=== PATIENT | male | born 1970 | race Two or more races ===

== ENCOUNTER 2024-08-01 02:24 | Inpatient (IN) | payer MEDICAID, SELFPAY ==
[2024-08-01] VITALS (13 sets, daily range): BP systolic 104–157; BP diastolic 67–107; PULSE 79–112; RESP 16–94; TEMP 36.4–36.9; O2SAT 95–97; BMI 38.0
--- NOTE | 2024-08-01 02:49 | XR_ITS ---
Examination: PA chest single view Technique: Upright PA chest single view Exam date and time: August 01, 2023 0301 hrs. Comparison July 14, 2024 Indications: Onset SOB today. Findings: Mild heart failure Mild enlargement cardiac contour Prominent vascular congestion Early septal edema at the lung bases Suspicious for superimposed early pneumonia right base The osseous structures are intact Impression: Mild heart failure Suspicious for superimposed early pneumonia right base
--- NOTE | 2024-08-01 02:49 | EDNOTE_ITS ---
ED General RME/HPI General Chief complaint: Shortness of Breath/Dyspnea Stated complaint: SOB Time Seen by Provider: 08/01/24 02:44 Arrival date/time: 08/01/24 02:24 RME / HPI RME / HPI narrative: This section includes all my notes and documentations, including HPI, PE, and ED course. Lc Hillman MD HPI: 54yo male with pmhx CHF, HTN, alcohol and drug abuse, anxiety presents to the ED for a chief complaint of shortness of breath. Patient does not specify for how long he's had shortness of breath. Patient states I'm fucking crazy and have full blown alcohol and drug abuse, I do it all . He states he smokes and chews tobacco. Reports associated chest pain. He denies any cough, SI, HI or any other associated symptoms. Patient notes I have been sleeping under a tree for the last 10 months . Patient has not been compliant with his medications. No other complaints reported. ROS: Respiratory: negative except as documented in HPI. Gastrointestinal: negative except as documented in HPI. Genitourinary: negative except as documented in HPI. Musculoskeletal: negative except as documented in HPI. Skin: negative except as documented in HPI. Neurological: negative except as documented in HPI. Physical Exam: General: Alert and oriented. No acute distress. Eyes: Conjunctivae and lids clear. ENT: No nasal congestion. Neck: Supple. No JVD. Heart: RRR. Lungs: No respiratory distress. Moderately decreased air movement. No significant rhonchi, wheezing, rales. Chest: No tenderness. Abdomen: Soft and nontender. Legs: No clubbing, cyanosis, edema. Skin: Warm and dry. Neuro: Alert and oriented X 3. I reviewed all diagnostic test results. My interpretation of the EKG is sinus rhythm with nonspecific ST-T changes. Blood tests remarkable for elevated troponin and elevated BNP. At this point, diagnoses include CHF and elevated troponin. I discussed the case with our hospitalist. About the presentation and exam and diagnostics and treatments here. And need of further care in the hospital. Will accept the patient. Lc Hillman MD Related Data Previous Rx's ?Medication ?Instructions ?Recorded amlodipine 5 mg tablet 10 mg (2 x 5 mg) PO QDAY #60 tabs 09/15/23 losartan 25 mg tablet 25 mg PO QDAY #30 tabs 09/15/23 doxycycline monohydrate 100 mg 100 mg PO BID #10 caps 05/17/24 capsule Allergies Allergy/AdvReac Type Severity Reaction Status Date / Time No Known Allergies Allergy Verified 09/14/23 04:48 Review of Systems Review of Systems Systems Reviewed: All systems reviewed, normal except as documented Past Medical History Past Medical History CARDIAC: Positive Cardiac Disorders and Hypertension; Negative Congestive Heart Failure RESPIRATORY: Negative Chronic Obstructive Pulmonary Disease (COPD) GENITOURINARY: Positive Kidney Stones; Negative Renal Disease ENDOCRINE: Negative Diabetes Mellitus Type 1 or Diabetes Mellitus Type 2 PSYCHO/SOCIAL: Positive Depression and Anxiety Social History SMOKING STATUS: Current every day smoker SUBSTANCE USE: does not use ED Exam Narrative Physical exam: As noted in HPI. Course Course Course Narrative: CXR is ordered for determining the etiology of chest pain. Quality Measures none Orders Category Date Time Status Admit to Inpatient Status Routine Admission 08/01/24 05:20 Active Patient Condition Routine Admission 08/01/24 05:20 Ordered Activity as Tolerated Routine Care 08/01/24 05:20 Ordered Bedside COVID-19 Antigen Test NOW Care 08/01/24 05:14 Active COVID-19 Screening Questionnaire NOW Care 08/01/24 05:05 Active Continuous Pulse Oximetry NOW Care 08/01/24 05:20 Active Decision to Admit X1 Care 08/01/24 05:05 Active EKG (ED ONLY) *Do not use* NOW Care 08/01/24 02:50 Completed Notify provider NEEDED Care 08/01/24 05:20 Active Obtain weight daily Care 08/01/24 05:20 Active Consult to Cardiology Stat Cons 08/01/24 05:27 Ordered Diet Cardiac Diet 08/01/24 Breakfast Active CA echo doppler complete Routine Exams 08/01/24 05:24 Ordered EKG (ED Only) Stat Exams 08/01/24 02:50 Draft XR chest 1V portable Stat Exams 08/01/24 02:49 Taken Alcohol, Blood Medical Stat Lab 08/01/24 03:17 Completed BNP [B-Type Natriuretic Peptide] Stat Lab 08/01/24 03:17 Completed CBC AM DRAW Lab 08/02/24 05:00 Ordered CBC AM DRAW Lab 08/03/24 05:00 Ordered CBC AM DRAW Lab 08/04/24 05:00 Ordered CBC Stat Lab 08/01/24 03:17 Completed CMP [Comprehensive Metabolic Panel] Stat Lab 08/01/24 03:17 Completed Comprehensive Metabolic Panel AM DRAW Lab 08/02/24 05:00 Ordered Comprehensive Metabolic Panel AM DRAW Lab 08/03/24 05:00 Ordered Comprehensive Metabolic Panel AM DRAW Lab 08/04/24 05:00 Ordered Drug Screen,Urine Stat Lab 08/01/24 02:50 Ordered Lipid Panel AM DRAW Lab 08/02/24 05:00 Ordered Magnesium AM DRAW Lab 08/02/24 05:00 Ordered Magnesium Stat Lab 08/01/24 03:17 Completed Partial Thromboplastin Time AM DRAW Lab 08/02/24 05:00 Ordered Phosphorous AM DRAW Lab 08/02/24 05:00 Ordered Prothrombin Time with INR AM DRAW Lab 08/02/24 05:00 Ordered Thyroid Stimulating Hormone Routine Lab 08/02/24 05:23 Ordered Troponin I Q6H Lab 08/01/24 10:00 Ordered Troponin I Q6H Lab 08/01/24 16:00 Ordered Troponin I Stat Lab 08/01/24 03:17 Completed Troponin I Stat Lab 08/01/24 04:55 Received Acetaminophen Tab [Tylenol Tab] Med 08/01/24 05:20 Active 650 mg PO Q6H PRN Aspirin Med 08/01/24 05:25 Discontinued 325 mg PO X1 ONE Atorvastatin Calcium [Lipitor] Med 08/01/24 05:26 Discontinued 80 mg PO X1 ONE Heparin Inj Med 08/01/24 06:00 Ordered 5,000 unit SC Q8HR Morphine Inj Med 08/01/24 05:20 Active 2 mg IVP Q4H PRN Nitroglycerin [Nitro-dur Patch] Med 08/01/24 05:26 Discontinued 0.4 mg TOP X1 ONE Ondansetron Inj [Zofran Inj] Med 08/01/24 05:20 Ordered 4 mg IV Q6H PRN Pantoprazole [Protonix] Med 08/01/24 09:00 Ordered 40 mg PO QDAY Thiamine Inj [Vitamin B-1 Inj] Med 08/01/24 05:34 Discontinued 100 mg IM X1 ONE Code Status Routine Oth 08/01/24 05:20 Ordered Oxygen Delivery PRN RT 08/01/24 05:20 Active Vital Signs Vital signs: Vital Signs Temperature 98.4 F 08/01/24 02:36 Pulse Rate 102 H 08/01/24 02:36 Respiratory Rate 19 08/01/24 02:36 Blood Pressure 138/97 H 08/01/24 02:36 Pulse Oximetry (%) 96 08/01/24 02:36 Oxygen Delivery Method Room Air 08/01/24 02:36 Pulse ox is 96% on room air, which is normal according to my interpretation. [facility] Patient data External records reviewed:: [facility] previous records (Per chart review, patient was seen here on 07/14/24 for chest pain.) Clinical information provided by:: patient Social determinants that could affect healthcare access:: substance use (smokes/chews tobacco, drinks alcohol and uses illicit drugs persistently per pt) Patient has the following chronic illnesses:: CHF, HTN, anxiety How is presenting disease/condition affected by chronic disease/condition?: e xacerbated by Evaluation data The following diagnostics were reviewed and interpreted by me:: lab results, radiology exam(s) and EKG tracing(s) (My interpretation of the EKG is: Sinus rhythm (99 bpm) with nonspecific ST-T changes. Lc Hillman MD) Lab and/or radiology exams considered but not ordered:: none Interpretation Summary: See HPI. Medications Medications considered but not ordered:: none Medication administrations:: Medication Administration History Acetaminophen (Acetaminophen 325 Mg Tablet) 650 mg PO Q6H PRN PRN Reason: Fever >101.5 Stop: 08/31/24 05:19 Heparin Sodium (Porcine) (Heparin Sod Inj 5000 Unit/Ml Vial) 5,000 unit SC Q8HR [facility] Stop: 08/15/24 05:59 Morphine Sulfate (Morphine Sulf Inj 10 Mg/Ml Vial) 2 mg IVP Q4H PRN PRN Reason: PAIN SCALE 7-10 (Severe Stop: 08/06/24 05:19 Ondansetron HCl (Ondansetron Inj 2 Mg/Ml Inj 2 Ml) 4 mg IV Q6H PRN; Protocol PRN Reason: NAUSEA OR VOMITING Stop: 08/31/24 05:19 Pantoprazole Sodium (Pantoprazole 40 Mg Tablet) 40 mg PO QDAY [facility] Stop: 08/31/24 08:59 Discontinued Medications Aspirin (Aspirin 325 Mg Tablet) 325 mg PO X1 ONE Stop: 08/01/24 05:26 Atorvastatin Calcium (Atorvastatin Calcium 20 Mg Tablet) 80 mg PO X1 ONE Stop: 08/01/24 05:27 Nitroglycerin (Nitroglycerin 0.4 Mg/Hr Patch.Td24) 0.4 mg TOP X1 ONE Stop: 08/01/24 05:27 Thiamine HCl (Thiamine Inj 100 Mg/Ml Vial 2 Ml) 100 mg IM X1 ONE Stop: 08/01/24 05:35 see above, if any Consultations Consultation(s) initiated? (list below): Yes Consultation #1 (Physician, Specialty, Details): See HPI. Diagnosis Differential Diagnosis ED Complaint MDM: CHF exacerbation, drug intoxication, alcohol intoxication, PE, pneumonia Most likely diagnosis given after review of the tests above:: see below Admission Indicated Admission indicated?: indicated Explain why admission is indicated or not indicated:: See HPI. Admission Request Was there a request for admission?: Yes Admission Attestation Admission request attestation: Discussed case with [] from Hospitalist service regarding admission. Discussed patients ED course, exam findings, labs, and radiology results. The Hospitalist [agrees,declines] to accept the patient for admission. Disposition Plan Disposition Plan: Admit Medical Decision Making Differential Diagnosis Differential Diagnosis: CHF exacerbation, drug intoxication, alcohol intoxication, PE, pneumonia Lab Data 08/01/24 03:17 08/01/24 03:17 Labs: Lab Results 08/01/24 Range/Units 03:17 WBC 10.2 (3.8-10.6) Thou/mm3 RBC 4.84 (4.50-5.90) Miln/mm3 Hgb 15.2 (13.5-16.0) g/dL Hct 44.1 (41.0-53.0) % MCV 91 (80-100) fL MCH 31.4 (25.0-35.0) pg MCHC 34.5 (31.0-37.0) g/dl RDW Std Deviation 46.1 H (35.1-43.9) fL Plt Count 273 (140-440) Thou/mm3 Neut % (Auto) 60 (37-80) % Lymph % (Auto) 29 (10-50) % [place] % (Auto) 8 (0-12) % Eos % (Auto) 3 (0-10) % Baso % (Auto) 0 (0-2.5) % Neut # (Auto) 6.1 (1.8-7.7) Thou/mm3 Lymph # (Auto) 2.9 (1.0-4.8) Thou/mm3 [place] # (Auto) 0.8 (0.0-0.8) Thou/mm3 Eos # (Auto) 0.3 (0.0-0.5) Thou/mm3 Baso # (Auto) 0.0 (0.0-0.2) Thou/mm3 Immature Gran # (Auto) 0.02 H (0.00-0.00) Thou/mm3 Absolute Nucleated RBC 0.00 (0.00-0.00) Thou/mm3 Immature Gran % 0 (0-0) % Nucleated RBC % 0 (0) /100 WBC Sodium 139 (136-145) mMol/L Potassium 3.9 (3.4-5.1) mMol/L Chloride 108 H (98-107) mMol/L Carbon Dioxide 25.8 (20.0-31.0) mMol/L Anion Gap 5 L (7-16) BUN 13 (9-23) mg/dL Creatinine 1.0 (0.6-1.3) mg/dL Estim Creat Clear Calc 105.6 (>60) mL/min eGFR > 60 (60 - ) See Note BUN/Creatinine Ratio 13 (12-20) Ratio Glucose 110 H (74-106) mg/dL Calculated Osmolality 278 (275-295) Calcium 8.7 (8.3-10.6) mg/dL Corrected Calcium 8.7 (8.5-10.1) mg/dL Magnesium 2.0 (1.6-2.6) mg/dL Total Bilirubin 0.8 (0.3-1.2) mg/dL AST 48 H (0-34) U/L ALT 49 (10-49) U/L Alkaline Phosphatase 72 (46-116) U/L Troponin I 0.287 H* (0.0-0.045) ng/mL B-Natriuretic Peptide 368 H (0-100) pg/mL Total Protein 6.6 (5.7-8.2) gm/dL Albumin 4.0 (3.5-5.0) gm/dL Globulin 2.6 (2.3-3.5) gm/dL Albumin/Globulin Ratio 1.5 (1.2-2.2) Ethyl Alcohol < 3.0 (0-10.0) mg/dL Discharge Plan Plan Patient Disposition: Admit Acute Care w/in Hospital Prescriptions/Referrals Prescriptions/Med Rec: No Action amlodipine 5 mg Tablet 10 mg PO QDAY Qty: 60 2RF losartan 25 mg Tablet 25 mg PO QDAY Qty: 30 2RF doxycycline monohydrate 100 mg capsule 100 mg PO BID Qty: 10 0RF Problem List Clinical Impression: Chest pain, Elevated troponin, CHF (congestive heart failure) Patient/Caregiver Discharge Instructions Print Language: [place] Stand Alone Forms: Colleen Award Info., Patient Portal Info Letter
--- NOTE | 2024-08-01 02:50 | EKG_ITS ---
[facility] Test Date: 2024-08-01 Pat Name: JULIA MORAN Department: Room: - Gender: Male [employer]er: : 1970 Requested By: Lc Leon Order Number: [id number] Reading MD: Lc Leon Measurements Intervals [place] Rate: 99 P: 38 DC: 156 QRS: -54 QRSD: 89 T: 64 QT: 356 QTc: 457 Interpretive Statements SINUS RHYTHM LEFT ANTERIOR FASCICULAR BLOCK [QRS AXIS <= -45, QR IN I, RS IN II] MINIMAL VOLTAGE CRITERIA FOR LVH, CONSIDER NORMAL VARIANT [MEETS CRITERIA IN ONE OF: R(aVL), S(V1), R(V5), R(V5/V6)+S(V1)] POSSIBLE ANTERIOR MYOCARDIAL INFARCTION , OF INDETERMINATE AGE [30 ms Q WAVE IN V3/V4, OR R < 0.2 mV IN V4] Compared to ECG 07/14/2024 17:02:09 Left anterior fascicular block now present Myocardial infarct finding now present Left-axis deviation no longer present T-wave abnormality no longer present /store/S0/[id number]/ecg/[id number].pdf
[2024-08-01 03:37] LABS: Basophils % (Auto) 0 % (0-2.5); Eosinophils # (Auto) 0.3 Thou/mm3 (0.0-0.5); Eosinophils % (Auto) 3 % (0-10); Hematocrit 44.1 % (41.0-53.0); Hemoglobin 15.2 g/dL (13.5-16.0); Immature Granulocytes % (Auto) 0 % (0-0); Immature Granulocytes Auto 0.02 Thou/mm3 (0.00-0.00); Lymphocytes # (Auto) 2.9 Thou/mm3 (1.0-4.8); Lymphocytes % (Auto) 29 % (10-50); Mean Corpuscular HGB Conc 34.5 g/dl (31.0-37.0); Mean Corpuscular Hemoglobin 31.4 pg (25.0-35.0); Mean Corpuscular Volume 91 fL (80-100); Monocytes # (Auto) 0.8 Thou/mm3 (0.0-0.8); Monocytes % (Auto) 8 % (0-12); Neutrophils # (Auto) 6.1 Thou/mm3 (1.8-7.7); Neutrophils % (Auto) 60 % (37-80); Nucleated Red Blood Cell % 0 /100 WBC (0); Platelet Count 273 Thou/mm3 (140-440); RDW Standard Deviation 46.1 fL (35.1-43.9); Red Blood Count 4.84 Miln/mm3 (4.50-5.90); White Blood Count 10.2 Thou/mm3 (3.8-10.6)
[2024-08-01 03:59] LABS: B-Type Natriuretic Peptide 368 pg/mL (0-100)
[2024-08-01 04:04] LABS: Alanine Aminotransferase 49 U/L (10-49); Albumin/Globulin Ratio 1.5 (1.2-2.2); Alcohol, Blood Medical < 3.0 mg/dL (0-10.0); Alkaline Phosphatase 72 U/L (46-116); Anion Gap 5 (7-16); Aspartate Amino Transferase 48 U/L (0-34); BUN/Creatinine Ratio 13 Ratio (12-20); Bilirubin,Total 0.8 mg/dL (0.3-1.2); Blood Urea Nitrogen 13 mg/dL (9-23); Calcium 8.7 mg/dL (8.3-10.6); Calcium (Corrected) 8.7 mg/dL (8.5-10.1); Carbon Dioxide 25.8 mMol/L (20.0-31.0); Chloride 108 mMol/L (98-107); Estimated Creatinine Clearance 105.6 mL/min (>60); Globulin 2.6 gm/dL (2.3-3.5); Glucose 110 mg/dL (74-106); Osmolality,Calculated 278 (275-295); Potassium 3.9 mMol/L (3.4-5.1); Sodium 139 mMol/L (136-145); Total Protein 6.6 gm/dL (5.7-8.2); eGFR > 60 See Note
[2024-08-01 04:10] LABS: Troponin I 0.287 ng/mL (0.0-0.045)
--- NOTE | 2024-08-01 05:29 | ESHP_ITS ---
Documentation for date of: 08/01/24 HPI History of Present Illness History of present illness: 54-year-old homeless male patient with significant medical history for CHF, hypertension, anxiety, alcohol and drug abuse came to ED for chest pain and chills. Patient is a poor historian who states he was sleeping under a tree when he started having severe substernal chest pain. Patient states that he was recently admitted at [facility] where he was found to have a EF of 31% and needed further procedures but patient left AMA. Patient was most recently admitted [facility] September 2023 for hypertensive urgency, since then has had multiple ED visits for chest pain. Patient states that he has been sniffing the white stuff and drinking alcohol for the last few days. ED vitals significant for BP 138/97 and pulse of 102. CBC was unremarkable, CHEM labs significant for glucose 110, AST 48, BNP 368, troponin 0.28 and ethyl alcohol < 3. EKG indicated sinus rhythm with VR of 99, WI 156, QTc 457 with left anterior fascicular block. CXR indicative of vascular congestion. Patient will be admitted to telemetry for observation. Review of Systems Review of Systems ROS Unobtainable: unobtainable due to mental status Exam Vital Signs Temp Pulse Resp BP Pulse Ox O2 Del Method 98.0 F 102 H 16 150/101 H 96 Room Air 08/01/24 05:05 08/01/24 02:36 08/01/24 05:05 08/01/24 05:05 08/01/24 05:05 08/01/24 05:05 Narrative Exam Constitutional: well-developed, well-nourished, in mild distress, lying in bed HEENT: NCAT, EOMI, reactive round pupils b/l, patent nares b/l, moist mucous membranes Lung: CTAB, no wheezing, no rhonchi Heart: Regular S1S2, no murmurs, gallops, or rubs Abdomen: Soft, obese, non-tender, bowel sounds present Extremities: No cyanosis, clubbing, 1-2+ pitting edema of LE, pulses of LE present b/l Neurologic: AOx2, rest unable to perform due to patient's mental status Skin: Warm, dry, no lesions or rashes noted Results: Labs 08/01/24 03:17 08/01/24 03:17 Labs: Short CBC 08/01/24 Range/Units 03:17 WBC 10.2 (3.8-10.6) Thou/mm3 Hgb 15.2 (13.5-16.0) g/dL Hct 44.1 (41.0-53.0) % Plt Count 273 (140-440) Thou/mm3 BMP 08/01/24 03:17 Sodium 139 Potassium 3.9 Chloride 108 H Carbon Dioxide 25.8 BUN 13 Creatinine 1.0 Glucose 110 H Calcium 8.7 Cardiac Enzymes 08/01/24 Range/Units 03:17 Troponin I 0.287 H* (0.0-0.045) ng/mL Liver Function 08/01/24 Range/Units 03:17 Total Bilirubin 0.8 (0.3-1.2) mg/dL AST 48 H (0-34) U/L ALT 49 (10-49) U/L Alkaline Phosphatase 72 (46-116) U/L Albumin 4.0 (3.5-5.0) gm/dL Quality Measures Quality Measures none Medications Home Medications and Allergies Allergies Allergy/AdvReac Type Severity Reaction Status Date / Time No Known Allergies Allergy Verified 09/14/23 04:48 Visit Medications Acetaminophen (Acetaminophen 325 Mg Tablet) 650 mg PO Q6H PRN PRN Reason: Fever >101.5 Stop: 08/31/24 05:19 Heparin Sodium (Porcine) (Heparin Sod Inj 5000 Unit/Ml Vial) 5,000 unit SC Q8HR [facility] Stop: 08/15/24 05:59 Morphine Sulfate (Morphine Sulf Inj 10 Mg/Ml Vial) 2 mg IVP Q4H PRN PRN Reason: PAIN SCALE 7-10 (Severe Stop: 08/06/24 05:19 Ondansetron HCl (Ondansetron Inj 2 Mg/Ml Inj 2 Ml) 4 mg IV Q6H PRN; Protocol PRN Reason: NAUSEA OR VOMITING Stop: 08/31/24 05:19 Pantoprazole Sodium (Pantoprazole 40 Mg Tablet) 40 mg PO QDAY [facility] Stop: 08/31/24 08:59 Discontinued Medications Aspirin (Aspirin 325 Mg Tablet) 325 mg PO X1 ONE Stop: 08/01/24 05:26 Atorvastatin Calcium (Atorvastatin Calcium 20 Mg Tablet) 80 mg PO X1 ONE Stop: 08/01/24 05:27 Nitroglycerin (Nitroglycerin 0.4 Mg/Hr Patch.Td24) 0.4 mg TOP X1 ONE Stop: 08/01/24 05:27 Assessment & Plan Plan 54-year-old homeless male patient with significant medical history for CHF, hypertension, anxiety, alcohol and drug abuse came to ED for chest pain and chills. Patient is a poor historian who states he was sleeping under a tree when he started having severe substernal chest pain. Patient states that he was recently admitted at [facility] where he was found to have a EF of 31% and needed further procedures but patient left AMA. Patient was most recently admitted [facility] September 2023 for hypertensive urgency, since then has had multiple ED visits for chest pain. Patient states that he has been sniffing the white stuff and drinking alcohol for the last few days. ED vitals significant for BP 138/97 and pulse of 102. CBC was unremarkable, CHEM labs significant for glucose 110, AST 48, BNP 368, troponin 0.28 and ethyl alcohol < 3. EKG indicated sinus rhythm with VR of 99, WI 156, QTc 457 with left anterior fascicular block. CXR indicative of vascular congestion. Patient will be admitted to telemetry for observation. #Chest pain #Troponinemia type I vs type II demand ischemia On admission patient complaining of substernal chest pain Patient with history of alcohol and drug abuse On admission patient states that he has been sniffing the white stuff for the last few days Admission labs significant for troponin 0.28 Plan: ? Admit to telemetry observation ? Trend troponin ? Load aspirin and atorvastatin ? Echocardiogram ordered ? Tobacco Farmworker Dr. Quarles consulted, recommendations are greatly appreciated ? Nitroglycerin patch and morphine for pain management ? Obtain medical history from [facility] ? Follow-up CBC and CMP #CHF (? EF 31%) #Elevated BNP Patient with history of alcohol and drug abuse Patient states that he was recently admitted at [facility] and was found to have a EF of 31% Admission labs significant for BNP 367 and chest x-ray indicative of vascular congestion Physical exam significant for pitting edema of lower extremities Plan: ? Strict ins and outs - Lasix 40 mg IV BID ? Echocardiogram ordered ? Cardiology consulted, recommendations are greatly appreciated ? Maintain magnesium >2 and potassium > 4 ? Obtain medical records from [facility] ?Low-salt cardiac diet #Alcohol use disorder #Methamphetamine abuse history On admission patient stating that for the last few days he has been drinking alcohol and using various drugs Plan: ? CIWA protocol ordered ? Educated patient on abstinence of alcohol and drug use ? Drug toxicology pending ? Consider geriatric social work professor #History of hypertension Plan: Restart home med after reconciliation Health Maintenance Dispo: Patient admitted for tele obs for chest pain, automatic lehr operator consulted Diet: cardiac DVT/PPx: Heparin GI ppx: Protonix Lines:PIV Code Status: Full Code This patient care was discussed with my attending Dr. Rohith Brown MD PGY-2 Disclaimer: Minor errors in wafer mounter may be present since this note was dictated by speech recognition software. Attending Provider Attestation/Addendum I reviewed labs, imaging, EKG, home medications and prior available records. Face to face evaluation was performed by me. I have personally examined the patient and discussed assessment and plan with the IM team. I reviewed the resident note and agree with the plan with exceptions as below. 54-year-old male with history of heart failure with severely reduced EF, CAD, and polysubstance abuse, who presented with a chief complaint of chest pain, nausea, and vomiting. He was found to have non-STEMI. Non-STEMI: In the setting of known history of CAD. Patient was planned for cardiac catheterization however he left the [facility] AMA. Likely in the setting of substance abuse. Started the patient on aspirin load and atorvastatin. Consulted cardiology for further recommendations. Continue telemetry. CHF exacerbation: He does have vascular congestion on chest x-ray and elevated BNP. Likely in setting of medication noncompliance. Started IV diuresis. Monitor I's and O's. Consulted cardiology. Polysubstance abuse: He reported using marijuana and other substances which might be related to his initial complaint. He also reported significant alcohol drinking. Counseled the patient regarding the importance of drinking within limits and avoiding illicit drugs.
[2024-08-01 05:53] LABS: Troponin I 0.277 ng/mL (0.0-0.045)
[2024-08-01] MEDS: Aspirin 325 MG TABLET PO (06:25)
[2024-08-01] MEDS: HEPARIN SOD INJ 5000 UNIT/ML VIAL SC (06:33)
[2024-08-01] MEDS: FUROSEMIDE INJ 10 MG/ML 4ML VIAL 40 MG IVP (06:44)
[2024-08-01] MEDS: ATORVASTATIN CALCIUM 20 MG TABLET 80 MG PO (06:48)
[2024-08-01] MEDS: THIAMINE INJ 100 MG/ML VIAL 2 ML IM (07:19)
--- NOTE | 2024-08-01 07:25 | PC.NURSE ---
provider called in regards to order for nitro patch, provider states they will adjust order.
--- NOTE | 2024-08-01 07:51 | PC.NURSE ---
BREAKFAST TRAY PROVIDED.
[2024-08-01] MEDS: NITROGLYCERIN OINT 2% 1 INCH PACKET TOP (08:08)
[2024-08-01] MEDS: LORazepam 2 MG/ML VIAL IV (08:14)
[2024-08-01] MEDS: ONDANSETRON INJ 2 MG/ML INJ 2 ML 4 MG IV (08:19)
[2024-08-01] MEDS: FOLIC ACID 1 MG TABLET PO (08:20)
[2024-08-01] MEDS: PANTOPRAZOLE 40 MG TABLET PO (08:20)
[2024-08-01] MEDS: THIAMINE 100 MG TABLET PO (08:20)
--- NOTE | 2024-08-01 09:29 | ESCONSULT_ITS ---
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 Stover PGY 2 not much you can contribute to this patient's care initially compliant with diuretics and also stay away from methamphetamine we will sign off the case unless the patient presents any further problems. HPI Data of Consult Requesting Physician: Lenard Newberry MD Admitting Provider: Lenard Newberry MD Attending Provider: Lenard Newberry MD Primary Care Provider: Physician No Primary/Family Consult Narrative Reason for consult: Acute CHF exacerbation History of present illness: 54-year-old homeless male patient with significant medical history for CHF, hypertension, anxiety, alcohol and drug abuse came to ED for chest pain and chills. Patient is a poor historian who states he was sleeping under a tree when he started having severe substernal chest pain. Patient states that he was recently admitted at [facility] where he was found to have a EF of 31% and needed further procedures but patient left AMA. Patient was most recently admitted [facility] September 2023 for hypertensive urgency, since then has had multiple ED visits for chest pain. Patient states that he has been sniffing the white stuff and drinking alcohol for the last few days. ED vitals significant for BP 138/97 and pulse of 102. CBC was unremarkable, CHEM labs significant for glucose 110, AST 48, BNP 368, troponin 0.28 and ethyl alcohol < 3. EKG indicated sinus rhythm with VR of 99, ME 156, QTc 457 with left anterior fascicular block. CXR indicative of vascular congestion. Patient will be admitted to telemetry for observation. PMH: As above SH: history of illicit drug use, drinks alcohol daily, history of meth use Allergies: NKDA Home medications: Metoprolol tartrate 50 mg twice daily, spironolactone 25 mg once a day, Lasix 40 mg twice daily, lisinopril 20 mg twice daily Cardiology team consulted for acute on chronic CHF exacerbation. Patient was seen and examined at the bedside in the ED.Patient was mildly short of breath on walking and was having severe leg cramps. He was not conversational and not responding to questions although he was alert and oriented. He was eating chips and having his breakfast. Patient has been peeing a lot and his urine was diluted seen and urinal. He was saturating well on room air. Vitals revealed mildly elevated blood pressure 141/81, heart rate 91 bpm and saturating 95% on room air. morning labs revealed stable white count and hemoglobin. Chemistry panel was unremarkable. BUN/creatinine stable. Mildly elevated AST at 48. Troponin I downtrending from 0.288--> 0.277 BNP 368. U tox was negative. Blood alcohol levels negative. Chest x-ray was concerning for superimposed early pneumonia right base and prominent vascular congestion. EKG showed sinus rhythm with QTc 457. Heart rate 156. Left anterior fascicular block. LVH. Left axis deviation. Primary team started [facility] protocol for alcohol withdrawal. Started on Lasix 40 IV twice daily strict HAILEE's and fluid restriction. Patient was given aspirin 325 mg on statin loading dose. Recommended to continue Lasix 40 mg IV twice daily continue patient's home medication switch to metformin succinate 50 mg twice daily, spironolactone 25 mg once a day, lisinopril 20 mg twice daily and we will follow-up on new echocardiogram. Echo from June 2024 from [facility] showed EF 30%. Patient has been noncompliant with his medication due to his social hardships. He underwent coronary angiogram on July 02, 2024 which was negative for CAD. No coronary intervention was performed. He does have severely decreased LV systolic function nonischemic cardiomyopathy. No plans of cardiac catheterization as patient has recently underwent coronary angiogram. Troponin leak is most likely NSTEMI type II. Will follow-up the case closely. Continue current regimen. Follow-up on new echocardiogram. cc:: cc: Lenard Newberry MD Review of Systems Review of Systems Systems Reviewed: All systems reviewed, normal except as documented Past Medical History Past Medical History CARDIAC: Positive Cardiac Disorders and Hypertension; Negative Congestive Heart Failure RESPIRATORY: Negative Chronic Obstructive Pulmonary Disease (COPD) GENITOURINARY: Positive Kidney Stones; Negative Renal Disease ENDOCRINE: Negative Diabetes Mellitus Type 1 or Diabetes Mellitus Type 2 PSYCHO/SOCIAL: Positive Depression and Anxiety Social History SMOKING STATUS: Current every day smoker SUBSTANCE USE: does not use Exam Vital Signs Temp Pulse Resp BP Pulse Ox O2 Del Method 98.3 F 91 18 141/81 H 95 Room Air 08/01/24 08:25 08/01/24 08:25 08/01/24 08:25 08/01/24 08:25 08/01/24 08:25 08/01/24 06:51 Narrative Exam GENERAL APPEARANCE: Patient is in mild distress standing on the bedside. Saturating well on room air. HEENT: NC, AT. MMM. EOMI, clear conjunctiva, oropharynx clear. JVD NECK: Supple without lymphadenopathy. No stiffness or restricted ROM. HEART: Regular rate and regular rhythm, normal S1/S2, no m/r/g LUNGS: Bilateral decreased breath sounds on auscultation. ABDOMEN: Soft, nontender, increased abdominal girth and distended with bulging flanks with good bowel sounds heard. BACK: No CVAT, no obvious deformity. EXTREMITIES: 2+ pitting edema on both lower ext up to the knee NEUROLOGICAL: Grossly nonfocal. Alert and oriented, moving all 4 extremities. CN not formally tested but appear grossly intact. Skin: Warm and dry without any rash. Results Labs 08/01/24 03:17 08/01/24 03:17 Labs: Short CBC 08/01/24 Range/Units 03:17 WBC 10.2 (3.8-10.6) Thou/mm3 Hgb 15.2 (13.5-16.0) g/dL Hct 44.1 (41.0-53.0) % Plt Count 273 (140-440) Thou/mm3 BMP 08/01/24 03:17 Sodium 139 Potassium 3.9 Chloride 108 H Carbon Dioxide 25.8 BUN 13 Creatinine 1.0 Glucose 110 H Calcium 8.7 Cardiac Enzymes 08/01/24 08/01/24 Range/Units 03:17 04:55 Troponin I 0.287 H* 0.277 H* (0.0-0.045) ng/mL Liver Function 08/01/24 Range/Units 03:17 Total Bilirubin 0.8 (0.3-1.2) mg/dL AST 48 H (0-34) U/L ALT 49 (10-49) U/L Alkaline Phosphatase 72 (46-116) U/L Albumin 4.0 (3.5-5.0) gm/dL Quality Measures Quality Measures VTE prophylaxis Medications Home Medications and Allergies Home Medications ?Medication ?Instructions ?Recorded ?Confirmed ?Type nitroglycerin 0.4 mg sublingual 0.4 mg buccal 1XD PRN Chest Pain 08/01/24 08/01/24 History tablet Allergies Allergy/AdvReac Type Severity Reaction Status Date / Time No Known Allergies Allergy Verified 09/14/23 04:48 Visit Medications Acetaminophen (Acetaminophen 325 Mg Tablet) 650 mg PO Q6H PRN PRN Reason: Fever >101.5 Stop: 08/31/24 05:19 Folic Acid (Folic Acid 1 Mg Tablet) 1 mg PO BID [facility] Stop: 08/06/24 08:59 Last Admin: 08/01/24 08:20 Dose: 1 mg Furosemide (Furosemide Inj 10 Mg/Ml 4ml Vial) 40 mg IVP BIDD [facility] Stop: 08/31/24 06:29 Last Admin: 08/01/24 06:44 Dose: 40 mg Heparin Sodium (Porcine) (Heparin Sod Inj 5000 Unit/Ml Vial) 5,000 unit SC Q8HR [facility] Stop: 08/15/24 05:59 Last Admin: 08/01/24 06:33 Dose: 5,000 unit Lorazepam (Lorazepam 2 Mg/Ml Vial) 0.5 mg IV Q4H PRN PRN Reason: CIWA 2-6 Lorazepam (Lorazepam 2 Mg/Ml Vial) 1 mg IV Q4H PRN PRN Reason: CIWA SCORE 7-11 Stop: 08/06/24 05:33 Lorazepam (Lorazepam 2 Mg/Ml Vial) 2 mg IV Q4H PRN PRN Reason: CIWA SCORE 12-15 Stop: 08/06/24 05:33 Last Admin: 08/01/24 08:14 Dose: 2 mg Lorazepam (Lorazepam 2 Mg/Ml Vial) 4 mg IVP Q4H PRN PRN Reason: CIWA 16-20 Morphine Sulfate (Morphine Sulf Inj 10 Mg/Ml Vial) 2 mg IVP Q4H PRN PRN Reason: PAIN SCALE 7-10 (Severe Stop: 08/06/24 05:19 Ondansetron HCl (Ondansetron Inj 2 Mg/Ml Inj 2 Ml) 4 mg IV Q6H PRN; Protocol PRN Reason: NAUSEA OR VOMITING Stop: 08/31/24 05:19 Last Admin: 08/01/24 08:19 Dose: 4 mg Pantoprazole Sodium (Pantoprazole 40 Mg Tablet) 40 mg PO QDAY [facility] Stop: 08/31/24 08:59 Last Admin: 08/01/24 08:20 Dose: 40 mg Thiamine HCl (Thiamine 100 Mg Tablet) 100 mg PO BID [facility] Stop: 08/06/24 08:59 Last Admin: 08/01/24 08:20 Dose: 100 mg Discontinued Medications Aspirin (Aspirin 325 Mg Tablet) 325 mg PO X1 ONE Stop: 08/01/24 05:26 Last Admin: 08/01/24 06:25 Dose: 325 mg Atorvastatin Calcium (Atorvastatin Calcium 20 Mg Tablet) 80 mg PO X1 ONE Stop: 08/01/24 05:27 Last Admin: 08/01/24 06:48 Dose: 80 mg Nitroglycerin (Nitroglycerin 0.4 Mg/Hr Patch.Td24) 0.4 mg TOP X1 ONE Stop: 08/01/24 05:27 Last Admin: 08/01/24 07:36 Dose: Not Given Nitroglycerin (Nitroglycerin Oint 2% 1 Inch Packet) 1 inch TOP X1 ONE Stop: 08/01/24 07:51 Last Admin: 08/01/24 08:08 Dose: 1 inch Thiamine HCl (Thiamine Inj 100 Mg/Ml Vial 2 Ml) 100 mg IM X1 ONE Stop: 08/01/24 05:35 Last Admin: 08/01/24 07:19 Dose: 100 mg Assessment & Plan Plan 54-year-old homeless male patient with significant medical history for CHF, hypertension, anxiety, alcohol and drug abuse came to ED for chest pain and chills. Patient is a poor historian who states he was sleeping under a tree when he started having severe substernal chest pain. Patient states that he was recently admitted at [facility] where he was found to have a EF of 31% and needed further procedures but patient left AMA. Cardiology team consulted for acute on chronic CHF exacerbation. # HFrEF with nonischemic cardiomyopathy EF 30% # Medication noncompliance # Substance abuse disorder # Elevated BNP Patient with history of alcohol and drug abuse Patient states that he was recently admitted at [facility] and was found to have a EF of 31% Admission labs significant for BNP 367 and chest x-ray indicative of vascular congestion Physical exam significant for pitting edema of lower extremities Plan: ?Recommended to continue Lasix 40 mg IV twice daily continue patient's home medication metoprolol succinate 50 mg twice daily, spironolactone 25 mg once a day, lisinopril 20 mg twice daily and we will follow-up on new echocardiogram. Echo from June 2024 from [facility] showed EF 30%. Patient has been noncompliant with his medication due to his social hardships. He underwent coronary angiogram on July 02, 2024 which was negative for CAD. No coronary intervention was performed. He does have severely decreased LV systolic function nonischemic cardiomyopathy. ? Strict ins and outs, fluid restriction and daily weight ? Maintain magnesium >2 and potassium > 4 ? Low-salt cardiac diet ?Daily labs #Chest pain #NSTEMI type II likely supply demand ischemia On admission patient complaining of substernal chest pain Patient with history of alcohol and drug abuse On admission patient states that he has been sniffing the white stuff for the last few days Admission labs significant for troponin 0.28 Echo from June 2024 from [facility] showed EF 30%. Patient has been noncompliant with his medication due to his social hardships. He underwent coronary angiogram on July 02, 2024 which was negative for CAD. No coronary intervention was performed. He does have severely decreased LV systolic function nonischemic cardiomyopathy. Plan: ? Troponin I downtrended ? Follow up on Echocardiogram ? Nitroglycerin patch and morphine for pain management ? Follow-up CBC and CMP #History of hypertension ?Patient was prescribed metoprolol tartrate 25 twice daily and lisinopril 20 mg twice daily #Alcohol use disorder #Methamphetamine abuse history Rest of the management as per primary care team. Thank you very much for consulting cardiology team. Recommended to continue diuresis with IV Lasix 40 mg twice daily, switch to metoprolol succinate 50 twice daily and initial management remains same. Will follow-up the case closely. -- Plan of care discussed with music therapy specialist, Dr. Willam Stover MD, PGY 2
[2024-08-01 10:58] LABS: Troponin I 0.254 ng/mL (0.0-0.045)
[2024-08-01] MEDS: POTASSIUM CHLORIDE 20 mEq TABCR 40 MEQ PO (11:50)
[2024-08-01 12:46] LABS: Fentanyl Screen,Urine Negative (Negative)
[2024-08-01 13:00] LABS: Amphetamine/Methamp Scrn,U Positive (Negative); Barbiturate Screen,Urine Negative (Negative); Benzodiazepines Screen,Urine Negative (Negative); Benzoylecgonine Screen, Ur Negative (Negative); Opiate Screen,Urine Negative (Negative); THC Screen,Urine Positive (Negative)
--- NOTE | 2024-08-01 14:56 | ESPR_ITS ---
<Statement entered by Maxine Blum MD - 08/01/24 16:04> I discussed with and supervised the consultant internship physician who took care of this patient. I personally saw and examined the patient and discussed the assessment and plan with the entire medicine team, including my attending , I agree with most of the assessment and plan as documented below Maxine Blum M.D. PGY-2 Documentation for date of: 08/01/24 Subjective Subjective Interval history: 54-year-old homeless male patient with significant medical history for CHF, hypertension, anxiety, alcohol and drug abuse came to ED for chest pain and chills. Patient is a poor historian who states he was sleeping under a tree when he started having severe substernal chest pain. Patient states that he was recently admitted at [facility] where he was found to have a EF of 31% and needed further procedures but patient left AMA. Patient was most recently admitted [facility] September 2023 for hypertensive urgency, since then has had multiple ED visits for chest pain. Patient states that he has been sniffing the white stuff and drinking alcohol for the last few days. ED vitals significant for BP 138/97 and pulse of 102. CBC was unremarkable, CHEM labs significant for glucose 110, AST 48, BNP 368, troponin 0.28 and ethyl alcohol < 3. EKG indicated sinus rhythm with VR of 99, GA 156, QTc 457 with left anterior fascicular block. CXR indicative of vascular congestion. Patient will be admitted to telemetry for observation. 08/01: No acute overnight events. At time of examination, patient resting comfortably in bed on his side. Difficult to rouse, will wake up for several seconds and respond with mumbled speech before falling asleep again. Fittings Tightener Dr. Quarles consulted, recommended starting patient's home medications related to cardiac function including Lasix, metoprolol, lisinopril, and spironolactone. Exam Vital Signs Temp Pulse Resp BP Pulse Ox O2 Del Method O2 Flow Rate 98.2 F 90 20 113/88 H 96 Room Air 2 08/01/24 14:50 08/01/24 14:50 08/01/24 14:50 08/01/24 14:50 08/01/24 14:50 08/01/24 14:50 08/01/24 12:45 Narrative Exam Gen: Somnolent, difficult to rouse, falling asleep while speaking, in no acute distress HEENT: NCAT, PERRLA, EOMI, MMM, anicteric conjunctivae. CVS: normal S1 and S2. RRR. No M/R/G. Resp: CTA B/L. No rhonchi, rales, crackles or wheezing. Abd: soft, large body habitus, non-tender, non-distended. BS+ in all 4 quadrants. MSK: Good ROM in BUE & BLE. No pitting edema noted in lower extremities, dorsal pedis pulses present 2+ bilaterally Psych: appropriate mood and affect. Objective Labs 08/01/24 03:17 08/01/24 03:17 Labs: Laboratory Results - last 24 hr 08/01/24 08/01/24 08/01/24 03:17 04:55 07:16 WBC 10.2 RBC 4.84 Hgb 15.2 Hct 44.1 MCV 91 MCH 31.4 MCHC 34.5 RDW Std Deviation 46.1 H Plt Count 273 Neut % (Auto) 60 Lymph % (Auto) 29 [place] % (Auto) 8 Eos % (Auto) 3 Baso % (Auto) 0 Neut # (Auto) 6.1 Lymph # (Auto) 2.9 [place] # (Auto) 0.8 Eos # (Auto) 0.3 Baso # (Auto) 0.0 Immature Gran # (Auto) 0.02 H Absolute Nucleated RBC 0.00 Immature Gran % 0 Nucleated RBC % 0 Sodium 139 Potassium 3.9 Chloride 108 H Carbon Dioxide 25.8 Anion Gap 5 L BUN 13 Creatinine 1.0 Estim Creat Clear Calc 105.6 eGFR > 60 BUN/Creatinine Ratio 13 Glucose 110 H Calculated Osmolality 278 Calcium 8.7 Corrected Calcium 8.7 Magnesium 2.0 Total Bilirubin 0.8 AST 48 H ALT 49 Alkaline Phosphatase 72 Troponin I 0.287 H* 0.277 H* B-Natriuretic Peptide 368 H Total Protein 6.6 Albumin 4.0 Globulin 2.6 Albumin/Globulin Ratio 1.5 Urine Opiates Screen Negative Urine Fentanyl Screen Negative Ur Barbiturates Screen Negative U Amphetamin/Meth Scrn Positive A U Benzodiazepines Scrn Negative U Cocaine Metab Screen Negative U Marijuana (THC) Screen Positive A Ethyl Alcohol < 3.0 08/01/24 10:15 WBC RBC Hgb Hct MCV MCH MCHC RDW Std Deviation Plt Count Neut % (Auto) Lymph % (Auto) [place] % (Auto) Eos % (Auto) Baso % (Auto) Neut # (Auto) Lymph # (Auto) [place] # (Auto) Eos # (Auto) Baso # (Auto) Immature Gran # (Auto) Absolute Nucleated RBC Immature Gran % Nucleated RBC % Sodium Potassium Chloride Carbon Dioxide Anion Gap BUN Creatinine Estim Creat Clear Calc eGFR BUN/Creatinine Ratio Glucose Calculated Osmolality Calcium Corrected Calcium Magnesium Total Bilirubin AST ALT Alkaline Phosphatase Troponin I 0.254 H* B-Natriuretic Peptide Total Protein Albumin Globulin Albumin/Globulin Ratio Urine Opiates Screen Urine Fentanyl Screen Ur Barbiturates Screen U Amphetamin/Meth Scrn U Benzodiazepines Scrn U Cocaine Metab Screen U Marijuana (THC) Screen Ethyl Alcohol Quality Measures Quality Measures VTE prophylaxis Assessment & Plan Assessment Current Active Medications: Generic Name Dose Route Start Last Admin Trade Name Freq PRN Reason Stop Dose Admin Acetaminophen 650 mg 08/01/24 05:20 Acetaminophen 325 Mg Tablet PO 08/31/24 05:19 Q6H PRN Fever >101.5 Folic Acid 1 mg 08/01/24 09:00 08/01/24 08:20 Folic Acid 1 Mg Tablet PO 08/06/24 08:59 1 mg BID MARLENE Administration Furosemide 40 mg 08/01/24 06:30 08/01/24 06:44 Furosemide Inj 10 Mg/Ml 4ml Vial IVP 08/31/24 06:29 40 mg BIDD [facility]LENE Administration Heparin Sodium (Porcine) 5,000 unit 08/01/24 06:00 08/01/24 06:33 Heparin Sod Inj 5000 Unit/Ml Vial SC 08/15/24 05:59 5,000 unit Q8HR [facility] Administration Lisinopril 20 mg 08/01/24 21:00 Lisinopril 20 Mg Tablet PO 08/31/24 20:59 BID MARLENE Lorazepam 2 mg 08/01/24 11:06 Lorazepam 2 Mg/Ml Vial IVP 08/06/24 11:05 Q2HR PRN CIWA SCORE 20-25 Lorazepam 1 mg 08/01/24 11:06 Lorazepam 2 Mg/Ml Vial IVP 08/06/24 11:05 Q2HR PRN CIWA SCORE 14-19 Lorazepam 0.5 mg 08/01/24 11:06 Lorazepam 2 Mg/Ml Vial IVP 08/06/24 11:05 Q2HR PRN CIWA SCORE 8-13 Metoprolol Succinate 50 mg 08/01/24 21:00 Metoprolol Succinate Xl 25 Mg Tabcr PO 08/31/24 20:59 BID MARLENE Morphine Sulfate 2 mg 08/01/24 05:20 Morphine Sulf Inj 10 Mg/Ml Vial IVP 08/06/24 05:19 Q4H PRN PAIN SCALE 7-10 (Severe Nitroglycerin 0.4 mg 08/01/24 10:11 Nitroglycerin 0.4 Mg Subl Btl #25 SL Q5MIN PRN CHEST PAIN Ondansetron HCl 4 mg 08/01/24 05:20 08/01/24 08:19 Ondansetron Inj 2 Mg/Ml Inj 2 Ml IV 08/31/24 05:19 4 mg Q6H PRN Administration NAUSEA OR VOMITING Protocol Pantoprazole Sodium 40 mg 08/01/24 09:00 08/01/24 08:20 Pantoprazole 40 Mg Tablet PO 08/31/24 08:59 40 mg QDAY [facility] Administration Spironolactone 25 mg 08/02/24 09:00 Spironolactone 25 Mg Tablet PO 09/01/24 08:59 QDAY [facility]E Thiamine HCl 100 mg 08/01/24 09:00 08/01/24 08:20 Thiamine 100 Mg Tablet PO 08/06/24 08:59 100 mg BID [facility]LENE Administration Plan 54-year-old homeless male patient with significant medical history for CHF, hypertension, anxiety, alcohol and drug abuse came to ED for chest pain and chills. Patient is a poor historian who states he was sleeping under a tree when he started having severe substernal chest pain. Patient states that he was recently admitted at [facility] where he was found to have a EF of 31% and needed further procedures but patient left AMA. Patient was most recently admitted [facility] September 2023 for hypertensive urgency, since then has had multiple ED visits for chest pain. Patient states that he has been sniffing the white stuff and drinking alcohol for the last few days. ED vitals significant for BP 138/97 and pulse of 102. CBC was unremarkable, CHEM labs significant for glucose 110, AST 48, BNP 368, troponin 0.28 and ethyl alcohol < 3. EKG indicated sinus rhythm with VR of 99, GA 156, QTc 457 with left anterior fascicular block. CXR indicative of vascular congestion. Patient will be admitted to telemetry for observation. #Atypical Angina #Elevated Troponins On admission patient complaining of substernal chest pain at rest Patient with history of alcohol and drug abuse On admission patient states that he has been using cocaine the last several days Admission labs significant for troponin 0.28 downtrending to 0.277 Plan: ? Admit to telemetry observation ? Troponins downtrending, no longer need to trend ? Load aspirin and atorvastatin ? Echocardiogram ordered, f/u on results ? Fittings Tightener Dr. Quarles consulted, appreciate recommendations ? Nitroglycerin patch and morphine prn pain #HFrEF, ejection fraction 30% #Elevated BNP Patient with history of alcohol and drug abuse Patient states that he was recently admitted at [facility] and was found to have a EF of 31% Admission labs significant for BNP 367 and chest x-ray indicative of vascular congestion Plan: ? Strict ins and outs ? Lasix 40 mg IV BID ? Echocardiogram ordered, f/u on results ? Cardiology consulted, recommendations are greatly appreciated ? Low-salt cardiac diet - Started metoprolol 50mg BID, lisinopril 20mg BID, and spironolactone 25mg QD #Alcohol use disorder #Methamphetamine abuse history On admission patient stating that for the last few days he has been drinking alcohol and using various drugs Plan: ? CIWA protocol ordered ? Educated patient on abstinence of alcohol and drug use ? Drug toxicology pending ? Consider social and human services assistant #Essential Hypertension Present prior to admission Plan: - Continue metoprolol 50mg BID and lisinopril 20mg BID Health maintenance: Disposition: Telemetry Diet: Cardiac GI prophylaxis: Protonix DVT prophylaxis: Heparin subQ Code: Full code Case disclosed with Attending Dr. Chacon and my senior Dr. Blum PGY2. Enrrique Randolph PGY1 Attending Provider Attestation/Addendum I have examined the patient, reviewed labs and imaging findings, discussed the case with the resident(s), and reviewed entered orders. I agree with the plan of care as outlined in this note, with these additional summaries/recommendations: Patient seen at bedside. Patient admitted overnight for anginal chest pain and elevated troponins. Patient received nitroglycerin and morphine with resolution of chest pain. Patient was started on aspirin loading dose then 81 mg p.o. daily as well as atorvastatin. Elevated troponin likely secondary to demand ischemia in the setting of continued substance abuse. Troponin peaked at 0.28 and down trended. Patient has history of HFrEF with EF 30% and patient was started on goal-directed medical therapy with preload reduction Lasix, neurohormonal blockade with metoprolol, and afterload reduction with lisinopril 20 mg. Echocardiogram ordered and cardiology consulted. Recommendations appreciated. Continue home antihypertensives. Patient has a lengthy history of polysubstance abuse and chronic alcohol use. CIWA in place. Patient was counseled on the importance of staying hospitalized for his cardiac symptoms although patient appeared uninterested. Discussed with patient that leaving AGAINST MEDICAL ADVICE could result in sudden cardiac and patient showed understanding. Continue to monitor on telemetry and EKG as needed if chest pain returns. Repeat hematology and chemistry panel in AM. Dr. Chacon
[2024-08-01 16:55] LABS: Troponin I 0.243 ng/mL (0.0-0.045)
--- NOTE | 2024-08-01 18:00 | PC.NURSE ---
pt refusing lasix at this time. pt states, can you turn that light off? and close the door, thank you. explained order and purpose for order of lasix to pt. pt states, nah I don't want that shit, you can get out thank you. encourage pt to take medication. pt states, I don't need that shit, this is the lifestyle I live. 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 med not given.
--- NOTE | 2024-08-01 18:10 | PC.NURSE ---
attempted to contact provider to notify pt is refusing med. no answer.
--- NOTE | 2024-08-02 15:16 | PD.RESEVENT ---
Documentation for date of: 08/02/24 Event Note Event Note: Mr. Carlyle Jordan is a 54y/o male with a past medical history of CHF, hypertension, anxiety, alcohol and drug abuse who was admitted from the ED on 07/31/2024 for substernal chest pain. Patient was a poor historian, but history taken indicating severe substernal chest pain and chills that had started on the day of admission. Patient stated that he had a recent admission to [facility] in [place] where he was found to have an ejectiion fraction of approximately 30%, but left AMA before proper treatment could be given. On arrival, he stated that he had been partaking in cocaine and alcohol, in addition to his noted history of marijuana and methamphetamine usage. He was mildly hypertensive and tachycardic on arrival, with a BNP 368 and elevated troponins which peaked at 0.28 and began downtrending. EKG showed sinus rhythm with no ST elevations or other acute abnormalities. Patient was given nitroglycerin and morphine for his pain, and cardiology was consulted to assist with further management. Patient's home medications were optimized as per goal-directed medical therapy. On 08/01/24, patient opted to sleep through several attempts at examinations by healthcare staff, waking up briefly when shaken, before falling back asleep after answering one or two questions. He began to refuse his medications during the day, telling the nurses to leave without giving him his guideline-based treatment. At approximately 20:00 hours on 08/01/24, patient stated that he would like to leave and go back [place] to drink more beer . He was informed that leaving AMA had the possibility of dangerous consequences to his health, potentially including , but patient refused to stay and left the hospital.
--- NOTE | 2024-08-04 09:32 | CHAP ---
Patient was just given medication by staff. He seemed in pain and did not seem to respond except to moan. I gave some words of comfort and prayer.
--- NOTE | 2024-08-04 16:23 | PC.CM ---
Pts chart accessed due, to follow up on time pt left AMA on 08/01/24.
== END 2024-08-04 20:00 | disposition left against medical advice (07) | DRG 770 ==
LOC: SERX 05:07 → SERHOLD 05:53
PROVIDERS: Internal Medicine; Admitting Provider Student in an Organized Health Care Education/Training Program; Emergency Provider Emergency Medicine; Visit Provider Student in an Organized Health Care Education/Training Program
DX: F15.10 Other stimulant abuse, uncomplicated (principal); I21.A1 Myocardial infarction type 2; I50.23 Acute on chronic systolic (congestive) heart failure; Z59.00 Homelessness unspecified; I42.7 Cardiomyopathy due to drug and external agent; I11.0 Hypertensive heart disease with heart failure; I20.9 Angina pectoris, unspecified; F41.9 Anxiety disorder, unspecified; Z91.148 Patient's other noncompliance with medication regimen for other reason; F17.200 Nicotine dependence, unspecified, uncomplicated; F10.10 Alcohol abuse, uncomplicated; Y90.0 Blood alcohol level of less than 20 mg/100 ml; F19.10 Other psychoactive substance abuse, uncomplicated; F12.10 Cannabis abuse, uncomplicated; F14.90 Cocaine use, unspecified, uncomplicated; Z53.29 Procedure and treatment not carried out because of patient's decision for other reasons
CPT/HCPCS: 36415; 71045; 80053; 80061; 80307; 80320; 83735; 83880; 84100; 84443; 84484; 85025; 85610; 85730; 87811; 93005; 96372; 96374; 96375; 99285; J1643; J1940; J2060; J2405; J3411; A9270; G0480; J1644

== ENCOUNTER 2024-08-04 06:34 | Emergency (ER) | payer MEDICAID, SELFPAY ==
[2024-08-04] VITALS (7 sets, daily range): BP systolic 127–181; BP diastolic 79–132; PULSE 86–106; RESP 16–18; TEMP 37; O2SAT 94–97; BMI 42.5
--- NOTE | 2024-08-04 06:44 | EDNOTE_ITS ---
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 Reports pain is located most to the left side of chest that radiates to his left arm. Described as pressure in sensation, rating 10/10. Per medics, patient given Aspirin, SL Nitro, and 1 Nitro paste with some improvement. Pain now 6/10. Patient admits to using cocaine 12 hours ago. Denies fevers, chills, sweats, abdominal pain, n/v/d, or urinary symptoms. Related Data Home Medications ?Medication ?Instructions ?Recorded ?Confirmed nitroglycerin 0.4 mg sublingual 0.4 mg buccal 1XD PRN Chest Pain 08/01/24 08/01/24 tablet Previous Rx's ?Medication ?Instructions ?Recorded amlodipine 5 mg tablet 10 mg (2 x 5 mg) PO QDAY #60 tabs 09/15/23 losartan 25 mg tablet 25 mg PO QDAY #30 tabs 09/15/23 doxycycline monohydrate 100 mg 100 mg PO BID #10 caps 05/17/24 capsule Allergies Allergy/AdvReac Type Severity Reaction Status Date / Time No Known Allergies Allergy Verified 09/14/23 04:48 Review of Systems Review of Systems Narrative Review of Systems: Gen: No fever, no chills, no weight loss EYES: No discharge, no visual changes, no pain HEENT: No ear pain, no congestion, no sore throat PULM: no shortness of breath, no cough, no congestion CV: +chest pain, no palpitations GI: No nausea, no vomiting, no diarrhea, no pain, no constipation : No frequency, no urgency,? no dysuria Musc/skel: No joint pain, no back pain Skin: No rash, no ecchymosis, no lesions Psyc: No hallucinations, no depression Heme/Lymph: No easy bleeding or bruising tendencies Neuro: No weakness, no headache Past Medical History Past Medical History CARDIAC: Positive Cardiac Disorders and Hypertension GENITOURINARY: Positive Kidney Stones PSYCHO/SOCIAL: Positive Depression and Anxiety Social History SMOKING STATUS: Current some day smoker SUBSTANCE USE: does not use ED Exam Narrative Physical exam: GENERAL APPEARANCE: AxOx4, no obvious distress, nontoxic appearing HEENT: NC, AT. MMM. EOMI, clear conjunctiva, oropharynx clear. NECK: Supple without lymphadenopathy. No stiffness or restricted ROM. HEART: Normal rate and regular rhythm, normal S1/S1, no m/r/g LUNGS: CTAB, moving air well. No crackles or wheezes are heard. ABDOMEN: Soft, nontender, nondistended with good bowel sounds heard. BACK: No midline C/T/L spine pain or deformity, No CVAT, no obvious deformity. EXTREMITIES: Without cyanosis, clubbing or edema. MUSCULOSKELETAL: FROM of all major joints, no chest tenderness NEUROLOGICAL: Grossly nonfocal. Alert and oriented, moving all 4 extremities. CN not formally tested but appear grossly intact. Skin: Warm and dry without any rash. Course Quality Measures none Orders Category Date Time Status EKG (ED ONLY) *Do not use* NOW Care 08/04/24 06:49 Completed EKG (ED ONLY) *Do not use* NOW Care 08/04/24 06:49 Completed EKG (ED Only) Stat Exams 08/04/24 06:49 Ordered EKG (ED Only) Stat Exams 08/04/24 06:49 Ordered CBC Stat Lab 08/04/24 06:53 Completed CMP [Comprehensive Metabolic Panel] Stat Lab 08/04/24 06:53 Completed Troponin I Stat Lab 08/04/24 06:53 Completed Troponin I Stat Lab 08/04/24 09:30 Completed Diazepam [Valium] Med 08/04/24 06:47 Discontinued 20 mg PO X1 ONE Sodium Chloride 0.9% 1000 ml [Ns] 1,000 ml Med 08/04/24 06:47 Discontinued IV 999 mls/hr Reevaluation(s) Reevaluation #1: Patient remains clinically stable throughout the emergency department visit. We reviewed all the results, analysis, and treatment plans. Patient is amenable to discharge. Strict return precautions were outlined. Patient was discharged in stable condition. Time: 10:15 Vital Signs Vital signs: Vital Signs Temperature 98.6 F 08/04/24 06:39 Pulse Rate 99 08/04/24 06:39 Respiratory Rate 18 08/04/24 06:39 Blood Pressure 181/132 H 08/04/24 06:39 Pulse Oximetry (%) 96 08/04/24 06:39 Oxygen Delivery Method Room Air 08/04/24 06:39 Pulse ox is 96% on room air which is adequate. Chest Pain MDM Narrative MDM Narrative:: Maria Victoria Serrano am scribing for and in the presence of Dr. Palacios. Patient data External records reviewed:: [facility] previous records (I reviewed ED visit on 08/01/2024 for chest pain and was admitted. However, left AMA on 07/23/2024. I reviewed the CXR from 3 days ago and shows cardiomegaly. ) and EMS form Clinical information provided by:: patient and EMS Social determinants that could affect healthcare access:: substance use (and alcohol use ) Patient has the following chronic illnesses:: CHF, HTN, alcohol and drug abuse Medication noncompliance How is presenting disease/condition affected by chronic disease/condition?: exacerbated by Evaluation data The following diagnostics were reviewed and interpreted by me:: lab results and EKG tracing(s) (Sinus rhythm, rate 98, no STEMI ) Lab and/or radiology exams considered but not ordered:: None Interpretation Summary: As noted above Medications / Prescriptions Medications or Prescriptions considered but not ordered:: None Medication administrations:: Medication Administration History Discontinued Medications Diazepam (Diazepam 5 Mg Tablet) 20 mg PO X1 ONE Stop: 08/04/24 06:48 Last Admin: 08/04/24 08:04 Dose: 20 mg Documented By: VELMA Sodium Chloride (Ns) 1,000 mls @ 999 mls/hr IV .Q1H1M ONE Stop: 08/04/24 07:47 Last Infusion: 08/04/24 08:08 Dose: Infused Documented By: Admin: 08/04/24 07:25 Dose: 999 mls/hr Documented By: JENNIFER See above Consultations Consultation(s) initiated? (list below): No Diagnosis Chest Pain Differential Diagnosis: stable angina, atypical chest pain, st elevation myocardial infarction, costochondritis and chest pain Most likely diagnosis given after review of the tests above:: Cocaine abuse Chest pain Alcohol abuse Admission Indicated Admission indicated?: not indicated Admission Request Was there a request for admission?: No Disposition Plan Disposition Plan: Discharge Discharge Attestation Discharge Attestation: The patient and all family members were given an opportunity to ask questions and understood the discharge instructions. Discharge instructions specifically effects, indications for sooner follow up or return to the emergency department, and the expected course of current diagnosis. Patient condition: Stable Discharge Plan Plan Patient Disposition: HOME (Self Care) Prescriptions/Referrals Prescriptions/Med Rec: No Action amlodipine 5 mg Tablet 10 mg PO QDAY Qty: 60 2RF losartan 25 mg Tablet 25 mg PO QDAY Qty: 30 2RF nitroglycerin 0.4 mg tablet, sublingual 0.4 mg buccal 1XD PRN (Reason: Chest Pain) Rx Instructions: I TAB UNDER THE TONGUE EVERY 5 MINUTES NEED FOR CHEST PAIN, MAY GIVE UP TO 3 DOSES doxycycline monohydrate 100 mg capsule 100 mg PO BID Qty: 10 0RF Referrals: Babatunde Lubin MD [Primary Care Provider] - In 1 week Problem List Clinical Impression: Cocaine abuse, Chest pain, Alcohol abuse Patient/Caregiver Discharge Instructions Education Materials: Alcoholism: Getting Help, Cocaine: Getting Help, ED Cocaine And Crack Abuse, ED Chest Pain, Uncertain Cause Additional Instructions: Stop using drugs and alcohol. You can follow-up with your primary care doctor and/or [facility] if you feel ready for resources to help with alcohol and/or drug rehabilitation. Print Language: Grenadian Stand Alone Forms: [facility]leen Award Info., Patient Portal Info Letter
--- NOTE | 2024-08-04 06:56 | PC.NURSE ---
Pt BIB EMS with chief chest pain X6r, Pt reports that he has beeing doing cocaine. Pt placed in room 1, Dr. Palacios at bedside at this time.
[2024-08-04 07:19] LABS: Basophils % (Auto) 0 % (0-2.5); Eosinophils # (Auto) 0.2 Thou/mm3 (0.0-0.5); Eosinophils % (Auto) 2 % (0-10); Immature Granulocytes % (Auto) 0 % (0-0); Immature Granulocytes Auto 0.04 Thou/mm3 (0.00-0.00); Lymphocytes # (Auto) 1.9 Thou/mm3 (1.0-4.8); Lymphocytes % (Auto) 20 % (10-50); Mean Corpuscular HGB Conc 34.9 g/dl (31.0-37.0); Mean Corpuscular Hemoglobin 31.4 pg (25.0-35.0); Mean Corpuscular Volume 90 fL (80-100); Monocytes # (Auto) 0.6 Thou/mm3 (0.0-0.8); Monocytes % (Auto) 7 % (0-12); Neutrophils # (Auto) 6.7 Thou/mm3 (1.8-7.7); Neutrophils % (Auto) 70 % (37-80); Nucleated Red Blood Cell % 0 /100 WBC (0); Platelet Count 270 Thou/mm3 (140-440); RDW Standard Deviation 44.2 fL (35.1-43.9); Red Blood Count 4.78 Miln/mm3 (4.50-5.90); White Blood Count 9.5 Thou/mm3 (3.8-10.6)
[2024-08-04] MEDS: SODIUM CHLORIDE 0.9% 1000 ML 1,000 ML 999 ML IV (07:25)
[2024-08-04 07:37] LABS: Alanine Aminotransferase 50 U/L (10-49); Albumin, Serum 3.9 gm/dL (3.5-5.0); Albumin/Globulin Ratio 1.6 (1.2-2.2); Alkaline Phosphatase 73 U/L (46-116); Anion Gap 6 (7-16); Aspartate Amino Transferase 38 U/L (0-34); BUN/Creatinine Ratio 13 Ratio (12-20); Bilirubin,Total 0.6 mg/dL (0.3-1.2); Blood Urea Nitrogen 10 mg/dL (9-23); Calcium 8.7 mg/dL (8.3-10.6); Calcium (Corrected) 8.8 mg/dL (8.5-10.1); Carbon Dioxide 22.8 mMol/L (20.0-31.0); Chloride 108 mMol/L (98-107); Creatinine (Component) 0.8 mg/dL (0.6-1.3); Estimated Creatinine Clearance 140.3 mL/min (>60); Globulin 2.4 gm/dL (2.3-3.5); Glucose 125 mg/dL (74-106); Osmolality,Calculated 273 (275-295); Potassium 4.1 mMol/L (3.4-5.1); Sodium 137 mMol/L (136-145); Total Protein 6.3 gm/dL (5.7-8.2); eGFR > 60 See Note
[2024-08-04 07:41] LABS: Troponin I 0.204 ng/mL (0.0-0.045)
[2024-08-04] MEDS: DIAZEPAM 5 MG TABLET 20 MG PO (08:04)
--- NOTE | 2024-08-04 08:04 | PC.NURSE ---
Patient lying in gurney sleeping on his side, to er with c/o mid sternal chest pain, however, patient denies pain at this time, patient anxious, stating i am hungry patient made aware of plan of are, medications given per md order, call light within reach. Awaiting lab results.
--- NOTE | 2024-08-04 09:35 | PC.NURSE ---
Patient up to bathroom.
--- NOTE | 2024-08-04 09:44 | PC.NURSE ---
Patient back to er room 1, refusing to be placed back on cm, 02 and pulse ox, patient stating he wants to leave, informed patient we are awaiting 2nd troponin results, patient sitting on chair at bedside.
[2024-08-04 10:15] LABS: Troponin I 0.199 ng/mL (0.0-0.045)
--- NOTE | 2024-08-04 10:43 | PC.CC ---
Addendum entered by Wade Christian II 08/04/24 11:04: [facility] approached by lab rn, pt is requesting to speak with [facility] at this time. [facility] was able to meet with pt. Pt reports being homeless for last 10 months. Per pt he has not accessed detention resources. Pt states he is interested in rehab services. [facility] provided pt with the follow : Homeless back back [employer] resource guide with AOD services and local shelters provided to pt. [facility] will remain available as needed for pt care and staff support. Original Note: [facility] approached by bedside RN Britt, as pt is requesting a sweater or jacket prior to D/c. [facility] secured a top layer long sleeve thermal shirt and homeless back pack. [facility] attempted to locate pt in ED lobby. [facility] looked outside of ED lobby-[facility] unable to locate pt.
== END 2024-08-04 10:30 | disposition home or self-care (01) ==
PROVIDERS: Emergency Provider Emergency Medicine; PCP Family Medicine
DX: F14.10 Cocaine abuse, uncomplicated (principal); F10.10 Alcohol abuse, uncomplicated; R07.9 Chest pain, unspecified; R94.31 Abnormal electrocardiogram [ECG] [EKG]
CPT/HCPCS: 36415; 80053; 84484; 85025; 93005; 96360; 99284; J7030; A9270

== ENCOUNTER 2024-08-15 21:38 | Inpatient (IN) | payer MEDICAID, SELFPAY ==
[2024-08-15 21:43] VITALS: O2SAT 98
[2024-08-15 22:12] VITALS: BP 142/95; PULSE 98; RESP 20; TEMP 36.9; O2SAT 95
--- NOTE | 2024-08-15 22:32 | XR_ITS ---
Examination: AP chest single view Technique: AP portable upright chest single view Exam date and time: August 15, 2024 1041 hrs. Comparison August 01, 2024 Indications: Shortness of breath onset chest pain today. Findings: Early heart failure Mild enlargement cardiac contour Prominent vascular congestion including central vascular engorgement Suspicious for early pneumonia at the lung bases Impression: Mild heart failure Suspicious for early pneumonia at the lung bases
--- NOTE | 2024-08-15 22:32 | EKG_ITS ---
[facility] Test Date: 2024-08-15 Pat Name: JULIA MORAN Department: Room: - Gender: Male Video And [employer] Recorder: : 1970 Requested By: Adair Braxton Order Number: [id number] Reading MD: Adair Braxton Measurements Intervals [place] Rate: 102 P: 41 NM: 168 QRS: -58 QRSD: 92 T: 77 QT: 344 QTc: 448 Interpretive Statements SINUS TACHYCARDIA WITH OCCASIONAL VENTRICULAR PREMATURE COMPLEXES LEFT ANTERIOR FASCICULAR BLOCK [QRS AXIS <= -45, QR IN I, RS IN II] ANTEROSEPTAL MYOCARDIAL INFARCTION , OF INDETERMINATE AGE [40+ ms Q WAVE IN V1-V4] Compared to ECG 08/01/2024 02:55:05 Ventricular premature complex(es) now present Sinus rhythm no longer present Myocardial infarct finding still present /store/S0/[id number]/ecg/[id number].pdf
--- NOTE | 2024-08-15 22:33 | EDRME_ITS ---
Rapid Medical Screening Exam RME Arrival date/time: 08/15/24 21:38 54M with history of CHF, HTN, anxiety, and alcohol/drug abuse presents to ED with SOB. Patient was allegedly at [facility] yesterday where they wanted to put in a pacemaker but he AMA'd because he wanted to do drugs/alcohol. Chief Complaint: Anxiety Vital signs: Vital Signs Temperature 98.5 F 08/15/24 22:12 Pulse Rate 98 08/15/24 22:12 Respiratory Rate 20 08/15/24 22:12 Blood Pressure 142/95 H 08/15/24 22:12 Pulse Oximetry (%) 95 08/15/24 22:12 Oxygen Delivery Method Room Air 08/15/24 22:12
[2024-08-15 23:20] LABS: Basophils # (Auto) 0.1 Thou/mm3 (0.0-0.2); Basophils % (Auto) 1 % (0-2.5); Eosinophils # (Auto) 0.3 Thou/mm3 (0.0-0.5); Eosinophils % (Auto) 3 % (0-10); Hematocrit 45.6 % (41.0-53.0); Hemoglobin 15.1 g/dL (13.5-16.0); Immature Granulocytes % (Auto) 0 % (0-0); Immature Granulocytes Auto 0.03 Thou/mm3 (0.00-0.00); Lymphocytes # (Auto) 2.5 Thou/mm3 (1.0-4.8); Lymphocytes % (Auto) 23 % (10-50); Mean Corpuscular HGB Conc 33.1 g/dl (31.0-37.0); Mean Corpuscular Hemoglobin 30.8 pg (25.0-35.0); Mean Corpuscular Volume 93 fL (80-100); Monocytes % (Auto) 9 % (0-12); Neutrophils # (Auto) 6.9 Thou/mm3 (1.8-7.7); Neutrophils % (Auto) 64 % (37-80); Nucleated Red Blood Cell % 0 /100 WBC (0); Platelet Count 246 Thou/mm3 (140-440); RDW Standard Deviation 45.9 fL (35.1-43.9); Red Blood Count 4.91 Miln/mm3 (4.50-5.90); White Blood Count 10.8 Thou/mm3 (3.8-10.6)
[2024-08-16] VITALS (11 sets, daily range): BP systolic 112–149; BP diastolic 78–107; PULSE 83–104; RESP 18–25; TEMP 35.9–37.2; O2SAT 94–100; BMI 44.1
[2024-08-16 00:03] LABS: Alanine Aminotransferase 35 U/L (10-49); Albumin, Serum 4.1 gm/dL (3.5-5.0); Albumin/Globulin Ratio 1.4 (1.2-2.2); Alkaline Phosphatase 72 U/L (46-116); Anion Gap 7 (7-16); Aspartate Amino Transferase 40 U/L (0-34); BUN/Creatinine Ratio 13 Ratio (12-20); Bilirubin,Total 0.7 mg/dL (0.3-1.2); Blood Urea Nitrogen 14 mg/dL (9-23); Calcium 9.7 mg/dL (8.3-10.6); Calcium (Corrected) 9.7 mg/dL (8.5-10.1); Carbon Dioxide 28.4 mMol/L (20.0-31.0); Chloride 104 mMol/L (98-107); Creatinine (Component) 1.1 mg/dL (0.6-1.3); Glucose 117 mg/dL (74-106); Osmolality,Calculated 279 (275-295); Potassium 4.1 mMol/L (3.4-5.1); Sodium 139 mMol/L (136-145); Total Protein 7.1 gm/dL (5.7-8.2); eGFR > 60 See Note
[2024-08-16 00:20] LABS: B-Type Natriuretic Peptide 518 pg/mL (0-100)
--- NOTE | 2024-08-16 00:35 | PD.EDANX ---
ED Anxiety RME/HPI General Chief Complaint: Anxiety Stated Complaint: ANXIETY Arrival date/time: 08/15/24 21:38 Limitations: no limitations RME / HPI RME / HPI narrative: 08/15/24 21:38 54M with history of CHF, HTN, anxiety, and alcohol/drug abuse presents to ED with SOB. Patient was allegedly at [facility] yesterday where they wanted to put in a pacemaker but he AMA'd because he wanted to do drugs/alcohol. ---- Dr. Duran's Main ED Evaluation: 54yo male with a history of CHF, HTN, anxiety, drug and alcohol abuse MALLIKA presents to the ED for a chief complaint of shortness of breath. When asked what's wrong with him, patient states I don't know . Patient is not very cooperative when asked questions. Related Data Home Medications ?Medication ?Instructions ?Recorded ?Confirmed nitroglycerin 0.4 mg sublingual 0.4 mg buccal 1XD PRN Chest Pain 08/01/24 08/01/24 tablet Previous Rx's ?Medication ?Instructions ?Recorded amlodipine 5 mg tablet 10 mg (2 x 5 mg) PO QDAY #60 tabs 09/15/23 losartan 25 mg tablet 25 mg PO QDAY #30 tabs 09/15/23 doxycycline monohydrate 100 mg 100 mg PO BID #10 caps 05/17/24 capsule Allergies Allergy/AdvReac Type Severity Reaction Status Date / Time No Known Allergies Allergy Verified 08/15/24 21:47 Review of Systems Review of Systems Systems Reviewed: All systems reviewed, normal except as documented Past Medical History Past Medical History CARDIAC: Positive Cardiac Disorders and Hypertension; Negative Congestive Heart Failure RESPIRATORY: Negative Chronic Obstructive Pulmonary Disease (COPD) GENITOURINARY: Positive Kidney Stones; Negative Renal Disease ENDOCRINE: Negative Diabetes Mellitus Type 1 or Diabetes Mellitus Type 2 PSYCHO/SOCIAL: Positive Depression and Anxiety Social History SMOKING STATUS: Current some day smoker SUBSTANCE USE: does not use ED Exam General Limitations: Present no limitations General appearance: Present alert, in no apparent distress, obese and other (is talking in full sentences, but does not want to answer questions) Head Head exam: Present atraumatic Eye Eye exam: Present normal appearance, PERRL and EOMI ENT ENT exam: Present normal exam, normal oropharynx and mucous membranes moist Neck Neck exam: Present normal inspection, full ROM and trachea midline Chest Chest inspection: Present normal inspection and symmetric chest wall rise Respiratory Respiratory exam: Present other (no audible wheezing, decreased breath sounds bilaterally); Absent wheezes Cardiovascular Cardiovascular exam: Present regular rate, normal rhythm and normal heart sounds Abdominal Exam Abdominal exam: Present soft and normal bowel sounds Extremities Exam Extremities exam: Present normal inspection and full ROM; Absent pedal edema Back Exam Back exam: Present normal inspection and full ROM Neurological Exam Neurological exam: Present alert, oriented X3 and CN II-XII intact Psychiatric Psychiatric exam: Present normal affect and other (is being uncooperative) Skin Skin exam: Present warm, dry, intact and normal color; Absent diaphoresis Course Course Course Narrative: CXR is ordered for determining the etiology of shortness of breath. Discussed results with the patient at bedside. Patient is agreeable to be admitting. Quality Measures none Orders Category Date Time Status EKG (ED ONLY) *Do not use* NOW Care 08/15/24 22:33 Completed EKG (ED Only) Stat Exams 08/15/24 22:32 Draft XR chest 1V Stat Exams 08/15/24 22:32 Completed B-Type Natriuretic Peptide Stat Lab 08/15/24 23:11 Completed CBC Stat Lab 08/15/24 23:11 Completed Comprehensive Metabolic Panel Stat Lab 08/15/24 23:11 Completed Troponin I Stat Lab 08/15/24 23:11 Completed Vital Signs Vital signs: Vital Signs Temperature 98.5 F 08/15/24 22:12 Pulse Rate 98 08/15/24 22:12 Respiratory Rate 20 08/15/24 22:12 Blood Pressure 142/95 H 08/15/24 22:12 Pulse Oximetry (%) 95 08/15/24 22:12 Oxygen Delivery Method Room Air 08/15/24 22:12 Pulse ox is 95% on room air, which is normal according to my interpretation. Anxiety MDM Narrative MDM Narrative: Patient denies any hemoptysis or history of ICH. No contraindications to heparin. PT, INR, and PTT are ordered. Patient data External records reviewed:: [facility] previous records (Per chart review, patient was seen here on 08/04/24 for alcohol abuse.) Clinical information provided by:: patient Social determinants that could affect healthcare access:: substance use (history of methamphetamine and marijuana use) Patient has the following chronic illnesses:: CHF, HTN, anxiety How is presenting disease/condition affected by chronic disease/condition?: exacerbated by Evaluation data The following diagnostics were reviewed and interpreted by me:: lab results, radiology exam(s) and EKG tracing(s) Lab and/or radiology exams considered but not ordered:: none Interpretation Summary: WBC count is elevated at 10.8, CMP is normal, Troponin is elevated at 0.650, BNP is elevated at 518, according to my interpretation. EKG done at 2239, sinus tachycardia, rate of 102, PVCs, nonspecific ST-T wave changes in lead I and aVL, similar to previous EKG done on 07/2024, according to my interpretation. ------ [facility] Report Signed Patient: JULIA MORAN [facility]. Record#: [id number] Birthdate: 1970 Age/Sex: 54 / M Location: SERX Attending Dr: Ordering Physician: Adair Braxton PA-C Date of Service: 08/15/24 Procedure(s): XR chest 1V Accession Number(s): [id number] cc: Peng Spencer MD; NO PRIMARY/FAMILY,PHYSICIAN; Adair Braxton PA-C~ Examination: AP chest single view Technique: AP portable upright chest single view Exam date and time: August 15, 2024 1041 hrs. Comparison August 01, 2024 Indications: Shortness of breath onset chest pain today. Findings: Early heart failure Mild enlargement cardiac contour Prominent vascular congestion including central vascular engorgement Suspicious for early pneumonia at the lung bases Impression: Mild heart failure Suspicious for early pneumonia at the lung bases Dictated By: Peng Spencer MD Signed By: <Electronically signed by Peng Spencer MD in OV> 08/16/24 0004 ------ [facility] Preliminary Report Draft Patient: JULIA MORAN [facility]. Record#: [id number] Birthdate: 1970 Age/Sex: 54 / M Location: SERX Attending Dr: Ordering Physician: Date of Service: Procedure(s): Accession Number(s): cc: ~ CT angiogram of the chest with intravenous contrast (axial sections with sagittal and coronal reformats) August 16, 2024 0143 hours Clinical History: History of hypertension, congestive heart failure, shortness of breath Technique:Helical axial sections with sagittal and coronal reformats of the chest were obtained with intravenous contrast. Iterative reconstruction technique was employed to reduce patient radiation exposure. 3D/MIP reconstructed images were also provided. Comparison: No prior study is available for comparison. Findings: There are filling defects in the right distal main pulmonary artery and its lower lobar and segmental divisions (axial images 72-80/202), consistent with acute pulmonary thromboembolism. There is no right ventricular strain. The mediastinum demonstrates no evidence of mass or lymphadenopathy. The thoracic aorta is unremarkable. There is mild cardiomegaly. There is no pericardial effusion. There is streaky atelectasis in the left upper lobe. No evidence of pleural effusion or pneumothorax. Degenerative changes are identified in the spine. There are gallbladder calculi, without gallbladder wall thickening or pericholecystic fluid. There is a 9 mm nonobstructive right renal calculus. Impression: Acute pulmonary thromboembolism in the right distal main pulmonary artery and its lower lobar and segmental divisions. No right ventricular strain. Other findings as described above. Report Electronically Signed By: Fiorella Stringer 08/16/2024 4:04:41 AM [EST] Medications / Prescriptions Medications or Prescriptions considered but not ordered:: none Medication administrations:: see above, if any Consultations Consultation(s) initiated? (list below): Yes Consultation #1 (Physician, Specialty, Details): Discussed case with [the resident physician, attending Dr. Reich] from Hospitalist service regarding admission. Discussed patients ED course, exam findings, labs, and radiology results. The Hospitalist [agrees] to accept the patient for admission. Time: 04:08 Diagnosis Differential diagnosis anxiety: acute anxiety and other (drug use, NSTEMI, PE, pneumonia, CHF exacerbation, CAD, renal failure, cardiomyopathy) Most likely diagnosis given after review of the tests above:: see below Admission Indicated Admission indicated?: indicated Admission Request Was there a request for admission?: Yes Admission Attestation Admission request attestation: Discussed case with [] from Hospitalist service regarding admission. Discussed patients ED course, exam findings, labs, and radiology results. The Hospitalist [agrees,declines] to accept the patient for admission. Disposition Plan Disposition Plan: Admit Critical Care Time Critical Care Time Critical Care Time: Yes Total Critical Care Time (min.): 45 Attestation: The high probability of sudden, clinically significant deterioration in the patient?s condition required the highest level of my preparedness to intervene urgently. The services I provided to this patient were to treat and/or prevent clinically significant deterioration. Services included the following: chart data review, reviewing nursing notes and/or old charts, documentation time, [employer] consultant collaboration regarding findings and treatment options, medication orders and management, direct patient care, vital sign assessments and ordering, interpreting and reviewing diagnostic studies and lab tests. Aggregate critical care time includes only time during which I was engaged in work directly related to the patient?s care, as described above, whether at bedside or elsewhere in the Emergency Department. It did not include time spent performing other reported procedures or the services of residents, students, nurses or physician assistants. Discharge Plan Plan Patient Disposition: Admit Acute Care w/in Hospital Patient condition on transfer: Stable Problem List Clinical Impression: Acute pulmonary embolism
--- NOTE | 2024-08-16 00:36 | XR_ITS ---
Examination: CTA chest with intravenous contrast 2-D reconstructions 3-D reconstructions, vascular Date and time of exam: August 16, 2024 0143 hrs. Indications: Shortness of breath high blood pressure difficulty breathing chest pain today CTDI: vol (mGy) 15.6 DLP: (mGycm) 679 Technique: Multiple axial sections of the thorax have been obtained. 3 mm slice thickness, from below the hemidiaphragms to above the apices of the lungs. Mediastinal and lung density settings have been obtained. 2-D sagittal and coronal reconstructions. 3-D angiographic renderings, 3-D volume renderings, 3D post processing, vascular maximum intensity projections obtained. Contrast administered is 100 cc Isovue-370 intravenous. Low dose protocols were performed. One or more of the following dose reduction techniques were used; automated exposure control, adjustment of the mA and/or KV according to patient size, use of iterative reconstruction technique. Findings: No thoracic aortic aneurysm dilatation Pulmonary artery segments are not enlarged There are very subtle low density areas in right pulmonary artery lower lobe branches Contrast opacification of pulmonary arteries is not optimal No mediastinal lymphadenopathy No lobar pneumonia No visualized liver or splenic lesions Gallstones No pancreatic mass Impression: There are very subtle low density areas in the right lower pulmonary artery branches, I cannot confirm definite pulmonary artery emboli, follow-up imaging suggested as clinically warranted
--- NOTE | 2024-08-16 04:05 | PRELIM_ITS ---
CT angiogram of the chest with intravenous contrast (axial sections with sagittal and coronal reforma ts) August 16, 2024 0143 hours Clinical History: History of hypertension, congestive heart failure, shortness of breathTechnique:Helical axial sections with sagittal and coronal reformats of the chest were obtained with intravenous contrast. Iterative reconstruction technique was employed to reduce p atient radiation exposure. 3D/MIP reconstructed images were also provided. Comparison: No prior study is available for comparison. Findings:There are filling defects in the right distal main pulmonary a rtery and its lower lobar and segmental divisions (axial images 72-80/202), consistent with acute pul monary thromboembolism. There is no right ventricular strain. The mediastinum demonstrates no evidenc e of mass or lymphadenopathy. The thoracic aorta is unremarkable. There is mild cardiomegaly. There i s no pericardial effusion. There is streaky atelectasis in the left upper lobe. No evidence of pleura l effusion or pneumothorax.Degenerative changes are identified in the spine. There are gallbladder ca lculi, without gallbladder wall thickening or pericholecystic fluid. There is a 9 mm nonobstructive r ight renal calculus.Impression:Acute pulmonary thromboembolism in the right distal main pulmonary art casper and its lower lobar and segmental divisions. No right ventricular strain.Other findings as descri bed above. Report Electronically Signed By: Fiorella Stringer 08/16/2024 4:04:41 AM [EST]
[2024-08-16 04:57] LABS: Basophils # (Auto) 0.1 Thou/mm3 (0.0-0.2); Basophils % (Auto) 1 % (0-2.5); Eosinophils # (Auto) 0.4 Thou/mm3 (0.0-0.5); Eosinophils % (Auto) 4 % (0-10); Hematocrit 45.9 % (41.0-53.0); Hemoglobin 15.1 g/dL (13.5-16.0); Immature Granulocytes % (Auto) 0 % (0-0); Immature Granulocytes Auto 0.04 Thou/mm3 (0.00-0.00); Lymphocytes # (Auto) 2.7 Thou/mm3 (1.0-4.8); Lymphocytes % (Auto) 28 % (10-50); Mean Corpuscular HGB Conc 32.9 g/dl (31.0-37.0); Mean Corpuscular Hemoglobin 30.8 pg (25.0-35.0); Mean Corpuscular Volume 94 fL (80-100); Monocytes # (Auto) 0.8 Thou/mm3 (0.0-0.8); Monocytes % (Auto) 8 % (0-12); Neutrophils # (Auto) 5.8 Thou/mm3 (1.8-7.7); Neutrophils % (Auto) 59 % (37-80); Nucleated Red Blood Cell % 0 /100 WBC (0); Platelet Count 270 Thou/mm3 (140-440); RDW Standard Deviation 46.5 fL (35.1-43.9); Red Blood Count 4.91 Miln/mm3 (4.50-5.90); White Blood Count 9.7 Thou/mm3 (3.8-10.6)
--- NOTE | 2024-08-16 04:57 | PD.RESHP ---
Documentation for date of: 08/16/24 [facility] History of Present Illness History of present illness: The patient is a 54-year-old homeless male with significant past medical history of CHF, hypertension, anxiety, alcohol and drug abuse who presented to the ED on 08/16/2024 with complaints of shortness of breath. Patient is a very poor historian and can neither comment on the onset of his symptoms nor the course. He denies coughing, chest pain or palpitations. Patient was allegedly had [facility] delta yesterday and was supposed to have a pacemaker procedure done but he left AMA because she wanted to have a beer and some of his regular illicit drugs. Note that about 2 weeks ago patient was admitted to [facility] after he presented with substernal chest pain and at the time also reported that he had been recently admitted at [facility] where he was found to have an ejection fraction of 30% but again left AMA. On last admission here, patient left AMA stating that he wanted to go back to treat to drink more beer. He does endorse alcohol and drug use including cocaine and meth. ED course: In the ED, patient was afebrile, saturating 94% on room air slightly tachycardic with a heart rate of 102 bpm. Chest x-ray was done which showed vascular congestion consistent with heart failure and some suspicion for early pneumonia. EKG showed sinus tachycardia with occasional PVCs. CTA was done and preliminary read was of acute pulmonary thromboembolism in the right distal main pulmonary artery and lobar/segmental divisions without right ventricular strain. Labs are significant for mild leukocytosis 10.8, elevated troponin 0.65 and BNP of 518. The patient is being admitted for management of PE. Review of Systems Review of Systems Narrative Review of Systems: GENERAL: Denies fevers/chills or diaphoresis. HEENT: Denies headache or visual/hearing changes. Denies nasal discharge. NEURO: Denies unusual weakness or difficulty speaking. CARDIO: Denies chest pain or palpitations. PULM: Admits SOB, denies coughing, or wheezing. GI: Denies abdominal pain, N/V/C/D/reflux/gas, bright red blood per rectum or melena. Reports having BMs. URO: Denies burning/itching/pain/urinary changes. MSK/EXT/SKIN: Denies joint/skeletal/muscle pain, issues/changes in upper or lower extremities, itchiness, or superficial pain. PSYCH: Cooperative, pleasant mood & affect. Exam Vital Signs Temp Pulse Resp BP Pulse Ox O2 Del Method 98.9 F 99 20 149/107 H 97 Room Air 08/16/24 04:20 08/16/24 04:20 08/16/24 04:20 08/16/24 04:20 08/16/24 04:20 08/16/24 04:20 Narrative Exam GENERAL: AAOX3, easily distracted, fleeting attention NEURO: MOLD WASHER grossly intact, moves extremities x4 HEENT: Moist mucosa. Eyes open, symmetrical, & clear CARDIO: No chest pain on palpation. Heart RRR, no obvious murmurs PULM: No noted coughing/dyspnea. Lungs CTA B/L GI: Abdomen soft, distended per body habitus, no pain on palpation. BSx4 URO/SALES APPLICATIONS ENGINEER:: No further abnormalities noted. SKIN/MSK/EXT: Biateral pitting edema 2+ up to shins Results: Labs 08/16/24 04:30 08/16/24 04:30 Labs: Short CBC 08/15/24 Range/Units 23:11 WBC 10.8 H (3.8-10.6) Thou/mm3 Hgb 15.1 (13.5-16.0) g/dL Hct 45.6 (41.0-53.0) % Plt Count 246 (140-440) Thou/mm3 BMP 08/15/24 23:11 Sodium 139 Potassium 4.1 Chloride 104 Carbon Dioxide 28.4 BUN 14 Creatinine 1.1 Glucose 117 H Calcium 9.7 Cardiac Enzymes 08/15/24 Range/Units 23:11 Troponin I 0.650 H* (0.0-0.045) ng/mL Liver Function 08/15/24 Range/Units 23:11 Total Bilirubin 0.7 (0.3-1.2) mg/dL AST 40 H (0-34) U/L ALT 35 (10-49) U/L Alkaline Phosphatase 72 (46-116) U/L Albumin 4.1 (3.5-5.0) gm/dL Quality Measures Quality Measures none Medications Home Medications and Allergies Home Medications ?Medication ?Instructions ?Recorded ?Confirmed ?Type nitroglycerin 0.4 mg sublingual 0.4 mg buccal 1XD PRN Chest Pain 08/01/24 08/01/24 History tablet Allergies Allergy/AdvReac Type Severity Reaction Status Date / Time No Known Allergies Allergy Verified 08/15/24 21:47 Visit Medications Acetaminophen (Acetaminophen 325 Mg Tablet) 650 mg PO Q6H PRN PRN Reason: Pain (1-3) or Fever >100.3 Stop: 09/15/24 04:32 Ondansetron HCl (Ondansetron Inj 2 Mg/Ml Inj 2 Ml) 4 mg IV Q6H PRN; Protocol PRN Reason: NAUSEA OR VOMITING Stop: 09/15/24 04:32 Assessment & Plan Assessment Summary: The patient is a 54-year-old homeless male with significant past medical history of CHF, hypertension, anxiety, alcohol and drug abuse who presented to the ED on 08/16/2024 with complaints of shortness of breath. CTA showed acute pulmonary thromboembolism. #Acute pulmonary thromboembolism, likely unprovoked The patient presents to the ED with shortness of breath, is unable to comment on onset/duration and course. He does report being at [facility] in the last 48 hours for potential pacemaker placement. While patient is homeless, is unclear what his baseline ambulatory dynamic is and whether or not he is typically mobile. He reports no surgery in the last 3 months and no trauma. In the ED, patient was saturating 94% on room air. CTA was done and preliminary dose of acute pulmonary embolism in the right distal main pulmonary artery and lobar/segmental elevations without right ventricular strain. EKG shows sinus tachycardia with occasional PVCs. PT-11.9, INR-1.1, APTT-25.7 Plan: -Admit to telemetry -Commence IV heparin-bolus and then drip per protocol -Monitor APTT -Transition to DOAC when indicated -Echocardiogram #Elevated troponins On admission, troponin was elevated at 0.65. Patient denies chest pain although does have a cardiac history. Plan: -Trend troponins #History of HFrEF with nonischemic cardiomyopathy Per patient, his last echocardiogram showed an ejection fraction of 30%. On his last admission to [facility], cardiology was consulted and echocardiogram from June 2024 from [facility] was reviewed which did show an ejection fraction of 35% with nonischemic cardiomyopathy. Note that the patient underwent coronary angiogram in the same. Which was negative for CAD and no stenting was performed. This admission, patient does not look fluid overloaded although he does have bilateral pitting edema but no JVD and lungs are clear to auscultation. BNP-518 Plan: -Echocardiogram, to have one on file -Fluid restriction and strict HAILEE's -Cardiac diet -Resume home meds once med rec is completed #Alcohol use disorder #Methamphetamine abuse history Patient states that he has been drinking alcohol and he uses various drugs. Urine drug screen not done in the ED Plan: -Urine drug screen -[facility] protocol -Referral to protective services social worker #History of hypertension Per chart review, patient is on amlodipine 10 mg and lisinopril 20 mg daily as well as metoprolol tartrate 50 mg Blood pressure on admission borderline Plan: -Complete med recs and start medications as appropriate Health maintenance: Dispo: Tele Diet: Cardiac DVT: Heparin Lines: Peripheral Med Rec: Pending, f/u PT: Not ordered Code:Full Case was discussed with attending physician, Dr Fide Monet MD PGY-1 Attending Provider Attestation/Addendum 54-year-old male patient with congestive heart failure, substance abuse, noncompliant homeless male patient he was admitted for shortness of breath tachycardia. Workup showed acute pulmonary embolism. Patient was recently admitted to the [facility] for CHF. Patient is a very poor historian. Will admit to telemetry. He was started on heparin drip. Echocardiogram pending. Monitor PTT.
[2024-08-16 05:15] LABS: INR 1.1 (0.9-1.3); Partial Thromboplastin Time 25.7 Seconds (22.0-36.0); Prothrombin Time 11.9 Seconds (9.0-12.2)
[2024-08-16 05:20] LABS: Alanine Aminotransferase 34 U/L (10-49); Albumin, Serum 4.3 gm/dL (3.5-5.0); Alkaline Phosphatase 77 U/L (46-116); Anion Gap 6 (7-16); Aspartate Amino Transferase 39 U/L (0-34); BUN/Creatinine Ratio 13 Ratio (12-20); Blood Urea Nitrogen 13 mg/dL (9-23); Calcium 9.1 mg/dL (8.3-10.6); Calcium (Corrected) 9.1 mg/dL (8.5-10.1); Carbon Dioxide 27.3 mMol/L (20.0-31.0); Cardiac Risk Estimate 3.5 RATIO (4.0-6.7); Chloride 104 mMol/L (98-107); Cholesterol 114 mg/dL (132-200); Glucose 152 mg/dL (74-106); HDL Cholesterol 33 mg/dL (40-60); LDL Cholesterol,Calculated 50 mg/dL (0-130); Magnesium 1.9 mg/dL (1.6-2.6); Osmolality,Calculated 276 (275-295); Potassium 4.5 mMol/L (3.4-5.1); Sodium 137 mMol/L (136-145); Triglycerides 156 mg/dL (30-150); eGFR > 60 See Note
[2024-08-16 05:23] LABS: Albumin/Globulin Ratio 1.7 (1.2-2.2); Bilirubin,Total 0.5 mg/dL (0.3-1.2); Globulin 2.5 gm/dL (2.3-3.5); Thyroid Stimulating Hormone 1.83 uIU/mL (0.55-4.78); Total Protein 6.8 gm/dL (5.7-8.2)
[2024-08-16 05:45] LABS: Troponin I 1.387 ng/mL (0.0-0.045)
--- NOTE | 2024-08-16 06:34 | PC.NURSE ---
Pt appears in NAD. sleeping. When awaken he is oriented.
[2024-08-16] MEDS: Heparin/D5w 25K 250 ML Ivpb 25,000 UNIT/250 ML BAG 17.995 UNIT IV (06:56)
[2024-08-16] MEDS: HEPARIN SOD INJ 5000 UNIT/ML VIAL 8000 UNIT IV (06:56)
[2024-08-16 07:25] LABS: Amphetamine/Methamp Scrn,U Positive (Negative); Barbiturate Screen,Urine Negative (Negative); Benzodiazepines Screen,Urine Positive (Negative); Benzoylecgonine Screen, Ur Negative (Negative); Fentanyl Screen,Urine Negative (Negative); Opiate Screen,Urine Negative (Negative); THC Screen,Urine Positive (Negative)
--- NOTE | 2024-08-16 07:30 | PC.NURSE ---
PT DENIES ANY PAIN OR DISCOMFORT AT THIS TIME, HEP GTT INFUSING, VSS ON TELE. WHEN OUTSIDE DOCUMENTING CAN HEAR PT TALKING TO HIMSELF, SAYING CURSE WORDS, UPSET THAT HE HAS TO BE CONNECTED TO TELE. THIS RN EDUCATED PT ON IMPORTANCE OF VITAL SIGN AND CARDIAC MONITORING WITH HIS CONDITION. PT IN AGREEMENT.
--- NOTE | 2024-08-16 08:10 | ESPR_ITS ---
<Statement entered by Kin Tony MD - 08/16/24 17:14> I have discussed and was present for the essential components of the history, physical examination, diagnosis, and treatment plan with the resident. I agree with the patient's care as documented by the resident and amended herein by me. Kin Tony MD FACP. Documentation for date of: 08/16/24 Subjective Subjective Interval history: Patient seen and examined at bedside this a.m. No acute events overnight Patient tolerating diet. Adequate urine output. Mentation at baseline Patient still endorses constant 8/10 generalized chest pain, no radiation, described as pressure with no aggravating or relieving factors. Patient's Wells score for PE on admission was 1.5 points. Therefore lower risk group. Chest CTA on admission was significant for very subtle low-density areas in right lower pulmonary artery branches. Pulmonary artery emboli cannot be definitively confirmed. D-dimer was also done which was <250. PE is unlikely EKG on admission is significant for sinus tachycardia with occasional PVCs, rate 102. Repeat EKG showed similar findings with rate 100. Chest x-ray on admission was significant for bilateral pulmonary edema more so in the bases, no obvious signs of consolidation or pleural effusion. Troponin I up trended to 2.297 from 0.199 on admission Patient was started on heparin infusion and cardiology, Dr. Plascencia was consulted. Appreciate recommendations Patient was also started on Librium 25 Mg p.o. 3 times daily to prevent alcohol withdrawal seizures Exam Vital Signs Temp Pulse Resp BP Pulse Ox O2 Del Method 98.7 F 93 18 142/95 H 95 Room Air 08/16/24 06:30 08/16/24 06:30 08/16/24 06:30 08/16/24 06:30 08/16/24 06:30 08/16/24 06:30 Narrative Exam Constitutional Alert, oriented x 3 and in moderate distress. Middle-age man, obese on O2 via NC. Bilateral hand tremors on exam HEENT Vision grossly intact. Patent nares. Trachea midline Respiratory Chest normal on inspection and decreased air entry at bases B/L. Cardiovascular S1 and S2, S4 gallop, RRR. No murmurs carotid bruit. JVD not assessed Abdominal Soft, obese and non tender to palpation in all quadrants. BS + Genitourinary No bladder tenderness, no flank pain. Normal to palpation Musculoskeletal Extremities tone within normal limits. No LE edema. Neurological CN II - XII grossly intact. Extremity motor and sensation grossly intact. Skin Warm, dry and intact. No apparent lesions. Psychiatric Patient has good affect, is cooperative Objective Labs 08/16/24 04:30 08/16/24 04:30 Labs: Laboratory Results - last 24 hr 08/15/24 08/16/24 08/16/24 23:11 04:30 06:21 WBC 10.8 H 9.7 RBC 4.91 4.91 Hgb 15.1 15.1 Hct 45.6 45.9 MCV 93 94 MCH 30.8 30.8 MCHC 33.1 32.9 RDW Std Deviation 45.9 H 46.5 H Plt Count 246 270 Neut % (Auto) 64 59 Lymph % (Auto) 23 28 Garza % (Auto) 9 8 Eos % (Auto) 3 4 Baso % (Auto) 1 1 Neut # (Auto) 6.9 5.8 Lymph # (Auto) 2.5 2.7 Garza # (Auto) 1.0 H 0.8 Eos # (Auto) 0.3 0.4 Baso # (Auto) 0.1 0.1 Immature Gran # (Auto) 0.03 H 0.04 H Absolute Nucleated RBC 0.00 0.00 Immature Gran % 0 0 Nucleated RBC % 0 0 PT 11.9 INR 1.1 APTT 25.7 Sodium 139 137 Potassium 4.1 4.5 Chloride 104 104 Carbon Dioxide 28.4 27.3 Anion Gap 7 6 L BUN 14 13 Creatinine 1.1 1.0 Estim Creat Clear Calc Not Performed. Not Performed. eGFR > 60 > 60 BUN/Creatinine Ratio 13 13 Glucose 117 H 152 H Calculated Osmolality 279 276 Calcium 9.7 9.1 Corrected Calcium 9.7 9.1 Magnesium 1.9 Total Bilirubin 0.7 0.5 AST 40 H 39 H ALT 35 34 Alkaline Phosphatase 72 77 Troponin I 0.650 H* 1.387 H* D B-Natriuretic Peptide 518 H* Total Protein 7.1 6.8 Albumin 4.1 4.3 Globulin 3.0 2.5 Albumin/Globulin Ratio 1.4 1.7 Triglycerides 156 H Cholesterol 114 L LDL Cholesterol, Calc 50 HDL Cholesterol 33 L Cholesterol/HDL Ratio 3.5 L TSH 1.83 Urine Opiates Screen Negative Urine Fentanyl Screen Negative Ur Barbiturates Screen Negative U Amphetamin/Meth Scrn Positive A U Benzodiazepines Scrn Positive A U Cocaine Metab Screen Negative U Marijuana (THC) Screen Positive A Quality Measures Quality Measures none Assessment & Plan Assessment Current Active Medications: Generic Name Dose Route Start Last Admin Trade Name Freq PRN Reason Stop Dose Admin Acetaminophen 650 mg 08/16/24 04:33 Acetaminophen 325 Mg Tablet PO 09/15/24 04:32 Q6H PRN Pain (1-3) or Fever >100.3 Folic Acid 1 mg 08/16/24 09:00 Folic Acid 1 Mg Tablet PO 08/21/24 08:59 BID MARLENE Heparin Sodium/Dextrose 25,000 unit in 250 mls @ 17.995 mls/hr 08/16/24 06:45 08/16/24 06:56 Heparin In D5w Ivpb IV 08/30/24 06:44 13.68 units/kg/hr .[id number] MARLENE 17.995 mls/hr Administration Protocol 13.68 UNITS/KG/HR Lorazepam 0.5 mg 08/16/24 04:58 Lorazepam 0.5 Mg Tablet PO 08/21/24 04:57 Q4HR PRN CIWA Score 2-6 Lorazepam 1 mg 08/16/24 04:58 Lorazepam 0.5 Mg Tablet PO 08/21/24 04:57 Q4HR PRN CIWA SCORE 7-11 Lorazepam 2 mg 08/16/24 04:58 Lorazepam 0.5 Mg Tablet PO 08/21/24 04:57 Q4HR PRN CIWA SCORE 12-15 Ondansetron HCl 4 mg 08/16/24 04:33 Ondansetron Inj 2 Mg/Ml Inj 2 Ml IV 09/15/24 04:32 Q6H PRN NAUSEA OR VOMITING Protocol Thiamine HCl 100 mg 08/16/24 09:00 Thiamine 100 Mg Tablet PO 08/21/24 08:59 BID MARLENE Plan Patient is a poor historian and majority of history obtained from chart review. Patient is a 54-year-old homeless male with a past medical history significant for chronic systolic heart failure with reduced ejection fraction [30%] with nonischemic cardiomyopathy, essential hypertension, anxiety, alcohol dependence and poorly substance use. Presented to the ED with a chief complaint of shortness of breath and was admitted for workup and management of rule out pulmonary embolism. 1. ACS 2. NSTEMI type I versus type II On admission patient presented with progressively worsening shortness of breath as well as generalized chest pain described as 8/10 in severity without radiation and described as a pressure. EKG on admission is significant for sinus tachycardia with occasional PVCs, rate 102. Repeat EKG showed similar findings with rate 100. Chest x-ray on admission was significant for bilateral pulmonary edema more so in the bases, no obvious signs of consolidation or pleural effusion. Troponin I up trended to 2.297 from 0.199 on admission Patient was started on heparin infusion and cardiology, Dr. Plascencia was consulted. Appreciate recommendations Likely type I NSTEMI given patient's extensive cocaine use history and persistent chest pain in the setting of uptrending troponin. Plan: ? Trend troponin ? Continue heparin infusion ACS protocol ? Start aspirin 81 Mg p.o. daily ? Start atorvastatin 40 Mg p.o. at bedtime ? Avoid beta-blockers as patient has history of cocaine use ? Cardiology, Dr. Plascencia consulted. Appreciate recommendations 3. Pulmonary embolism unlikely 4. History of DVT Patient's Wells score for PE on admission was 1.5 points. Therefore lower risk group. Chest CTA on admission was significant for very subtle low-density areas in right lower pulmonary artery branches. Pulmonary artery emboli cannot be definitively confirmed. D-dimer was also done which was <250. PE is unlikely due to nondiagnostic CT, negative D-dimer and ongoing chest pain in the setting of uptrending troponin. Patient had lower extremity Doppler ultrasound completed on 12/29/2022 which showed extensive acute occlusive thrombus in the left lower extremity. 5. Chronic systolic heart failure with reduced ejection fraction with nonischemic cardiomyopathy [30%] On admission patient presented with progressively worsening shortness of breath as well as generalized chest pain described as 8/10 in severity without radiation and described as a pressure. On exam patient had decreased air entry at bases and trace lower extremity edema. BNP on admission was 518 mildly elevated from his baseline of 200s-300s. NYHA class C stage III As reported by patient he had an echo done June [address] [facility] which showed EF of 30%. He underwent coronary angiogram on July 02, 2024 which was negative for CAD. No coronary intervention was performed. Plan: ? Strict input output charting ? 2G sodium restricted diet ? 1500 cc/day fluid restriction ? Daily weights ? Transthoracic echocardiogram ordered to assess wall motion abnormalities, valvular defects and EF. ? Continue home diuretic, furosemide 40 Mg p.o. daily ? Restart spironolactone 25 Mg p.o. daily as part of GDMT?goal-directed medical therapy ? Hold beta-paco for now to avoid coronary vasoconstriction as patient has history of cocaine use. ? Cardiology, Dr. Plascencia consulted. Appreciate recommendations 6. Essential hypertension On admission BP 142/95. Currently BP 137/27 Home medication lisinopril 20 Mg p.o. daily Plan: ? Continue home medication lisinopril 20 Mg p.o. daily 7. Alcohol dependence 8. Polysubstance use Patient has an extensive history of alcohol abuse drinks more than 6 beers per day, his last drink was was yesterday. Patient also admitted to using cocaine. But however denies any methamphetamine use. On admission U tox was positive for methamphetamine, benzodiazepines and marijuana. Plan: ? CIWA protocol ? Librium 25 Mg p.o. 3 times daily to avoid alcohol withdrawal seizures ? Patient was counseled on alcohol cessation. He agrees to stop. Health maintenance: Disposition: On heparin infusion for NSTEMI. Awaiting cardiology recommendations Diet: Cardiac Lines: pIVs GI Prophylaxis: None Thrombo Prophylaxis: On heparin infusion Code status: FULL CODE Plan of care discussed with Attending Dr. Tony and PGY3 Dr. Bobo Hayes MD PGY 1 I discussed with and supervised my co-resident involved in the care of this patient. I agree with the assessment and plan as documented above. Mr. Carlyle Jordan is a 54 year old male with history of polysubstance use disorder, HFrEF initially presented to the ER for SOB and thought to have PE however CT imaging and D-Dimer make PE less likely. He has an uptrending troponin leak and EKG did not show any significant ST changes. He is on heparin drip for the troponinemia and pending echo and cardiology consult. He is on Librium and CIWA protocol for his alcohol withdrawal. He was very tearful on evaluation and wants to stay to get better. Avoid beta blockers due to his recent use of cocaine. Dahiana Broussard MD PGY-3
[2024-08-16] MEDS: FOLIC ACID 1 MG TABLET PO ×2 (08:27→21:18)
[2024-08-16] MEDS: Magnesium Sulfate 2 GM Ivpb 2 GM/50 ML BAG IV (08:27)
[2024-08-16] MEDS: THIAMINE 100 MG TABLET PO ×2 (08:27→21:18)
--- NOTE | 2024-08-16 08:34 | PC.NURSE ---
Pt up to BR, this RN offered commode or bed wilde as we don't suggest walking at this time, pt refused.
[2024-08-16] MEDS: LORazepam 0.5 MG TABLET 2 MG PO (08:56)
--- NOTE | 2024-08-16 09:10 | PC.NURSE ---
when pulling med from [employer] for CIWA, unable to see how much to pull for ciwa of 13, this RN pulled 1mg, when this RN went to administer it, MAR showed pt need 2mg for a 13 score, this RN then went and pulled an additional 1mg and administered the appropriate dose.
[2024-08-16 09:47] LABS: Troponin I 2.297 ng/mL (0.0-0.045)
--- NOTE | 2024-08-16 10:20 | PC.NURSE ---
lab reported trop to fire extinguisher charger while this rn was transporting pt to floor, this RN called provider once back to floor to inform, no new orders at this time.
--- NOTE | 2024-08-16 10:24 | EKG_ITS ---
[facility] Test Date: 2024-08-16 Pat Name: JULIA MORAN Department: Room: S269A Gender: Male Craps Manager: CARSON : 1970 Requested By: Danny Hayes Order Number: [id number] Reading MD: Danny Hayes Measurements Intervals [place] Rate: 100 P: 40 DE: 155 QRS: -57 QRSD: 97 T: 63 QT: 349 QTc: 450 Interpretive Statements SINUS TACHYCARDIA MARKED LEFT AXIS DEVIATION PATTERN CONSISTENT WITH PULMONARY DISEASE NONSPECIFIC T-WAVE ABNORMALITY Compared to ECG 08/15/2024 22:39:03 Left-axis deviation now present T-wave abnormality now present Ventricular premature complex(es) no longer present Left anterior fascicular block no longer present Myocardial infarct finding no longer present /store/S0/[id number]
[2024-08-16] MEDS: chlordiazePOXIDE HCl 25 MG CAPSULE PO ×2 (11:49→21:18)
[2024-08-16 11:56] LABS: D-Dimer 353 ng/mL (<600)
[2024-08-16 13:21] LABS: D-Dimer < 250 ng/mL (<600)
[2024-08-16] MEDS: HEPARIN SOD INJ 5000 UNIT/ML VIAL 4000 UNIT IV (13:55)
[2024-08-16] MEDS: ASPIRIN EC 81 MG TABEC PO (15:15)
[2024-08-16] MEDS: Lisinopril 20 MG TABLET PO (15:16)
[2024-08-16] MEDS: Furosemide 40 MG TABLET PO (15:17)
[2024-08-16] MEDS: SPIRONOLACTONE 25 MG TABLET PO (15:17)
[2024-08-16] MEDS: LORazepam 0.5 MG TABLET PO ×2 (15:21→21:18)
[2024-08-16 15:47] LABS: Troponin I 3.431 ng/mL (0.0-0.045)
--- NOTE | 2024-08-16 18:55 | PC.CC ---
Pt Carlyle Jordan is a 54 yr old male admitted to hospitalist services for PE. WORK AND FAMILY LIFE CONSULTANT CC met with pt at bedside to complete initial assessment. At time of encounter pt is noted to be alert and oriented to person, place and situation. Pt expressed understanding admission order. Pt able to confirm demographic information. Pt presents well kempt. Pt speaks in clear even tone. Pt expressing he is having difficulty breathing, with WORK AND FAMILY LIFE CONSULTANT CC informing bedside RN. Pt reports being homeless for the last 10 months. Pt reports that he sleeps under the trees. WORK AND FAMILY LIFE CONSULTANT CC has encountered pt in ED and has provided community resources for AOD services with referral to [facility]. Pt has poly substance issues and has been educated on high risk behaviors. Pt has been provided homeless backpack as well as clothing items, and homeless [facility] resources. Pt unable to give name of surrogate DM, stating he has no family. Pt states he does not use any DME. Pt has hx of signing out AMA, with reported AMA departure form [facility] where pt was supposed to have pace maker placement. Pt states he currently does not have a PCP, last seeing a provider several months ago at [facility].
--- NOTE | 2024-08-16 19:09 | PC.NURSE ---
upon shift change, patient got up to the restroom and had community engagement manager help him with assistance, patient took out his IV, heparin medication stopped and refusing to have any medication going through IV. patient states he wants to leave . notified provider.
--- NOTE | 2024-08-16 19:39 | PC.NURSE ---
provider came up to patient room to speak to patient, provider said did not want to wake him up but if he wakes up and patient wants to leave then to give them a call'. provider once again made aware that patient is on a heparin drip but is refusing medication. no new orders given at this time.
--- NOTE | 2024-08-16 19:53 | PC.NURSE ---
patient woke up for vital signs and stated wanted to leave to the streets to drink beer . notified provider.
--- NOTE | 2024-08-16 20:01 | PC.NURSE ---
provider at bedside with patient. patient ok to resume heparin drip. new orders received.
--- NOTE | 2024-08-16 20:29 | XR_ITS ---
Examination: Duplex scan of the lower extremity, unilateral left Date and time of exam: August 2024 1008 hrs. Indications: Left leg pain this week Technique: Duplex scan of the extremity veins using B-mode/grayscale imaging and Doppler spectral analysis and color flow Attention is directed to internal echogenicity, compression and augmentation involving these veins, color flow assessment, spectral analysis Findings: Major deep venous structures in the extremity demonstrate normal course and caliber. There is no evidence of deep vein thrombosis. Normal color flow and spectral analysis Impression: Negative for DVT..
[2024-08-16 20:49] LABS: Partial Thromboplastin Time 35.6 Seconds (22.0-36.0)
[2024-08-16] MEDS: ATORVASTATIN CALCIUM 20 MG TABLET 40 MG PO (21:18)
[2024-08-16] MEDS: HYDROcodone/APAP 5/325 TABLET 1 TAB PO (21:18)
[2024-08-16] MEDS: HEPARIN SOD INJ 5000 UNIT/ML VIAL 4000 UNIT IVP (21:36)
[2024-08-16] MEDS: Heparin/D5w 25K 250 ML Ivpb 25,000 UNIT/250 ML BAG 25.782 UNIT IV (21:37)
[2024-08-17] VITALS: BP 100/70; PULSE 84; PULSE 96; RESP 20; TEMP 36; O2SAT 99
[2024-08-17 00:05] LABS: Troponin I 2.636 ng/mL (0.0-0.045)
[2024-08-17 04:00] VITALS: BP 125/89; PULSE 81; PULSE 90; RESP 23; TEMP 35.9; O2SAT 95
[2024-08-17] MEDS: LORazepam 0.5 MG TABLET 1 MG PO (04:39)
[2024-08-17 05:17] LABS: Basophils # (Auto) 0.1 Thou/mm3 (0.0-0.2); Basophils % (Auto) 1 % (0-2.5); Eosinophils # (Auto) 0.3 Thou/mm3 (0.0-0.5); Eosinophils % (Auto) 4 % (0-10); Hematocrit 41.8 % (41.0-53.0); Hemoglobin 14.1 g/dL (13.5-16.0); Immature Granulocytes % (Auto) 0 % (0-0); Immature Granulocytes Auto 0.02 Thou/mm3 (0.00-0.00); Lymphocytes # (Auto) 2.5 Thou/mm3 (1.0-4.8); Lymphocytes % (Auto) 30 % (10-50); Mean Corpuscular HGB Conc 33.7 g/dl (31.0-37.0); Mean Corpuscular Volume 92 fL (80-100); Monocytes # (Auto) 0.6 Thou/mm3 (0.0-0.8); Monocytes % (Auto) 7 % (0-12); Neutrophils # (Auto) 4.9 Thou/mm3 (1.8-7.7); Neutrophils % (Auto) 58 % (37-80); Nucleated Red Blood Cell % 0 /100 WBC (0); Platelet Count 190 Thou/mm3 (140-440); RDW Standard Deviation 45.9 fL (35.1-43.9); Red Blood Count 4.55 Miln/mm3 (4.50-5.90); White Blood Count 8.4 Thou/mm3 (3.8-10.6)
[2024-08-17 05:51] LABS: Partial Thromboplastin Time 126.8 Seconds (22.0-36.0)
[2024-08-17 06:00] VITALS: BMI 45.1
[2024-08-17 06:09] LABS: Alanine Aminotransferase 28 U/L (10-49); Albumin, Serum 3.7 gm/dL (3.5-5.0); Albumin/Globulin Ratio 1.7 (1.2-2.2); Alkaline Phosphatase 62 U/L (46-116); Anion Gap 9 (7-16); Aspartate Amino Transferase 36 U/L (0-34); BUN/Creatinine Ratio 11 Ratio (12-20); Bilirubin,Total 0.6 mg/dL (0.3-1.2); Blood Urea Nitrogen 10 mg/dL (9-23); Calcium 8.6 mg/dL (8.3-10.6); Calcium (Corrected) 8.8 mg/dL (8.5-10.1); Carbon Dioxide 25.2 mMol/L (20.0-31.0); Chloride 102 mMol/L (98-107); Creatinine (Component) 0.9 mg/dL (0.6-1.3); Estimated Creatinine Clearance 128.9 mL/min (>60); Globulin 2.2 gm/dL (2.3-3.5); Glucose 130 mg/dL (74-106); Osmolality,Calculated 272 (275-295); Phosphorous 4.5 mg/dL (2.4-5.1); Potassium 4.3 mMol/L (3.4-5.1); Sodium 136 mMol/L (136-145); Total Protein 5.9 gm/dL (5.7-8.2); eGFR > 60 See Note
--- NOTE | 2024-08-17 06:15 | PC.NURSE ---
provider at bedside, explained risk of leaving AMA, see notes on AMA form.
--- NOTE | 2024-08-17 06:15 | PC.NURSE ---
provider notified of patient not wanting to put equipment monitor phototypesetting on and pulse ox on. patient states he is going to leave, sitting on the edge of the chair and has belongings at his side, states he is going to pull IV's out .
[2024-08-17 06:39] VITALS: PULSE 84; RESP 22; O2SAT 98
== END 2024-08-17 06:40 | disposition left against medical advice (07) | DRG 134 ==
LOC: SERX 22:49 → SERHOLD 08-16 04:43 → S2NX 08-16 10:06
PROVIDERS: Internal Medicine; Physician Assistant; Student in an Organized Health Care Education/Training Program; Admitting Provider Internal Medicine; Emergency Provider Emergency Medicine; Visit Provider Internal Medicine
DX: I26.99 Other pulmonary embolism without acute cor pulmonale (principal); I42.8 Other cardiomyopathies; I50.22 Chronic systolic (congestive) heart failure; I11.0 Hypertensive heart disease with heart failure; F15.10 Other stimulant abuse, uncomplicated; F10.20 Alcohol dependence, uncomplicated; Z86.718 Personal history of other venous thrombosis and embolism; Z53.29 Procedure and treatment not carried out because of patient's decision for other reasons; F41.9 Anxiety disorder, unspecified; Z59.00 Homelessness unspecified
CPT/HCPCS: 36415; 71045; 71275; 80053; 80061; 80307; 83735; 83880; 84100; 84443; 84484; 85025; 85379; 85610; 85730; 87811; 93005; 93971; 99291; A4649; J1643; J1644; J3475; Q9967; A9270

== ENCOUNTER 2024-08-23 20:11 | Emergency (ER) | payer MEDICAID, SELFPAY ==
[2024-08-23 20:12] VITALS: BP 126/75; PULSE 109; RESP 20; TEMP 37.2; O2SAT 99
[2024-08-23 20:14] VITALS: PULSE 111; RESP 20; O2SAT 93; BMI 42.5
[2024-08-23 20:15] VITALS: PULSE 110
--- NOTE | 2024-08-23 20:17 | EDNOTE_ITS ---
ED SOB =RME/HPI General Chief Complaint: Shortness of Breath/Dyspnea Stated Complaint: SOB Time Seen by Provider: 08/23/24 20:13 Arrival date/time: 08/23/24 20:11 RME / HPI RME / HPI Narrative: DR. CAMPBELL MAIN ED EVALUATION: 54-year-old male patient complaining of shortness of breath. States he cannot breathe. States he was supposed to have home oxygen but could not take the tank. Patient states he is homeless. Seen here on 08/16/24 for PE. Patient states he has since also been to [facility]. Reviewed previous [facility] records. Chest CTA on 08/16/2024 nonspecific for PE: There are very subtle low density areas in the right lower pulmonary artery branches, I cannot confirm definite pulmonary artery emboli, follow-up imaging suggested as clinically warranted. Patient states he is not currently taking any of his medications due to them being stolen because he is homeless. Related Data Home Medications ?Medication ?Instructions ?Recorded ?Confirmed nitroglycerin 0.4 mg sublingual 0.4 mg buccal 1XD PRN Chest Pain 08/01/24 08/01/24 tablet Previous Rx's ?Medication ?Instructions ?Recorded amlodipine 5 mg tablet 10 mg (2 x 5 mg) PO QDAY #60 tabs 09/15/23 losartan 25 mg tablet 25 mg PO QDAY #30 tabs 09/15/23 doxycycline monohydrate 100 mg 100 mg PO BID #10 caps 05/17/24 capsule Allergies Allergy/AdvReac Type Severity Reaction Status Date / Time No Known Allergies Allergy Verified 08/15/24 21:47 Review of Systems Review of Systems Systems Reviewed: All systems reviewed, normal except as documented Narrative Review of Systems: GEN: No fever, no chills, no weight loss EYES: No discharge, no visual changes, no pain HEENT: No ear pain, no congestion, no sore throat PULM: + shortness of breath, no cough, no congestion CV: No chest pain, no dyspnea on exertion, no palpitations GI: No nausea, no vomiting, no diarrhea, no pain, no constipation : No frequency, no urgency and no dysuria MUSC/SKEL: No joint pain, no back pain SKIN: No rash PSYCH: No hallucinations, no depression HEME/LYMPH: No easy bleeding or bruising tendencies NEURO: No weakness, no headache Past Medical History Past Medical History NEUROLOGIC: Negative Neurological Disorders CARDIAC: Positive Cardiac Disorders, Congestive Heart Failure and Hypertension RESPIRATORY: Negative Chronic Obstructive Pulmonary Disease (COPD) or Asthma GASTROINTESTINAL: Negative Gastrointestinal Disorders GENITOURINARY: Positive Kidney Stones; Negative Genitourinary Disorders or Renal Disease MUSCULOSKELETAL: Negative Musculoskeletal Disorders ENDOCRINE: Negative Endocrine Disorders, Diabetes Mellitus Type 1 or Diabetes Mellitus Type 2 HEMATOLOGIC: Negative Blood Disorders or Sickle Cell Disease PSYCHO/SOCIAL: Positive Depression and Anxiety OTHER HISTORY: Negative MRSA or Vancomycin-Resistant Enterococci Family History FAMILY HISTORY: Positive Family Cancer Social History SMOKING STATUS: Never smoker SUBSTANCE USE: does not use ED Exam Narrative Physical exam: GENERAL APPEARANCE: alert and oriented x 4, well-developed, well-nourished. VITALS: All vitals were reviewed and the pulse ox is 90% on room air, which is hypoxic according to my interpretation. HEENT: Normocephalic, atraumatic; pupils equal, round, reactive to light; EOMI; mucous membranes pink, moist; oropharynx clear NECK: Supple LUNGS: CTABL; no wheezes, no rales, no rhonchi HEART: Regular rate, regular rhythm; normal S1, S2; no murmurs ABDOMEN: non distended; normal BS; soft, no tenderness, no guarding, no rebound; no masses, no organomegaly, no hernia BACK: no CVA tenderness EXTREMITIES: atraumatic; no edema NEUROLOGIC: awake; alert and oriented x4; cranial nerves II-XII grossly intact; no focal sensory or motor deficits PSYCHIATRIC: appropriate mood and affect SKIN: warm, dry, normal color; no rashes Course Course Course Narrative: Plan to repeat CTA. CTA on 08/16/2024 was not conclusive for PE Quality Measures none Orders Category Date Time Status Bedside COVID-19 Antigen Test NOW Care 08/24/24 00:11 Completed Bedside Influenza A&B Antigen Test NOW Care 08/24/24 00:[address] Screening NOW Care 08/23/24 21:56 Completed Systems Administrator NOW Care 08/23/24 20:22 Completed EKG (ED ONLY) *Do not use* NOW Care 08/23/24 20:[address] angio chest Stat Exams 08/23/24 21:56 Completed EKG (ED Only) Stat Exams 08/23/24 20:22 Draft XR chest 1V portable Stat Exams 08/23/24 20:22 Completed Alcohol, Blood Medical Stat Lab 08/23/24 21:16 Completed B-Type Natriuretic Peptide Stat Lab 08/23/24 21:16 Completed CBC Stat Lab 08/23/24 21:16 Completed Comprehensive Metabolic Panel Stat Lab 08/23/24 21:16 Completed Drug Screen,Urine Stat Lab 08/23/24 20:46 Completed Lipase Stat Lab 08/23/24 21:16 Completed Magnesium Stat Lab 08/23/24 21:16 Completed Partial Thromboplastin Time Stat Lab 08/23/24 21:16 Completed Prothrombin Time with INR Stat Lab 08/23/24 21:16 Completed Troponin I Stat Lab 08/23/24 21:16 Completed Troponin I Stat Lab 08/24/24 01:10 Completed Aspirin Chew Med 08/23/24 23:44 Discontinued 324 mg PO X1 ONE Furosemide Inj [Lasix Inj] Med 08/23/24 23:44 Discontinued 40 mg IVP X1 ONE Vital Signs Vital signs: Vital Signs Temperature 99 F 08/23/24 20:12 Pulse Rate 109 H 08/23/24 20:12 Respiratory Rate 20 08/23/24 20:12 Blood Pressure 126/75 08/23/24 20:12 Pulse Oximetry (%) 99 08/23/24 20:12 Oxygen Delivery Method Oxy Mask 08/23/24 20:12 Oxygen Flow Rate 5 08/23/24 20:12 Shortness of Breath / Dyspnea MDM Narrative MDM Narrative:: IMichelle am scribing for and in the presence of Dr. Campbell. Patient data External records reviewed:: [facility] previous records (Reviewed previous [facility] records. Chest CTA on 08/16/2024 nonspecific for PE: There are very subtle low density areas in the right lower pulmonary artery branches, I cannot confirm definite pulmonary artery emboli, follow-up imaging suggested as clinically warranted. ) Clinical information provided by:: patient Social determinants that could affect healthcare access:: housing (homeless) Patient has the following chronic illnesses:: PE 08/16/24. Hypertension, CHF. How is presenting disease/condition affected by chronic disease/condition?: exacerbated by Evaluation data The following diagnostics were reviewed and interpreted by me:: lab results, radiology exam(s) and EKG tracing(s) (sinus tachycardia, rate 107, left anterior fascicular block) Lab and/or radiology exams considered but not ordered:: none Interpretation Summary: Procedure(s): XR chest 1V portable Accession Number(s): [id number] cc: Peng Spencer MD; Elly Campbell MD~ Examination: PA chest single view Technique: Upright PA chest single view Exam date and time: 03/23/2024 2050 hrs. Comparison August 15, 2024 Indications: Chest pain diarrhea onset today. Findings: Mild heart failure Mild enlargement cardiac contour Prominent vascular congestion including central vascular engorgement Early perihilar basilar edema Impression: Mild CHF Dictated By: Peng Spencer MD Procedure(s): CT angio chest Accession Number(s): [id number] cc: Peng Spencer MD; Elly Campbell MD~ Examination: CTA chest with intravenous contrast 2-D reconstructions 3-D reconstructions, vascular Date and time of exam: August 23, 2024 1116 hrs. Comparison August 16, 2024 Indications: Onset chest pain shortness of breath today CTDI: vol (mGy) 32.88 DLP: (mGycm) 620 Technique: Multiple axial sections of the thorax have been obtained. 3 mm slice thickness, from below the hemidiaphragms to above the apices of the lungs. Mediastinal and lung density settings have been obtained. 2-D sagittal and coronal reconstructions. 3-D angiographic renderings, 3-D volume renderings, 3D post processing, vascular maximum intensity projections obtained. Contrast administered is 100 cc Isovue-370. Low dose protocols were performed. One or more of the following dose reduction techniques were used; automated exposure control, adjustment of the mA and/or KV according to patient size, use of iterative reconstruction technique. Findings: No thoracic aortic aneurysm dilatation Pulmonary artery segments are not enlarged Early bifurcation of right main pulmonary artery branches, axial image 98, no definite pulmonary artery emboli No paratracheal tracheobronchial or bronchopulmonary adenopathy No pneumonia or pulmonary edema Diffuse fatty infiltration throughout the liver Suspicious for small gallstones No pancreatic or adrenal mass Impression: Negative for pulmonary artery emboli Recommend hepatobiliary sonography to exclude gallstones Dictated By: Peng Spencer MD Medications / Prescriptions Medications or Prescriptions considered but not ordered:: none Medication administrations:: Medication Administration History Discontinued Medications Aspirin (Aspirin 81 Mg Chew) 324 mg PO X1 ONE Stop: 08/23/24 23:45 Last Admin: 08/24/24 01:19 Dose: 324 mg Documented By: CVL Furosemide (Furosemide Inj 10 Mg/Ml 4ml Vial) 40 mg IVP X1 ONE Stop: 08/23/24 23:45 Last Admin: 08/24/24 01:20 Dose: 40 mg Documented By: CVL see above Consultations Consultation(s) initiated? (list below): No Diagnosis Shortness of Breath Differential Diagnosis: congestive heart failure, community acquired pneumonia, asthma with exacerbation and pulmonary embolism Most likely diagnosis given after review of the tests above:: Methamphetamine abuse Dyspnea Admission Indicated Admission indicated?: not indicated Admission Request Was there a request for admission?: No Disposition Plan Disposition Plan: Discharge Discharge Attestation Discharge Attestation: The patient and all family members were given an opportunity to ask questions and understood the discharge instructions. Discharge instructions specifically effects, indications for sooner follow up or return to the emergency department, and the expected course of current diagnosis. Patient condition: Stable Discharge Plan Plan Patient Disposition: HOME (Self Care) Prescriptions/Referrals Prescriptions/Med Rec: No Action amlodipine 5 mg Tablet 10 mg PO QDAY Qty: 60 2RF losartan 25 mg Tablet 25 mg PO QDAY Qty: 30 2RF nitroglycerin 0.4 mg tablet, sublingual 0.4 mg buccal 1XD PRN (Reason: Chest Pain) Rx Instructions: I TAB UNDER THE TONGUE EVERY 5 MINUTES NEED FOR CHEST PAIN, MAY GIVE UP TO 3 DOSES doxycycline monohydrate 100 mg capsule 100 mg PO BID Qty: 10 0RF Problem List Clinical Impression: Methamphetamine abuse, Chronic dyspnea Patient/Caregiver Discharge Instructions Education Materials: ED Drug Abuse, ED Shortness of Breath (Dyspnea) Print Language: Palestinian Stand Alone Forms: Colleen Award Info., Patient Portal Info Letter
--- NOTE | 2024-08-23 20:22 | EKG_ITS ---
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: : 1970 Requested By: Elly Martin Order Number: [id number] Reading MD: Elly Martin Measurements Intervals [place] Rate: 107 P: 44 NH: 151 QRS: -61 QRSD: 96 T: 73 QT: 340 QTc: 455 Interpretive Statements SINUS TACHYCARDIA LEFT ANTERIOR FASCICULAR BLOCK [QRS AXIS <= -45, QR IN I, RS IN II] POSSIBLE ANTERIOR MYOCARDIAL INFARCTION , OF INDETERMINATE AGE [30 ms Q WAVE IN V3/V4, OR R < 0.2 mV IN V4] Compared to ECG 08/16/2024 10:35:04 Left anterior fascicular block now present Myocardial infarct finding now present Left-axis deviation no longer present T-wave abnormality no longer present /store/[id number]/[id number].pdf
--- NOTE | 2024-08-23 20:22 | XR_ITS ---
Examination: PA chest single view Technique: Upright PA chest single view Exam date and time: 03/23/20242049 hrs. Comparison August 15, 2024 Indications: Chest pain diarrhea onset today. Findings: Mild heart failure Mild enlargement cardiac contour Prominent vascular congestion including central vascular engorgement Early perihilar basilar edema Impression: Mild CHF
[2024-08-23 21:28] VITALS: BP 114/70; PULSE 98; RESP 24; O2SAT 96
[2024-08-23 21:28] LABS: Basophils % (Auto) 0 % (0-2.5); Eosinophils # (Auto) 0.1 Thou/mm3 (0.0-0.5); Eosinophils % (Auto) 1 % (0-10); Hemoglobin 15.3 g/dL (13.5-16.0); Immature Granulocytes % (Auto) 0 % (0-0); Immature Granulocytes Auto 0.04 Thou/mm3 (0.00-0.00); Lymphocytes # (Auto) 1.4 Thou/mm3 (1.0-4.8); Lymphocytes % (Auto) 13 % (10-50); Mean Corpuscular Hemoglobin 30.9 pg (25.0-35.0); Mean Corpuscular Volume 91 fL (80-100); Monocytes # (Auto) 0.8 Thou/mm3 (0.0-0.8); Monocytes % (Auto) 7 % (0-12); Neutrophils # (Auto) 8.5 Thou/mm3 (1.8-7.7); Neutrophils % (Auto) 79 % (37-80); Nucleated Red Blood Cell % 0 /100 WBC (0); Platelet Count 269 Thou/mm3 (140-440); RDW Standard Deviation 44.6 fL (35.1-43.9); Red Blood Count 4.95 Miln/mm3 (4.50-5.90); White Blood Count 10.8 Thou/mm3 (3.8-10.6)
[2024-08-23 21:37] LABS: Amphetamine/Methamp Scrn,U Positive (Negative); Barbiturate Screen,Urine Negative (Negative); Benzodiazepines Screen,Urine Positive (Negative); Benzoylecgonine Screen, Ur Negative (Negative); Fentanyl Screen,Urine Negative (Negative); Opiate Screen,Urine Negative (Negative); THC Screen,Urine Positive (Negative)
--- NOTE | 2024-08-23 21:56 | XR_ITS ---
Examination: CTA chest with intravenous contrast 2-D reconstructions 3-D reconstructions, vascular Date and time of exam: August 23, 2024 1116 hrs. Comparison August 16, 2024 Indications: Onset chest pain shortness of breath today CTDI: vol (mGy) 32.88 DLP: (mGycm) 620 Technique: Multiple axial sections of the thorax have been obtained. 3 mm slice thickness, from below the hemidiaphragms to above the apices of the lungs. Mediastinal and lung density settings have been obtained. 2-D sagittal and coronal reconstructions. 3-D angiographic renderings, 3-D volume renderings, 3D post processing, vascular maximum intensity projections obtained. Contrast administered is 100 cc Isovue-370. Low dose protocols were performed. One or more of the following dose reduction techniques were used; automated exposure control, adjustment of the mA and/or KV according to patient size, use of iterative reconstruction technique. Findings: No thoracic aortic aneurysm dilatation Pulmonary artery segments are not enlarged Early bifurcation of right main pulmonary artery branches, axial image 98, no definite pulmonary artery emboli No paratracheal tracheobronchial or bronchopulmonary adenopathy No pneumonia or pulmonary edema Diffuse fatty infiltration throughout the liver Suspicious for small gallstones No pancreatic or adrenal mass Impression: Negative for pulmonary artery emboli Recommend hepatobiliary sonography to exclude gallstones
[2024-08-23 22:00] VITALS: BP 97/65; PULSE 100; RESP 39; O2SAT 90
[2024-08-23 22:13] LABS: Alanine Aminotransferase 28 U/L (10-49); Albumin, Serum 4.4 gm/dL (3.5-5.0); Albumin/Globulin Ratio 1.4 (1.2-2.2); Alcohol, Blood Medical < 3.0 mg/dL (0-10.0); Alkaline Phosphatase 71 U/L (46-116); Anion Gap 11 (7-16); Aspartate Amino Transferase 42 U/L (0-34); BUN/Creatinine Ratio 18 Ratio (12-20); Bilirubin,Total 0.8 mg/dL (0.3-1.2); Blood Urea Nitrogen 18 mg/dL (9-23); Calcium 9.6 mg/dL (8.3-10.6); Calcium (Corrected) 9.6 mg/dL (8.5-10.1); Carbon Dioxide 23.1 mMol/L (20.0-31.0); Chloride 103 mMol/L (98-107); Estimated Creatinine Clearance 112.3 mL/min (>60); Globulin 3.1 gm/dL (2.3-3.5); Glucose 118 mg/dL (74-106); Lipase 83 U/L (12-53); Magnesium 1.8 mg/dL (1.6-2.6); Osmolality,Calculated 276 (275-295); Potassium 4.3 mMol/L (3.4-5.1); Sodium 137 mMol/L (136-145); Total Protein 7.5 gm/dL (5.7-8.2); eGFR > 60 See Note
[2024-08-23 22:16] LABS: Troponin I 0.176 ng/mL (0.0-0.045)
[2024-08-23 22:28] LABS: B-Type Natriuretic Peptide 493 pg/mL (0-100)
[2024-08-23 22:37] LABS: INR 1.1 (0.9-1.3); Partial Thromboplastin Time 26.5 Seconds (22.0-36.0); Prothrombin Time 11.8 Seconds (9.0-12.2)
[2024-08-24] MEDS: ASPIRIN 81 MG CHEW 324 MG PO (01:19)
[2024-08-24 01:20] VITALS: BP 130/86; PULSE 96
[2024-08-24] MEDS: FUROSEMIDE INJ 10 MG/ML 4ML VIAL 40 MG IVP (01:20)
[2024-08-24 02:14] VITALS: BP 138/84; PULSE 98; RESP 20; TEMP 36.6; O2SAT 97
[2024-08-24 02:31] LABS: Troponin I 0.137 ng/mL (0.0-0.045)
[2024-08-24 03:00] VITALS: RESP 18
--- NOTE | 2024-08-24 14:38 | PD.RESDS ---
Planned Discharge Date 08/17/24 DS: Providers Provider Primary care physician: Physician No Primary/Family Attending Provider on DC: Dahiana Broussard MD Discharging Provider: Dahiana Broussard MD DS: Diagnosis Problem List Completed Was Problem List Reviewed/Reconciled?: Yes Hospital Course Hospital Course Hospital course: PATIENT LEFT AMA ON 08/17/2024. THIS NOTE IS FOR 08/17/2024. Mr. Carlyle Jordan is a 54 year old male with PMH of HFrEF (30%), essential HTN, anxiety, heavy alcohol and polysubstance use dependence who came to the ER for shortness of breath, chest pain and chest pressure, 8/10 without radiation. Of note, he was recently admitted discharged from [facility] in June where he underwent coronary angiogram that showed non-ischemic cardiomyopathy with an EF of 30%. He was admitted for ACS work up. Initial labs showed uptrending troponin (0.199 to 2.297) and EKG showed sinus tachycardia with occasional PVCs. Chest X-ray was supportive of early heart failure and BNP was elevated. He was started on heparin drip, aspirin, and statin. Goal-directed medical therapy was restarted and underground production foreperson Dr. Plascencia was consulted. Because of his significant alcohol use, he was started on Librium and CIWA protocol to avoid alcohol withdrawals. Overnight on 08/17/2024, patient left AGAINST MEDICAL ADVICE. #ACS #Elevated troponin #Chronic systolic heart failure with reduced ejection fraction #Nonischemic cardiomyopathy, EF 30% #Alcohol Depeendnce #Polysubstance use I have reviewed and discussed the patient's care with my attending, Dr. Chavo Broussard MD PGY-3 Time Spent with Patient Time attestation: Total time spent providing and/or coordinating discharge services: Exam Vital Signs Temp Pulse Resp BP Pulse Ox O2 Del Method O2 Flow Rate 98 F 98 18 138/84 H 97 Room Air 5 08/24/24 02:14 08/24/24 02:14 08/24/24 03:00 08/24/24 02:14 08/24/24 02:14 08/24/24 02:14 08/23/24 20:12 Discharge Plan Plan Patient Disposition: HOME (Self Care) Prescriptions/Referrals Prescriptions/Med Rec: No Action amlodipine 5 mg Tablet 10 mg PO QDAY Qty: 60 2RF losartan 25 mg Tablet 25 mg PO QDAY Qty: 30 2RF nitroglycerin 0.4 mg tablet, sublingual 0.4 mg buccal 1XD PRN (Reason: Chest Pain) Rx Instructions: I TAB UNDER THE TONGUE EVERY 5 MINUTES NEED FOR CHEST PAIN, MAY GIVE UP TO 3 DOSES doxycycline monohydrate 100 mg capsule 100 mg PO BID Qty: 10 0RF Problem List Clinical Impression: Methamphetamine abuse, Chronic dyspnea Patient/Caregiver Discharge Instructions Education Materials: ED Drug Abuse, ED Shortness of Breath (Dyspnea) Print Language: Kazakh Stand Alone Forms: Colleen Award Info., Patient Portal Info Letter Quality Discharge Quality Measures none
== END 2024-08-24 03:00 | disposition home or self-care (01) ==
PROVIDERS: Emergency Provider Emergency Medicine
DX: I11.0 Hypertensive heart disease with heart failure (principal); I50.9 Heart failure, unspecified; F15.10 Other stimulant abuse, uncomplicated; R00.0 Tachycardia, unspecified; I44.4 Left anterior fascicular block; Z59.00 Homelessness unspecified
CPT/HCPCS: 36415; 71045; 71275; 80053; 80307; 80320; 83690; 83735; 83880; 84484; 85025; 85610; 85730; 87400; 87811; 93005; 96374; 99285; A4649; J1940; Q9967; A9270; G0480

== ENCOUNTER 2024-09-06 23:45 | Emergency (ER) | payer MEDICAID, SELFPAY ==
[2024-09-06 23:47] VITALS: BP 145/85; PULSE 126; RESP 24; TEMP 36.9; O2SAT 96
[2024-09-06 23:50] VITALS: BMI 42.5
--- NOTE | 2024-09-06 23:57 | PD.EDSOB ---
ED SOB =RME/HPI General Chief Complaint: Shortness of Breath/Dyspnea Stated Complaint: SOB Time Seen by Provider: 09/06/24 23:59 Arrival date/time: 09/06/24 23:45 RME / HPI RME / HPI Narrative: Dr. Cooley?s Main ED Evaluation: 54yo male MLALIKA presents to the ED for a chief complaint of cramping to his BLE and BUE. Patient states he was clean for 10 days until he relapsed and started using cocaine and alcohol 2-3 days ago. Patient states he started having severe BUE and BLE cramping and was short of breath, so he came in for evaluation. He denies any other associated symptoms. No known allergies. Related Data Home Medications ?Medication ?Instructions ?Recorded ?Confirmed nitroglycerin 0.4 mg sublingual 0.4 mg buccal 1XD PRN Chest Pain 08/01/24 08/01/24 tablet Previous Rx's ?Medication ?Instructions ?Recorded amlodipine 5 mg tablet 10 mg (2 x 5 mg) PO QDAY #60 tabs 09/15/23 losartan 25 mg tablet 25 mg PO QDAY #30 tabs 09/15/23 doxycycline monohydrate 100 mg 100 mg PO BID #10 caps 05/17/24 capsule albuterol sulfate 90 mcg/actuation 2 puff inhalation Q6H PRN 09/07/24 aerosol inhaler shortness of breath or wheezing #8.5 grams Allergies Allergy/AdvReac Type Severity Reaction Status Date / Time No Known Allergies Allergy Verified 08/15/24 21:47 Review of Systems Review of Systems Systems Reviewed: All systems reviewed, normal except as documented Past Medical History Past Medical History NEUROLOGIC: Negative Neurological Disorders CARDIAC: Positive Cardiac Disorders, Congestive Heart Failure and Hypertension RESPIRATORY: Negative Chronic Obstructive Pulmonary Disease (COPD) or Asthma GASTROINTESTINAL: Negative Gastrointestinal Disorders GENITOURINARY: Positive Kidney Stones; Negative Genitourinary Disorders or Renal Disease MUSCULOSKELETAL: Negative Musculoskeletal Disorders ENDOCRINE: Negative Endocrine Disorders, Diabetes Mellitus Type 1 or Diabetes Mellitus Type 2 HEMATOLOGIC: Negative Blood Disorders or Sickle Cell Disease PSYCHO/SOCIAL: Positive Depression and Anxiety OTHER HISTORY: Negative MRSA or Vancomycin-Resistant Enterococci Family History FAMILY HISTORY: Positive Family Cancer Social History SMOKING STATUS: Current some day smoker SUBSTANCE USE: does not use ED Exam Narrative Physical exam: GENERAL APPEARANCE: alert and oriented x 4, well-developed, well-nourished, no acute distress VITALS: All vitals were reviewed and the pulse ox is 96% on room air, which is normal according to my interpretation. HEENT: Normocephalic, atraumatic; pupils equal, round, reactive to light; EOMI; mucous membranes pink, moist; oropharynx clear NECK: Supple LUNGS: CTABL; no wheezes, no rales, no rhonchi HEART: Tachycardic, regular rhythm; normal S1, S2; no murmurs ABDOMEN: non distended; normal BS; soft, no tenderness, no guarding, no rebound; no masses, no organomegaly, no hernia BACK: no CVA tenderness EXTREMITIES: atraumatic; no edema; has purposeless movements of BLE NEUROLOGIC: awake; alert and oriented x4; cranial nerves II-XII grossly intact; no focal sensory or motor deficits PSYCHIATRIC: appropriate mood and affect SKIN: warm, diaphoretic, normal color; no rashes Course Course Course Narrative: CXR is ordered for determining the etiology of shortness of breath. Quality Measures none Orders Category Date Time Status Bedside Blood Glucose NOW Care 09/07/24 00:28 Completed Unemployment Benefits Claims Taker STAT Care 09/07/24 00:26 Completed Continuous Pulse Oximetry ONCE Care 09/07/24 00:26 Completed EKG (ED ONLY) *Do not use* NOW Care 09/06/24 23:52 Completed Insert IV STAT Care 09/07/24 00:26 Completed EKG (ED Only) Stat Exams 09/06/24 23:52 Ordered XR chest 1V portable Stat Exams 09/07/24 00:26 Completed Acetaminophen Stat Lab 09/07/24 00:35 Completed Alcohol, Blood Medical Stat Lab 09/07/24 00:35 Completed B-Type Natriuretic Peptide Stat Lab 09/07/24 00:35 Completed CBC Stat Lab 09/07/24 00:35 Completed Comprehensive Metabolic Panel Stat Lab 09/07/24 00:35 Completed Drug Screen,Urine Stat Lab 09/07/24 02:34 Completed Free T4 (Free Thyroxine) Stat Lab 09/07/24 00:35 Completed Magnesium Stat Lab 09/07/24 00:35 Completed Salicylate Stat Lab 09/07/24 00:35 Completed Thyroid Stimulating Hormone Stat Lab 09/07/24 00:35 Completed Troponin I Stat Lab 09/07/24 00:35 Completed Troponin I Stat Lab 09/07/24 03:39 Completed Diazepam Inj [Valium Inj] Med 09/07/24 00:27 Discontinued 10 mg IVP X1 ONE Ketorolac Inj [Toradol Inj] Med 09/07/24 01:35 Discontinued 30 mg IVP X1 ONE Sodium Chloride 0.9% 1000 ml [Ns] 1,000 ml Med 09/07/24 00:26 Discontinued IV 999 mls/hr Vital Signs Vital signs: Vital Signs Temperature 98.5 F 09/06/24 23:47 Pulse Rate 126 H 09/06/24 23:47 Respiratory Rate 24 H 09/06/24 23:47 Blood Pressure 145/85 H 09/06/24 23:47 Pulse Oximetry (%) 96 09/06/24 23:47 Oxygen Delivery Method Room Air 09/06/24 23:47 Shortness of Breath / Dyspnea MDM Narrative MDM Narrative:: Scribe Attestation: 09/06/24 - Ruthann Serrano am scribing for and in the presence of Dr. Cooley. Patient data External records reviewed:: [facility] previous records (Per chart review, patient was admitted here on 08/23/24 for chronic dyspnea.) Clinical information provided by:: patient Social determinants that could affect healthcare access:: substance use Patient has the following chronic illnesses:: CHF, HTN How is presenting disease/condition affected by chronic disease/condition?: exacerbated by Evaluation data The following diagnostics were reviewed and interpreted by me:: lab results, radiology exam(s) and EKG tracing(s) Lab and/or radiology exams considered but not ordered:: none Interpretation Summary: WBC count is elevated at 11.2, CMP is normal, Initial Troponin is elevated at 0.207, Repeat troponin is 0.210, BNP is elevated at 254, UDS is positive for methamphetamines, benzodiazepines, and marijuana, according to my interpretation. CXR shows cardiomegaly, vascular congestion, but no infiltrates, according to my interpretation. EKG done at 2355, sinus tachycardia, rate of 123, left axis deviation, Q waves in V1 and V2, nonspecific ST abnormalities, no ectopy, no STEMI, according to my interpretation. Medications / Prescriptions Medications or Prescriptions considered but not ordered:: none Medication administrations:: Medication Administration History Discontinued Medications Diazepam (Diazepam Inj 5 Mg/Ml Vial 2 Ml) 10 mg IVP X1 ONE Stop: 09/07/24 00:28 Last Admin: 09/07/24 00:37 Dose: 10 mg Documented By: BETO Sodium Chloride (Ns) 1,000 mls @ 999 mls/hr IV .Q1H1M ONE Stop: 09/07/24 01:26 Last Infusion: 09/07/24 01:40 Dose: Infused Documented By: Admin: 09/07/24 00:36 Dose: 999 mls/hr Documented By: BETO Ketorolac Tromethamine (Ketorolac Inj 30 Mg/Ml Vial) 30 mg IVP X1 ONE Stop: 09/07/24 01:36 Last Admin: 09/07/24 01:48 Dose: 30 mg Documented By: KELSEA see above Consultations Consultation(s) initiated? (list below): No Diagnosis Shortness of Breath Differential Diagnosis: community acquired pneumonia, pulmonary embolism and other (CHF exacerbation, drug use) Most likely diagnosis given after review of the tests above:: see below Admission Indicated Admission indicated?: not indicated Admission Request Was there a request for admission?: No Disposition Plan Disposition Plan: Discharge Discharge Attestation Discharge Attestation: The patient and all family members were given an opportunity to ask questions and understood the discharge instructions. Discharge instructions specifically effects, indications for sooner follow up or return to the emergency department, and the expected course of current diagnosis. Patient condition: Stable Discharge Plan Plan Patient Disposition: HOME (Self Care) Disposition Comment: Stable for discharge Patient condition on transfer: Stable Prescriptions/Referrals Prescriptions/Med Rec: New albuterol sulfate 90 mcg/actuation HFA aerosol inhaler 2 puff inhalation Q6H PRN (Reason: shortness of breath or wheezing) Qty: 8.5 0RF No Action amlodipine 5 mg Tablet 10 mg PO QDAY Qty: 60 2RF losartan 25 mg Tablet 25 mg PO QDAY Qty: 30 2RF nitroglycerin 0.4 mg tablet, sublingual 0.4 mg buccal 1XD PRN (Reason: Chest Pain) Rx Instructions: I TAB UNDER THE TONGUE EVERY 5 MINUTES NEED FOR CHEST PAIN, MAY GIVE UP TO 3 DOSES doxycycline monohydrate 100 mg capsule 100 mg PO BID Qty: 10 0RF Referrals: [facility] [Outside] - In 1 week Jose Galo PA-C [Primary Care Provider] - In 1 week Problem List Clinical Impression: Methamphetamine abuse, Cannabis abuse Patient/Caregiver Discharge Instructions Discharge Activity: activity as tolerated Education Materials: Finding the Right Rehab ..., Addiction Ask These Questions, Addiction: Getting Help, Addiction: Your Treatment Options, Understanding Methamphetamine ..., ED Marijuana Abuse Additional Instructions: Please return to the emergency department if you notice any worsening or any further medical problems Otherwise you [facility] within the next several days Print Language: Luxembourgish Stand Alone Forms: Colleen Award Info., Patient Portal Info Letter
--- NOTE | 2024-09-07 00:26 | XR_ITS ---
Examination: AP chest single view TECHNIQUE: AP portable upright chest single view Exam date and time: June 08, 2024 1242 hours Comparison August 21, 2024 INDICATIONS: Chest pain today. FINDINGS: Mild to moderate enlargement cardiac contour Prominent vascular congestion Suspicious for early septal edema at the lung bases Mild osteopenia IMPRESSION: Early heart failure pattern
[2024-09-07] MEDS: SODIUM CHLORIDE 0.9% 1000 ML 1,000 ML 999 ML IV (00:36)
[2024-09-07] MEDS: DIAZEPAM INJ 5 MG/ML VIAL 2 ML 10 MG IVP (00:37)
[2024-09-07 00:51] LABS: Basophils % (Auto) 0 % (0-2.5); Eosinophils % (Auto) 0 % (0-10); Hematocrit 47.8 % (41.0-53.0); Hemoglobin 15.9 g/dL (13.5-16.0); Immature Granulocytes % (Auto) 0 % (0-0); Immature Granulocytes Auto 0.03 Thou/mm3 (0.00-0.00); Lymphocytes # (Auto) 0.9 Thou/mm3 (1.0-4.8); Lymphocytes % (Auto) 8 % (10-50); Mean Corpuscular HGB Conc 33.3 g/dl (31.0-37.0); Mean Corpuscular Hemoglobin 30.5 pg (25.0-35.0); Mean Corpuscular Volume 92 fL (80-100); Monocytes # (Auto) 0.6 Thou/mm3 (0.0-0.8); Monocytes % (Auto) 5 % (0-12); Neutrophils # (Auto) 9.7 Thou/mm3 (1.8-7.7); Neutrophils % (Auto) 86 % (37-80); Nucleated Red Blood Cell % 0 /100 WBC (0); Platelet Count 330 Thou/mm3 (140-440); RDW Standard Deviation 45.3 fL (35.1-43.9); Red Blood Count 5.22 Miln/mm3 (4.50-5.90); White Blood Count 11.2 Thou/mm3 (3.8-10.6)
[2024-09-07 01:09] LABS: B-Type Natriuretic Peptide 254 pg/mL (0-100)
[2024-09-07 01:16] LABS: Acetaminophen < 2.0 mcg/mL (10.0-20.0); Alanine Aminotransferase 26 U/L (10-49); Albumin, Serum 4.4 gm/dL (3.5-5.0); Albumin/Globulin Ratio 1.5 (1.2-2.2); Alcohol, Blood Medical < 3.0 mg/dL (0-10.0); Alkaline Phosphatase 64 U/L (46-116); Anion Gap 11 (7-16); Aspartate Amino Transferase 41 U/L (0-34); BUN/Creatinine Ratio 19 Ratio (12-20); Bilirubin,Total 0.9 mg/dL (0.3-1.2); Blood Urea Nitrogen 19 mg/dL (9-23); Carbon Dioxide 25.9 mMol/L (20.0-31.0); Chloride 102 mMol/L (98-107); Estimated Creatinine Clearance 112.3 mL/min (>60); Free T4 (Free Thyroxine) 1.05 ng/dL (0.89-1.76); Glucose 128 mg/dL (74-106); Magnesium 1.8 mg/dL (1.6-2.6); Osmolality,Calculated 281 (275-295); Potassium 3.6 mMol/L (3.4-5.1); Salicylate < 3.0 mg/dL; Sodium 139 mMol/L (136-145); Thyroid Stimulating Hormone 0.55 uIU/mL (0.55-4.78); Total Protein 7.4 gm/dL (5.7-8.2); eGFR > 60 See Note
[2024-09-07 01:19] LABS: Troponin I 0.207 ng/mL (0.0-0.045)
[2024-09-07] MEDS: KETOROLAC INJ 30 MG/ML VIAL IVP (01:48)
[2024-09-07 01:50] VITALS: BP 109/94; PULSE 115; RESP 18; O2SAT 95
[2024-09-07 02:52] LABS: Amphetamine/Methamp Scrn,U Positive (Negative); Barbiturate Screen,Urine Negative (Negative); Benzodiazepines Screen,Urine Positive (Negative); Benzoylecgonine Screen, Ur Negative (Negative); Fentanyl Screen,Urine Negative (Negative); Opiate Screen,Urine Negative (Negative); THC Screen,Urine Positive (Negative)
== END 2024-09-07 05:40 | disposition home or self-care (01) ==
PROVIDERS: Emergency Provider Emergency Medicine; PCP Family Medicine
DX: F15.10 Other stimulant abuse, uncomplicated (principal); F12.10 Cannabis abuse, uncomplicated
CPT/HCPCS: 36415; 71045; 80053; 80307; 80320; 80329; 83735; 83880; 84439; 84443; 84484; 85025; 93005; 96361; 96374; 99284; J1885; J3360; J7030; G0480

== ENCOUNTER 2024-09-07 22:54 | Emergency (ER) | payer MEDICAID, SELFPAY ==
[2024-09-07 22:56] VITALS: PULSE 108; RESP 20; O2SAT 97
[2024-09-07 22:59] VITALS: BP 126/56; PULSE 106; RESP 20; TEMP 37.2; O2SAT 95
--- NOTE | 2024-09-07 23:05 | EDNOTE_ITS ---
ED SOB =RME/HPI General Chief Complaint: Shortness of Breath/Dyspnea Stated Complaint: sob Time Seen by Provider: 09/07/24 23:02 Arrival date/time: 09/07/24 22:54 RME / HPI RME / HPI Narrative: Dr. Cooley?s Main ED Evaluation: 54yo male with pmhx CHF, HTN BIBA presents to the ED for a chief complaint of shortness of breath. Patient states he hasn't slept, but does not specify for how long. He is sleepy, is easily arousable, but does not provide any other history. Related Data Home Medications ?Medication ?Instructions ?Recorded ?Confirmed nitroglycerin 0.4 mg sublingual 0.4 mg buccal 1XD PRN Chest Pain 08/01/24 08/01/24 tablet Previous Rx's ?Medication ?Instructions ?Recorded amlodipine 5 mg tablet 10 mg (2 x 5 mg) PO QDAY #60 tabs 09/15/23 losartan 25 mg tablet 25 mg PO QDAY #30 tabs 09/15/23 doxycycline monohydrate 100 mg 100 mg PO BID #10 caps 05/17/24 capsule albuterol sulfate 90 mcg/actuation 2 puff inhalation Q6H PRN 09/07/24 aerosol inhaler shortness of breath or wheezing #8.5 grams Allergies Allergy/AdvReac Type Severity Reaction Status Date / Time No Known Allergies Allergy Verified 08/15/24 21:47 Review of Systems Review of Systems Systems Reviewed: All systems reviewed, normal except as documented ED Exam Narrative Physical exam: GENERAL APPEARANCE: somnolent, but is easily arousable to voice, well-developed, well-nourished, no acute distress VITALS: All vitals were reviewed and the pulse ox is 95% on room air, which is normal according to my interpretation. HEENT: Normocephalic, atraumatic; pupils equal, round, reactive to light; EOMI; mucous membranes pink, moist; oropharynx clear NECK: Supple LUNGS: CTABL; no wheezes, no rales, no rhonchi HEART: Tachycardic, regular rhythm; normal S1, S2; no murmurs ABDOMEN: non distended; normal BS; soft, no tenderness, no guarding, no rebound; no masses, no organomegaly, no hernia BACK: no CVA tenderness EXTREMITIES: atraumatic; no edema; choreoathetotic movements NEUROLOGIC: somnolent, but is easily arousable; cranial nerves II-XII grossly intact; no focal sensory or motor deficits PSYCHIATRIC: appropriate mood and affect SKIN: warm, dry, normal color; no rashes Course Course Course Narrative: CXR is ordered for determining the etiology of shortness of breath. Quality Measures none Orders Category Date Time Status EKG (ED ONLY) *Do not use* NOW Care 09/08/24 01:26 Completed EKG (ED Only) Stat Exams 09/08/24 01:26 Ordered XR chest 1V portable Stat Exams 09/08/24 01:26 Taken Alcohol, Blood Medical Stat Lab 09/07/24 23:43 Completed CBC Stat Lab 09/07/24 23:43 Completed CMP [Comprehensive Metabolic Panel] Stat Lab 09/07/24 23:43 Completed Mag [Magnesium] Stat Lab 09/07/24 23:43 Completed Ondansetron Inj [Zofran Inj] Med 09/08/24 01:44 Discontinued 4 mg IV X1 ONE Sodium Chloride 0.9% 1000 ml [Ns] 1,000 ml Med 09/07/24 23:53 Discontinued IV 999 mls/hr Vital Signs Vital signs: Vital Signs Temperature 98.9 F 09/07/24 22:59 Pulse Rate 106 H 09/07/24 22:59 Respiratory Rate 20 09/07/24 22:59 Blood Pressure 126/56 L 09/07/24 22:59 Pulse Oximetry (%) 95 09/07/24 22:59 Oxygen Delivery Method Room Air 09/07/24 22:59 Shortness of Breath / Dyspnea MDM Narrative MDM Narrative:: Scribe Attestation: 09/07/24 Ruthann Fernandez am scribing for and in the presence of Dr. Cooley. Patient data External records reviewed:: [facility] previous records (Per chart review, patient was seen here yesterday for methamphetamine and cannabis abuse.) Clinical information provided by:: patient and EMS Social determinants that could affect healthcare access:: substance use Patient has the following chronic illnesses:: CHF, HTN How is presenting disease/condition affected by chronic disease/condition?: exacerbated by Evaluation data The following diagnostics were reviewed and interpreted by me:: lab results, radiology exam(s) and EKG tracing(s) Lab and/or radiology exams considered but not ordered:: none Interpretation Summary: WBC count is elevated at 13.6, CMP is normal, Magnesium is normal, Blood alcohol is negative, according to my interpretation. CXR shows cardiomegaly, vascular congestion, exhalation noted, no infiltrates, according to my interpretation. EKG done at 2303, sinus tachycardia, rate of 105, left axis deviation, no ectopy, Q waves in V1, V2, and V3, no STEMI, according to my interpretation. Medications / Prescriptions Medications or Prescriptions considered but not ordered:: none Medication administrations:: Medication Administration History Discontinued Medications Sodium Chloride (Ns) 1,000 mls @ 999 mls/hr IV .Q1H1M ONE Stop: 09/08/24 00:53 Last Infusion: 09/08/24 00:40 Dose: Infused Documented By: Admin: 09/07/24 23:59 Dose: 999 mls/hr Documented By: TC Ondansetron HCl (Ondansetron Inj 2 Mg/Ml Inj 2 Ml) 4 mg IV X1 ONE; Protocol Stop: 09/08/24 01:45 Last Admin: 09/08/24 01:48 Dose: 4 mg Documented By: TC see above Consultations Consultation(s) initiated? (list below): No Diagnosis Shortness of Breath Differential Diagnosis: community acquired pneumonia and other (STEMI, NSTEMI, pulmonary edema, pneumothorax) Most likely diagnosis given after review of the tests above:: see below Admission Indicated Admission indicated?: not indicated Admission Request Was there a request for admission?: No Disposition Plan Disposition Plan: Discharge Discharge Attestation Discharge Attestation: The patient and all family members were given an opportunity to ask questions and understood the discharge instructions. Discharge instructions specifically effects, indications for sooner follow up or return to the emergency department, and the expected course of current diagnosis. Patient condition: Stable Discharge Plan Plan Patient Disposition: HOME (Self Care) Disposition Comment: Stable for discharge Patient condition on transfer: Stable Prescriptions/Referrals Prescriptions/Med Rec: No Action amlodipine 5 mg Tablet 10 mg PO QDAY Qty: 60 2RF losartan 25 mg Tablet 25 mg PO QDAY Qty: 30 2RF nitroglycerin 0.4 mg tablet, sublingual 0.4 mg buccal 1XD PRN (Reason: Chest Pain) Rx Instructions: I TAB UNDER THE TONGUE EVERY 5 MINUTES NEED FOR CHEST PAIN, MAY GIVE UP TO 3 DOSES doxycycline monohydrate 100 mg capsule 100 mg PO BID Qty: 10 0RF albuterol sulfate 90 mcg/actuation HFA aerosol inhaler 2 puff inhalation Q6H PRN (Reason: shortness of breath or wheezing) Qty: 8.5 0RF Referrals: No Primary/Family,Physician [Primary Care Provider] - In 1 week Stacy Quarles MD [Physician] - In 1 week Problem List Clinical Impression: Acute dyspnea Patient/Caregiver Discharge Instructions Discharge Activity: activity as tolerated Education Materials: Shortness of Breath Coping, Understanding Methamphetamine ..., Heart Failure and Physical Activity, ED Heart Failure, Congestive (CHF), ED Drug Abuse, ED Shortness of Breath (Dyspnea) Additional Instructions: You should definitely stop using methamphetamine. Your heart is already very weak because of your past use. If you keep using methamphetamine you are going to . Your heart is not strong enough to continue beating if you keep using methamphetamine. Please return to the emergency department for any worsening or any further medical problems You should call Dr. Quarles and make an appointment for sometime in the next week. Dr. Quarles is our heavy equipment engine mechanic on-call for the ER. Print Language: Bulgarian Stand Alone Forms: Colleen Award Info., Patient Portal Info Letter
[2024-09-07 23:17] VITALS: BP 127/73; PULSE 110; RESP 22; O2SAT 98
[2024-09-07 23:29] VITALS: BMI 39.1
[2024-09-07 23:30] VITALS: BP 139/96; PULSE 108; RESP 19; O2SAT 98
[2024-09-07 23:45] VITALS: BP 128/91; PULSE 105; RESP 18; O2SAT 97
[2024-09-07] MEDS: SODIUM CHLORIDE 0.9% 1000 ML 1,000 ML 999 ML IV (23:59)
[2024-09-08] VITALS (17 sets, daily range): BP systolic 106–150; BP diastolic 72–117; PULSE 86–113; RESP 0–36; TEMP 37; O2SAT 93–99
[2024-09-08 00:14] LABS: Basophils % (Auto) 0 % (0-2.5); Eosinophils # (Auto) 0.1 Thou/mm3 (0.0-0.5); Eosinophils % (Auto) 1 % (0-10); Hematocrit 44.8 % (41.0-53.0); Hemoglobin 14.8 g/dL (13.5-16.0); Immature Granulocytes % (Auto) 0 % (0-0); Immature Granulocytes Auto 0.04 Thou/mm3 (0.00-0.00); Lymphocytes # (Auto) 2.8 Thou/mm3 (1.0-4.8); Lymphocytes % (Auto) 21 % (10-50); Mean Corpuscular Hemoglobin 30.6 pg (25.0-35.0); Mean Corpuscular Volume 93 fL (80-100); Monocytes # (Auto) 1.1 Thou/mm3 (0.0-0.8); Monocytes % (Auto) 8 % (0-12); Neutrophils # (Auto) 9.6 Thou/mm3 (1.8-7.7); Neutrophils % (Auto) 70 % (37-80); Nucleated Red Blood Cell % 0 /100 WBC (0); Platelet Count 259 Thou/mm3 (140-440); RDW Standard Deviation 46.2 fL (35.1-43.9); Red Blood Count 4.84 Miln/mm3 (4.50-5.90); White Blood Count 13.6 Thou/mm3 (3.8-10.6)
[2024-09-08 01:22] LABS: Alanine Aminotransferase 30 U/L (10-49); Albumin/Globulin Ratio 1.5 (1.2-2.2); Alcohol, Blood Medical < 3.0 mg/dL (0-10.0); Alkaline Phosphatase 59 U/L (46-116); Anion Gap 7 (7-16); Aspartate Amino Transferase 73 U/L (0-34); BUN/Creatinine Ratio 22 Ratio (12-20); Bilirubin,Total 0.7 mg/dL (0.3-1.2); Blood Urea Nitrogen 22 mg/dL (9-23); Calcium 9.5 mg/dL (8.3-10.6); Calcium (Corrected) 9.5 mg/dL (8.5-10.1); Carbon Dioxide 26.9 mMol/L (20.0-31.0); Chloride 106 mMol/L (98-107); Estimated Creatinine Clearance 103.9 mL/min (>60); Globulin 2.6 gm/dL (2.3-3.5); Glucose 97 mg/dL (74-106); Magnesium 2.1 mg/dL (1.6-2.6); Osmolality,Calculated 282 (275-295); Potassium 4.3 mMol/L (3.4-5.1); Sodium 140 mMol/L (136-145); Total Protein 6.6 gm/dL (5.7-8.2); eGFR > 60 See Note
--- NOTE | 2024-09-08 01:26 | XR_ITS ---
Examination: AP chest single view Technique: AP portable semiupright chest single view Exam date and time: September 08, 2024 at 0218 hrs. Indications: Altered mental status, coughing chest pain today Findings: Mild heart failure Mild to moderate enlargement cardiac contour Prominent vascular congestion Edema and/or pneumonia in the right lower lung zone Impression: Mild heart failure Edema and/or pneumonia in the right lower lung zone
[2024-09-08] MEDS: ONDANSETRON INJ 2 MG/ML INJ 2 ML 4 MG IV (01:48)
== END 2024-09-08 05:25 | disposition home or self-care (01) ==
PROVIDERS: Emergency Provider Emergency Medicine
DX: R06.02 Shortness of breath (principal); I11.0 Hypertensive heart disease with heart failure; I50.9 Heart failure, unspecified
CPT/HCPCS: 36415; 71045; 80053; 80320; 83735; 85025; 93005; 96361; 96374; 99284; J2405; J7030; G0480

== ENCOUNTER 2024-09-24 00:17 | Emergency (ER) | payer MEDICAID, SELFPAY ==
[2024-09-24 00:25] VITALS: BP 156/101; PULSE 87; RESP 19; TEMP 36.9; O2SAT 96
[2024-09-24 00:27] VITALS: BMI 44.1
[2024-09-24 00:50] VITALS: PULSE 80; RESP 18; O2SAT 96
--- NOTE | 2024-09-24 01:06 | EKG_ITS ---
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1970 Requested By: Candice Leon Order Number: [id number] Reading MD: Candice Leon Measurements Intervals [place] Rate: 88 P: 35 CA: 161 QRS: -46 QRSD: 97 T: 71 QT: 362 QTc: 440 Interpretive Statements SINUS RHYTHM POSSIBLE LEFT ATRIAL ENLARGEMENT [-0.1mV P WAVE IN V1/V2] PATTERN CONSISTENT WITH PULMONARY DISEASE LEFT ANTERIOR FASCICULAR BLOCK [QRS AXIS <= -45, QR IN I, RS IN II] NONSPECIFIC T-WAVE ABNORMALITY Compared to ECG 08/23/2024 20:40:51 T-wave abnormality now present Sinus tachycardia no longer present Myocardial infarct finding no longer present /[id number]/[id number].pdf
--- NOTE | 2024-09-24 01:19 | XR_ITS ---
Examination: AP chest single view Technique: AP portable upright chest single view Exam date and time: September 24, 2024 0137 hrs. Comparison September 08, 2024 Indications: Chest pain today. Findings: Mild to moderate enlargement left ventricle Moderate vascular congestion No lobar pneumonia No monica pulmonary edema Mild osteopenia Impression: Moderate vascular congestion
--- NOTE | 2024-09-24 01:37 | EDNOTE_ITS ---
ED General RME/HPI General Chief complaint: Chest Pain Stated complaint: CHEST PAIN Time Seen by Provider: 09/24/24 00:28 Arrival date/time: 09/24/24 00:17 RME / HPI RME / HPI narrative: Chief complaint: Central chest pain, and shortness of breath HPI: Mr. Jordan is a 54-year-old male with past medical history of HFrEF (30%), essential HTN, anxiety, heavy alcohol and polysubstance use dependence, who was brought to the ER by EMS for central chest pain and associated shortness of breath. Patient symptoms started around 8 PM on 09/23/2024, and progressively got worse. Patient is homeless, and has longstanding history of polysubstance use including marijuana, cocaine and methamphetamine. He endorses quitting all drug since last 10 days now, however lives at present symptoms started after he smoked a joint of marijuana. At this time patient is only smoking marijuana, as he is scheduled for a pacemaker placement for his heart failure, by Dr. Morales at [facility]. He was recently hospitalized at [facility] for shortness of breath secondary to CHF exacerbation and got discharged 3 days ago. 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 He has not had similar symptoms on multiple occasions in the past, mostly due to his congestive heart failure. In the ED, vitals were within normal limits, and patient was saturating 96 to 98% on room air. EKG showed sinus rhythm with no ST changes, HR 88 bpm. Patient describes his pain as central, nonradiating, dull and achy and he can put a finger on it. His pain is worse on pressing the chest . Medication list: Aspirin 81 mg daily Atorvastatin 40 mg daily Pantoprazole 40 mg daily SL nitroglycerin Metoprolol tartrate 50 mg twice daily Lisinopril 20 mg twice daily Furosemide 40 mg daily Spironolactone daily Tamsulosin 0.4 mg daily Thiamine Folic acid Multivitamin Allergies: NKFDA Social history: Occupational?History:?unemployed/homeless Marital?Status:?Single Tobacco?Use:?Denies ETOH?Use:?Occassionally, last drink >10 days ago Drug?Note:?Hx of cocaine and meth use, last use 10 days ago Family history: Unsure. Parents are . L Related Data Home Medications ?Medication ?Instructions ?Recorded ?Confirmed nitroglycerin 0.4 mg sublingual 0.4 mg buccal 1XD PRN Chest Pain 08/01/24 08/01/24 tablet Previous Rx's ?Medication ?Instructions ?Recorded amlodipine 5 mg tablet 10 mg (2 x 5 mg) PO QDAY #60 tabs 09/15/23 losartan 25 mg tablet 25 mg PO QDAY #30 tabs 09/15/23 doxycycline monohydrate 100 mg 100 mg PO BID #10 caps 05/17/24 capsule albuterol sulfate 90 mcg/actuation 2 puff inhalation Q6H PRN 09/07/24 aerosol inhaler shortness of breath or wheezing #8.5 grams celecoxib 100 mg capsule 100 mg PO BID PRN pain #10 caps 09/24/24 Allergies Allergy/AdvReac Type Severity Reaction Status Date / Time No Known Allergies Allergy Verified 08/15/24 21:47 Review of Systems Review of Systems Narrative Review of Systems: GENERAL: Denies fevers/chills or diaphoresis. HEENT: Denies headache or visual/hearing changes. Denies nasal discharge. NEURO: Denies unusual weakness or difficulty speaking. CARDIO: central chest pain , denies palpitations. PULM: Denies SOB, coughing, or wheezing. GI: Denies abdominal pain, N/V/C/D. Reports having BMs URO: Denies burning/itching/pain/urinary changes. MSK/EXT/SKIN: Denies joint/skeletal/muscle pain, issues/changes in upper or lower extremities, itchiness, or superficial pain. PSYCH: Cooperative, pleasant mood & affect. The rest of the review of systems is otherwise negative. ED Exam Narrative Physical exam: Constitutional Alert, oriented x4 and on RA sats 96-98%, obese HEENT Vision grossly intact. Patent nares. Trachea midline. Respiratory Chest normal on inspection, clear to auscultation bilaterally. Tender to palpation around sternum. Cardiovascula S1 and S2 audible, RRR. No murmurs or carotid bruit. Visible JVD. Abdominal Soft and non tender to palpation in all quadrants. BS + Genitourinary No bladder tenderness, no flank pain. Normal to palpation. Musculoskeletal Extremities tone within normal limits. 2+ LE edema. Neurological CN II - XII grossly intact. Extremity motor and sensation grossly intact. Skin Warm, dry and intact. Old needle ahmadi on UE. No apparent lesions. Psychiatric Patient has a good affect, is cooperative. Course Course Course Narrative: Labs: Troponin I = 0.231 @ 2am --> 0.223 @ 5am Chest X Ray: Pending final read. US b/l LE venous duplex: Pending final read. Patient was given morphine 2mg x1 and IV Mg for repletion. Home medications FA, thiamine and multivitamins given via IV. Quality Measures VTE prophylaxis Orders Category Date Time Status Bedside COVID-19 Antigen Test NOW Care 09/24/24 01:23 Completed EKG (ED ONLY) *Do not use* NOW Care 09/24/24 01:06 Completed CXRP [XR chest 1V portable] Stat Exams 09/24/24 01:19 Completed EKG (ED Only) Stat Exams 09/24/24 01:06 Draft US venous duplex LE BI Stat Exams 09/24/24 03:34 Completed CBC Stat Lab 09/24/24 02:06 Completed CMP [Comprehensive Metabolic Panel] Stat Lab 09/24/24 02:06 Completed Drug Screen,Urine Stat Lab 09/24/24 06:10 Completed Magnesium Stat Lab 09/24/24 02:06 Completed PTT [Partial Thromboplastin Time] Stat Lab 09/24/24 02:06 Completed Prothrombin Time with INR Stat Lab 09/24/24 02:06 Completed Troponin I Stat Lab 09/24/24 02:06 Completed Troponin I Stat Lab 09/24/24 04:49 Completed Urinalysis Stat Lab 09/24/24 06:10 Completed Cyanocobalamin Inj [Vitamin B-12 Inj] Med 09/24/24 03:14 Discontinued 1,000 mcg IM X1 ONE Folic Acid Inj Med 09/24/24 03:14 Discontinued 1 mg IVP X1 ONE Furosemide Inj [Lasix Inj] Med 09/24/24 03:35 Discontinued 40 mg IVP X1 ONE Magnesium Sulfate 2 GM Ivpb [Magnesium Sulfate Ivpb] Med 09/24/24 03:01 Discontinued 2 gm in 50 ml IV X1 Morphine Inj Med 09/24/24 03:01 Discontinued 2 mg IVP X1 ONE Thiamine [Vitamin B-1] Med 09/24/24 03:14 Discontinued 100 mg PO X1 ONE Reevaluation(s) Reevaluation #1: 05:00 on 09/24/2024 Chest pain improved. Patient still complains of mild B/L LE pain/discomfort. Pending final US duplex report for B/L LE pain. Pending final CXR report. Vital Signs Vital signs: Vital Signs Temperature 98.4 F 09/24/24 00:25 Pulse Rate 87 09/24/24 00:25 Respiratory Rate 19 09/24/24 00:25 Blood Pressure 156/101 H 09/24/24 00:25 Pulse Oximetry (%) 96 09/24/24 00:25 Oxygen Delivery Method Room Air 09/24/24 00:25 [facility] Patient data External records reviewed:: [facility] previous records Clinical information provided by:: patient Social determinants that could affect healthcare access:: substance use Patient has the following chronic illnesses:: HFrEF (30%), essential HTN, anxiety, heavy alcohol and polysubstance use dependence How is presenting disease/condition affected by chronic disease/condition?: c aused by Evaluation data The following diagnostics were reviewed and interpreted by me:: lab results, radiology exam(s) and EKG tracing(s) Lab and/or radiology exams considered but not ordered:: CT Chest Interpretation Summary: Patient is a 54 year old male with substance use d/o and HFrEF (30%), who presented with chest pain. Found to have central chest pain, worse on palpation, likely costochondritis. He also endorsed SOB, but sats 96-98% on RA. EKG wnl. During the ED, patient's chest pain and SOB improved. On repeat evaluation, he complained of B/L LE pain. Imaging: CXR and B/L LE US duplex ordered, awaiting official report. Labs: trops 0.23 , patient has troponinemia at baseline as per past hospital records. Follow up: Repeat trops downtrended from 0.23 --> 0.22 Medications Medications considered but not ordered:: Heparin Medication administrations:: Medication Administration History Discontinued Medications Cyanocobalamin (Cyanocobalamin Inj 1,000 Mcg/Ml Vial) 1,000 mcg IM X1 ONE Stop: 09/24/24 03:15 Last Admin: 09/24/24 06:37 Dose: Not Given Documented By: KIMBER Non-Admin Reason: Patient Refused Folic Acid (Folic Acid Inj 1 Mg/0.2 Ml) 1 mg IVP X1 ONE Stop: 09/24/24 03:15 Last Admin: 09/24/24 03:26 Dose: 1 mg Documented By: KIMBER Furosemide (Furosemide Inj 10 Mg/Ml 4ml Vial) 40 mg IVP X1 ONE Stop: 09/24/24 03:36 Last Admin: 09/24/24 06:38 Dose: Not Given Documented By: KIMBER Non-Admin Reason: Patient Refused Comments: pt refused wants to take his own meds Magnesium Sulfate (Magnesium Sulfate Ivpb) 2 gm in 50 mls @ 25 mls/hr IV X1 ONE Stop: 09/24/24 05:00 Last Infusion: 09/24/24 05:40 Dose: Infused Documented By: Admin: 09/24/24 03:32 Dose: 25 mls/hr Documented By: KIMBER Morphine Sulfate (Morphine Sulf Inj 10 Mg/Ml Vial) 2 mg IVP X1 ONE Stop: 09/24/24 03:02 Last Admin: 09/24/24 03:25 Dose: 2 mg Documented By: KIMBER Thiamine HCl (Thiamine 100 Mg Tablet) 100 mg PO X1 ONE Stop: 09/24/24 03:15 Last Admin: 09/24/24 03:24 Dose: 100 mg Documented By: KIMBER ASA, Nitro and Zofran Consultations Consultation(s) initiated? (list below): No Consultation #1 (Physician, Specialty, Details): None. Diagnosis Differential Diagnosis ED Complaint MDM: NSTEMI Most likely diagnosis given after review of the tests above:: Likely Costochondritis as pain in reproducible on chest wall palpation and movement. 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 Admission Indicated Admission indicated?: not indicated Explain why admission is indicated or not indicated:: Pain improved in the ED. Admission Request Was there a request for admission?: No Disposition Plan Disposition Plan: Discharge Discharge Attestation Discharge Attestation: The patient and all family members were given an opportunity to ask questions and understood the discharge instructions. Discharge instructions specifically effects, indications for sooner follow up or return to the emergency department, and the expected course of current diagnosis. Patient condition: Stable Medical Decision Making MDM Narrative MDM Narrative: Patient is a 54 year old male with substance use d/o and HFrEF (30%), who presented with chest pain. Found to have central chest pain, worse on palpation, likely costochondritis. He also endorsed SOB, but sats 96-98% on RA. EKG wnl. During the ED, patient's chest pain and SOB improved. On repeat evaluation, he complained of B/L LE pain. Imaging: CXR and B/L LE US duplex ordered, awaiting official report. Labs: trops 0.23 --> repeat trops down trended to 0.22 Discharge plan: - Chest pain resolved, patient follows up regularly with poultry hatchery supervisor Dr Morales - Continue home medications - Ordered Celecoxib 100mg as needed for pain, possible costochondritis as chest pain reproducible on palpation and movement - Return to ED if symptoms worsen Differential Diagnosis Differential Diagnosis: NSTEMI Lab Data 09/24/24 02:06 09/24/24 02:06 Labs: Lab Results 09/24/24 09/24/24 09/24/24 Range/Units 02:06 04:49 06:10 WBC 9.5 (3.8-10.6) Thou/mm3 RBC 4.82 (4.50-5.90) Miln/mm3 Hgb 14.8 (13.5-16.0) g/dL Hct 43.3 (41.0-53.0) % MCV 90 (80-100) fL MCH 30.7 (25.0-35.0) pg MCHC 34.2 (31.0-37.0) g/dl RDW Std Deviation 44.9 H (35.1-43.9) fL Plt Count 239 (140-440) Thou/mm3 Neut % (Auto) 62 (37-80) % Lymph % (Auto) 26 (10-50) % [place] % (Auto) 8 (0-12) % Eos % (Auto) 4 (0-10) % Baso % (Auto) 0 (0-2.5) % Neut # (Auto) 5.9 (1.8-7.7) Thou/mm3 Lymph # (Auto) 2.4 (1.0-4.8) Thou/mm3 [place] # (Auto) 0.8 (0.0-0.8) Thou/mm3 Eos # (Auto) 0.3 (0.0-0.5) Thou/mm3 Baso # (Auto) 0.0 (0.0-0.2) Thou/mm3 Immature Gran # (Auto) 0.04 H (0.00-0.00) Thou/mm3 Absolute Nucleated RBC 0.00 (0.00-0.00) Thou/mm3 Immature Gran % 0 (0-0) % Nucleated RBC % 0 (0) /100 WBC PT 12.2 (9.0-12.2) Seconds INR 1.1 (0.9-1.3) APTT 26.3 (22.0-36.0) Seconds Sodium 140 (136-145) mMol/L Potassium 3.9 (3.4-5.1) mMol/L Chloride 105 (98-107) mMol/L Carbon Dioxide 24.8 (20.0-31.0) mMol/L Anion Gap 10 (7-16) BUN 18 (9-23) mg/dL Creatinine 1.1 (0.6-1.3) mg/dL Estim Creat Clear Calc 104.1 (>60) mL/min eGFR > 60 (60 - ) See Note BUN/Creatinine Ratio 16 (12-20) Ratio Glucose 111 H (74-106) mg/dL Calculated Osmolality 282 (275-295) Calcium 8.9 (8.3-10.6) mg/dL Corrected Calcium 9.0 (8.5-10.1) mg/dL Magnesium 1.6 (1.6-2.6) mg/dL Total Bilirubin 1.0 (0.3-1.2) mg/dL AST 33 (0-34) U/L ALT 20 (10-49) U/L Alkaline Phosphatase 71 (46-116) U/L Troponin I 0.231 H* 0.223 H* (0.0-0.045) ng/mL Total Protein 6.5 (5.7-8.2) gm/dL Albumin 3.9 (3.5-5.0) gm/dL Globulin 2.6 (2.3-3.5) gm/dL Albumin/Globulin Ratio 1.5 (1.2-2.2) Ur Collection Type Clean Catch Urine Color Lt-Yellow (Lt Yel-Yel) Urine Clarity Clear (Clear/Hazy) Urine pH 6.0 (5.0-7.0) Ur Specific [place] 1.020 (1.001-1.035) Urine Protein Trace (Neg - Trace) Urine Glucose (UA) Negative (Negative) Urine Ketones Negative (Negative) Urine Blood Negative (Negative) Urine Nitrite Negative (Negative) Urine Bilirubin Negative (Negative) Urine Urobilinogen (Auto) Negative (0.0-1.0) mg/dL Ur Leukocyte Esterase Negative (Negative) Urine RBC 2 (0-3) /hpf Urine WBC 1 (0-5) /hpf Ur Squamous Epith Cells 0 (0-5) /hpf Urine Bacteria None (None) Urine Opiates Screen Positive A (Negative) Urine Fentanyl Screen Negative (Negative) Ur Barbiturates Screen Negative (Negative) U Amphetamin/Meth Scrn Negative (Negative) U Benzodiazepines Scrn Negative (Negative) U Cocaine Metab Screen Negative (Negative) U Marijuana (THC) Screen Positive A (Negative) Discharge Plan Plan Patient Disposition: HOME (Self Care) Patient condition on transfer: Stable Prescriptions/Referrals Prescriptions/Med Rec: New celecoxib 100 mg capsule 100 mg PO BID PRN (Reason: pain) Qty: 10 0RF No Action amlodipine 5 mg Tablet 10 mg PO QDAY Qty: 60 2RF losartan 25 mg Tablet 25 mg PO QDAY Qty: 30 2RF nitroglycerin 0.4 mg tablet, sublingual 0.4 mg buccal 1XD PRN (Reason: Chest Pain) Rx Instructions: I TAB UNDER THE TONGUE EVERY 5 MINUTES NEED FOR CHEST PAIN, MAY GIVE UP TO 3 DOSES doxycycline monohydrate 100 mg capsule 100 mg PO BID Qty: 10 0RF albuterol sulfate 90 mcg/actuation HFA aerosol inhaler 2 puff inhalation Q6H PRN (Reason: shortness of breath or wheezing) Qty: 8.5 0RF Referrals: No Primary/Family,Physician [Primary Care Provider] - In 1 week Panda Real MD [Emergency Provider] - In 1 week Problem List Clinical Impression: Chest pain Patient/Caregiver Discharge Instructions Discharge Activity: resume usual activities Print Language: Albanian Stand Alone Forms: Colleen Award Info., Patient Portal Info Letter Attestation Attestation I, Dr. Bunch was present for the main pertinent portion of the history and physical exam. I discussed the case with the resident, management plan, and was available for questions. I have reviewed her note and agree
[2024-09-24 02:27] VITALS: BP 100/84; PULSE 85; RESP 18; TEMP 36.7; O2SAT 97
[2024-09-24 02:32] LABS: Basophils % (Auto) 0 % (0-2.5); Eosinophils # (Auto) 0.3 Thou/mm3 (0.0-0.5); Eosinophils % (Auto) 4 % (0-10); Hematocrit 43.3 % (41.0-53.0); Hemoglobin 14.8 g/dL (13.5-16.0); Immature Granulocytes % (Auto) 0 % (0-0); Immature Granulocytes Auto 0.04 Thou/mm3 (0.00-0.00); Lymphocytes # (Auto) 2.4 Thou/mm3 (1.0-4.8); Lymphocytes % (Auto) 26 % (10-50); Mean Corpuscular HGB Conc 34.2 g/dl (31.0-37.0); Mean Corpuscular Hemoglobin 30.7 pg (25.0-35.0); Mean Corpuscular Volume 90 fL (80-100); Monocytes # (Auto) 0.8 Thou/mm3 (0.0-0.8); Monocytes % (Auto) 8 % (0-12); Neutrophils # (Auto) 5.9 Thou/mm3 (1.8-7.7); Neutrophils % (Auto) 62 % (37-80); Nucleated Red Blood Cell % 0 /100 WBC (0); Platelet Count 239 Thou/mm3 (140-440); RDW Standard Deviation 44.9 fL (35.1-43.9); Red Blood Count 4.82 Miln/mm3 (4.50-5.90); White Blood Count 9.5 Thou/mm3 (3.8-10.6)
[2024-09-24 02:35] LABS: Alanine Aminotransferase 20 U/L (10-49); Albumin, Serum 3.9 gm/dL (3.5-5.0); Albumin/Globulin Ratio 1.5 (1.2-2.2); Alkaline Phosphatase 71 U/L (46-116); Anion Gap 10 (7-16); Aspartate Amino Transferase 33 U/L (0-34); BUN/Creatinine Ratio 16 Ratio (12-20); Blood Urea Nitrogen 18 mg/dL (9-23); Calcium 8.9 mg/dL (8.3-10.6); Carbon Dioxide 24.8 mMol/L (20.0-31.0); Chloride 105 mMol/L (98-107); Creatinine (Component) 1.1 mg/dL (0.6-1.3); Estimated Creatinine Clearance 104.1 mL/min (>60); Globulin 2.6 gm/dL (2.3-3.5); Glucose 111 mg/dL (74-106); Magnesium 1.6 mg/dL (1.6-2.6); Osmolality,Calculated 282 (275-295); Potassium 3.9 mMol/L (3.4-5.1); Sodium 140 mMol/L (136-145); Total Protein 6.5 gm/dL (5.7-8.2); eGFR > 60 See Note
[2024-09-24 02:37] LABS: Troponin I 0.231 ng/mL (0.0-0.045)
[2024-09-24] MEDS: THIAMINE 100 MG TABLET PO (03:24)
[2024-09-24] MEDS: MORPHINE SULF INJ 10 MG/ML VIAL 2 MG IVP (03:25)
[2024-09-24] MEDS: FOLIC ACID INJ 1 MG/0.2 ML IVP (03:26)
[2024-09-24] MEDS: Magnesium Sulfate 2 GM Ivpb 2 GM/50 ML BAG IV (03:32)
--- NOTE | 2024-09-24 03:34 | XR_ITS ---
Examination: Venous duplex lower extremity sonogram, bilateral. Date and time of exam: September 24, 2024 0425 hrs. Indications: Bilateral leg cramps soreness and redness today Technique: Multiple sonographic images of the deep venous system have been obtained. B-mode/2-D grayscale imaging of vascular structures and Doppler spectral analysis (waveforms) and color performed Both legs are examined. Findings: Deep venous systems do not demonstrate abnormal echogenicity. All visualized deep veins exhibit compressibility. All visualized deep veins exhibit augmentation. Impression: Negative for deep vein thrombosis
[2024-09-24 03:48] LABS: INR 1.1 (0.9-1.3); Partial Thromboplastin Time 26.3 Seconds (22.0-36.0); Prothrombin Time 12.2 Seconds (9.0-12.2)
--- NOTE | 2024-09-24 05:34 | PRELIM_ITS ---
Bilateral lower extremity venous Doppler ultrasound with wave Doppler spectral analysis. September 24, 2024 at 0425 hours Clinical history: Cramping leg pain. Technique: Duplex scan of the bilateral lower extremity deep venous systems was performed utilizing 2D grayscale imaging, Doppler spectral analysi s and color flow Doppler and with compression. Comparison: No prior study is available for compariso n. Findings:Hobbs scale, color flow and spectral Doppler evaluation of the lower extremity deep veins was performed.Right: The common femoral, superficial femoral and popliteal veins are patent and compr essible. Normal respiratory variation is noted. There is no evidence of occlusive or nonocclusive thr ombus. The great saphenous vein is patent at the level of the saphenofemoral junction.Left: The commo n femoral, superficial femoral and popliteal veins are patent and compressible. Normal respiratory va riation is noted. There is no evidence of occlusive or nonocclusive thrombus. The great saphenous vei n is patent at the level of the saphenofemoral junction.Impression:No sonographic evidence of deep ve nous thrombosis in both lower extremities. Report Electronically Signed By: Serafin Ricardo 5 5:34:34 AM [EST]
[2024-09-24 06:08] LABS: Troponin I 0.223 ng/mL (0.0-0.045)
[2024-09-24 06:36] LABS: Collection Type, Urine Clean Catch; Squamous Epithelial Cell,Urine 0 /hpf (0-5)
[2024-09-24 06:42] VITALS: BP 154/88; PULSE 88; RESP 18; TEMP 36.7; O2SAT 97
[2024-09-24 07:29] LABS: Amphetamine/Methamp Scrn,U Negative (Negative); Barbiturate Screen,Urine Negative (Negative); Benzodiazepines Screen,Urine Negative (Negative); Benzoylecgonine Screen, Ur Negative (Negative); Fentanyl Screen,Urine Negative (Negative); Opiate Screen,Urine Positive (Negative); THC Screen,Urine Positive (Negative)
[2024-09-24 07:30] LABS: Bilirubin,Urine Negative (Negative); Blood,Urine Negative (Negative); Clarity,Urine Clear (Clear/Hazy); Color,Urine Lt-Yellow (Lt Yel-Yel); Glucose, Urine Negative (Negative); Ketones,Urine Negative (Negative); Leukocyte Esterase,Urine Negative (Negative); Nitrite,Urine Negative (Negative); Protein,Urine Trace (Neg - Trace); RBC,Urine 2 /hpf (0-3); Urobilinogen,Urine Negative mg/dL (0.0-1.0); WBC,Urine 1 /hpf (0-5)
== END 2024-09-24 06:51 | disposition home or self-care (01) ==
PROVIDERS: Student in an Organized Health Care Education/Training Program; Emergency Provider Emergency Medicine
DX: R07.9 Chest pain, unspecified (principal); I44.4 Left anterior fascicular block; R25.2 Cramp and spasm; I11.0 Hypertensive heart disease with heart failure; I50.20 Unspecified systolic (congestive) heart failure
CPT/HCPCS: 36415; 71045; 80053; 80307; 81001; 83735; 84484; 85025; 85610; 85730; 87502; 87811; 93005; 93970; 96374; 96375; 99284; J2270; J3475; J3490; A9270

== ENCOUNTER 2024-10-11 00:40 | Emergency (ER) | payer MEDICAID, SELFPAY ==
[2024-10-11 00:47] VITALS: BMI 44.9
[2024-10-11 00:49] VITALS: BP 153/107; PULSE 93; RESP 18; TEMP 36.3; O2SAT 97
--- NOTE | 2024-10-11 02:11 | PD.EDRME ---
Rapid Medical Screening Exam RME Arrival date/time: 10/11/24 00:40 Chief Complaint: Shortness of Breath/Dyspnea Time Seen by Provider: 10/11/24 02:10 Vital signs: Vital Signs Temperature 97.4 F 10/11/24 00:49 Pulse Rate 93 10/11/24 00:49 Respiratory Rate 18 10/11/24 00:49 Blood Pressure 153/107 H 10/11/24 00:49 Pulse Oximetry (%) 97 10/11/24 00:49 Oxygen Delivery Method Room Air 10/11/24 00:49 RME Narrative: 54yo male with pmhx CHF, HTN BIBA presents to the ED for a chief complaint of shortness of breath x 1 day.
--- NOTE | 2024-10-11 02:12 | XR_ITS ---
Examination: AP chest single view Technique one AP portable semiupright chest single view Exam date and time: October 11, 2024 0223 hrs. Comparison September 24, 2024 Indications: Onset chest pain today. Findings: Mild enlargement cardiac contour Moderate vascular congestion Mild opacity right base obscuring detail right hemidiaphragm The osseous structures are demineralized Impression: Moderate vascular congestion Early pneumonia right base
[2024-10-11 02:51] LABS: Basophils % (Auto) 0 % (0-2.5); Eosinophils # (Auto) 0.3 Thou/mm3 (0.0-0.5); Eosinophils % (Auto) 3 % (0-10); Hematocrit 40.8 % (41.0-53.0); Hemoglobin 13.9 g/dL (13.5-16.0); Immature Granulocytes % (Auto) 0 % (0-0); Immature Granulocytes Auto 0.01 Thou/mm3 (0.00-0.00); Lymphocytes # (Auto) 2.7 Thou/mm3 (1.0-4.8); Lymphocytes % (Auto) 34 % (10-50); Mean Corpuscular HGB Conc 34.1 g/dl (31.0-37.0); Mean Corpuscular Hemoglobin 30.5 pg (25.0-35.0); Mean Corpuscular Volume 90 fL (80-100); Monocytes # (Auto) 0.7 Thou/mm3 (0.0-0.8); Monocytes % (Auto) 8 % (0-12); Neutrophils # (Auto) 4.4 Thou/mm3 (1.8-7.7); Neutrophils % (Auto) 54 % (37-80); Nucleated Red Blood Cell % 0 /100 WBC (0); Platelet Count 217 Thou/mm3 (140-440); RDW Standard Deviation 46.5 fL (35.1-43.9); Red Blood Count 4.55 Miln/mm3 (4.50-5.90)
[2024-10-11 02:58] LABS: INR 1.2 (0.9-1.3); Partial Thromboplastin Time 25.2 Seconds (22.0-36.0); Prothrombin Time 12.6 Seconds (9.0-12.2)
[2024-10-11 03:26] LABS: Alanine Aminotransferase 28 U/L (10-49); Albumin, Serum 3.5 gm/dL (3.5-5.0); Albumin/Globulin Ratio 1.3 (1.2-2.2); Alkaline Phosphatase 61 U/L (46-116); Anion Gap 7 (7-16); Aspartate Amino Transferase 51 U/L (0-34); BUN/Creatinine Ratio 15 Ratio (12-20); Bilirubin,Total 0.9 mg/dL (0.3-1.2); Blood Urea Nitrogen 15 mg/dL (9-23); Calcium 8.3 mg/dL (8.3-10.6); Calcium (Corrected) 8.7 mg/dL (8.5-10.1); Carbon Dioxide 24.7 mMol/L (20.0-31.0); Chloride 106 mMol/L (98-107); Estimated Creatinine Clearance 137.9 mL/min (>60); Globulin 2.6 gm/dL (2.3-3.5); Glucose 98 mg/dL (74-106); Osmolality,Calculated 276 (275-295); Potassium 3.7 mMol/L (3.4-5.1); Sodium 138 mMol/L (136-145); Total Protein 6.1 gm/dL (5.7-8.2); eGFR > 60 See Note
[2024-10-11 03:28] LABS: Troponin I 0.477 ng/mL (0.0-0.045)
[2024-10-11 03:43] LABS: B-Type Natriuretic Peptide 493 pg/mL (0-100)
[2024-10-11 04:12] LABS: Amphetamine/Methamp Scrn,U Positive (Negative); Barbiturate Screen,Urine Negative (Negative); Benzodiazepines Screen,Urine Negative (Negative); Benzoylecgonine Screen, Ur Negative (Negative); Fentanyl Screen,Urine Negative (Negative); Opiate Screen,Urine Negative (Negative); THC Screen,Urine Positive (Negative)
[2024-10-11 07:31] VITALS: BP 136/80; PULSE 88; RESP 18; TEMP 36.6; O2SAT 96
[2024-10-11 08:24] VITALS: PULSE 100; RESP 22; RESP 98
== END 2024-10-11 09:30 | disposition left against medical advice (07) ==
PROVIDERS: Emergency Medicine; Emergency Provider Emergency Medicine
DX: R06.02 Shortness of breath (principal); I11.0 Hypertensive heart disease with heart failure; I50.9 Heart failure, unspecified; Z53.29 Procedure and treatment not carried out because of patient's decision for other reasons
CPT/HCPCS: 36415; 71045; 80053; 80307; 83880; 84484; 85025; 85610; 85730; 93005; 99283

== ENCOUNTER 2024-10-15 12:11 | Emergency (ER) | payer MEDICAID, SELFPAY ==
[2024-10-15 12:16] VITALS: PULSE 82; RESP 18; O2SAT 99
[2024-10-15 12:49] VITALS: BP 135/96; PULSE 101; RESP 22; TEMP 37.1; O2SAT 99
[2024-10-15 12:50] VITALS: BMI 43.6
--- NOTE | 2024-10-15 13:10 | XR_ITS ---
Examination: AP chest single view Technique one AP portable chest single view Exam date and time: October 15, 2024 1452 hours INDICATIONS: Difficulty breathing today. FINDINGS: Mild enlargement cardiac contour. Moderate vascular congestion. Suspicious for early pneumonia right base. The osseous structures are intact IMPRESSION: Moderate vascular congestion. Suspicious for early pneumonia right base
--- NOTE | 2024-10-15 13:10 | EKG_ITS ---
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
--- NOTE | 2024-10-15 13:12 | EDNOTE_ITS ---
ED General RME/HPI General Stated complaint: SOB Time Seen by Provider: 10/15/24 12:40 Arrival date/time: 10/15/24 12:11 RME / HPI RME / HPI narrative: 54-year-old male patient with significant history of hypertension, congestive heart failure, came in for evaluation regarding shortness of breath. Patient's been having worsening shortness of breath for the last several weeks, according to him worse during the night. Also complained of left-sided chest discomfort radiating to the left arm and left leg. Denies any fever denies any other complaints patient is homeless. Related Data Home Medications ?Medication ?Instructions ?Recorded ?Confirmed nitroglycerin 0.4 mg sublingual 0.4 mg buccal 1XD PRN Chest Pain 08/01/24 08/01/24 tablet Previous Rx's ?Medication ?Instructions ?Recorded amlodipine 5 mg tablet 10 mg (2 x 5 mg) PO QDAY #60 tabs 09/15/23 losartan 25 mg tablet 25 mg PO QDAY #30 tabs 09/15 doxycycline monohydrate 100 mg 100 mg PO BID #10 caps 05/17/24 capsule albuterol sulfate 90 mcg/actuation 2 puff inhalation Q 6H PRN 09/07/24 aerosol inhaler shortness of breath or wheez ing #8.5 grams celecoxib 100 mg capsule 100 mg PO BID PRN pain #10 c aps 09/24/24 Allergies Allergy/AdvReac Type Severity Reaction Status Date / Time No Known Allergies Allergy Verified 10/15/24 12:19 Review of Systems Review of Systems Narrative Review of Systems: Review of system reviewed and within normal limits except mentioned in HPI ED Exam Narrative Physical exam: VITAL SIGNS: Reviewed. GENERAL APPEARANCE: Alert and interactive, follows commands, no acute distress, HEAD AND FACE: Non-traumatic. ENT: PERRL, pink conjunctivitis, eyelid no trauma, Mucous membrane moist. NECK: Supple, nontender, no nuchal rigidity. CHEST: No tenderness, no crepitus, no paradoxical movement, no retractions. LUNGS: Clear, well ventilated, symmetric, no rales, no wheezing, no ronchi, no stridor, good breath sounds bilaterally. HEART: Regular rate, regular rhythm, no murmur, no gallops. ABDOMEN: Soft, positive bowel sounds, nondistended, no guarding, nontender, no rebound, no masses, RECTAL: Deferred. GENITAL: Deferred. NEUROLOGICAL: Gross motor function intact sensory function intact, Appropriate for age. MUSCULOSKELETAL: low back nontender, full range of motion. EXTREMITIES: Nontender, full range of motion. SKIN: Color pink, dry, no rash, no lacerations, no abrasions, no contusions. LYMPHATICS: Deferred. Course Quality Measures none Orders Category Date Time Status EKG (ED ONLY) *Do not use* NOW Care 10/15/24 13:11 Completed EKG (ED Only) Stat Exams 10/15/24 13:10 Draft XR chest 1V Stat Exams 10/15/24 13:10 Completed B-Type Natriuretic Peptide Stat Lab 10/15/24 13:25 Completed CBC Stat Lab 10/15/24 13:25 Completed Comprehensive Metabolic Panel Stat Lab 10/15/24 13:25 Completed Partial Thromboplastin Time Stat Lab 10/15/24 13:25 Completed Prothrombin Time with INR Stat Lab 10/15/24 13:25 Completed Troponin I Stat Lab 10/15/24 13:25 Completed Vital Signs Vital signs: Vital Signs Temperature 98.7 F 10/15/24 12:49 Pulse Rate 101 H 10/15/24 12:49 Respiratory Rate 22 H 10/15/24 12:49 Blood Pressure 135/96 H 10/15/24 12:49 Pulse Oximetry (%) 99 10/15/24 12:49 Oxygen Delivery Method Room Air 10/15/24 12:49 MDM Patient data External records reviewed:: [facility] previous records and None Clinical information provided by:: patient Social determinants that could affect healthcare access:: housing Patient has the following chronic illnesses:: Congestive heart failure How is presenting disease/condition affected by chronic disease/condition?: e xacerbated by Evaluation data The following diagnostics were reviewed and interpreted by me:: lab results and radiology exam(s) Lab and/or radiology exams considered but not ordered:: None Interpretation Summary: Patient's workup is significant for chronic elevation of troponin BNP was also noted to be 755. Chest x-ray showed moderate vascular congestion, possible right early pneumonia. EKG showed normal sinus rhythm, ventricular rate of 98 bpm, ST segment elevation depression noted. Medications Medications considered but not ordered:: None Medication administrations:: None Consultations Consultation(s) initiated? (list below): No Diagnosis Differential Diagnosis ED Complaint MDM: Shortness of breath, acute exacerbation congestive heart failure, pneumonia Most likely diagnosis given after review of the tests above:: Shortness of breath, elopement Admission Indicated Admission indicated?: not indicated (Elopement) Explain why admission is indicated or not indicated:: Elopement Admission Request Was there a request for admission?: No Disposition Plan Disposition Plan: other (specify) (Elopement) Medical Decision Making Differential Diagnosis Differential Diagnosis: Shortness of breath, acute exacerbation congestive heart failure, pneumonia Lab Data 10/15/24 13:25 10/15/24 13:25 Labs: Lab Results 10/15/24 Range/Units 13:25 WBC 9.4 (3.8-10.6) Thou/mm3 RBC 4.98 (4.50-5.90) Miln/mm3 Hgb 15.1 (13.5-16.0) g/dL Hct 45.3 (41.0-53.0) % MCV 91 (80-100) fL MCH 30.3 (25.0-35.0) pg MCHC 33.3 (31.0-37.0) g/dl RDW Std Deviation 48.4 H (35.1-43.9) fL Plt Count 267 D (140-440) Thou/mm3 Neut % (Auto) 67 (37-80) % Lymph % (Auto) 25 (10-50) % [place] % (Auto) 7 (0-12) % Eos % (Auto) 1 (0-10) % Baso % (Auto) 0 (0-2.5) % Neut # (Auto) 6.3 (1.8-7.7) Thou/mm3 Lymph # (Auto) 2.3 (1.0-4.8) Thou/mm3 [place] # (Auto) 0.6 (0.0-0.8) Thou/mm3 Eos # (Auto) 0.1 (0.0-0.5) Thou/mm3 Baso # (Auto) 0.0 (0.0-0.2) Thou/mm3 Immature Gran # (Auto) 0.03 H (0.00-0.00) Thou/mm3 Absolute Nucleated RBC 0.00 (0.00-0.00) Thou/mm3 Immature Gran % 0 (0-0) % Nucleated RBC % 0 (0) /100 WBC PT 11.9 (9.0-12.2) Seconds INR 1.1 (0.9-1.3) APTT 24.8 (22.0-36.0) Seconds Sodium 142 (136-145) mMol/L Potassium 4.0 (3.4-5.1) mMol/L Chloride 107 (98-107) mMol/L Carbon Dioxide 27.7 (20.0-31.0) mMol/L Anion Gap 7 (7-16) BUN 11 (9-23) mg/dL Creatinine 0.9 (0.6-1.3) mg/dL Estim Creat Clear Calc 126.4 (>60) mL/min eGFR > 60 (60 - ) See Note BUN/Creatinine Ratio 12 (12-20) Ratio Glucose 105 (74-106) mg/dL Calculated Osmolality 282 (275-295) Calcium 8.3 (8.3-10.6) mg/dL Corrected Calcium 8.5 (8.5-10.1) mg/dL Total Bilirubin 0.8 (0.3-1.2) mg/dL AST 35 H (0-34) U/L ALT 27 (10-49) U/L Alkaline Phosphatase 64 (46-116) U/L Troponin I 0.287 H* (0.0-0.045) ng/mL B-Natriuretic Peptide 725 H* (0-100) pg/mL Total Protein 6.3 (5.7-8.2) gm/dL Albumin 3.8 (3.5-5.0) gm/dL Globulin 2.5 (2.3-3.5) gm/dL Albumin/Globulin Ratio 1.5 (1.2-2.2) Discharge Plan Plan Patient Disposition: Elopement Prescriptions/Referrals Prescriptions/Med Rec: No Action amlodipine 5 mg Tablet 10 mg PO QDAY Qty: 60 2RF losartan 25 mg Tablet 25 mg PO QDAY Qty: 30 2RF nitroglycerin 0.4 mg tablet, sublingual 0.4 mg buccal 1XD PRN (Reason: Chest Pain) Rx Instructions: I TAB UNDER THE TONGUE EVERY 5 MINUTES NEED FOR CHEST PAIN, MAY GIVE UP TO 3 DOSES doxycycline monohydrate 100 mg capsule 100 mg PO BID Qty: 10 0RF albuterol sulfate 90 mcg/actuation HFA aerosol inhaler 2 puff inhalation Q6H PRN (Reason: shortness of breath or wheezing) Qty: 8.5 0RF celecoxib 100 mg capsule 100 mg PO BID PRN (Reason: pain) Qty: 10 0RF Referrals: Jose Galo PA-C [Primary Care Provider] - In 1 week Problem List Clinical Impression: Shortness of breath Patient/Caregiver Discharge Instructions Print Language: Belarusian
[2024-10-15 14:01] LABS: Basophils % (Auto) 0 % (0-2.5); Eosinophils # (Auto) 0.1 Thou/mm3 (0.0-0.5); Eosinophils % (Auto) 1 % (0-10); Hematocrit 45.3 % (41.0-53.0); Hemoglobin 15.1 g/dL (13.5-16.0); Immature Granulocytes % (Auto) 0 % (0-0); Immature Granulocytes Auto 0.03 Thou/mm3 (0.00-0.00); Lymphocytes # (Auto) 2.3 Thou/mm3 (1.0-4.8); Lymphocytes % (Auto) 25 % (10-50); Mean Corpuscular HGB Conc 33.3 g/dl (31.0-37.0); Mean Corpuscular Hemoglobin 30.3 pg (25.0-35.0); Mean Corpuscular Volume 91 fL (80-100); Monocytes # (Auto) 0.6 Thou/mm3 (0.0-0.8); Monocytes % (Auto) 7 % (0-12); Neutrophils # (Auto) 6.3 Thou/mm3 (1.8-7.7); Neutrophils % (Auto) 67 % (37-80); Nucleated Red Blood Cell % 0 /100 WBC (0); Platelet Count 267 Thou/mm3 (140-440); RDW Standard Deviation 48.4 fL (35.1-43.9); Red Blood Count 4.98 Miln/mm3 (4.50-5.90); White Blood Count 9.4 Thou/mm3 (3.8-10.6)
[2024-10-15 14:23] LABS: INR 1.1 (0.9-1.3); Partial Thromboplastin Time 24.8 Seconds (22.0-36.0); Prothrombin Time 11.9 Seconds (9.0-12.2)
[2024-10-15 14:29] LABS: B-Type Natriuretic Peptide 725 pg/mL (0-100)
[2024-10-15 14:30] LABS: Alanine Aminotransferase 27 U/L (10-49); Albumin, Serum 3.8 gm/dL (3.5-5.0); Albumin/Globulin Ratio 1.5 (1.2-2.2); Alkaline Phosphatase 64 U/L (46-116); Anion Gap 7 (7-16); Aspartate Amino Transferase 35 U/L (0-34); BUN/Creatinine Ratio 12 Ratio (12-20); Bilirubin,Total 0.8 mg/dL (0.3-1.2); Blood Urea Nitrogen 11 mg/dL (9-23); Calcium 8.3 mg/dL (8.3-10.6); Calcium (Corrected) 8.5 mg/dL (8.5-10.1); Carbon Dioxide 27.7 mMol/L (20.0-31.0); Chloride 107 mMol/L (98-107); Creatinine (Component) 0.9 mg/dL (0.6-1.3); Estimated Creatinine Clearance 126.4 mL/min (>60); Globulin 2.5 gm/dL (2.3-3.5); Glucose 105 mg/dL (74-106); Osmolality,Calculated 282 (275-295); Sodium 142 mMol/L (136-145); Total Protein 6.3 gm/dL (5.7-8.2); eGFR > 60 See Note
[2024-10-15 14:35] LABS: Troponin I 0.287 ng/mL (0.0-0.045)
[2024-10-15 15:22] VITALS: BP 132/94; PULSE 99; RESP 22; TEMP 36.7; O2SAT 97
== END 2024-10-15 19:01 | disposition left against medical advice (07) ==
LOC: SERX 14:24
PROVIDERS: Nurse Practitioner Family; Emergency Provider Emergency Medicine; PCP Family Medicine
DX: R06.02 Shortness of breath (principal); R09.89 Other specified symptoms and signs involving the circulatory and respiratory systems; R79.89 Other specified abnormal findings of blood chemistry; I11.0 Hypertensive heart disease with heart failure; I50.9 Heart failure, unspecified
CPT/HCPCS: 36415; 71045; 80053; 80307; 81001; 83880; 84484; 85025; 85610; 85730; 99281

== ENCOUNTER 2024-10-25 16:09 | Inpatient (IN) | payer MEDICAID, SELFPAY ==
[2024-10-25 16:25] VITALS: BMI 42.5
[2024-10-25 16:26] VITALS: BP 147/91; PULSE 105; RESP 17; TEMP 36.7; O2SAT 95
[2024-10-25 16:30] VITALS: PULSE 66; RESP 20; O2SAT 99
--- NOTE | 2024-10-25 17:16 | PD.EDRME ---
Rapid Medical Screening Exam RME Arrival date/time: 10/25/24 16:09 Chief Complaint: Shortness of Breath/Dyspnea Time Seen by Provider: 10/25/24 17:15 Vital signs: Vital Signs Temperature 98.0 F 10/25/24 16:26 Pulse Rate 105 H 10/25/24 16:26 Respiratory Rate 17 10/25/24 16:26 Blood Pressure 147/91 H 10/25/24 16:26 Pulse Oximetry (%) 95 10/25/24 16:26 Oxygen Delivery Method Room Air 10/25/24 16:26 RME Narrative: 54 year old male with history of CHF, PE, hypertension, anxiety, alcohol and polysubstance use (last used meth yesterday) presents to the ED BIBA from home for complaint of shortness of breath. Additionally complains of bilateral lower extremity swelling making it hard to walk . Patient mentioned he is noncompliant with medication regimen, last took his medications months ago .
--- NOTE | 2024-10-25 17:20 | PC.NURSE ---
DR BA AT BEDSIDE
--- NOTE | 2024-10-25 17:22 | EKG_ITS ---
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 Upper: : 1970 Requested By: Arnaud Joseph Order Number: [id number] Reading MD: Arnaud Joseph Measurements Intervals Zenia Rate: 103 P: 44 UT: 163 QRS: -56 QRSD: 94 T: 77 QT: 333 QTc: 436 Interpretive Statements SINUS TACHYCARDIA POSSIBLE LEFT ATRIAL ENLARGEMENT [-0.1mV P-WAVE IN V1/V2] LEFT AXIS DEVIATION [QRS AXIS < -30] POSSIBLE ANTERIOR MYOCARDIAL INFARCTION , OF INDETERMINATE AGE [30 ms Q WAVE IN V3/V4, OR R < 0.2 mV IN V4] Compared to ECG 10/15/2024 13:19:28 Left-axis deviation now present Sinus rhythm no longer present Left anterior fascicular block no longer present Myocardial infarct finding still present /store/S0/[id number]/ecg/[id number].pdf
--- NOTE | 2024-10-25 17:22 | XR_ITS ---
Examination: Foot, left, 3 views Technique: AP, oblique, lateral views foot, 3 views Date and time of exam: October 25, 2024 1736 hrs. Indications: Swollen painful foot today Findings: No acute fracture No cortical bone destruction Soft tissue swelling dorsum of the foot 10 mm plantar bony calcaneal spur Moderate osteoarthritis tibiotalar joint Impression: No fracture No cortical bone destruction
--- NOTE | 2024-10-25 17:22 | XR_ITS ---
Examination: AP chest single view Technique one AP portable semiupright chest single view Exam date and time: October 25, 2024 1735 hrs. Comparison October 15, 2024 Indications: Shortness of breath today Findings: Mild heart failure Mild to moderate enlargement cardiac contour Prominent vascular congestion including central vascular engorgement Suspicious for right base pneumonia Impression: Mild heart failure Suspicious for right base pneumonia
--- NOTE | 2024-10-25 18:13 | EDNOTE_ITS ---
ED General RME/HPI General Chief complaint: Shortness of Breath/Dyspnea Stated complaint: SWELLING OF THE FEET, SOB Time Seen by Provider: 10/25/24 17:15 Arrival date/time: 10/25/24 16:09 CC: Shortness of breath HPI patient presents the ER via EMS states that he is being judged patient admits he is homeless, has not taken any of his medicines since he left them and [facility] when he left AMA from that facility several days ago. Patient currently denies fever chills chest pain shortness of breath but is complaining of swollen lower extremities and a ball on the bottom of his right foot. Review of the medical record show multiple visits for polysubstance abuse, aggressive behavior and leaving AGAINST MEDICAL ADVICE. Immediately upon interview patient is asking for food. RME / HPI RME / HPI narrative: 54 year old male with history of CHF, PE, hypertension, anxiety, alcohol and polysubstance use (last used meth yesterday) presents to the ED BIBA from home for complaint of shortness of breath. Additionally complains of bilateral lower extremity swelling making it hard to walk . Patient mentioned he is noncompliant with medication regimen, last took his medications months ago . Related Data Home Medications ?Medication ?Instructions ?Recorded ?Confirmed nitroglycerin 0.4 mg sublingual 0.4 mg buccal 1XD PRN Chest Pain 08/01/24 08/01/24 tablet Previous Rx's ?Medication ?Instructions ?Recorded amlodipine 5 mg tablet 10 mg (2 x 5 mg) PO QDAY #60 tabs 09/15/23 losartan 25 mg tablet 25 mg PO QDAY #30 tabs 09/15 doxycycline monohydrate 100 mg 100 mg PO BID #10 caps 05/17/24 capsule albuterol sulfate 90 mcg/actuation 2 puff inhalation Q 6H PRN 09/07/24 aerosol inhaler shortness of breath or wheez ing #8.5 grams celecoxib 100 mg capsule 100 mg PO BID PRN pain #10 c aps 09/24/24 Allergies Allergy/AdvReac Type Severity Reaction Status Date / Time No Known Allergies Allergy Verified 10/25/24 16:33 Review of Systems Review of Systems Narrative Review of Systems: GEN: No fever, no chills, no weight loss EYES: No discharge, no visual changes, no pain HEENT: No ear pain, no congestion, no sore throat PULM: + shortness of breath, no cough, no congestion CV: No chest pain, no dyspnea on exertion, no palpitations GI: No nausea, no vomiting, no diarrhea, no pain, no constipation : No frequency, no urgency, no dysuria MUSC/SKEL: No joint pain, no back pain SKIN: No rash PSYCH: No hallucinations, no depression HEME/LYMPH: No easy bleeding or bruising tendencies NEURO: No weakness, no headache Past Medical History Past Medical History NEUROLOGIC: Negative Neurological Disorders CARDIAC: Positive Cardiac Disorders, Congestive Heart Failure and Hypertension RESPIRATORY: Positive Pulmonary Embolism; Negative Chronic Obstructive Pulmonary Disease (COPD) or Asthma GASTROINTESTINAL: Negative Gastrointestinal Disorders GENITOURINARY: Positive Kidney Stones; Negative Genitourinary Disorders or Renal Disease MUSCULOSKELETAL: Negative Musculoskeletal Disorders ENDOCRINE: Negative Endocrine Disorders, Diabetes Mellitus Type 1 or Diabetes Mellitus Type 2 HEMATOLOGIC: Negative Blood Disorders or Sickle Cell Disease PSYCHO/SOCIAL: Positive Depression and Anxiety OTHER HISTORY: Negative MRSA or Vancomycin-Resistant Enterococci Family History FAMILY HISTORY: Positive Family Cancer Social History SMOKING STATUS: Current every day smoker SUBSTANCE USE: does not use ED Exam Narrative Physical exam: [General: Obese not in any acute distress Head normocephalic HEENT: Within acceptable limits Neck is supple nontender Chest equal chest rise nontender to palpation Respiratory: Clear to auscultation no wheezes crackles or rubs CV: Rate rhythm is regular no murmurs rubs or clicks Abdomen is grossly distended secondary to body habitus soft nontender no masses positive bowel sounds all 4 quadrants Back: No CVA tenderness no spinous process tenderness from cervical spine thoracic and lumbar spine Skin: Intact no petechiae rash induration ulceration or crepitus Extremities: Moving all extremity against resistance cap refill less than 2 seconds neurosensory intact. The lower extremity edema nonpitting. Neuro: Awake alert oriented x3 Glascow coma 15 no focal deficits] Course Quality Measures none Orders Category Date Time Status Coastal Tug Mate Q4H START 00 Care 10/25/24 17:22 Active EKG (ED ONLY) *Do not use* NOW Care 10/25/24 17:23 Completed Saline [Insert IV] NOW Care 10/25/24 17:22 Active EKG (ED Only) Stat Exams 10/25/24 17:22 Ordered XR chest 1V portable Stat Exams 10/25/24 17:22 Completed XR foot comp LT min 3V Stat Exams 10/25/24 17:22 Completed BNP [B-Type Natriuretic Peptide] Stat Lab 10/25/24 17:50 Received CBC Stat Lab 10/25/24 17:50 Completed CMP [Comprehensive Metabolic Panel] Stat Lab 10/25/24 17:50 Completed Drug Screen,Urine Stat Lab 10/25/24 17:23 Ordered PT [Prothrombin Time with INR] Stat Lab 10/25/24 17:50 Completed PTT [Partial Thromboplastin Time] Stat Lab 10/25/24 17:50 Completed Troponin I Stat Lab 10/25/24 17:50 Completed Furosemide Inj [Lasix Inj] Med 10/25/24 18:12 Discontinued 80 mg IVP X1 ONE Vital Signs Vital signs: Vital Signs Temperature 98.0 F 10/25/24 16:26 Pulse Rate 105 H 10/25/24 16:26 Respiratory Rate 17 10/25/24 16:26 Blood Pressure 147/91 H 10/25/24 16:26 Pulse Oximetry (%) 95 10/25/24 16:26 Oxygen Delivery Method Room Air 10/25/24 16:26 [facility] Patient data External records reviewed:: [facility] previous records and EMS form Clinical information provided by:: patient and EMS Social determinants that could affect healthcare access:: none Patient has the following chronic illnesses:: Polysubstance abuse medication noncompliance history of PE How is presenting disease/condition affected by chronic disease/condition?: e xacerbated by Evaluation data The following diagnostics were reviewed and interpreted by me:: lab results, radiology exam(s) and EKG tracing(s) Lab and/or radiology exams considered but not ordered:: EKG performed at 1823 shows a ventricular rate of 103 UT interval 163 QRS of 94 QTc of 392 sinus tachycardia left axis deviation. CBC shows no acute leukocytosis anemia thrombocytopenia Coags within acceptable limits CMP shows no significant electrolyte imbalances renal impairment transaminitis or T. bili elevation Troponin is 1.63 Foot x-ray is negative as interpreted by me read by radiology chest x-ray is negative as interpreted by me read by radiology. Urine is negative for UTI Urine talk screen is positive for methamphetamines. Interpretation Summary: Review of the patient's laboratory results show the patient is elevated troponin 1.63 however his troponin has been higher the patient has no complaints of chest pain is continually asking for food. This point the patient's case discussed with Dr. Gray agrees to accept the patient for elevated troponin methamphetamine abuse. Medications Medications considered but not ordered:: None Medication administrations:: Medication Administration History Discontinued Medications Furosemide (Furosemide Inj 10 Mg/Ml 4ml Vial) 80 mg IVP X1 ONE Stop: 10/25/24 18:13 Last Admin: 10/25/24 18:34 Dose: 80 mg Documented By: DO None Consultations Consultation(s) initiated? (list below): No Diagnosis Differential Diagnosis ED Complaint MDM: ACS NH pneumonia Most likely diagnosis given after review of the tests above:: Elevated troponin lower extremity edema, methamphetamine abuse Admission Indicated Admission indicated?: indicated Explain why admission is indicated or not indicated:: Requires further medical management Admission Request Was there a request for admission?: No Disposition Plan Disposition Plan: Admit Medical Decision Making Differential Diagnosis Differential Diagnosis: ACS NH pneumonia Lab Data 10/25/24 17:50 10/25/24 17:50 Labs: Lab Results 10/25/24 Range/Units 17:50 WBC 9.5 (3.8-10.6) Thou/mm3 RBC 5.41 (4.50-5.90) Miln/mm3 Hgb 16.0 (13.5-16.0) g/dL Hct 48.6 (41.0-53.0) % MCV 90 (80-100) fL MCH 29.6 (25.0-35.0) pg MCHC 32.9 (31.0-37.0) g/dl RDW Std Deviation 48.0 H (35.1-43.9) fL Plt Count 273 (140-440) Thou/mm3 Neut % (Auto) 67 (37-80) % Lymph % (Auto) 23 (10-50) % [place] % (Auto) 7 (0-12) % Eos % (Auto) 2 (0-10) % Baso % (Auto) 0 (0-2.5) % Neut # (Auto) 6.4 (1.8-7.7) Thou/mm3 Lymph # (Auto) 2.2 (1.0-4.8) Thou/mm3 [place] # (Auto) 0.7 (0.0-0.8) Thou/mm3 Eos # (Auto) 0.2 (0.0-0.5) Thou/mm3 Baso # (Auto) 0.0 (0.0-0.2) Thou/mm3 Immature Gran # (Auto) 0.01 H (0.00-0.00) Thou/mm3 Absolute Nucleated RBC 0.00 (0.00-0.00) Thou/mm3 Immature Gran % 0 (0-0) % Nucleated RBC % 0 (0) /100 WBC PT 12.1 (9.0-12.2) Seconds INR 1.1 (0.9-1.3) APTT 25.1 (22.0-36.0) Seconds Sodium 140 (136-145) mMol/L Potassium 4.7 (3.4-5.1) mMol/L Chloride 107 (98-107) mMol/L Carbon Dioxide 25.8 (20.0-31.0) mMol/L Anion Gap 7 (7-16) BUN 16 (9-23) mg/dL Creatinine 1.0 (0.6-1.3) mg/dL Estim Creat Clear Calc 112.3 (>60) mL/min eGFR > 60 (60 - ) See Note BUN/Creatinine Ratio 16 (12-20) Ratio Glucose 100 (74-106) mg/dL Calculated Osmolality 280 (275-295) Calcium 9.6 (8.3-10.6) mg/dL Corrected Calcium 9.6 (8.5-10.1) mg/dL Total Bilirubin 1.0 (0.3-1.2) mg/dL AST 51 H (0-34) U/L ALT 26 (10-49) U/L Alkaline Phosphatase 72 (46-116) U/L Troponin I 1.636 H* (0.0-0.045) ng/mL Total Protein 7.1 (5.7-8.2) gm/dL Albumin 4.2 (3.5-5.0) gm/dL Globulin 2.9 (2.3-3.5) gm/dL Albumin/Globulin Ratio 1.4 (1.2-2.2) Discharge Plan Plan Patient Disposition: Other Care w/in Hosp ([facility]) Patient condition on transfer: Stable Prescriptions/Referrals Prescriptions/Med Rec: No Action amlodipine 5 mg Tablet 10 mg PO QDAY Qty: 60 2RF losartan 25 mg Tablet 25 mg PO QDAY Qty: 30 2RF nitroglycerin 0.4 mg tablet, sublingual 0.4 mg buccal 1XD PRN (Reason: Chest Pain) Rx Instructions: I TAB UNDER THE TONGUE EVERY 5 MINUTES NEED FOR CHEST PAIN, MAY GIVE UP TO 3 DOSES doxycycline monohydrate 100 mg capsule 100 mg PO BID Qty: 10 0RF albuterol sulfate 90 mcg/actuation HFA aerosol inhaler 2 puff inhalation Q6H PRN (Reason: shortness of breath or wheezing) Qty: 8.5 0RF celecoxib 100 mg capsule 100 mg PO BID PRN (Reason: pain) Qty: 10 0RF Referrals: No Primary/Family,Physician [Primary Care Provider] - In 1 week Problem List Clinical Impression: Elevated troponin, Methamphetamine abuse Patient/Caregiver Discharge Instructions Print Language: Malay Stand Alone Forms: Colleen Award Info., Patient Portal Info Letter PA/[employer]IP[employer]CH[employer]IC Supervising Physician PA/[employer]IP[employer] MECH[employer]IC Supervising Physician: Salvador Zurita ENP
[2024-10-25 18:34] VITALS: BP 140/115; PULSE 102
[2024-10-25] MEDS: FUROSEMIDE INJ 10 MG/ML 4ML VIAL 80 MG IVP (18:34)
[2024-10-25 18:35] LABS: Basophils % (Auto) 0 % (0-2.5); Eosinophils # (Auto) 0.2 Thou/mm3 (0.0-0.5); Eosinophils % (Auto) 2 % (0-10); Hematocrit 48.6 % (41.0-53.0); Immature Granulocytes % (Auto) 0 % (0-0); Immature Granulocytes Auto 0.01 Thou/mm3 (0.00-0.00); Lymphocytes # (Auto) 2.2 Thou/mm3 (1.0-4.8); Lymphocytes % (Auto) 23 % (10-50); Mean Corpuscular HGB Conc 32.9 g/dl (31.0-37.0); Mean Corpuscular Hemoglobin 29.6 pg (25.0-35.0); Mean Corpuscular Volume 90 fL (80-100); Monocytes # (Auto) 0.7 Thou/mm3 (0.0-0.8); Monocytes % (Auto) 7 % (0-12); Neutrophils # (Auto) 6.4 Thou/mm3 (1.8-7.7); Neutrophils % (Auto) 67 % (37-80); Nucleated Red Blood Cell % 0 /100 WBC (0); Platelet Count 273 Thou/mm3 (140-440); Red Blood Count 5.41 Miln/mm3 (4.50-5.90); White Blood Count 9.5 Thou/mm3 (3.8-10.6)
[2024-10-25 18:52] LABS: Alanine Aminotransferase 26 U/L (10-49); Albumin, Serum 4.2 gm/dL (3.5-5.0); Albumin/Globulin Ratio 1.4 (1.2-2.2); Alkaline Phosphatase 72 U/L (46-116); Anion Gap 7 (7-16); Aspartate Amino Transferase 51 U/L (0-34); BUN/Creatinine Ratio 16 Ratio (12-20); Blood Urea Nitrogen 16 mg/dL (9-23); Calcium 9.6 mg/dL (8.3-10.6); Calcium (Corrected) 9.6 mg/dL (8.5-10.1); Carbon Dioxide 25.8 mMol/L (20.0-31.0); Chloride 107 mMol/L (98-107); Estimated Creatinine Clearance 112.3 mL/min (>60); Globulin 2.9 gm/dL (2.3-3.5); Glucose 100 mg/dL (74-106); Osmolality,Calculated 280 (275-295); Potassium 4.7 mMol/L (3.4-5.1); Sodium 140 mMol/L (136-145); Total Protein 7.1 gm/dL (5.7-8.2); eGFR > 60 See Note
[2024-10-25 18:54] LABS: Troponin I 1.636 ng/mL (0.0-0.045)
[2024-10-25 19:09] LABS: INR 1.1 (0.9-1.3); Partial Thromboplastin Time 25.1 Seconds (22.0-36.0); Prothrombin Time 12.1 Seconds (9.0-12.2)
[2024-10-25 19:55] VITALS: BP 134/95; PULSE 109; PULSE 112; RESP 22; O2SAT 95
[2024-10-25 20:19] LABS: Amphetamine/Methamp Scrn,U Positive (Negative); Barbiturate Screen,Urine Negative (Negative); Benzodiazepines Screen,Urine Negative (Negative); Benzoylecgonine Screen, Ur Negative (Negative); Fentanyl Screen,Urine Negative (Negative); Opiate Screen,Urine Negative (Negative); THC Screen,Urine Positive (Negative)
[2024-10-25 20:29] LABS: Procalcitonin 0.07 ng/ml (0.0-0.49)
--- NOTE | 2024-10-25 20:38 | PD.RESHP ---
Documentation for date of: 10/25/24 HPI History of Present Illness Chief complaint: Chest discomfort, shortness of breath History of present illness: Mr. Jordan is a 54-year-old homeless male with past medical history of congestive heart failure HFrEF (30%), hypertension, anxiety, alcohol cocaine and methamphetamine use who presented to [facility] emergency department on 10/25/2024 with chief complaint of shortness of breath and chest discomfort. According to the patient his symptoms started about yesterday, complains of pressure-like chest discomfort reports it feels like there is a heaviness on his chest and complains of significant shortness of breath exacerbated on lying down, otherwise patient is currently saturating well on room air, he does complain of significant bilateral lower extremity swelling and also a bump on his bottom of the right foot complaining that he is unable to walk because of the bump. Patient also reported that he was recently admitted at [facility] from where he was recently discharged, did have similar complaints during the admission recently and was given p.o. medications per patient. Patient does report that he is noncompliant with his medication regimen, reports use of alcohol cocaine and methamphetamine yesterday currently not exhibiting any signs of withdrawal. Patient is asking for food reports he is hungry, said his last meal was yesterday. Patient denies any fever, chills and headache. ED Course: ED Vitals: On presentation in ED BP 147/91, P105, RR 17, temp 98.0, O2 sat 95 on room air ED Labs: On presentation labs pertinent for AST 51, troponin 0.287, increased to 1.636. Urine tox screen positive for methamphetamine and marijuana. ED Imaging:Chest x-ray in ED significant for mild heart failure, suspicious right base pneumonia. Foot x-ray significant for no fracture and no cortical bone destruction. EKG showed sinus tachycardia, no ST elevation. ED Treatment:Patient was given furosemide 80 mg IVP x 1 in ED Review of Systems Review of Systems Narrative Review of Systems: ROS: -CONSTITUTIONAL: Denies weight loss, fever and chills. -HEENT: Denies changes in vision and hearing. -RESPIRATORY: Positive for SOB and denies cough. -CV: Denies palpitations and positive for Chest Pain. -GI: Denies abdominal pain, nausea, vomiting,constipation and diarrhea. -: Denies dysuria and urinary frequency. -MSK: Denies myalgia and joint pain. Positive for difficulty ambulating, bilateral lower extremity edema. -SKIN: Denies rash and pruritus. -NEUROLOGICAL: Denies headache and syncope. -PSYCHIATRIC: Denies recent changes in mood. Denies anxiety and depression. Past Medical History Past Medical History Comments PMH COMMENT: PMH: Positive for congestive heart failure HFrEF (30%), hypertension, anxiety, alcohol cocaine and methamphetamine use PSHx: Denies Allergies: No known allergies Social history: -Smoking: Denies -Alcohol Use: Positive for alcohol use, last drink yesterday -Illicit Drug Use: Positive for methamphetamine, cocaine use, last use yesterday. U-Tox positive for marijuana and methamphetamine. -Occupation: Homeless Family History: Denies any pertinent family history Exam Vital Signs Temp Pulse Resp BP Pulse Ox O2 Del Method 98.0 F 109 H 22 H 134/95 H 95 Room Air 10/25/24 16:26 10/25/24 19:55 10/25/24 19:55 10/25/24 19:55 10/25/24 19:55 10/25/24 19:55 Narrative Exam Physical Exam General: Awake and in no acute distress. Conversational and non-toxic appearing. Sitting at the edge of bed, drinking juice. HEENT: Normocephalic, atraumatic, mucous membranes moist. Heart: Sinus tachycardia, no murmurs. Lungs: Mild bilateral bibasilar crackles appreciated. Abdomen: Soft, obese, nondistended, nontender, positive bowel sounds. ?No guarding or rebound tenderness. Neurologic: Alert and oriented x3, no gross neurological deficit, and patient able to move all 4 extremities. Extremities: 2+ bilateral lower extremity edema. Skin: No rash or ecchymoses. Results: Labs 10/25/24 17:50 10/25/24 17:50 Labs: Short CBC 10/25/24 Range/Units 17:50 WBC 9.5 (3.8-10.6) Thou/mm3 Hgb 16.0 (13.5-16.0) g/dL Hct 48.6 (41.0-53.0) % Plt Count 273 (140-440) Thou/mm3 BMP 10/25/24 17:50 Sodium 140 Potassium 4.7 Chloride 107 Carbon Dioxide 25.8 BUN 16 Creatinine 1.0 Glucose 100 Calcium 9.6 Cardiac Enzymes 10/25/24 Range/Units 17:50 Troponin I 1.636 H* (0.0-0.045) ng/mL Liver Function 10/25/24 Range/Units 17:50 Total Bilirubin 1.0 (0.3-1.2) mg/dL AST 51 H (0-34) U/L ALT 26 (10-49) U/L Alkaline Phosphatase 72 (46-116) U/L Albumin 4.2 (3.5-5.0) gm/dL Quality Measures Quality Measures none Medications Home Medications and Allergies Home Medications ?Medication ?Instructions ?Recorded ?Confirmed ?Type nitroglycerin 0.4 mg sublingual 0.4 mg buccal 1XD PRN Chest Pain 08/01/24 08/01/24 History tablet Allergies Allergy/AdvReac Type Severity Reaction Status Date / Time No Known Allergies Allergy Verified 10/25/24 16:33 Visit Medications Furosemide (Furosemide Inj 10 Mg/Ml 4ml Vial) 40 mg IVP QDAY MARLENE Stop: 11/25/24 08:59 Heparin Sodium/Dextrose (Heparin In D5w Ivpb) 25,000 unit in 250 mls @ 9.906 mls/hr IV .Q24H MARLENE; Protocol Stop: 11/08/24 20:29 Discontinued Medications Furosemide (Furosemide Inj 10 Mg/Ml 4ml Vial) 80 mg IVP X1 ONE Stop: 10/25/24 18:13 Last Admin: 10/25/24 18:34 Dose: 80 mg Heparin Sodium (Porcine) (Heparin Sod Inj 5000 Unit/Ml Vial) 4,000 unit IV X1 ONE; Protocol Stop: 10/25/24 20:23 Assessment & Plan Plan Assessment and Plan: Summary: Mr. Jordan is a 54-year-old homeless male with past medical history of congestive heart failure HFrEF (30%), hypertension, anxiety, alcohol cocaine and methamphetamine use who presented to [facility] emergency department on 10/25/2024 with chief complaint of shortness of breath and chest discomfort. Patient admitted for further management of elevated troponin, NSTEMI type I versus II and CHF exacerbation. #Elevated troponin #NSTEMI type I versus type II Patient complains of pressure-like chest discomfort reports it feels like there is a heaviness on his chest , troponin increased from 0.287->1.636, EKG negative for ST elevation in ED. Patient was recently discharged from [facility] on 10/21 after being treated for CHF exacerbation and subacute pulmonary embolism. Per chart review patient follows with Dr. Thompson at [facility], patient had coronary angiogram in June at [facility], showed nonischemic cardiomyopathy with EF of 30%. Plan: ? Heparin drip ? Trend troponin every 6 hours ? Resumed home dose aspirin and atorvastatin ? Will consider cardiology consult in a.m. if troponins continue to trend #Shortness of breath, orthopnea #Acute decompensated heart failure #Congestive heart failure HFrEF (30%) #Subacute pulmonary embolism Patient was recently discharged from [facility] on October 21, 2024 after treatment for acute exacerbation of chronic heart failure, acute hypoxic respiratory failure and subacute pulmonary embolism. Currently patient saturating well on room air, does endorse significant orthopnea and has bilateral lower extremity edema. Patient was given Lasix 80 mg IV x 1 in ED. Reviewed requested medical records from [facility]. Chest x-ray in ED significant for mild heart failure, suspicious right base pneumonia Plan: ?Patient was discharged on Eliquis, currently on heparin gtt., will hold off on Eliquis ?Resumed home dose metoprolol tartrate, spironolactone, lisinopril, dapagliflozin for HFrEF. ?Lasix 40 mg IV daily ?Strict I&O, daily weight, fluid restriction 1500 cc ?Continuous pulse oximetry #Polysubstance dependence #Alcohol dependence #Methamphetamine dependence #Cocaine dependence Patient had alcohol withdrawal when he was recently discharged from [facility]. Reports drinking alcohol, using cocaine and methamphetamine again, last use yesterday, currently patient has no symptoms of withdrawal. Plan: ?Monitor for symptoms of withdrawal ?Consider licensed clinical social worker consult in a.m. 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 On atorvastatin 40 mg at bedtime for dyslipidemia, patient on GDMT spironolactone 25 mg daily, metoprolol tartrate 50 mg twice daily, lisinopril 20 mg daily dapagliflozin 5 mg every morning. Plan: -Resumed home meds DVT prophylaxis: Heparin GTT GI prophylaxis: Not indicated Diet: Cardiac Lines: Peripheral IV Code status: Full code Case discussed with Attending Dr. Duarte. Trevon Lea PGY1 Disclaimer: This note was dictated by speech recognition. Minor errors in drug safety scientist may be present due to voice recognition software. Attending Provider Attestation/Addendum Pt was evaluated and plan formulated together with the housestaff team. I have reviewed the residents note above and agree with most of its content. Please refer to the residents note for additional details. A 54-year-old male presented to the ER with the chief complaint of generalized body swelling and lower extremity edema, which he states has been ongoing for many days. He also reports shortness of breath and a history of heart failure. He denies chest pain but notes that he has difficulty feeling sensations in his chest. Additionally, he describes intermittent hot flushes and a mild cough. He denies any recent fever. The patient has a history of heart failure with reduced ejection fraction (HFrEF) (EF 30%), essential hypertension, anxiety, and heavy alcohol and polysubstance use. He was recently admitted at [facility] two days ago. Last coronary angiogram showed non-ischemic cardiomyopathy. He is currently homeless and reports daily polysubstance use, including alcohol, cocaine, methamphetamine, and marijuana. He has not taken any of his prescribed medications. He states he has no family support, though he mentions having multiple children with different partners. His code status is full. In the Emergency Department, the patient was initially evaluated with vital signs as follows: Temp 98?F, HR 105, RR 17, BP 147/91, and SpO2 95% on room air. He was given Lasix for fluid overload. Laboratory results revealed a WBC of 9.5, hemoglobin of 16, platelets of 273, sodium of 140, potassium of 4.7, creatinine of 1.0, troponin of 1.636, and procalcitonin of 0.07. Imaging demonstrated mild heart failure with findings suspicious for right lower lobe pneumonia. EKG showed sinus tachycardia. The patient was admitted for further management.
[2024-10-25] MEDS: Heparin/D5w 25K 250 ML Ivpb 25,000 UNIT/250 ML BAG 9.906 UNIT IV (20:48)
[2024-10-25] MEDS: HEPARIN SOD INJ 5000 UNIT/ML VIAL 4000 UNIT IV (20:48)
[2024-10-25 21:03] LABS: B-Type Natriuretic Peptide 826 pg/mL (0-100)
[2024-10-25 21:35] LABS: Troponin I 1.556 ng/mL (0.0-0.045)
[2024-10-25 23:13] VITALS: PULSE 105
[2024-10-25 23:24] VITALS: BP 138/105; PULSE 105
[2024-10-25] MEDS: METOPROLOL TARTRATE 25 MG TABLET PO (23:24)
[2024-10-26] VITALS (10 sets, daily range): BP systolic 102–139; BP diastolic 71–105; PULSE 75–909; RESP 15–29; TEMP 36.1–36.4; O2SAT 86–98
--- NOTE | 2024-10-26 03:16 | PC.NURSE ---
Patient desating into 80s and refusing to put oxygen via nasal cannula back on. He is verbally being rude to staff and stated he will not be pressured into putting it back and that he will put it back on once we leave the room.
[2024-10-26 03:21] LABS: Anion Gap 9 (7-16); Calcium 8.8 mg/dL (8.3-10.6); Carbon Dioxide 25.2 mMol/L (20.0-31.0); Chloride 104 mMol/L (98-107); Potassium 4.4 mMol/L (3.4-5.1); Sodium 138 mMol/L (136-145)
[2024-10-26 03:27] LABS: BUN/Creatinine Ratio 15 Ratio (12-20); Blood Urea Nitrogen 15 mg/dL (9-23); Estimated Creatinine Clearance 112.3 mL/min (>60); Glucose 116 mg/dL (74-106); Osmolality,Calculated 277 (275-295); eGFR > 60 See Note
[2024-10-26 03:36] LABS: Basophils # (Auto) 0.1 Thou/mm3 (0.0-0.2); Basophils % (Auto) 1 % (0-2.5); Eosinophils # (Auto) 0.2 Thou/mm3 (0.0-0.5); Eosinophils % (Auto) 2 % (0-10); Hematocrit 44.5 % (41.0-53.0); Immature Granulocytes % (Auto) 0 % (0-0); Immature Granulocytes Auto 0.02 Thou/mm3 (0.00-0.00); Lymphocytes # (Auto) 2.8 Thou/mm3 (1.0-4.8); Lymphocytes % (Auto) 30 % (10-50); Mean Corpuscular HGB Conc 33.7 g/dl (31.0-37.0); Mean Corpuscular Hemoglobin 30.1 pg (25.0-35.0); Mean Corpuscular Volume 89 fL (80-100); Monocytes # (Auto) 0.7 Thou/mm3 (0.0-0.8); Monocytes % (Auto) 8 % (0-12); Neutrophils # (Auto) 5.6 Thou/mm3 (1.8-7.7); Neutrophils % (Auto) 60 % (37-80); Nucleated Red Blood Cell % 0 /100 WBC (0); Platelet Count 224 Thou/mm3 (140-440); RDW Standard Deviation 47.3 fL (35.1-43.9); Red Blood Count 4.99 Miln/mm3 (4.50-5.90); White Blood Count 9.4 Thou/mm3 (3.8-10.6)
[2024-10-26] MEDS: HEPARIN SOD INJ 5000 UNIT/ML VIAL 4000 UNIT IV (04:40)
--- NOTE | 2024-10-26 07:24 | ECHO_ITS ---
Transthoracic Echo Report Ht (in): 68 Wt (lb): 261 Exam Location: Echo Lab Status: [facility] Manager: TOD Mello^^^^ Indications: Procedure Performed: BP: 148 / 78 HR: 81 Technical Quality: Technically difficult study MEASUREMENTS (Male / Female) Normal Values 2D ECHO LV Diastolic Diameter PLAX 6.8 cm 4.2 - 5.9 / 3.9 - 5.3 cm LV Systolic Diameter PLAX 5.6 cm IVS Diastolic Thickness 0.8 cm 0.6 - 1.0 / 0.6 - 0.9 cm LVPW Diastolic Thickness 0.9 cm 0.6 - 1.0 / 0.6 - 0.9 cm LV Relative Wall Thickness 0.3 LVOT Diameter 2.2 cm Aortic Root Diameter 3.3 cm LA Systolic Diameter LX 5.0 cm 3.0 - 4.0 / 2.7 - 3.8 cm LV Ejection Fraction MOD BP 41.9 % >= 55 % LV Cardiac Index MOD BP 4054.8 cm?/min?m? LV Ejection Fraction MOD 4C 37.8 % LV Cardiac Index MOD 4C 4553.3 cm?/min?m? LV Ejection Fraction 4C AL 38.7 % LV Cardiac Index 4C AL 4809.9 cm?/min?m? LV Ejection Fraction MOD 2C 38.8 % LV Cardiac Index MOD 2C 2525.9 cm?/min?m? LV Ejection Fraction 2C AL 41.2 % LV Cardiac Index 2C AL 2728.4 cm?/min?m? LA Volume Index 32.7 cm?/m? 16 - 28 cm?/m? Ascending Aorta Diameter 3.1 cm DOPPLER AV Peak Velocity 138.0 cm/s AV Peak Gradient 7.6 mmHg AV Mean Gradient 6.0 mmHg AV Velocity Time Integral 22.4 cm LVOT Peak Velocity 56.2 cm/s LVOT Peak Gradient 1.3 mmHg LVOT Velocity Time Integral 13.0 cm LVOT Cardiac Index 1642.4 cm?/min?m? AV Area Cont Eq vti 2.2 cm? AV Area Cont Eq pk 1.5 cm? MV Area PHT 5.0 cm? MR Peak Velocity 384.5 cm/s MR Peak Gradient 59.1 mmHg Mitral E Point Velocity 85.3 cm/s Mitral A Point Velocity 43.8 cm/s Mitral E to A Ratio 1.9 LV E' Lateral Velocity 9.4 cm/s Mitral E to LV E' Lateral Ratio 9.0 LV E' Septal Velocity 7.2 cm/s Mitral E to LV E' Septal Ratio 11.9 TR Peak Velocity 270.5 cm/s TR Peak Gradient 29.3 mmHg PV Peak Velocity 79.6 cm/s PV Peak Gradient 2.5 mmHg RVOT Peak Velocity 59.9 cm/s FINDINGS Left Ventricle The left ventricular ejection fraction is moderately decreased, estimated at 30-35%. Right Ventricle The right ventricle is normal in size and systolic function. The estimated right ventricular systolic pressure, 35 mmHg. Left Atrium The left atrial cavity size is moderately increased. Right Atrium The right atrial cavity size is mildly increased. Atrial Septum The interatrial septum appears normal with no evidence of a shunt. Aorta The aorta is normal by two-dimensional, color flow and Doppler interrogation. Mitral Valve [id number] mitral regurgitation. Mild mitral annular calcification. Aortic Valve Structurally normal aortic valve. Tricuspid Valve There is mild tricuspid valve regurgitation. Pulmonic Valve Trivial pulmonic valve regurgitation. Vessels The pulmonary artery appears normal. The inferior vena cava pulmonary and hepatic veins appear normal. Pericardium The pericardium is normal by two-dimensional imaging. There is no significant pericardial effusion. CONCLUSIONS Indication: Severe systolic congestive heart failure, HFrEF Dilated cardiomyopathy Severely dilated LV at 6.8 cm. Severely decreased ejection fraction of 25-30% with global hypokinesis. Grade 2 diastolic dysfunction. Dilated RV with moderate RV dysfunction. Mild to moderate TR. RVSP of 35 and 40 mmHg. Moderately dilated LA and mildly dilated RA. Mild to moderate MR, mild TR, trace PI. Christian Ramsey (Electronically Signed) Final Date: 26 October 2024 18:18
[2024-10-26] MEDS: Lisinopril 20 MG TABLET PO (08:18)
[2024-10-26] MEDS: FUROSEMIDE INJ 10 MG/ML 4ML VIAL 40 MG IVP (08:19)
[2024-10-26] MEDS: SPIRONOLACTONE 25 MG TABLET PO (08:19)
[2024-10-26] MEDS: ASPIRIN EC 81 MG TABEC PO (08:19)
[2024-10-26] MEDS: DAPAGLIFLOZIN PROPANEDIOL 5 MG TABLET PO (08:19)
[2024-10-26] MEDS: FOLIC ACID 1 MG TABLET PO (08:19)
[2024-10-26] MEDS: METOPROLOL TARTRATE 25 MG TABLET PO (08:19)
[2024-10-26 09:57] LABS: Magnesium 1.8 mg/dL (1.6-2.6)
--- NOTE | 2024-10-26 11:16 | PD.RESPRO ---
Documentation for date of: 10/26/24 Subjective Subjective Interval history: 10/26/2024: Patient examined at bedside today. No acute overnight events. Patient is crying at this time and says that he is not experiencing some pain in his foot. He says he is homeless and he lives in a tree. He also says that he forgot to take his water pill and there is no many pills for him to take. He does say that he was at [facility] for similar symptoms recently. He has no other complaints at this time. Exam Vital Signs Temp Pulse Resp BP Pulse Ox O2 Del Method 97.6 F 92 19 139/85 H 94 L Room Air 10/26/24 08:00 10/26/24 08:19 10/26/24 08:00 10/26/24 08:19 10/26/24 08:00 10/26/24 08:00 Narrative Exam General: AAOx3, crying, obese, emotional, unkempt, shirtless HEENT: Dry mucous membranes, conjunctiva clear, EOMI, PERRLA, Cardiovascular: Difficulty appreciating heart sounds as patient is crying Pulmonary: Difficulty appreciating breath sounds as patient is crying, however some crackles heard on lower bases GI: No tenderness to light or deep palpitation, no guarding, rigidity, rebound tenderness or distension Extremities: +2 pitting edema bilaterally, unkempt feet Neuro: AAOx3, no focal motor or sensory deficits in the UE or LE bilat Psych: Cooperative. Objective Labs 10/27/24 16:06 10/27/24 16:06 Labs: Laboratory Results - last 24 hr 10/25/24 10/25/24 10/25/24 17:50 19:19 20:56 WBC 9.5 RBC 5.41 Hgb 16.0 Hct 48.6 MCV 90 MCH 29.6 MCHC 32.9 RDW Std Deviation 48.0 H Plt Count 273 Neut % (Auto) 67 Lymph % (Auto) 23 Jenkins % (Auto) 7 Eos % (Auto) 2 Baso % (Auto) 0 Neut # (Auto) 6.4 Lymph # (Auto) 2.2 Jenkins # (Auto) 0.7 Eos # (Auto) 0.2 Baso # (Auto) 0.0 Immature Gran # (Auto) 0.01 H Absolute Nucleated RBC 0.00 Immature Gran % 0 Nucleated RBC % 0 PT 12.1 INR 1.1 APTT 25.1 Sodium 140 Potassium 4.7 Chloride 107 Carbon Dioxide 25.8 Anion Gap 7 BUN 16 Creatinine 1.0 Estim Creat Clear Calc 112.3 eGFR > 60 BUN/Creatinine Ratio 16 Glucose 100 Calculated Osmolality 280 Calcium 9.6 Corrected Calcium 9.6 Magnesium Total Bilirubin 1.0 AST 51 H ALT 26 Alkaline Phosphatase 72 Troponin I 1.636 H* 1.556 H* B-Natriuretic Peptide 826 H* Total Protein 7.1 Albumin 4.2 Globulin 2.9 Albumin/Globulin Ratio 1.4 Procalcitonin 0.07 Urine Opiates Screen Negative Urine Fentanyl Screen Negative Ur Barbiturates Screen Negative U Amphetamin/Meth Scrn Positive A U Benzodiazepines Scrn Negative U Cocaine Metab Screen Negative U Marijuana (THC) Screen Positive A 10/26/24 10/26/24 02:40 08:54 WBC 9.4 RBC 4.99 Hgb 15.0 Hct 44.5 MCV 89 MCH 30.1 MCHC 33.7 RDW Std Deviation 47.3 H Plt Count 224 D Neut % (Auto) 60 Lymph % (Auto) 30 Jenkins % (Auto) 8 Eos % (Auto) 2 Baso % (Auto) 1 Neut # (Auto) 5.6 Lymph # (Auto) 2.8 Jenkins # (Auto) 0.7 Eos # (Auto) 0.2 Baso # (Auto) 0.1 Immature Gran # (Auto) 0.02 H Absolute Nucleated RBC 0.00 Immature Gran % 0 Nucleated RBC % 0 PT INR APTT 31.0 Sodium 138 Potassium 4.4 Chloride 104 Carbon Dioxide 25.2 Anion Gap 9 BUN 15 Creatinine 1.0 Estim Creat Clear Calc 112.3 eGFR > 60 BUN/Creatinine Ratio 15 Glucose 116 H Calculated Osmolality 277 Calcium 8.8 Corrected Calcium Magnesium 1.8 Total Bilirubin AST ALT Alkaline Phosphatase Troponin I 1.280 H* D 1.060 H* D B-Natriuretic Peptide Total Protein Albumin Globulin Albumin/Globulin Ratio Procalcitonin Urine Opiates Screen Urine Fentanyl Screen Ur Barbiturates Screen U Amphetamin/Meth Scrn U Benzodiazepines Scrn U Cocaine Metab Screen U Marijuana (THC) Screen Quality Measures Quality Measures none Assessment & Plan Assessment Current Active Medications: Generic Name Dose Route Start Last Admin Trade Name Freq PRN Reason Stop Dose Admin Aspirin 81 mg 10/26/24 09:00 10/26/24 08:19 Aspirin Ec 81 Mg Tabec PO 11/25/24 08:59 81 mg QDAY MARLENE Administration Atorvastatin Calcium 40 mg 10/26/24 21:00 Atorvastatin Calcium 20 Mg Tablet PO 11/25/24 20:59 HS MARLENE Bumetanide 2 mg 10/26/24 21:00 Bumetanide Inj 0.25 Mg/Ml Vial 4 Ml IVP 11/25/24 20:59 BID MARLENE Dapagliflozin 5 mg 10/26/24 09:00 10/26/24 08:19 Dapagliflozin Propanediol 5 Mg Tablet PO 11/25/24 08:59 5 mg QAM MARLENE Administration Folic Acid 1 mg 10/26/24 09:00 10/26/24 08:19 Folic Acid 1 Mg Tablet PO 11/25/24 08:59 1 mg QDAY MARLENE Administration Heparin Sodium/Dextrose 25,000 unit in 250 mls @ 9.906 mls/hr 10/25/24 20:30 10/26/24 04:41 Heparin In D5w Ivpb IV 11/08/24 20:29 11.8 units/kg/hr .Q24H MARLENE 14.987 mls/hr Titration Protocol 7.8 UNITS/KG/HR Lisinopril 20 mg 10/26/24 09:00 10/26/24 08:18 Lisinopril 20 Mg Tablet PO 11/25/24 08:59 20 mg QDAY MARLENE Administration Metoprolol Tartrate 25 mg 10/25/24 21:00 10/26/24 08:19 Metoprolol Tartrate 25 Mg Tablet PO 11/24/24 20:59 25 mg BID MARLENE Administration Spironolactone 25 mg 10/26/24 09:00 10/26/24 08:19 Spironolactone 25 Mg Tablet PO 11/25/24 08:59 25 mg DAILY MARLENE Administration Plan Assessment and Plan: Summary: Mr. Jordan is a 54-year-old homeless male with past medical history of congestive heart failure HFrEF (30%), hypertension, anxiety, alcohol cocaine and methamphetamine use who presented to [facility] emergency department on 10/25/2024 with chief complaint of shortness of breath and chest discomfort. Patient admitted for further management of elevated troponin, NSTEMI type I versus II and CHF exacerbation. #Acute decompensated heart failure #Congestive heart failure HFrEF (30%) #Subacute pulmonary embolism Patient was recently discharged from [facility] on October 21, 2024 after treatment for acute exacerbation of chronic heart failure, acute hypoxic respiratory failure and subacute pulmonary embolism. Currently patient saturating well on room air, does endorse significant orthopnea and has bilateral lower extremity edema. Patient was given Lasix 80 mg IV x 1 in ED. Reviewed requested medical records from [facility]. Chest x-ray in ED significant for mild heart failure, suspicious right base pneumonia Patient does have significant lower extremity edema Patient may need cardiac cath No echo on file Plan: ?Continue with heparin drip ?Bumex 2 mg twice daily IV ?Strict I&O, daily weight, fluid restriction 1500 cc ?Continuous pulse oximetry ?Cardiac diet ?Keep magnesium potassium above 2 and 4 respectively ?Cardiac consult ?Follow-up echo #NSTEMI type II, likely related to demand ischemia, resolved Patient complains of pressure-like chest discomfort reports it feels like there is a heaviness on his chest , troponin increased from 0.287->1.636, EKG negative for ST elevation in ED. Patient was recently discharged from [facility] on 10/21 after being treated for CHF exacerbation and subacute pulmonary embolism. Per chart review patient follows with Dr. Thompson at [facility], patient had coronary angiogram in June at [facility], showed nonischemic cardiomyopathy with EF of 30%. #Polysubstance dependence #Alcohol dependence #Methamphetamine dependence #Cocaine dependence Patient had alcohol withdrawal when he was recently discharged from [facility]. Reports drinking alcohol, using cocaine and methamphetamine again, last use yesterday, currently patient has no symptoms of withdrawal. 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 On atorvastatin 40 mg at bedtime for dyslipidemia, patient on GDMT spironolactone 25 mg daily, metoprolol tartrate 50 mg twice daily, lisinopril 20 mg daily dapagliflozin 5 mg every morning. Plan: -Resume home lisinopril 20 mg ?Resumed home Farxiga 5mg #Health maintenance DVT prophylaxis: Heparin GTT GI prophylaxis: Not indicated Diet: Cardiac Lines: Peripheral IV Code status: Full code Patient seen and care discussed with my senior resident, Dr. Real, and my attending physician, Dr. Collin Holloway, PGY-1 Mr. Jordan is a 54-year-old homeless male admitted for further management of elevated troponin, NSTEMI type I versus II and CHF exacerbation. He has a history of severe HFrEF (30%) in the setting of polysubstance use. On this admission, patient was found to be positive for methamphetamine and THC. He also endorses using cocaine prior to this visit. He is NYHA Class II at baseline. BNP = 725 (in 09/2024) -> 826 (10/2024). Plan : He was counseled extensively on drug cessation, social staff worker consult requested for placement and counseling. Cardiology is consulted for further evaluation. Started IV Bumex 2mg BID Strict input/output charting. Daily weight recording. Cardiac diet w/ Fluid restriction to 1.5L Patient examined and case discussed with the team including attending physician. Note reviewed, I agree with the care plan as documented. - Panda Real MD, PGY 2
[2024-10-26 12:25] LABS: Partial Thromboplastin Time 34.7 Seconds (22.0-36.0)
[2024-10-26 12:33] LABS: Troponin I 0.974 ng/mL (0.0-0.045)
[2024-10-26] MEDS: HEPARIN SOD INJ 5000 UNIT/ML VIAL 4000 UNIT IVP (13:33)
[2024-10-26] MEDS: ACETAMINOPHEN 325 MG TABLET 650 MG PO (14:03)
[2024-10-26] MEDS: THIAMINE 100 MG TABLET PO ×2 (14:03→20:20)
--- NOTE | 2024-10-26 14:39 | PC.SS ---
Carlyle Jordan is a 54 year old male admitted to the [facility] for Elevated Troponin. SW made contact with Yelena Carlyle strong at bedside.? SW used all precautionary measures to complete initial. Role and reason for the contact was explained to Carlyle. Pt was alert and oriented times 4. Pt is unhoused and currently staying at [facility]. Pt plans to return to [facility] upon discharge. Pt updated telephone number of [phone]. Pt identified Dana Mcpherson, aunt, as decision maker. Pt independent with ADLs and has a walker at beside stating that he uses it. Pt does not use O2. Pt does not have history of mental health; pt has history of substance cocaine, meth, and alcohol along with marijuana from time to time. Pt understands his condition is due to substance use and community resources provided along with discussion about residential treatment programs. Pt pharmacy is [facility] [address]. Discharge option discussed, pt plans to return [facility]. Pt has asked for clothing upon discharge. Pt PCP is [facility] likely Dr. Lubin. Advance directive was not discussed. Pt will need assistance with transportation. vp client services will remain available for any additional needs.? PCP: Dr Babatunde Lubin Emergency Contact: Dana Ky, aunt, Plan: return to [facility]
[2024-10-26] MEDS: Heparin/D5w 25K 250 ML Ivpb 25,000 UNIT/250 ML BAG 20.067 UNIT IV (16:53)
[2024-10-26] MEDS: Magnesium Sulfate 2 GM Ivpb 2 GM/50 ML BAG IV (17:16)
--- NOTE | 2024-10-26 17:39 | PC.SS ---
SS spoke with Khloe, registration to change pt telephone number to [phone]
--- NOTE | 2024-10-26 17:41 | ESCONSULT_ITS ---
HPI Data of Consult Patient: new to practice Consult date: 10/26/24 Requesting Physician: Cedrick Duarte MD Primary Care Provider: Physician No Primary/Family Consult Narrative History of present illness: A 54-year-old homeless male with a past medical history of nonischemic cardiomyopathy with an EF of less than 30% in the setting of for substance abuse including methamphetamine, cocaine, marijuana, [facility] 06/28/2024 with no significant obstructive disease, not a candidate for ICD documented as per Dr. Mars who is primary general counsel, recent pulmonary embolism not compliant with his Eliquis medication, history of DVT in 2022, severe morbid obesity, hypertension, hyperlipidemia, history of alcohol abuse, alcohol dependence, fatty liver, prediabetes presented to the emergency department for further evaluation of shortness of breath as well as some chest discomfort. Send patient apparently has been having worsening shortness of breath including some chest discomfort which is worse on lying down and is unable to lie flat. Also has bilateral lower leg swelling and patient does indicate that he had limited mobility. He is apparently homeless and does not take his medications regularly. His last admission appears to be in last week and [facility] after which she signed out AMA. Patient leg swelling continues to worsen and shortness of breath to. Patient apparently did take cocaine just prior to the arrival to the emergency department and has now some chest discomfort. Also looks like patient has significant abdominal wall edema. Overall noncompliant patient patient apparently follows with Dr. Jerad freeman in [place] was performed multiple echocardiograms as well as cardiac catheterization eighth [facility]. Left heart cardiac catheterization in June 2024 with no significant obstructive disease as per the documentation. Also patient is not a candidate for ICD because of his sole is still situation as well as noncompliance as per his documentation. Cardiology now consulted for elevated troponins as well as shortness of breath as well as some chest discomfort. Past medical history: As noted above Past Surgica/l procedure history: Left heart cardiac catheterization in 2023 Social history: Patient significant history of alcohol abuse and dependence along with polysubstance abuse of methamphetamine cocaine, marijuana. Is homeless and is noncompliant. Family history: Nonsignificant and patient says that he does not know anyone with heart disease Allergies: NKDA cc:: cc: Cedrick Duarte MD Review of Systems Review of Systems Systems Reviewed: All systems reviewed, normal except as documented Narrative Review of Systems: ROS: -CONSTITUTIONAL: Denies weight loss, fever and chills. -HEENT: Denies changes in vision and hearing. -RESPIRATORY: Positive for SOB and denies cough. -CV: Denies palpitations and positive for Chest Pain. -GI: Denies abdominal pain, nausea, vomiting,constipation and diarrhea. -: Denies dysuria and urinary frequency. -MSK: Denies myalgia and joint pain. Positive for difficulty ambulating, bilateral lower extremity edema. -SKIN: Denies rash and pruritus. -NEUROLOGICAL: Denies headache and syncope. -PSYCHIATRIC: Denies recent changes in mood. Denies anxiety and depression. Past Medical History Past Medical History Comments PMH COMMENT: PMH: Positive for congestive heart failure HFrEF (30%), hypertension, anxiety, alcohol cocaine and methamphetamine use PSHx: Denies Allergies: No known allergies Social history: -Smoking: Denies -Alcohol Use: Positive for alcohol use, last drink yesterday -Illicit Drug Use: Positive for methamphetamine, cocaine use, last use yesterday. U-Tox positive for marijuana and methamphetamine. -Occupation: Homeless Family History: Denies any pertinent family history Meds Home Medications and Allergies Home Medications ?Medication ?Instructions ?Recorded ?Confirmed ?Type nitroglycerin 0.4 mg sublingual 0.4 mg buccal 1XD PRN Chest Pain 08/01/24 10/26/24 History tablet Allergies Allergy/AdvReac Type Severity Reaction Status Date / Time No Known Allergies Allergy Verified 10/25/24 16:33 Exam Vital Signs Temp Pulse Resp BP Pulse Ox O2 Del Method 97.4 F 85 19 107/71 95 Room Air 10/26/24 16:00 10/26/24 16:00 10/26/24 16:00 10/26/24 16:10/26/24 16:10/26/24 16:00 Narrative Exam General: Alert and oriented x3.. In mild to moderate respiratory distress unable to lie flat and restless probably withdrawing from drug abuse Eyes: Pupils are equal and reactive to light bilaterally. HEENT: Atraumatic, normocephalic. Difficult to assess JVD. Mucosa moist. Cardiovascular: Normal S1 and S2. Normal rate and regular rhythm. No murmurs appreciated and distant heart sounds. 3-4+ peripheral pitting edema including abdominal wall edema Respiratory: Mild to moderate respiratory distress, bilateral air entry present and decreased at the bases and occasional crackles Abdomen: Soft, nontender, nondistended. Abdominal wall edema noted Skin: No rash. Warm to touch. Musculoskeletal: No gross injuries. Able to move all 4 extremities. Neuro: Alert and oriented x3. No focal neuro deficits. Psych: Restless and probably withdrawing from drug abuse Results Labs 10/26/24 02:40 10/26/24 02:40 Labs: Short CBC 10/25/24 10/26/24 Range/Units 17:50 02:40 WBC 9.5 9.4 (3.8-10.6) Thou/mm3 Hgb 16.0 15.0 (13.5-16.0) g/dL Hct 48.6 44.5 (41.0-53.0) % Plt Count 273 224 D (140-440) Thou/mm3 BMP 10/25/24 10/26/24 17:50 02:40 Sodium 140 138 Potassium 4.7 4.4 Chloride 107 104 Carbon Dioxide 25.8 25.2 BUN 16 15 Creatinine 1.0 1.0 Glucose 100 116 H Calcium 9.6 8.8 Cardiac Enzymes 10/25/24 10/25/24 10/26/24 Range/Units 17:50 20:56 02:40 Troponin I 1.636 H* 1.556 H* 1.280 H* D (0.0-0.045) ng/mL 10/26/24 10/26/24 Range/Units 08:54 11:55 Troponin I 1.060 H* D 0.974 H* (0.0-0.045) ng/mL Liver Function 10/25/24 Range/Units 17:50 Total Bilirubin 1.0 (0.3-1.2) mg/dL AST 51 H (0-34) U/L ALT 26 (10-49) U/L Alkaline Phosphatase 72 (46-116) U/L Albumin 4.2 (3.5-5.0) gm/dL Assessment and Plan Additional Assessment & Plan Additional Plan: A 54-year-old homeless male with a past medical history of nonischemic cardiomyopathy with an EF of less than 30% in the setting of for substance abuse including methamphetamine, cocaine, marijuana, [facility] 06/28/2024 with no significant obstructive disease, not a candidate for ICD documented as per Dr. Mars who is primary general counsel, recent pulmonary embolism not compliant with his Eliquis medication, history of DVT in 2022, severe morbid obesity, hypertension, hyperlipidemia, history of alcohol abuse, alcohol dependence, fatty liver, prediabetes presented to the emergency department for further evaluation of shortness of breath as well as some chest discomfort. 1. Acute on chronic severe systolic congestive heart failure with an EF of less than 30% 2. NSTEMI type II in the setting of supply/demand mismatch 3. Pulmonary embolism diagnosed in SeptemberOctober 2024 noncompliant with anticoagulation 4. Polysubstance abuse including cocaine, methamphetamine, marijuana and alcohol abuse 5. Abnormal liver tests-transaminitis 6. Hypertension 7. Dyslipidemia 8. Prediabetes 9. Severe morbid obesity 10. History of DVT in 2022, 11. Homeless 12. Noncompliant with medications and doctors visits Patient presented with worsening shortness of breath along with orthopnea and also some chest discomfort. Patient did take cocaine prior to the arrival to the emergency department and is positive for cocaine, marijuana as well as meth. EKG showed sinus tachycardia with no acute ST-T changes history of ischemia except for Q waves in the anterior leads and poor R wave progression which is similar to the EKG even in 2023. Troponins peaked at 1.6 and are now downtrending. BNP was elevated at 700-800 Patient is severe orthopnea and unable to lie flat on examination has at least 3-4+ edema along with abdominal wall edema. Patient is severely volume overloaded. Mild elevation of LFTs of AST could be for congestive hepatomegaly. Recommendations: Recommend to aggressively diurese the patient with Bumex 1 mg every 8 hours for 2 mg IV every 12 hours. Goal is to keep net negative at least 2 L/day and and he has at least another 20 to 30 L to diurese. Strict input output Daily weights and 2 g oriented Keep potassium greater than 4 and magnesium greater than 2.0. Echocardiogram ordered to reevaluate the LV function and RV function and also to rule out any regional wall motion abnormalities. Previous EF 25 to 30% and as noted above patient CHF exacerbation recently signed out AMA on 10/21/2024 [facility]. Regarding the elevated troponins patient had a LHC performed few months ago on 07/02/2024 at which showed no significant obstructive disease. Patient does have nonischemic cardiomyopathy and troponin elevation is mostly secondary to supply/demand mismatch. Patient is not having an acute coronary syndrome at the present point of time. Recommend medical treatment with aspirin statin and beta-paco for now okay to continue heparin drip for 48 hours. Echo ordered to rule out regional wall motion abnormalities. His chest pain could also be secondary to the cocaine induced vasopressin which she took in good amounts prior to the arrival and is probably withdrawal Regarding the nonischemic cardiomyopathy with severely low ejection fraction patient is not a candidate for ICD as documented by his primary general counsel because of noncomplex and social issues recommend to continue to follow-up with his primary general counsel Dr. Morales in [place]. Continue goal-directed medical treatment with ARB or Entresto, beta-paco as well as spironolactone and diuretics based on blood pressure as well as renal function. Blood pressure was elevated on admission and recommend to continue with beta- paco and start goal-directed medical therapy with ARB or Entresto. Ideally Entresto as needed but unsure if patient can for this medication and recommend primary team to involve social worker masters. Check TSH A1c and lipid profile for further cardiac restratification. Management of rest of the medical conditions as per primary team and other consultants. Thank you for the consult and allowing me to participate in the care of the patient. Cardiology will continue to follow. Christian Ramsey M.D. Interventional Cardiology
[2024-10-26] MEDS: BUMETANIDE INJ 0.25 MG/ML VIAL 4 ML 2 MG IVP (20:19)
[2024-10-26] MEDS: ATORVASTATIN CALCIUM 20 MG TABLET 40 MG PO (20:20)
[2024-10-27] VITALS (9 sets, daily range): BP systolic 111–134; BP diastolic 81–92; PULSE 81–103; RESP 15–24; TEMP 36.1–36.6; O2SAT 92–98; BMI 42.5
[2024-10-27] MEDS: HYDROcodone/APAP 5/325 TABLET 1 TAB PO ×3 (01:44→20:46)
--- NOTE | 2024-10-27 05:15 | PC.NURSE ---
Spoke with Dr. Lea, about pt refusing AM PTT and Morning labs, patient also mentioned he wants to leave AMA. is aware and will inform day team.
[2024-10-27] MEDS: BUMETANIDE INJ 0.25 MG/ML VIAL 4 ML 2 MG IVP (08:04)
[2024-10-27] MEDS: FOLIC ACID 1 MG TABLET PO (08:05)
[2024-10-27] MEDS: SPIRONOLACTONE 25 MG TABLET PO (08:05)
[2024-10-27] MEDS: DAPAGLIFLOZIN PROPANEDIOL 5 MG TABLET PO (08:05)
[2024-10-27] MEDS: ASPIRIN EC 81 MG TABEC PO (08:05)
[2024-10-27] MEDS: LOSARTAN POTASSIUM 25 MG TABLET PO (08:05)
[2024-10-27] MEDS: THIAMINE 100 MG TABLET PO (08:06)
[2024-10-27] MEDS: Heparin/D5w 25K 250 ML Ivpb 25,000 UNIT/250 ML BAG 20.067 UNIT IV (09:24)
--- NOTE | 2024-10-27 10:44 | CHAP ---
Patient was visited by a Spiritual Care Volunteer on 10/27/2024 between 0900 and 1000 and received comfort, encouragement and/or prayer.
--- NOTE | 2024-10-27 12:59 | PD.RESPRO ---
Documentation for date of: 10/27/24 Subjective Subjective Interval history: Patient seen and examined at the bedside. No acute events overnight No cardiac complaints except that his shortness of breath is better and able to lie on the bed flat. Patient wants to go home and otherwise appears restless Possibly withdrawing from his cocaine and other drugs. Telemetry reviewed and heart rate stable between 70-90 bpm with with occasional PVCs. Rest of the vitals are stable Systolic blood pressure between 110 to 135 mmHg in the last 24 hours. Labs reviewed CBC stable BUN 14 creatinine of 1.0 potassium 4.4, magnesium 1.8. Bicarb 29 Recommend to aggressively replace magnesium at least 4 g IV x 1 and keep potassium greater than 4 and magnesium greater than 2.0. Recommend to check TSH A1c and lipid profile for further cardiac restratification. Patient diuresing well with Bumex 2 mg IV twice daily. Net -1.6 L in the last 24 hours and recommend to continue with the same dose Strict input output, daily weights and 2 g sodium diet with fluid restriction of 1.5-1.8 L. Exam Vital Signs Temp Pulse Resp BP Pulse Ox O2 Del Method 96.9 F 94 24 H 126/92 H 97 Room Air 10/27/24 12:00 10/27/24 12:00 10/27/24 12:00 10/27/24 12:00 10/27/24 12:00 10/27/24 12:00 Narrative Exam GENERAL: A&Ox3 . Awake, Not in acute distress NEURO: no focal neurological deficits HEENT: Atraumatic, Normocephalic. mucous membranes moist. Eyes open, symmetrical, & clear HEART: Normal Heart Sounds LUNGS: Clear to auscultation with no wheezing or crackles. ABDOMEN: soft, non-distended, non-tender, bowel sounds heard, no guarding or rebound tenderness SKIN: No Rash or ecchymoses EXTREMITIES:3 + pitting edema, tenderness, able to move all 4 extremities, pedal pulses palpated Objective Labs 10/27/24 16:06 10/27/24 16:06 Labs: Laboratory Results - last 24 hr 10/26/24 19:35 APTT 65.0 H D Quality Measures Quality Measures none Assessment & Plan Assessment Current Active Medications: Generic Name Dose Route Start Last Admin Trade Name Freq PRN Reason Stop Dose Admin Acetaminophen 650 mg 10/26/24 13:40 02/17/25 14:03 Acetaminophen 325 Mg Tablet PO 11/25/24 13:39 650 mg Q6HR PRN Administration Fever >100 or pain 1-3 Aspirin 81 mg 10/26/24 09:00 10/27/24 08:05 Aspirin Ec 81 Mg Tabec PO 11/25/24 08:59 81 mg QDAY MARLENE Administration Atorvastatin Calcium 40 mg 10/26/24 21:00 10/26/24 20:20 Atorvastatin Calcium 20 Mg Tablet PO 11/25/24 20:59 40 mg HS MARLENE Administration Bumetanide 2 mg 10/26/24 21:00 10/27/24 08:04 Bumetanide Inj 0.25 Mg/Ml Vial 4 Ml IVP 11/25/24 20:59 2 mg BID MARLENE Administration Dapagliflozin 10 mg 10/28/24 09:00 Dapagliflozin Propanediol 5 Mg Tablet PO 11/27/24 08:59 QAM MARLENE Folic Acid 1 mg 10/26/24 09:00 10/27/24 08:05 Folic Acid 1 Mg Tablet PO 11/25/24 08:59 1 mg QDAY MARLENE Administration Losartan Potassium 25 mg 10/27/24 09:00 10/27/24 08:05 Losartan Potassium 25 Mg Tablet PO 11/26/24 08:59 25 mg QDAY MARLENE Administration Metoprolol Succinate 25 mg 10/28/24 09:00 Metoprolol Succinate Xl 25 Mg Tabcr PO 11/27/24 08:59 QDAY MARLENE Rivaroxaban 10 mg/ Rivaroxaban 15 mg 10/27/24 17:30 5 mg PO 11/16/24 08:01 [facility] Spironolactone 25 mg 10/26/24 09:00 10/27/24 08:05 Spironolactone 25 Mg Tablet PO 11/25/24 08:59 25 mg DAILY MARLENE Administration Plan #acute on chronic acute decompensated congestive heart failure #Dilated Cardiomyopathy -Pt complain of worsening shortness of breath and orthpnea -On 10/25 BNP 826, 3+ pitting edema echo done on 10/26/24: Dilated cardiomyopathy Severely dilated LV at 6.8 cm. Severely decreased ejection fraction of 25-30% with global hypokinesis. Grade 2 diastolic dysfunction. Dilated RV with moderate RV dysfunction. Mild to moderate TR. RVSP of 35 and 40 mmHg. Moderately dilated LA and mildly dilated RA. Mild to moderate MR, mild TR, trace PI. -Strict input output, Daily weights and fluid restriction to 1200cc -continue Bumex 2mg BID as Pt needs aggressive diuresis -Goal net negative is at least 2 L/day, currently Pt is net positive 1600 -Keep potassium greater than 4 and magnesium greater than 2.0 -Continue goal-directed medical therapy with Losartan, beta-paco, spironolactone and diuretics with continued monitoring of blood pressure as well as renal function. - patient is not a candidate for ICD as documented by his primary corporation lawyer Dr. Morales because of noncomplex and social issues -recommend follow-up outpatient with his primary corporation lawyer Dr. Morales in [place]. #Elevated troponins likely NSTEMI type ll -troponin trends 1.636 ->1.556 -> 1.280 -> 1.060 -> 0.974 -EKG showed sinus tachycardia with no acute ST-T changes history of ischemia except for Q waves in the anterior leads and poor R wave progression -Pt underwent Left heart catherization in 07/02/24 at [facility] without obstructive disease findings. -Elevation of the troponins is likely secondary to demand ischemia. troponins are downtrending -Recommendation include aspirin statin and beta-paco #Pumonary embolism #hx of DVT in 2022 -Pt has pulmonary embolism during Pt recent hospitalization at [facility] earlier this year 2024 -However Pt is non compliant with anticoagulation likely due to his social circumstances and homelessness -Pt was on heparin drip for 48 years and transitioned to xarelto #Polysubstance abuse -Pt admits to using cocaine, methamphetamine, marijuana and alcohol abuse -on admission Pt urine tox is positive for meth and marijuana -referral to social service is made #Hypertension #Dyslipidemia #Prediabetes- A1c 5.5 #Severe morbid obesity -Pts BP is well controlled with antihypertensive and Pt is currently on statin -triglycerides 156, cholesterol 114, HDL 33, -TSH 0.55 on 09/07 -continue management as per currently management Assessment and plan discussed with my senior resident & attending physician Dr. Dr. Lainez (PGY-1)- Internal medicine resident Attending Provider Attestation/Addendum I have personally seen and examined the patient separately on the above date of service and discussed the plan of care with the resident. I reviewed the resident Dr. Prakash Lainez consultation progress note and agree with the resident findings and plan in the note above and have also edited the documentation to reflect my findings and plan. Christian Ramsey M.D. Interventional Cardiology
--- NOTE | 2024-10-27 13:04 | ESPR_ITS ---
Documentation for date of: 10/27/24 Subjective Subjective Interval history: 10/26/2024: Patient examined at bedside today. No acute overnight events. Patient is crying at this time and says that he is not experiencing some pain in his foot. He says he is homeless and he [place]. He also says that he forgot to take his water pill and there is no many pills for him to take. He does say that he was at [facility] for similar symptoms recently. He has no other complaints at this time. 10/27/2024: Pt examined at bedside today. No acute overnight events. Pt reports that he wants to leave AMA and says that he is not getting appropriate treatment. Wants to transition to Eliquis from heparin drip. Still complaining of foot pain, R, but says his shortness of breath has improved. Says that he has medical and usually does not pay copays for his medicines. He will take them as prescribed. Exam Vital Signs Temp Pulse Resp BP Pulse Ox O2 Del Method 96.9 F 94 24 H 126/92 H 97 Room Air 10/27/24 12:00 10/27/24 12:00 10/27/24 12:00 10/27/24 12:00 10/27/24 12:00 10/27/24 12:00 Narrative Exam General: AAOx3, crying, obese, emotional, unkempt, shirtless HEENT: Dry mucous membranes, conjunctiva clear, EOMI, PERRLA, Cardiovascular: Difficulty appreciating heart sounds as patient is crying Pulmonary: Difficulty appreciating breath sounds as patient is crying, however some crackles heard on lower bases GI: No tenderness to light or deep palpitation, no guarding, rigidity, rebound tenderness or distension Extremities: +2 pitting edema bilaterally, unkempt feet Neuro: AAOx3, no focal motor or sensory deficits in the UE or LE bilat Psych: Cooperative. Objective Labs 10/27/24 16:06 10/27/24 16:06 Labs: Laboratory Results - last 24 hr 10/26/24 19:35 APTT 65.0 H D Quality Measures Quality Measures none Assessment & Plan Assessment Current Active Medications: Generic Name Dose Route Start Last Admin Trade Name Freq PRN Reason Stop Dose Admin Acetaminophen 650 mg 10/26/24 13:40 10/26/24 14:03 Acetaminophen 325 Mg Tablet PO 11/25/24 13:39 650 mg Q6HR PRN Administration Fever >100 or pain 1-3 Aspirin 81 mg 10/26/24 09:00 10/27/24 08:05 Aspirin Ec 81 Mg Tabec PO 11/25/24 08:59 81 mg QDAY MARLENE Administration Atorvastatin Calcium 40 mg 10/26/24 21:00 10/26/24 20:20 Atorvastatin Calcium 20 Mg Tablet PO 11/25/24 20:59 40 mg HS MARLENE Administration Bumetanide 2 mg 10/26/24 21:00 10/27/24 08:04 Bumetanide Inj 0.25 Mg/Ml Vial 4 Ml IVP 11/25/24 20:59 2 mg BID MARLENE Administration Dapagliflozin 10 mg 10/28/24 09:00 Dapagliflozin Propanediol 5 Mg Tablet PO 11/27/24 08:59 QAM MARLENE Folic Acid 1 mg 10/26/24 09:00 10/27/24 08:05 Folic Acid 1 Mg Tablet PO 11/25/24 08:59 1 mg QDAY MARLENE Administration Losartan Potassium 25 mg 10/27/24 09:00 10/27/24 08:05 Losartan Potassium 25 Mg Tablet PO 11/26/24 08:59 25 mg QDAY MARLENE Administration Metoprolol Succinate 25 mg 10/28/24 09:00 Metoprolol Succinate Xl 25 Mg Tabcr PO 11/27/24 08:59 QDAY MARLENE Rivaroxaban 10 mg/ Rivaroxaban 15 mg 10/27/24 17:30 5 mg PO 11/16/24 08:01 BIDWM MARLENE Spironolactone 25 mg 10/26/24 09:00 10/27/24 08:05 Spironolactone 25 Mg Tablet PO 11/25/24 08:59 25 mg DAILY MARLENE Administration Plan Assessment Mr. Jordan is a 54-year-old homeless male with past medical history of congestive heart failure HFrEF (30%), hypertension, anxiety, alcohol cocaine and methamphetamine use who presented to [facility] emergency department on 10/25/2024 with chief complaint of shortness of breath and chest discomfort. Patient admitted for further management of elevated troponin, NSTEMI type I versus II and CHF exacerbation. #Acute on chronic decompensated heart failure #Hx of HFrEF (EF 25-30%) with G2DD and wall motion abnormalities #Subacute pulmonary embolism, unprovoked #Dilated cardiomyopathy Patient was recently discharged from [facility] on October 21, 2024 after treatment for acute exacerbation of chronic heart failure, acute hypoxic respiratory failure and subacute pulmonary embolism. Currently patient saturating well on room air, does endorse significant orthopnea and has bilateral lower extremity edema. Patient was given Lasix 80 mg IV x 1 in ED. Reviewed requested medical records from [facility]. Chest x-ray in ED significant for mild heart failure, suspicious right base pneumonia Patient does have significant lower extremity edema Echo from 10/26/2024: Dilated cardiomyopathy Severely dilated LV at 6.8 cm. Severely decreased ejection fraction of 25-30% with global hypokinesis. Grade 2 diastolic dysfunction. Dilated RV with moderate RV dysfunction. Mild to moderate TR. RVSP of 35 and 40 mmHg. Moderately dilated LA and mildly dilated RA. Mild to moderate MR, mild TR, trace PI. Since at this point we believe PE was unprovoked, we suggest to continue with AC indefinitely Pt is refusing lab draws at this point Plan: ?Starting Xarelto 15 mg BID po for 21 days, then 20 mg indefinitely -Continuing with GDMT therapy including Fargixa, Losartan, Sprinolactone and Metoprolol 25 XL ?Bumex 2 mg twice daily IV ?Strict I&O, daily weight, fluid restriction 1500 cc, goal -2.5 L removal ?Continuous pulse oximetry ?Cardiac diet ?Keep magnesium potassium above 2 and 4 respectively ?Cardiac consulted, appreciate recs #NSTEMI type II, likely related to demand ischemia, resolved Patient complains of pressure-like chest discomfort reports it feels like there is a heaviness on his chest , troponin increased from 0.287->1.636, EKG negative for ST elevation in ED. Patient was recently discharged from [facility] on 10/21 after being treated for CHF exacerbation and subacute pulmonary embolism. Per chart review patient follows with Dr. Thompson at [facility], patient had coronary angiogram in June at [facility], showed nonischemic cardiomyopathy with EF of 30%. #Polysubstance dependence #Alcohol dependence #Methamphetamine dependence #Cocaine dependence Patient had alcohol withdrawal when he was recently discharged from [facility]. Reports drinking alcohol, using cocaine and methamphetamine again, last use yesterday, currently patient has no symptoms of withdrawal. U tox shows meth and THC Patient does endorse taking meth and cocaine recently at the same time Pt's most recent CIWAs have been low, will d/c CIWA protocol at this time Plan: ?ambulatory services representative #Transaminitis #Morbid obesity #Fatty liver due to alcoholism #Dyslipidemia #Hypertension AST ~50s ALT ~20s Plan: -Continue with Losartan 25 mg -Trend with CMP #Health maintenance DVT prophylaxis: Xarleto GI prophylaxis: Not indicated Diet: Cardiac Lines: Peripheral IV Code status: Full code Patient seen and care discussed with my senior resident, Dr. Real, and my attending physician, Dr. Ines Holloway, PGY-1 Mr. Jordan is a 54-year-old homeless male admitted for further management of elevated troponin, NSTEMI type I versus II and CHF exacerbation. He has a history of severe HFrEF (30%) in the setting of polysubstance use. On this admission, patient was found to be positive for methamphetamine and THC. He also endorses using cocaine prior to this visit. He is NYHA Class II at baseline. BNP = 725 (in 09/2024) -> 826 (10/2024). MAGGIC risk = 7% annual mortality risk. 10/27 : ECHO: Severely decreased ejection fraction of 25-30% with global hypokinesis. Grade 2 diastolic dysfunction. Dilated RV with moderate RV dysfunction. Net balance around 2L so far. Plan : - Cardiology is consulted, appreciate recommendations. Will continue IV Bumex 2mg BID , goal -2 to -3L over next 24 hours. - Added GDMT : Dapagliflozin 10mg qD + Metoprolol XL 25g qD + Spirinolactone 25mg qD + Losartan 25mg qD - Strict input/output charting. Daily weight. Cardiac diet w/ Fluid restriction to 1.5L - ambulatory services representative consult requested for placement and counseling. Patient examined and case discussed with the team including attending physician. Note reviewed, I agree with the care plan as documented. - Panda Real MD, PGY 2 Attending Provider Attestation/Addendum I have examined the patient, reviewed labs and imaging findings, discussed the case with the resident(s), and reviewed entered orders. I agree with the plan of care as outlined in this note, with these additional summaries/recommendations: Patient seen at bedside. No acute overnight events. Today patient reports some improvement in shortness of breath and lower extremity edema. Significant lower extremity edema still present and we will continue aggressive diuresis for CHF exacerbation. Does not appear HAILEE's are being adequately documented as it shows patient is net positive for hospitalization although patient has been refusing blood draws/work-up and suspect patient is at least net -3 to 4 L. Ejection fraction on echocardiogram is 25 to 30%. Continue goal-directed medical therapy with metoprolol succinate, losartan, spironolactone, Farxiga, and Bumex. We will transition patient to NOAC from heparin gtt for history of pulmonary embolism. Patient counseled extensively on the importance of medication compliance. NSTEMI type II has resolved and troponins down trended. Continue aspirin and atorvastatin. Order lipid panel, TSH, and A1c. Patient was counseled on substance abuse. Patient endorsed right foot pain of lateral side although on physical exam no abnormality was noted. Most likely foot pain secondary to edema. Dr. Chacon
--- NOTE | 2024-10-27 13:23 | PC.SS ---
Patient requesting a FWW for home. The diagnosis creates mobility limitation that significantly impairs ability to participate in the patients activities of daily living either in their entirety, or in a reasonable time frame. Also the patient is able to safely use the walker and the patient?s mobility is sufficiently resolved with the use of the walker and cane has been ruled out.
[2024-10-27 16:29] LABS: Basophils % (Auto) 0 % (0-2.5); Eosinophils # (Auto) 0.1 Thou/mm3 (0.0-0.5); Eosinophils % (Auto) 1 % (0-10); Hematocrit 44.1 % (41.0-53.0); Hemoglobin 14.6 g/dL (13.5-16.0); Immature Granulocytes % (Auto) 0 % (0-0); Immature Granulocytes Auto 0.04 Thou/mm3 (0.00-0.00); Lymphocytes # (Auto) 1.1 Thou/mm3 (1.0-4.8); Lymphocytes % (Auto) 10 % (10-50); Mean Corpuscular HGB Conc 33.1 g/dl (31.0-37.0); Mean Corpuscular Hemoglobin 29.8 pg (25.0-35.0); Mean Corpuscular Volume 90 fL (80-100); Monocytes # (Auto) 0.7 Thou/mm3 (0.0-0.8); Monocytes % (Auto) 6 % (0-12); Neutrophils % (Auto) 82 % (37-80); Nucleated Red Blood Cell % 0 /100 WBC (0); Platelet Count 218 Thou/mm3 (140-440); RDW Standard Deviation 47.8 fL (35.1-43.9); White Blood Count 10.9 Thou/mm3 (3.8-10.6)
[2024-10-27 16:43] LABS: Anion Gap 10 (7-16); BUN/Creatinine Ratio 13 Ratio (12-20); Blood Urea Nitrogen 14 mg/dL (9-23); Calcium 8.7 mg/dL (8.3-10.6); Carbon Dioxide 29.5 mMol/L (20.0-31.0); Chloride 98 mMol/L (98-107); Creatinine (Component) 1.1 mg/dL (0.6-1.3); Glucose 109 mg/dL (74-106); Magnesium 1.9 mg/dL (1.6-2.6); Osmolality,Calculated 275 (275-295); Sodium 137 mMol/L (136-145); eGFR > 60 See Note
[2024-10-27 16:46] LABS: INR 1.1 (0.9-1.3); Partial Thromboplastin Time 25.6 Seconds (22.0-36.0); Prothrombin Time 12.3 Seconds (9.0-12.2)
[2024-10-27] MEDS: RIVAROXABAN 10 MG, RIVAROXABAN 5 MG 15 MG PO (17:36)
[2024-10-27] MEDS: ATORVASTATIN CALCIUM 20 MG TABLET 40 MG PO (20:46)
[2024-10-27] MEDS: BUMETANIDE 0.5 MG TABLET 2 MG PO (20:57)
[2024-10-28] VITALS: BP 123/80; PULSE 85; PULSE 96; RESP 17; TEMP 36.1; O2SAT 92
[2024-10-28 04:00] VITALS: BP 112/77; PULSE 76; PULSE 86; RESP 20; TEMP 36.2; O2SAT 97
[2024-10-28] MEDS: HYDROcodone/APAP 5/325 TABLET 1 TAB PO (04:32)
[2024-10-28 04:50] VITALS: BMI 44.9
[2024-10-28 08:00] VITALS: BP 142/87; PULSE 99; RESP 21; TEMP 36.2; O2SAT 97
--- NOTE | 2024-10-28 09:05 | PC.SS ---
Follow up note: Patient is a possible d/c today. Walker ordered through [facility]. They are delivering DME this morning. Patient complaining and wanting to leave. SS offered homeless assisted. Patient refused. [place]. SS can provide taxi or uber. Clothes provided. Sack lunch will be provided.
--- NOTE | 2024-10-28 10:23 | PD.RESPRO ---
Documentation for date of: 10/28/24 Subjective Subjective Interval history: No acute overnight event reported patient seen and examined at bedside. Patient is saturating well on room air does not require supplemental oxygen he states his shortness of breath is significantly better and is able to lay flat on the bed. However patient is continuing to complain and would like to leave AMA and requesting his medications to be sent to [facility] pharmacy. Multiple attempts have made to explain to patient that it is AGAINST MEDICAL ADVICE that he leaves as his condition is unstable. However patient has refused to get IV and therefore is not receiving any IV medications as well as refused labs and is adamant about leaving today. Pt is likely withdrawing from his substance abuse and is requesting more frequent [place]. vitals are stable with BP systolic between 110-120's and HR 80-90. Telemetry is reviewed and Pt is in sinus rhythm. keep potassium greater than 4 and magnesium greater than 2.0 at all times. c Cardiology recommend to check TSH A1c and lipid profile for further cardiac restratification however Pt has been refusing labs draw. Although Pt is currently on Bumex 2mg, metorpolol xl, losartan, spironolactone, aspirin statin and xarelto he is refusing to take meds. and today he appears more fluid overloaded with net positive 1523. The goal is to be net negative 1-2 L as Pt is atleast 10-20 L fluid overloaded. Exam Vital Signs Temp Pulse Resp BP Pulse Ox O2 Del Method 97.1 F 99 21 H 142/87 H 97 Room Air 10/28/24 08:00 10/28/24 08:00 10/28/24 08:00 10/28/24 08:00 10/28/24 08:00 10/28/24 08:00 Narrative Exam GENERAL: A&Ox3 morbidly obese male, Awake, Not in acute distress NEURO: no focal neurological deficits HEENT: Atraumatic, Normocephalic. mucous membranes moist. Eyes open, symmetrical, & clear HEART: Normal Heart Sounds LUNGS: Clear to auscultation with no wheezing or crackles. ABDOMEN: soft, non-distended, non-tender, extensive Abdominal wall edema noted SKIN: No Rash or ecchymoses EXTREMITIES: 4+ pitting edema, no tenderness, able to move all 4 extremities, pedal pulses palpated Objective Labs 10/27/24 16:06 10/27/24 16:06 Labs: Laboratory Results - last 24 hr 10/27/24 16:06 WBC 10.9 H RBC 4.90 Hgb 14.6 Hct 44.1 MCV 90 MCH 29.8 MCHC 33.1 RDW Std Deviation 47.8 H Plt Count 218 Neut % (Auto) 82 H Lymph % (Auto) 10 George % (Auto) 6 Eos % (Auto) 1 Baso % (Auto) 0 Neut # (Auto) 9.0 H Lymph # (Auto) 1.1 George # (Auto) 0.7 Eos # (Auto) 0.1 Baso # (Auto) 0.0 Immature Gran # (Auto) 0.04 H Absolute Nucleated RBC 0.00 Immature Gran % 0 Nucleated RBC % 0 PT 12.3 H INR 1.1 APTT 25.6 D Sodium 137 Potassium 4.0 Chloride 98 Carbon Dioxide 29.5 Anion Gap 10 BUN 14 Creatinine 1.1 Estim Creat Clear Calc 102.0 eGFR > 60 BUN/Creatinine Ratio 13 Glucose 109 H Calculated Osmolality 275 Calcium 8.7 Magnesium 1.9 Quality Measures Quality Measures none Assessment & Plan Assessment Current Active Medications: Generic Name Dose Route Start Last Admin Trade Name Freq PRN Reason Stop Dose Admin Acetaminophen 650 mg 10/26/24 13:40 10/26/24 14:03 Acetaminophen 325 Mg Tablet PO 11/25/24 13:39 650 mg Q6HR PRN Administration Fever >100 or pain 1-3 Aspirin 81 mg 10/26/24 09:00 10/27/24 08:05 Aspirin Ec 81 Mg Tabec PO 11/25/24 08:59 81 mg QDAY MARLENE Administration Atorvastatin Calcium 40 mg 10/26/24 21:00 10/27/24 20:46 Atorvastatin Calcium 20 Mg Tablet PO 11/25/24 20:59 40 mg HS MARLENE Administration Bumetanide 2 mg 10/26/24 21:00 10/27/24 20:59 Bumetanide Inj 0.25 Mg/Ml Vial 4 Ml IVP 11/25/24 20:59 Not Given BID MARLENE Dapagliflozin 10 mg 10/28/24 09:00 Dapagliflozin Propanediol 5 Mg Tablet PO 11/27/24 08:59 QAM MARLENE Folic Acid 1 mg 10/26/24 09:00 10/27/24 08:05 Folic Acid 1 Mg Tablet PO 11/25/24 08:59 1 mg QDAY MARLENE Administration Losartan Potassium 25 mg 10/27/24 09:00 10/27/24 08:05 Losartan Potassium 25 Mg Tablet PO 11/26/24 08:59 25 mg QDAY MARLENE Administration Metoprolol Succinate 25 mg 10/28/24 09:00 Metoprolol Succinate Xl 25 Mg Tabcr PO 11/27/24 08:59 QDAY MARLENE Nicotine 21 mg 10/27/24 17:00 10/27/24 17:35 Nicotine Patch 21 Mg/24 Hr Patch.Td24 TOP 11/26/24 16:59 Not Given QDAY MARLENE Rivaroxaban 10 mg/ Rivaroxaban 15 mg 10/27/24 17:30 10/27/24 17:36 5 mg PO 11/16/24 08:01 15 mg BIDWM MARLENE Administration Spironolactone 25 mg 10/26/24 09:00 10/27/24 08:05 Spironolactone 25 Mg Tablet PO 11/25/24 08:59 25 mg DAILY MARLENE Administration Plan Mr. Jordan is a 54-year-old male with past medical history significant for hypertension, hyperlipidemia, congestive heart failure HFrEF <30%, polysubstance abuse (cocaine, marijuana,, methamphetamine), alcohol abuse and history of DVT and pulmonary embolism presented to the ED on 10-25 complaining of worsening shortness of breath and chest discomfort. Patient recently had left AMA from [facility] with similar symptoms. #acute on chronic acute decompensated congestive heart failure #Dilated Cardiomyopathy -Pt complain of worsening shortness of breath and orthpnea -On 10/25 BNP 826, 3+ pitting edema echo done on 10/26/24: Dilated cardiomyopathy Severely dilated LV at 6.8 cm. Severely decreased ejection fraction of 25-30% with global hypokinesis. Grade 2 diastolic dysfunction. Dilated RV with moderate RV dysfunction. Mild to moderate TR. RVSP of 35 and 40 mmHg. Moderately dilated LA and mildly dilated RA. Mild to moderate MR, mild TR, trace PI. -Strict input output, Daily weights and fluid restriction to 1200cc -continue Bumex 2mg BID as Pt needs aggressive diuresis -Goal net negative is at least 2 L/day, currently Pt is net positive 1500 -Keep potassium greater than 4 and magnesium greater than 2.0 -Continue goal-directed medical therapy with Losartan, beta-paco, spironolactone and diuretics with continued monitoring of blood pressure as well as renal function. - patient is not a candidate for ICD as documented by his primary biology internship Dr. Morales because of noncomplex and social issues -recommend follow-up outpatient with his primary biology internship Dr. Morales in [place]. #Elevated troponins likely NSTEMI type ll -troponin trends 1.636 ->1.556 -> 1.280 -> 1.060 -> 0.974 -EKG showed sinus tachycardia with no acute ST-T changes history of ischemia except for Q waves in the anterior leads and poor R wave progression -Pt underwent Left heart catherization in 07/02/24 at [facility] without obstructive disease findings. -Elevation of the troponins is likely secondary to demand ischemia. troponins are downtrending -Recommendation include aspirin statin and beta-paco #Pumonary embolism #hx of DVT in 2022 -Pt has pulmonary embolism during Pt recent hospitalization at [facility] earlier this year 2024 -However Pt is non compliant with anticoagulation likely due to his social circumstances and homelessness -Pt was on heparin drip for 48 hours and transitioned to xarelto #Polysubstance abuse -Pt admits to using cocaine, methamphetamine, marijuana and alcohol abuse -on admission Pt urine tox is positive for meth and marijuana -referral to social service is made #Hypertension #Dyslipidemia #Prediabetes- A1c 5.5 #Severe morbid obesity -Pts BP is well controlled with antihypertensive and Pt is currently on statin -triglycerides 156, cholesterol 114, HDL 33- 08/2024 -TSH 0.55 on 09/07/24 -continue management as per currently management Assessment and plan discussed with attending physician Dr. Roxy Lainez (PGY-1)- Internal medicine resident Attending Provider Attestation/Addendum I have personally seen and examined the patient separately on the above date of service and discussed the plan of care with the resident. I reviewed the resident Dr. Prakash Lainez consultation progress note and agree with the resident findings and plan in the note above and have also edited the documentation to reflect my findings and plan. Christian Ramsey M.D. Interventional Cardiology
--- NOTE | 2024-10-28 11:07 | PC.NURSE ---
Patient refused IV Access and Lab draw. Patient refused morning medications. Patient stated that he is leaving and that he no longer feels the need to be in the hospital. Patient given risks of leaving without fulfilling treatment. Patient alert and oriented and understands risks associated with leaving.
--- NOTE | 2024-10-28 14:21 | ESDS_ITS ---
Planned Discharge Date 10/28/24 DS: Providers Provider Date of admission: 10/25/24 20:21 Primary care physician: Physician No Primary/Family Admitting Provider: Cedrick Duarte MD Attending Provider on Admission: Erick Chacon MD Consults: 10/25/24 23:47 Health Equity Referral - Knowledge Deficit Routine Comment: Positive screening for knowledge deficit needs. Health Equity Referral - Nutrition Routine Comment: Positive screening for nutrition needs. Health Equity Referral - Safety Routine Comment: Positive screening for safety needs. Health Equity Referral - Transportation Routine Comment: Positive screening for transportation needs. 10/26/24 07:30 Consult to Cardiology Routine Comment: Consulting Provider: Christian Ramsey Instructions: elevated troponin 1.6 Attending Provider on DC: Erick Chacon MD Discharging Provider: Erick Chacon MD DS: Diagnosis Problem List Completed Was Problem List Reviewed/Reconciled?: Yes Hospital Course Hospital Course Hospital course: Mr. Jordan is a 54-year-old homeless male with past medical history of congestive heart failure HFrEF (30%), hypertension, anxiety, alcohol cocaine and methamph etamine use, homeless who was admitted to [facility] emergency department on 10/25/2024 acute on chronic decompensated HFrEF. Patient had arrived to the ED complaining of some shortness of breath and chest discomfort, of note he was recently discharged from [facility] for similar symptoms. She also endorsed that he took cocaine and meth before he arrived to the ED. On presentation in the ED he had a blood pressure of 147/91, P105, RR 17, temp 98.0, O2 sat 95 on room air. ED labs showed for AST 51, troponin 0.287, increased to 1.636.Urine tox screen was positive for methamphetamine and marijuana. Chest x-ray in ED showed significant for mild heart failure, suspicious right base pneumonia. Foot x-ray significant for no fracture and no cortical bone destruction (this was done because patient was complaining of right foot pain). EKG showed sinus tachycardia, no ST elevation. Patient was given furosemide 80 mg IVP x 1 and was then admitted to the floors. While on the floors, patient was resumed on GDMT therapy including ARB beta-paco and spironolactone in addition to Farxiga. Patient also had an echocardiogram done while admitted and showed HFrEF with dilated cardiomyopathy, severe dilated left ventricle, EF of 25 to 30% with wall motion abnormalities in addition to grade 2 diastolic dysfunction. Patient was continued to be diuresed with Bumex 2 mg IV twice a day. Patient continued to refuse additional blood draws, IV access and was not compliant with strict I's and O's. Patient said that he wanted to leave AMA and we had recommended patient to continue with treatment however he signed AMA forms and was then discharged. Nevertheless, we did send patient's GDMT therapy including Xarelto as patient had subacute pulmonary embolism that was developed on a previous visit and we had recommended to take all medicines as prescribed. We also recommended to follow up outpatient. #Acute on chronic decompensated heart failure #Hx of HFrEF (EF 25-30%) with G2DD and wall motion abnormalities #Subacute pulmonary embolism, unprovoked #Dilated cardiomyopathy #NSTEMI type II, likely related to demand ischemia, resolved #Polysubstance dependence #Alcohol dependence #Methamphetamine dependence #Cocaine dependence #Transaminitis #Morbid obesity #Fatty liver due to alcoholism #Dyslipidemia #Hypertension Discharge instructions Take medicines as prescribed Follow-up with PCP within 1 week We have also prescribed additional medicines and was sent to your pharmacy Return to ER if symptoms worsen or return Patient seen and care discussed with my senior resident, Dr. Thompson, and my attending physician, Dr. Ines Holloway, PGY-1 Time Spent with Patient Time attestation: Total time spent providing and/or coordinating discharge services: Time spent: Greater than 30 minutes Exam Vital Signs Temp Pulse Resp BP Pulse Ox O2 Del Method 97.1 F 99 21 H 142/87 H 97 Room Air 10/28/24 08:00 10/28/24 08:00 10/28/24 08:00 10/28/24 08:00 10/28/24 08:00 10/28/24 08:00 Narrative Exam General: AAOx3, obese, emotional, unkempt, shirtless HEENT: Dry mucous membranes, conjunctiva clear, EOMI, PERRLA, Cardiovascular: Difficulty appreciating heart sounds as patient is crying Pulmonary: Difficulty appreciating breath sounds as patient is crying, however some crackles heard on lower bases GI: No tenderness to light or deep palpitation, no guarding, rigidity, rebound tenderness or distension Extremities: +3 pitting edema bilaterally, unkempt feet Neuro: AAOx3, no focal motor or sensory deficits in the UE or LE bilat Psych: Not Cooperative Discharge Plan Plan Patient Disposition: Left Against Medical Advice Patient condition on transfer: Stable Prescriptions/Referrals Prescriptions/Med Rec: New atorvastatin 20 mg Tablet 40 mg PO HS Qty: 30 0RF aspirin [Ecotrin Low Strength] 81 mg Tablet,Delayed Release (Dr/Ec) 81 mg PO QDAY Qty: 60 0RF spironolactone 25 mg Tablet 25 mg PO DAILY Qty: 30 0RF metoprolol succinate 25 mg Tablet Extended Release 24 Hr 25 mg PO QDAY Qty: 30 0RF Xarelto 15 mg Tablet 15 mg PO BIDWM Qty: 60 0RF dapagliflozin propanediol 5 mg Tablet 10 mg PO QAM Qty: 30 0RF bumetanide 2 mg tablet 2 mg PO QDAY Qty: 30 0RF Continued losartan 25 mg Tablet 25 mg PO QDAY Qty: 30 2RF nitroglycerin 0.4 mg tablet, sublingual 0.4 mg buccal 1XD PRN (Reason: Chest Pain) Rx Instructions: I TAB UNDER THE TONGUE EVERY 5 MINUTES NEED FOR CHEST PAIN, MAY GIVE UP TO 3 DOSES albuterol sulfate 90 mcg/actuation HFA aerosol inhaler 2 puff inhalation Q6H PRN (Reason: shortness of breath or wheezing) Qty: 8.5 0RF Discontinued amlodipine 5 mg Tablet 10 mg PO QDAY Qty: 60 2RF doxycycline monohydrate 100 mg capsule 100 mg PO BID Qty: 10 0RF celecoxib 100 mg capsule 100 mg PO BID PRN (Reason: pain) Qty: 10 0RF Referrals: No Primary/Family,Physician [Primary Care Provider] - Patient/Caregiver Discharge Instructions Print Language: Nauruan Quality Discharge Quality Measures VTE prophylaxis (Xarelto) MD Attestestation MD Attestation I have examined the patient, reviewed labs and imaging findings, discussed the case with the resident(s), and reviewed entered orders. I agree with the plan of care as outlined in this note, with these additional summaries/recommendations: The patient has decided to leave AGAINST MEDICAL ADVICE. Patient has reported he is going to leave AGAINST MEDICAL ADVICE multiple times throughout this hospitalization. This morning patient threatened to leave AGAINST MEDICAL ADVICE medical team spoke with patient and convinced him to stay. Although approximately 1 hour later patient has decided to leave AGAINST MEDICAL ADVICE. He has normal mental status and adequate capacity to make medical decisions. The patient refuses to stay hospitalized and wants to be discharged. The risks have been explained to the patient including progression of heart failure with worsening breathing, worsening illness, chronic pain, permanent disability and . The benefits of admission have also been explained including the availability and proximity of nurses, physicians, monitoring, diagnostic testing, treatment and cardiology evaluation. The patient was able to understand and state the risks and benefits of hospital admission. Patient had the opportunity ask questions about their medical condition. The patient was treated to the extent that he would allow and knows that he may return for care at any time. Follow-up was discussed with patient including following up with PCP. Patient was informed that we sent all his medications to his pharmacy and encouraged him to pick them up and take as prescribed. Patient left AGAINST MEDICAL ADVICE on 10/28/2024. Dr. Ines MD
== END 2024-10-28 10:24 | disposition left against medical advice (07) | DRG 194 ==
LOC: SERX 19:17 → SERHOLD 20:38 → S2NX 22:54
PROVIDERS: Internal Medicine; Student in an Organized Health Care Education/Training Program; Admitting Provider Internal Medicine; Emergency Provider Emergency Medicine; Visit Provider Student in an Organized Health Care Education/Training Program
DX: I11.0 Hypertensive heart disease with heart failure (principal); I21.A1 Myocardial infarction type 2; F41.9 Anxiety disorder, unspecified; F19.90 Other psychoactive substance use, unspecified, uncomplicated; F17.200 Nicotine dependence, unspecified, uncomplicated; I50.23 Acute on chronic systolic (congestive) heart failure; F10.20 Alcohol dependence, uncomplicated; F14.20 Cocaine dependence, uncomplicated; F15.20 Other stimulant dependence, uncomplicated; I42.0 Dilated cardiomyopathy; K76.0 Fatty (change of) liver, not elsewhere classified; E78.5 Hyperlipidemia, unspecified; M79.671 Pain in right foot; F12.10 Cannabis abuse, uncomplicated; I49.3 Ventricular premature depolarization; R73.03 Prediabetes; R26.2 Difficulty in walking, not elsewhere classified; Z59.00 Homelessness unspecified; Z91.148 Patient's other noncompliance with medication regimen for other reason; E66.01 Morbid (severe) obesity due to excess calories; Z68.41 Body mass index [BMI] 40.0-44.9, adult; Z86.711 Personal history of pulmonary embolism; Z79.82 Long term (current) use of aspirin; Z79.899 Other long term (current) drug therapy; Z53.29 Procedure and treatment not carried out because of patient's decision for other reasons; Z86.718 Personal history of other venous thrombosis and embolism
CPT/HCPCS: 36415; 71045; 73630; 80048; 80053; 80061; 80307; 83036; 83735; 83880; 84145; 84443; 84484; 85025; 85379; 85610; 85730; 87081; 87811; 93306; J1643; J1644; J1940; J3475; J3490; J8499; A9270

== ENCOUNTER 2024-11-05 00:05 | Emergency (ER) | payer MEDICAID, SELFPAY ==
[2024-11-05 00:07] VITALS: BP 139/98; PULSE 102; RESP 18; TEMP 36.8; O2SAT 98
[2024-11-05 00:24] VITALS: PULSE 122; RESP 20; O2SAT 95; BMI 42.5
--- NOTE | 2024-11-05 00:34 | PD.EDRME ---
Rapid Medical Screening Exam RME Arrival date/time: 11/05/24 00:05 Chief Complaint: Shortness of Breath/Dyspnea Vital signs: Vital Signs Temperature 98.3 F 11/05/24 00:07 Pulse Rate 102 H 11/05/24 00:07 Respiratory Rate 18 11/05/24 00:07 Blood Pressure 139/98 H 11/05/24 00:07 Pulse Oximetry (%) 98 11/05/24 00:07 Oxygen Delivery Method Nasal Cannula 11/05/24 00:07 Oxygen Flow Rate 1 11/05/24 00:07 Vital signs reviewed by provider: Yes RME Narrative: 54-year-old patient with multiple complaints.
[2024-11-05 01:00] VITALS: BP 140/109; PULSE 103; RESP 18; O2SAT 99
--- NOTE | 2024-11-05 02:26 | PD.EDADULT ---
ED General RME/HPI General Chief complaint: Extremity Problem,Nontraumatic Stated complaint: SOB Time Seen by Provider: 11/05/24 00:35 Arrival date/time: 11/05/24 00:05 Limitations: no limitations RME / HPI RME / HPI narrative: Dr. uLther's Main ED Evaluation: 54-year-old patient shortness of breath after he took amphetamine, cocaine, and potentially a different drug. The patient also says that the bottom of his feet hurt. He has worsening cuts without socks normally. Patient denies chest pain to me. At this time he does not want to answer any other questions Related Data Home Medications ?Medication ?Instructions ?Recorded ?Confirmed nitroglycerin 0.4 mg sublingual 0.4 mg buccal 1XD PRN Chest Pain 08/01/24 10/26/24 tablet Previous Rx's ?Medication ?Instructions ?Recorded losartan 25 mg tablet 25 mg PO QDAY #30 tabs 09/15/23 albuterol sulfate 90 mcg/actuation 2 puff inhalation Q6H PRN 09/07/24 aerosol inhaler shortness of breath or wheezing #8.5 grams aspirin 81 mg tablet,delayed 81 mg PO QDAY #60 tabs 10/28/24 release (Ecotrin Low Strength) atorvastatin 20 mg tablet 40 mg (2 x 20 mg) PO HS #30 tabs 10/28/24 bumetanide 2 mg tablet 2 mg PO QDAY #30 tabs 10/28/24 dapagliflozin propanediol 5 mg 10 mg (2 x 5 mg) PO QAM #30 tabs 10/28/24 tablet metoprolol succinate 25 mg 25 mg PO QDAY #30 tabs 10/28/24 tablet,extended release 24 hr rivaroxaban 15 mg tablet (Xarelto) 15 mg PO BIDWM #60 tabs 10/28/24 spironolactone 25 mg tablet 25 mg PO DAILY #30 tabs 10/28/24 Allergies Allergy/AdvReac Type Severity Reaction Status Date / Time No Known Allergies Allergy Verified 10/25/24 16:33 Review of Systems Review of Systems ROS Unobtainable: other Narrative Review of Systems: Patient does not want to answer any other questions. Please see HPI. ED Exam General Limitations: Present no limitations General appearance: Present alert Head Head exam: Present atraumatic Eye Eye exam: Present normal appearance and EOMI ENT ENT exam: Present normal exam Neck Neck exam: Present normal inspection and full ROM Respiratory Respiratory exam: Present normal lung sounds bilaterally Cardiovascular Cardiovascular exam: Present normal heart sounds Abdominal Exam Abdominal exam: Present soft and normal bowel sounds Neurological Exam Neurological exam: Present alert and oriented X3 Skin Skin exam: Present warm Course Course Course Narrative: Patient lying in the bed. Heart rate on repeat is 103. 99% on 1 L nasal cannula. Quality Measures none Reevaluation(s) Reevaluation #1: Discussed with the nurse for the patient and he does not want to be treated. The patient does not want labs or x-ray. Vital Signs Vital signs: Vital Signs Temperature 98.3 F 11/05/24 00:07 Pulse Rate 102 H 11/05/24 00:07 Respiratory Rate 18 11/05/24 00:07 Blood Pressure 139/98 H 11/05/24 00:07 Pulse Oximetry (%) 98 11/05/24 00:07 Oxygen Delivery Method Nasal Cannula 11/05/24 00:07 Oxygen Flow Rate 1 11/05/24 00:07 [facility] Patient data External records reviewed:: [facility] previous records (Per chart review, patient was admitted here on 10/25/24 for elevated troponins.) Clinical information provided by:: patient Social determinants that could affect healthcare access:: none Patient has the following chronic illnesses:: congestive heart failure HFrEF (30%), hypertension, anxiety, alcohol cocaine and methamphetamine use, homeless How is presenting disease/condition affected by chronic disease/condition?: uneffected by Evaluation data The following diagnostics were reviewed and interpreted by me:: other (specify) (none) Lab and/or radiology exams considered but not ordered:: Labs and CXR considered, but the patient does not want to be treated. Interpretation Summary: none Medications Medications considered but not ordered:: none Medication administrations:: none Consultations Consultation(s) initiated? (list below): No Diagnosis Differential Diagnosis ED Complaint MDM: methamphetamine abuse, cocaine abuse, polysubstance abuse, homelessness Most likely diagnosis given after review of the tests above:: see below Admission Indicated Admission indicated?: not indicated Explain why admission is indicated or not indicated:: Admission criteria not met. The patient does not want to be treated. Admission Request Was there a request for admission?: No Disposition Plan Disposition Plan: Discharge Discharge Attestation Discharge Attestation: The patient and all family members were given an opportunity to ask questions and understood the discharge instructions. Discharge instructions specifically effects, indications for sooner follow up or return to the emergency department, and the expected course of current diagnosis. Patient condition: Stable Medical Decision Making MDM Narrative MDM Narrative: 54-year-old male frequent presented to the emergency department after using drugs. Patient main complaint is pain at the bottom of his feet. I suspect that he has been walking barefoot. There is no obvious bilateral lower extremity swelling or pedal edema. Differential Diagnosis Differential Diagnosis: methamphetamine abuse, cocaine abuse, polysubstance abuse, homelessness Discharge Plan Plan Patient Disposition: HOME (Self Care) Patient condition on transfer: Stable Prescriptions/Referrals Prescriptions/Med Rec: No Action losartan 25 mg Tablet 25 mg PO QDAY Qty: 30 2RF nitroglycerin 0.4 mg tablet, sublingual 0.4 mg buccal 1XD PRN (Reason: Chest Pain) Rx Instructions: I TAB UNDER THE TONGUE EVERY 5 MINUTES NEED FOR CHEST PAIN, MAY GIVE UP TO 3 DOSES atorvastatin 20 mg Tablet 40 mg PO HS Qty: 30 0RF aspirin [Ecotrin Low Strength] 81 mg Tablet,Delayed Release (Dr/Ec) 81 mg PO QDAY Qty: 60 0RF spironolactone 25 mg Tablet 25 mg PO DAILY Qty: 30 0RF metoprolol succinate 25 mg Tablet Extended Release 24 Hr 25 mg PO QDAY Qty: 30 0RF Xarelto 15 mg Tablet 15 mg PO BIDWM Qty: 60 0RF dapagliflozin propanediol 5 mg Tablet 10 mg PO QAM Qty: 30 0RF bumetanide 2 mg tablet 2 mg PO QDAY Qty: 30 0RF albuterol sulfate 90 mcg/actuation HFA aerosol inhaler 2 puff inhalation Q6H PRN (Reason: shortness of breath or wheezing) Qty: 8.5 0RF Problem List Clinical Impression: History of drug use Patient/Caregiver Discharge Instructions Additional Instructions: Please follow-up with your primary care physician for any further changes in your medications. Return to the emergency department for any worsening conditions, or any other concerns. Print Language: Romanian Stand Alone Forms: Colleen Award Info., Patient Portal Info Letter
[2024-11-05 02:52] VITALS: BP 134/90; PULSE 101; RESP 18; TEMP 36.9; O2SAT 99
--- NOTE | 2024-11-05 02:57 | PC.NURSE ---
Pt not cooperative with care, refused any blood draw. Socks requested and provided.
[2024-11-05 03:04] VITALS: BP 130/87; PULSE 94; RESP 18; O2SAT 97
[2024-11-05 04:02] VITALS: BP 132/90; PULSE 92; RESP 18; TEMP 36.6; O2SAT 97
== END 2024-11-05 04:06 | disposition home or self-care (01) ==
LOC: SERX 04:03
PROVIDERS: Emergency Provider Emergency Medicine
DX: F15.90 Other stimulant use, unspecified, uncomplicated (principal)
CPT/HCPCS: 99281

== ENCOUNTER 2024-11-11 14:49 | Emergency (ER) | payer MEDICAID, SELFPAY ==
[2024-11-11 14:53] VITALS: BP 134/92; PULSE 97; RESP 20; TEMP 36.5; O2SAT 97
--- NOTE | 2024-11-11 15:12 | XR_ITS ---
Examination: Venous duplex lower extremity sonogram, bilateral. Date and time of exam: November 11, 2024 1632 hours INDICATIONS: Left calf swelling and pain redness beginning one week ago Technique: Multiple sonographic images of the deep venous system have been obtained. B-mode/2-D grayscale imaging of vascular structures and Doppler spectral analysis (waveforms) and color performed Both legs are examined. Findings: Deep venous systems do not demonstrate abnormal echogenicity. All visualized deep veins exhibit compressibility. All visualized deep veins exhibit augmentation. Cystic soft tissue mass anterior to the left peroneal vein medial knee 2.3 x 0.8 x 1.1 cm Impression: Negative for deep vein thrombosis
--- NOTE | 2024-11-11 15:12 | XR_ITS ---
Examination: Abdomen sonogram, Limited Date and time of exam: November 11, 2024 1610 hours INDICATIONS: Right upper abdominal tenderness and pain beginning today Technique: Real-time urbina scale transabdominal sonographic images of the upper abdomen obtained. Findings: Multiple gallstones, the largest 12 mm Gallbladder wall 0.7 cm suspicious for edema Common bile duct 0.4 cm Pancreatic head 2.8 cm Liver 18.3 cm fatty infiltration irregular contour no focal liver lesions Normal hepatopedal portal venous flow Patent IVC IMPRESSION: Findings most consistent with acute calculus cholecystitis, consider HIDA scan or MRCP follow-up Common bile duct is not enlarged
--- NOTE | 2024-11-11 15:12 | XR_ITS ---
Examination: CT abdomen with intravenous contrast CT pelvis with intravenous contrast 2-D coronal reconstructions 2-D sagittal reconstructions Date and time of exam:November 11, 2024 1742 hours INDICATIONS: Onset generalized abdominal pain today. CTDI: vol (mGy) 23.1 DLP: (mGycm) 1487 Technique: Multiple axial sections of the abdomen and pelvis have been obtained. 64 slice high-resolution scanner used. 3 mm axial sections have been obtained, post intravenous injection 60 cc [id number]-370 2-D sagittal, coronal reconstructions obtained. Low dose protocols were performed. One or more of the following dose reduction techniques were used; automated exposure control, adjustment of the mA and/or KV according to patient size, use of iterative reconstruction technique. Findings: The liver is mildly irregular in contour Fatty infiltration throughout the liver Spleen is not enlarged Cholelithiasis, gallbladder wall appears thickened No pancreatic or adrenal mass Mild bilateral renal parenchymal scar formation, no hydronephrosis renal or ureteral calculi Normal appendix No bowel obstruction Colonic diverticulosis, no diverticulitis No prostatomegaly No bladder mass or bladder calculi Patient motion degrades scan image quality Moderate thoracic lumbar spondylosis IMPRESSION: Suspect primary hepatocellular disease, there is fatty liver Recommend hepatobiliary sonography to exclude acute calculus cholecystitis Mild bilateral renal parenchymal scar formation Normal appendix
--- NOTE | 2024-11-11 15:13 | XR_ITS ---
Examination: AP chest single view Technique one AP portable upright chest single view Exam date and time: November 11, 2024 1717 hours INDICATIONS: Shortness of breath today. FINDINGS: Mild prominence cardiac contour Prominent vascular congestion. Suspicious for early septal edema at the lung bases Consider bronchitis versus early bronchopneumonia the lung bases Significant osteopenia IMPRESSION: Suspicious for early heart failure Bronchitis versus early bronchopneumonia the lung bases
--- NOTE | 2024-11-11 15:13 | XR_ITS ---
Examination: CTA chest with intravenous contrast 2-D reconstructions 3-D reconstructions, vascular Date and time of exam: November 11, 2024 1742 hours INDICATIONS: Onset shortness of breath chest pain today CTDI: vol (mGy) 18.7 DLP: (mGycm) 635 Technique: Multiple axial sections of the thorax have been obtained. 3 mm slice thickness, from below the hemidiaphragms to above the apices of the lungs. Mediastinal and lung density settings have been obtained. 2-D sagittal and coronal reconstructions. 3-D angiographic renderings, 3-D volume renderings, 3D post processing, vascular maximum intensity projections obtained. Contrast administered is 100 cc Isovue-370. Low dose protocols were performed. One or more of the following dose reduction techniques were used; automated exposure control, adjustment of the mA and/or KV according to patient size, use of iterative reconstruction technique. Findings: There is no significant contrast opacification of the thoracic aorta Positive for pulmonary artery filling defects distal main right pulmonary artery and descending branches right pulmonary artery, axial images 78 through 93 No mediastinal lymphadenopathy 16 mm soft tissue density axial image 63 which may be a portion of the first costochondral junction on the right No lobar pneumonia No visualized liver or splenic lesion IMPRESSION: Positive for pulmonary artery emboli in the distal main right pulmonary artery and descending branches right pulmonary artery Recommend 3-6 month follow-up CT chest without contrast to exclude 16mm pulmonary nodule right upper lobe
--- NOTE | 2024-11-11 15:14 | PD.EDSOB ---
ED SOB =RME/HPI General Chief Complaint: Skin/Abscess/Foreign Body Stated Complaint: LEFT LEG REDNESS/ SWELLING Time Seen by Provider: 11/11/24 15:08 Arrival date/time: 11/11/24 14:49 RME / HPI RME / HPI Narrative: DR. GUIDO MAIN ED EVALUATION: This section includes all my notes and documentations, including HPI, PE, and ED course.? Lc Guido MD HPI: 54 year old male with past medical history significant for CHF, HFrEF (30%), hypertension, anxiety, alcohol cocaine and methamphetamine use, homeless presents to the Emergency Department BIBA with several days of shortness of breath and left leg swelling and redness. No other complaints. ROS: All negative except as documented in HPI. Physical Exam: General:? Alert and oriented.? No acute distress when remaining still. Eyes:? Conjunctivae and lids clear.?? ENT:? No nasal congestion.? Neck:? Supple.?? Heart:? RRR.? Lungs:? No respiratory distress.? Good air movement.? No rhonchi, wheezing, rales.?? Abdomen:? Soft and nontender.? Normal bowel sounds.? No distension.? No rebound or guarding.?? Back:? No CVA tenderness.?? Skin:? Warm and dry.?? Neuro:? Alert and oriented X 3. I ordered diagnostic tests. At 6 PM on 11/11/2024, the care of the patient was transferred to Dr. Cooley. Lc Guido MD Related Data Home Medications ?Medication ?Instructions ?Recorded ?Confirmed nitroglycerin 0.4 mg sublingual 0.4 mg buccal 1XD PRN Chest Pain 08/01/24 10/26/24 tablet Previous Rx's ?Medication ?Instructions ?Recorded losartan 25 mg tablet 25 mg PO QDAY #30 tabs 09/15/23 albuterol sulfate 90 mcg/actuation 2 puff inhalation Q6H PRN 09/07/24 aerosol inhaler shortness of breath or wheezing #8.5 grams aspirin 81 mg tablet,delayed 81 mg PO QDAY #60 tabs 10/28/24 release (Ecotrin Low Strength) atorvastatin 20 mg tablet 40 mg (2 x 20 mg) PO HS #30 tabs 10/28/24 bumetanide 2 mg tablet 2 mg PO QDAY #30 tabs 10/28/24 dapagliflozin propanediol 5 mg 10 mg (2 x 5 mg) PO QAM #30 tabs 10/28/24 tablet metoprolol succinate 25 mg 25 mg PO QDAY #30 tabs 10/28/24 tablet,extended release 24 hr rivaroxaban 15 mg tablet (Xarelto) 15 mg PO BIDWM #60 tabs 10/28/24 spironolactone 25 mg tablet 25 mg PO DAILY #30 tabs 10/28/24 acetaminophen 500 mg capsule 1,000 mg (2 x 500 mg) PO Q6H PRN 11/11/24 pain 3 days #24 caps doxycycline monohydrate 100 mg 100 mg PO BID Cellulitis 10 days 11/11/24 capsule #20 caps rivaroxaban 15 mg tablet (Xarelto) 15 mg PO BID Pulmonary embolism 21 11/11/24 days #42 tabs Allergies Allergy/AdvReac Type Severity Reaction Status Date / Time No Known Allergies Allergy Verified 10/25/24 16:33 Course Quality Measures none Orders Category Date Time Status Bedside COVID-19 Antigen Test NOW Care 11/11/24 15:10 Completed Bedside Influenza A&B Antigen Test NOW Care 11/11/24 15:[address] Screening NOW Care 11/11/24 15:12 Completed EKG (ED ONLY) *Do not use* NOW Care 11/11/24 18:50 Completed Saline [Insert IV] NOW Care 11/11/24 15:10 Completed Straight [In and Out Catheter] X1 Care 11/11/24 15:[address] abdomen pelvis w con Stat Exams 11/11/24 15:[address] angio chest Stat Exams 11/11/24 15:13 Completed EKG (ED Only) Stat Exams 11/11/24 18:50 Ordered US gall bladder Stat Exams 11/11/24 15:12 Completed US venous doppler LE BI Stat Exams 11/11/24 15:12 Completed XR chest 1V portable Stat Exams 11/11/24 15:13 Completed Alcohol, Blood Medical Stat Lab 11/11/24 15:35 Completed Amylase Stat Lab 11/11/24 15:35 Completed BMP [Basic Metabolic Panel] Stat Lab 11/11/24 15:35 Completed BNP [B-Type Natriuretic Peptide] Stat Lab 11/11/24 15:35 Completed Blood Culture (Lab) Stat Lab 11/11/24 15:35 Results CBC Stat Lab 11/11/24 15:35 Completed CRP [C-Reactive Protein] Stat Lab 11/11/24 15:35 Completed D-Dimer Stat Lab 11/11/24 15:35 Completed Drug Screen,Urine Stat Lab 11/11/24 15:41 Completed ESR [Sed Rate (ESR)] Stat Lab 11/11/24 15:35 Completed Lactate (Lactic Acid) Stat Lab 11/11/24 15:35 Completed Lipase Stat Lab 11/11/24 15:35 Completed Liver Panel Stat Lab 11/11/24 15:35 Completed Magnesium Stat Lab 11/11/24 15:35 Completed PT [Prothrombin Time with INR] Stat Lab 11/11/24 15:35 Completed PTT [Partial Thromboplastin Time] Stat Lab 11/11/24 15:35 Completed Procalcitonin Stat Lab 11/11/24 15:35 Completed TSH [Thyroid Stimulating Hormone] Stat Lab 11/11/24 15:35 Completed Troponin I Stat Lab 11/11/24 15:35 Completed Troponin I Stat Lab 11/11/24 19:12 Completed UA, C/S IF [Urinalysis, C/S if Indicated] Stat Lab 11/11/24 15:41 Completed Vitamin B1 (Thiamine)* Stat Lab 11/11/24 15:35 Received Acetaminophen Ivpb [Ofirmev Inj] Med 11/11/24 18:58 Discontinued 1,000 mg in 100 ml IV X1 Albuterol/Ipratr Rt Jill [Duoneb Rt Jill] Med 11/11/24 15:11 Discontinued 3 ml INH X1 ONE Aspirin Chew Med 11/11/24 16:55 Discontinued 324 mg PO X1 ONE Doxycycline Inj [Vibramycin Inj] 100 mg Med 11/11/24 18:54 Discontinued Sodium Chloride 0.9% (Pop) [NS 0.9% mini bag] 100 ml IV X1 LORazepam [Ativan Inj] Med 11/11/24 15:11 Discontinued 1 mg IVP X1 ONE Magnesium Oxide [Mag-Ox 400] Med 11/11/24 20:16 Discontinued 400 mg PO X1 ONE Magnesium Sulfate 2 GM Ivpb [Magnesium Sulfate Ivpb] Med 11/11/24 18:51 Discontinued 2 gm in 50 ml IV X1 MethylPREDNISolone.* [SoluMEDROL Inj] Med 11/11/24 15:11 Discontinued 125 mg IVP X1 ONE Piper/Tazo Inj [Zosyn Inj] 4.5 gm Med 11/11/24 18:54 Discontinued Sodium Chloride 0.9% (Pop) [NS 0.9% mini bag] 100 ml IV X1 Thiamine Inj [Vitamin B-1 Inj] Med 11/11/24 15:11 Discontinued 100 mg IVP X1 ONE Vital Signs Vital signs: Vital Signs Temperature 97.7 F 11/11/24 14:53 Pulse Rate 97 11/11/24 14:53 Respiratory Rate 20 11/11/24 14:53 Blood Pressure 134/92 H 11/11/24 14:53 Pulse Oximetry (%) 97 11/11/24 14:53 Oxygen Delivery Method Room Air 11/11/24 14:53 Shortness of Breath / Dyspnea MDM Narrative MDM Narrative:: Michelle Serrano am scribing for and in the presence of Dr. Guido. Patient data External records reviewed:: EMS form Clinical information provided by:: patient and EMS Social determinants that could affect healthcare access:: housing (homeless) Patient has the following chronic illnesses:: CHF, HFrEF (30%), hypertension, anxiety, alcohol cocaine and methamphetamine use, homeless How is presenting disease/condition affected by chronic disease/condition?: exacerbated by Evaluation data The following diagnostics were reviewed and interpreted by me:: lab results, radiology exam(s) and EKG tracing(s) Lab and/or radiology exams considered but not ordered:: none Interpretation Summary: Diagnostics pending. Medications / Prescriptions Medications or Prescriptions considered but not ordered:: none Medication administrations:: Medication Administration History Discontinued Medications Albuterol/Ipratropium (Albuterol/Ipratropium (Duoneb) Rt Jill 3 Ml Nebu) 3 ml INH X1 ONE Stop: 11/11/24 15:12 Last Admin: 11/11/24 18:53 Dose: 3 ml Documented By: LARISA Aspirin (Aspirin 81 Mg Chew) 324 mg PO X1 ONE Stop: 11/11/24 16:56 Last Admin: 11/11/24 18:00 Dose: 324 mg Documented By: AVM Magnesium Sulfate (Magnesium Sulfate Ivpb) 2 gm in 50 mls @ 25 mls/hr IV X1 ONE Stop: 11/11/24 20:50 Last Admin: 11/11/24 20:17 Dose: Not Given Documented By: EF Non-Admin Reason: Cancelled by Provider Doxycycline Hyclate 100 mg/ (Sodium Chloride) 100 mls @ 100 mls/hr IV X1 ONE Stop: 11/11/24 19:53 Last Admin: 11/11/24 19:59 Dose: Not Given Documented By: EF Non-Admin Reason: Cancelled by Provider Piperacillin Sod/Tazobactam (Sod 4.5 gm/ Sodium Chloride) 100 mls @ 200 mls/hr IV X1 ONE Stop: 11/11/24 19:23 Last Infusion: 11/11/24 20:21 Dose: Infused Documented By: Admin: 11/11/24 19:51 Dose: 200 mls/hr Documented By: EF Acetaminophen (Ofirmev Inj) 1,000 mg in 100 mls @ 250 mls/hr IV X1 ONE Stop: 11/11/24 19:21 Last Infusion: 11/11/24 20:17 Dose: Infused Documented By: Admin: 11/11/24 19:53 Dose: 250 mls/hr Documented By: EF Lorazepam (Lorazepam 2 Mg/Ml Vial) 1 mg IVP X1 ONE Stop: 11/11/24 15:12 Last Admin: 11/11/24 15:50 Dose: 1 mg Documented By: AVM Magnesium Oxide (Magnesium Oxide 400 Mg Tablet) 400 mg PO X1 ONE Stop: 11/11/24 20:17 Last Admin: 11/11/24 20:23 Dose: 400 mg Documented By: EF Methylprednisolone Sodium Succinate (Methylprednisolone Sod Succ 62.5 Mg/Ml 2ml Vial) 125 mg IVP X1 ONE Stop: 11/11/24 15:12 Last Admin: 11/11/24 15:46 Dose: 125 mg Documented By: AVM Thiamine HCl (Thiamine Inj 100 Mg/Ml Vial 2 Ml) 100 mg IVP X1 ONE Stop: 11/11/24 15:12 Last Admin: 11/11/24 15:50 Dose: 100 mg Documented By: AVM Albuterol/Ipratropium (Duoneb), Lorazepam, Methylprednisolone Sod Succ 125 mg, Thiamine Inj 100 Mg/Ml Vial 2 Ml Consultations Consultation(s) initiated? (list below): No Diagnosis Shortness of Breath Differential Diagnosis: acute exacerbation of chronic obstructive airways disease, congestive heart failure, community acquired pneumonia, asthma with exacerbation and pulmonary embolism Most likely diagnosis given after review of the tests above:: Diagnostics pending, care of the patient was transferred to Dr. Cooley. Admission Indicated Admission indicated?: not indicated Explain why admission is indicated or not indicated:: Diagnostics pending, care of the patient was transferred to Dr. Cooley. Admission Request Was there a request for admission?: No Disposition Plan Disposition Plan: other (specify) (Diagnostics pending, care of the patient was transferred to Dr. Cooley.) Discharge Plan Plan Patient Disposition: HOME (Self Care) Disposition Comment: Stable for discharge Patient condition on transfer: Stable Prescriptions/Referrals Prescriptions/Med Rec: New doxycycline monohydrate 100 mg capsule 100 mg PO BID 10 Days Qty: 20 0RF Xarelto 15 mg tablet 15 mg PO BID 21 Days Qty: 42 0RF Rx Instructions: must administer with evening meal. 15 mg p.o. twice daily x 21 days, followed by 20 mg p.o. daily acetaminophen 500 mg capsule 1,000 mg PO Q6H PRN (Reason: pain) 3 Days Qty: 24 0RF No Action losartan 25 mg Tablet 25 mg PO QDAY Qty: 30 2RF nitroglycerin 0.4 mg tablet, sublingual 0.4 mg buccal 1XD PRN (Reason: Chest Pain) Rx Instructions: I TAB UNDER THE TONGUE EVERY 5 MINUTES NEED FOR CHEST PAIN, MAY GIVE UP TO 3 DOSES atorvastatin 20 mg Tablet 40 mg PO HS Qty: 30 0RF aspirin [Ecotrin Low Strength] 81 mg Tablet,Delayed Release (Dr/Ec) 81 mg PO QDAY Qty: 60 0RF spironolactone 25 mg Tablet 25 mg PO DAILY Qty: 30 0RF metoprolol succinate 25 mg Tablet Extended Release 24 Hr 25 mg PO QDAY Qty: 30 0RF Xarelto 15 mg Tablet 15 mg PO BIDWM Qty: 60 0RF dapagliflozin propanediol 5 mg Tablet 10 mg PO QAM Qty: 30 0RF bumetanide 2 mg tablet 2 mg PO QDAY Qty: 30 0RF albuterol sulfate 90 mcg/actuation HFA aerosol inhaler 2 puff inhalation Q6H PRN (Reason: shortness of breath or wheezing) Qty: 8.5 0RF Referrals: [facility] [Outside] - In 1 week (Patient has a subacute pulmonary embolism supposed to be taking Xarelto. Also he has mild left lower extremity cellulitis. He should be taking doxycycline for that. There are are no DVTs in his left lower extremity.) Problem List Clinical Impression: Cellulitis, Pulmonary embolism, Chronic alcoholic pancreatitis Patient/Caregiver Discharge Instructions Discharge Activity: activity as tolerated Education Materials: Pulmonary Embolism, Understanding Pancreatitis, ED Cellulitis, ED Pancreatitis Additional Instructions: Please return to the emergency department if you have any worsening or any further medical problems. Otherwise you should follow-up in the [facility] within the next several days. Be sure to go to the pharmacy and pick out hand your medications. One of the medications is called Xarelto. This is your blood thinner. It is important that you take this as directed because you have a small clot on your lung. Another one of your prescriptions is a medicine called doxycycline. This is an antibiotic. He take this twice per day until they are completely gone even if your leg improves before that. Print Language: Austrian Stand Alone Forms: [facility]leen Award Info., Patient Portal Info Letter
[2024-11-11 15:18] VITALS: PULSE 97; RESP 16; O2SAT 97; BMI 43.2
[2024-11-11] MEDS: MethylPREDNISolone SOD SUCC 62.5 MG/ML 2ML VIAL 125 MG IVP (15:46)
[2024-11-11] MEDS: THIAMINE INJ 100 MG/ML VIAL 2 ML IVP (15:50)
[2024-11-11] MEDS: LORazepam 2 MG/ML VIAL 1 MG IVP (15:50)
[2024-11-11 15:59] LABS: Collection Type, Urine Clean Catch; Squamous Epithelial Cell,Urine 0 /hpf (0-5)
[2024-11-11 16:01] LABS: Lactate (Lactic Acid) 1.8 mMol/L (0.4-2.0)
[2024-11-11 16:02] LABS: Basophils # (Auto) 0.1 Thou/mm3 (0.0-0.2); Basophils % (Auto) 1 % (0-2.5); Eosinophils # (Auto) 0.1 Thou/mm3 (0.0-0.5); Eosinophils % (Auto) 1 % (0-10); Hematocrit 44.3 % (41.0-53.0); Hemoglobin 14.9 g/dL (13.5-16.0); Immature Granulocytes % (Auto) 0 % (0-0); Immature Granulocytes Auto 0.04 Thou/mm3 (0.00-0.00); Lymphocytes # (Auto) 2.1 Thou/mm3 (1.0-4.8); Lymphocytes % (Auto) 20 % (10-50); Mean Corpuscular HGB Conc 33.6 g/dl (31.0-37.0); Mean Corpuscular Volume 89 fL (80-100); Monocytes # (Auto) 0.9 Thou/mm3 (0.0-0.8); Monocytes % (Auto) 9 % (0-12); Neutrophils # (Auto) 7.6 Thou/mm3 (1.8-7.7); Neutrophils % (Auto) 70 % (37-80); Nucleated Red Blood Cell % 0 /100 WBC (0); Platelet Count 275 Thou/mm3 (140-440); RDW Standard Deviation 49.4 fL (35.1-43.9); Red Blood Count 4.96 Miln/mm3 (4.50-5.90); White Blood Count 10.8 Thou/mm3 (3.8-10.6)
[2024-11-11 16:12] LABS: Amphetamine/Methamp Scrn,U Negative (Negative); Barbiturate Screen,Urine Negative (Negative); Benzodiazepines Screen,Urine Negative (Negative); Benzoylecgonine Screen, Ur Negative (Negative); Fentanyl Screen,Urine Negative (Negative); Opiate Screen,Urine Negative (Negative); THC Screen,Urine Positive (Negative)
[2024-11-11 16:18] LABS: INR 1.1 (0.9-1.3); Partial Thromboplastin Time 25.7 Seconds (22.0-36.0); Prothrombin Time 12.3 Seconds (9.0-12.2)
[2024-11-11 16:20] LABS: D-Dimer 1380 ng/mL (<600)
[2024-11-11 16:30] LABS: Alanine Aminotransferase 22 U/L (10-49); Albumin, Serum 4.2 gm/dL (3.5-5.0); Alcohol, Blood Medical < 3.0 mg/dL (0-10.0); Alkaline Phosphatase 90 U/L (46-116); Amylase 143 U/L (30-118); Anion Gap 10 (7-16); Aspartate Amino Transferase 40 U/L (0-34); B-Type Natriuretic Peptide 660 pg/mL (0-100); BUN/Creatinine Ratio 12 Ratio (12-20); Bilirubin,Direct 0.5 mg/dL (0.0-0.3); Bilirubin,Total 1.3 mg/dL (0.3-1.2); Blood Urea Nitrogen 13 mg/dL (9-23); C-Reactive Protein 0.6 mg/dL (0.0-0.9); Calcium 8.5 mg/dL (8.3-10.6); Carbon Dioxide 28.1 mMol/L (20.0-31.0); Chloride 105 mMol/L (98-107); Creatinine (Component) 1.1 mg/dL (0.6-1.3); Estimated Creatinine Clearance 102.9 mL/min (>60); Glucose 86 mg/dL (74-106); Lipase 105 U/L (12-53); Magnesium 1.5 mg/dL (1.6-2.6); Osmolality,Calculated 284 (275-295); Procalcitonin 0.06 ng/ml (0.0-0.49); Sodium 143 mMol/L (136-145); Thyroid Stimulating Hormone 2.77 uIU/mL (0.55-4.78); Total Protein 6.9 gm/dL (5.7-8.2); eGFR > 60 See Note
[2024-11-11 16:36] LABS: Troponin I 0.143 ng/mL (0.0-0.045)
[2024-11-11 17:06] LABS: Bilirubin,Urine Negative (Negative); Blood,Urine Negative (Negative); Clarity,Urine Clear (Clear/Hazy); Color,Urine Lt-Yellow (Lt Yel-Yel); Culture Indicated,Urine Not Indicated; Glucose, Urine Negative (Negative); Ketones,Urine Negative (Negative); Leukocyte Esterase,Urine Negative (Negative); Nitrite,Urine Negative (Negative); PH,Urine 6.5 (5.0-7.0); Protein,Urine Trace (Neg - Trace); RBC,Urine 4 /hpf (0-3); Specific Gravity,Urine 1.012 (1.001-1.035); Urobilinogen,Urine Negative mg/dL (0.0-1.0); WBC,Urine < 1 /hpf (0-5)
[2024-11-11] MEDS: ASPIRIN 81 MG CHEW 324 MG PO (18:00)
--- NOTE | 2024-11-11 18:03 | EDNOTE_ITS ---
Emergency Room Addendum Addendum Narrative: 1800: Care assumed from Dr. Hillman, the previous shift emergency physician. Past medical, surgical, social and family history reviewed. Vitals and home medications reviewed. Results and treatment plan discussed. I will assume the care of the patient at this time and will follow the patient, pending CTA of the chest and CT abdomen pelvis. Please refer to the emergency department record for history and examination from initial visit. Patient presents to the ED after being sent over by his PCP. He states he's had LLE pain and epigastric pain for the last 2 days, reporting his PCP sent him over for evaluation due to his LLE being red and swollen. He reports associated chills and sweating. On exam, patient has 2+ pitting edema to the LLE and 1+ pitting edema to the RLE. EKG done at 1935, NSR, rate of 93, left axis deviation, no ectopy, Q waves in V1-V3, generalized ST abnormalities, no STEMI, similar to previous EKG done on 10/25/24, according to my interpretation. Troponins are chronically elevated. Patient has mildly elevated lipase and abdominal tenderness consistent with pancreatitis. There is an incidental finding of PE. Patient is not in any respiratory distress and is not tachycardic . He is not hypoxic nor is he tachypneic. Patient has mild epigastric tenderness, but no RUQ. Likely chronic pancreatitis 2/[address] He received CT abdomen pelvis and US gallbladder, which recommended HIDA scan or MRCP. I do not feel these are clinically warranted. Upon chart review of the patient's discharge summary on 10/28/24, patient left AMA and was prescribed Xarelto due to having a subacute PE. Patient is stable to be discharged home and managed on an outpatient basis. Will refer the patient to follow-up with Dr. Li on an outpatient basis. RADIOLOGY RESULTS: [facility] Report Signed Patient: JULIA MORAN. Record#: [id number] Birthdate: 1970 Age/Sex: 54 / M Location: [facility] Attending Dr: Ordering Physician: Lc Hillman MD Date of Service: 11/11/24 Procedure(s): US gall bladder Accession Number(s): [id number] cc: Lc Hillman MD; Peng Spencer MD~ Examination: Abdomen sonogram, Limited Date and time of exam: November 11, 2024 1610 hours INDICATIONS: Right upper abdominal tenderness and pain beginning today Technique: Real-time urbina scale transabdominal sonographic images of the upper abdomen obtained. Findings: Multiple gallstones, the largest 12 mm Gallbladder wall 0.7 cm suspicious for edema Common bile duct 0.4 cm Pancreatic head 2.8 cm Liver 18.3 cm fatty infiltration irregular contour no focal liver lesions Normal hepatopedal portal venous flow Patent IVC IMPRESSION: Findings most consistent with acute calculus cholecystitis, consider HIDA scan or MRCP follow-up Common bile duct is not enlarged Dictated By: Peng Spencer MD Signed By: <Electronically signed by Peng Spencer MD in OV> 11/11/24 468 [facility] Signed Patient: JULIA MORAN Record#: [id number] Birthdate: 1970 Age/Sex: 54 / M Location: [facility] Attending Dr: Ordering Physician: Lc Hillman MD Date of Service: 11/11/24 Procedure(s): US venous doppler LE BI Accession Number(s): [id number] cc: Lc Hillman MD; Peng Spencer MD~ Examination: Venous duplex lower extremity sonogram, bilateral. Date and time of exam: November 11, 2024 1632 hours INDICATIONS: Left calf swelling and pain redness beginning one week ago Technique: Multiple sonographic images of the deep venous system have been obtained. B-mode/2-D grayscale imaging of vascular structures and Doppler spectral analysis (waveforms) and color performed Both legs are examined. Findings: Deep venous systems do not demonstrate abnormal echogenicity. All visualized deep veins exhibit compressibility. All visualized deep veins exhibit augmentation. Cystic soft tissue mass anterior to the left peroneal vein medial knee 2.3 x 0.8 x 1.1 cm Impression: Negative for deep vein thrombosis Dictated By: Peng Spencer MD Signed By: <Electronically signed by Peng Spencer MD in OV> 11/11/24 232 [facility] Signed Patient: JULIA MORAN ticketea. Record#: [id number] Birthdate: 1970 Age/Sex: 54 / M Location: [facility] Attending Dr: Ordering Physician: Lc Hillman MD Date of Service: 11/11/24 Procedure(s): CT angio chest Accession Number(s): [id number] cc: Babatunde Lubin MD; Lc Hillman MD; Peng Spencer MD~ Examination: CTA chest with intravenous contrast 2-D reconstructions 3-D reconstructions, vascular Date and time of exam: November 11, 2024 1742 hours INDICATIONS: Onset shortness of breath chest pain today CTDI: vol (mGy) 18.7 DLP: (mGycm) 635 Technique: Multiple axial sections of the thorax have been obtained. 3 mm slice thickness, from below the hemidiaphragms to above the apices of the lungs. Mediastinal and lung density settings have been obtained. 2-D sagittal and coronal reconstructions. 3-D angiographic renderings, 3-D volume renderings, 3D post processing, vascular maximum intensity projections obtained. Contrast administered is 100 cc Isovue-370. Low dose protocols were performed. One or more of the following dose reduction techniques were used; automated exposure control, adjustment of the mA and/or KV according to patient size, use of iterative reconstruction technique. Findings: There is no significant contrast opacification of the thoracic aorta Positive for pulmonary artery filling defects distal main right pulmonary artery and descending branches right pulmonary artery, axial images 78 through 93 No mediastinal lymphadenopathy 16 mm soft tissue density axial image 63 which may be a portion of the first costochondral junction on the right No lobar pneumonia No visualized liver or splenic lesion IMPRESSION: Positive for pulmonary artery emboli in the distal main right pulmonary artery and descending branches right pulmonary artery Recommend 3-6 month follow-up CT chest without contrast to exclude 16mm pulmonary nodule right upper lobe Dictated By: Peng Spencer MD Signed By: <Electronically signed by Peng Spencer MD in OV> 11/11/24 1818 [facility] Report Signed Patient: JULIA MORAN ticketea. Record#: [id number] Birthdate: 1970 Age/Sex: 54 / M Location: [facility] Attending Dr: Ordering Physician: Lc Hillman MD Date of Service: 11/11/24 Procedure(s): CT abdomen pelvis w con Accession Number(s): [id number] cc: Babatunde Lubin MD; Lc Hillman MD; Peng Spencer MD~ Examination: CT abdomen with intravenous contrast CT pelvis with intravenous contrast 2-D coronal reconstructions 2-D sagittal reconstructions Date and time of exam:November 11, 2024 1742 hours INDICATIONS: Onset generalized abdominal pain today. CTDI: vol (mGy) 23.1 DLP: (mGycm) 1487 Technique: Multiple axial sections of the abdomen and pelvis have been obtained. 64 slice high-resolution scanner used. 3 mm axial sections have been obtained, post intravenous injection 60 cc [id number]-370 2-D sagittal, coronal reconstructions obtained. Low dose protocols were performed. One or more of the following dose reduction techniques were used; automated exposure control, adjustment of the mA and/or KV according to patient size, use of iterative reconstruction technique. Findings: The liver is mildly irregular in contour Fatty infiltration throughout the liver Spleen is not enlarged Cholelithiasis, gallbladder wall appears thickened No pancreatic or adrenal mass Mild bilateral renal parenchymal scar formation, no hydronephrosis renal or ureteral calculi Normal appendix No bowel obstruction Colonic diverticulosis, no diverticulitis No prostatomegaly No bladder mass or bladder calculi Patient motion degrades scan image quality Moderate thoracic lumbar spondylosis IMPRESSION: Suspect primary hepatocellular disease, there is fatty liver Recommend hepatobiliary sonography to exclude acute calculus cholecystitis Mild bilateral renal parenchymal scar formation Normal appendix Dictated By: Peng Spencer MD Signed By: <Electronically signed by Peng Spencer MD in OV> 11/11/24 1813 [facility] Report Signed Patient: JULIA MORAN Record#: [id number] Birthdate: 1970 Age/Sex: 54 / M Location: [facility] Attending Dr: Ordering Physician: Lc Hillman MD Date of Service: 11/11/24 Procedure(s): XR chest 1V portable Accession Number(s): [id number] cc: Babatunde Lubin MD; Lc Hillman MD; Peng Spencer MD~ Examination: AP chest single view Technique one AP portable upright chest single view Exam date and time: November 11, 2024 1717 hours INDICATIONS: Shortness of breath today. FINDINGS: Mild prominence cardiac contour Prominent vascular congestion. Suspicious for early septal edema at the lung bases Consider bronchitis versus early bronchopneumonia the lung bases Significant osteopenia IMPRESSION: Suspicious for early heart failure Bronchitis versus early bronchopneumonia the lung bases Dictated By: Peng Spencer MD Signed By: <Electronically signed by Peng Spencer MD in OV> 11/11/24 6410
[2024-11-11 18:13] LABS: Sed Rate (ESR) 17 mm/hr (0-20)
[2024-11-11 18:25] VITALS: BP 139/91; PULSE 99; RESP 18; TEMP 36.4; O2SAT 95
[2024-11-11] MEDS: ALBUTEROL/IPRATROPIUM (Duoneb) RT SOL 3 ML NEBU INH (18:53)
[2024-11-11 18:57] VITALS: PULSE 94; RESP 19; O2SAT 99
--- NOTE | 2024-11-11 19:29 | PC.NURSE ---
tae [phone]
[2024-11-11] MEDS: PIPER/TAZO INJ 4.5 GM in SODIUM CHLORIDE 0.9% (POP) 100 ML IV (19:51)
[2024-11-11] MEDS: ACETAMINOPHEN IVPB 1,000 MG/100 ML VIAL 250 MG IV (19:53)
[2024-11-11 20:21] VITALS: BP 124/85; PULSE 89; RESP 17; TEMP 36.7; O2SAT 98
[2024-11-11] MEDS: MAGNESIUM OXIDE 400 MG TABLET PO (20:23)
--- NOTE | 2024-11-11 20:30 | PC.NURSE ---
patient being verbally abusive stating i nichole hate it here patient was being verbally abusive to dr as well. patient stated can you bring me food im nichole carbajal I then brought patient a turkey sandwhich patient replied i dont like that shit can you bring me cereal or something and a sprite I let patient know we have jello and pudding as an alterative as well as juice. he agreed to jello and apple juice. I then attempted to call his niece for fern picker after discharge no one answered. I let him know if there was an alternative person i can call he stated no if he can get a cab instead. I then called a cab to take him to his requested destination and sent him with food to take while he waits for the cab in [facility].
[2024-11-11 20:38] LABS: Troponin I 0.136 ng/mL (0.0-0.045)
--- NOTE | 2024-11-11 21:12 | PC.NURSE ---
PT SITTING IN ER LOBBY, CUSSING WHILE TALKING ON PHONE. PT STATING TO PERSON ON PHONE THAT HE WAS DC WITHOUT SHOES. PT PROVIDED WITH HOSPITAL SOCK A JACKET AND A WARM BLANKET. PT THEN BEGAN CUSSING AND THREATENING PT'S SITTING IN ER LOBBY. SECURITY ASKED PT TO STEP OUTSIDE WHILE THEY SPOKE TO HIM. PT ASKED PT PLEASE BE RESPECTFUL OF OTHERS. PTS NIECE THEN PULLED UP AND PICKED PT UP. PT RAYA MADE AWARE OF PT'S BEHAVIOR AND ASKED IF ANYTHING ELSE IS NEEDED TO CONTACT HER MAGRITA [phone].
[2024-11-19 06:49] LABS: Vitamin B1 (Thiamine)* 21 nmol/L (8-30)
== END 2024-11-11 20:36 | disposition home or self-care (01) ==
PROVIDERS: Emergency Medicine; Emergency Provider Emergency Medicine; PCP Family Medicine
DX: L03.116 Cellulitis of left lower limb (principal); I26.99 Other pulmonary embolism without acute cor pulmonale; K86.0 Alcohol-induced chronic pancreatitis; I11.0 Hypertensive heart disease with heart failure; I50.22 Chronic systolic (congestive) heart failure; F41.9 Anxiety disorder, unspecified; Z59.00 Homelessness unspecified; R06.02 Shortness of breath
CPT/HCPCS: 36415; 71045; 71275; 74177; 76705; 80048; 80076; 80307; 80320; 81001; 82150; 83605; 83690; 83735; 83880; 84145; 84425; 84443; 84484; 85025; 85379; 85610; 85652; 85730; 86140; 87040; 87400; 87811; 93005; 93970; 94640; 96365; 96368; 96375; 99285; A4649; A9270; J0131; J2060; J2543; J2919; J3411; Q9967; G0480

== ENCOUNTER 2024-11-13 10:48 | Emergency (ER) | payer MEDICAID, SELFPAY ==
[2024-11-13 10:48] VITALS: PULSE 88; RESP 18; O2SAT 97
--- NOTE | 2024-11-13 11:43 | PC.NURSE ---
PER SECURITY PT LEFT ER, SEEN WALKING DOWN THE STREET. LEFT BEFORE BEING SEEN BY MEDICAL PROVIDER.
== END 2024-11-13 11:50 | disposition left against medical advice (07) ==
LOC: SERX 12:12
PROVIDERS: Emergency Provider Emergency Medicine
DX: Z53.21 Procedure and treatment not carried out due to patient leaving prior to being seen by health care provider (principal)

== ENCOUNTER 2024-11-19 12:01 | Emergency (ER) | payer MEDICAID, SELFPAY ==
[2024-11-19 12:14] VITALS: BP 136/97; PULSE 107; RESP 18; TEMP 36.4; O2SAT 97
[2024-11-19 12:18] VITALS: BMI 42.5
[2024-11-19 12:19] VITALS: PULSE 90; RESP 18; O2SAT 97
--- NOTE | 2024-11-19 12:37 | XR_ITS ---
Examination: AP chest single view Technique: AP portable semiupright chest single view Exam date and time: November 19, 2024, 1322 hrs. Comparison November 11, 2024 Indications: Chest pain today Findings: Mild heart failure. Mild enlargement cardiac contour with prominent vascular congestion. No lobar pneumonia Impression: Mild heart failure
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
[2024-11-19 13:10] LABS: Basophils % (Auto) 0 % (0-2.5); Eosinophils # (Auto) 0.1 Thou/mm3 (0.0-0.5); Eosinophils % (Auto) 1 % (0-10); Hemoglobin 15.1 g/dL (13.5-16.0); Immature Granulocytes % (Auto) 1 % (0-0); Immature Granulocytes Auto 0.05 Thou/mm3 (0.00-0.00); Lymphocytes # (Auto) 2.2 Thou/mm3 (1.0-4.8); Lymphocytes % (Auto) 20 % (10-50); Mean Corpuscular HGB Conc 32.8 g/dl (31.0-37.0); Mean Corpuscular Volume 92 fL (80-100); Monocytes % (Auto) 9 % (0-12); Neutrophils # (Auto) 7.5 Thou/mm3 (1.8-7.7); Neutrophils % (Auto) 70 % (37-80); Nucleated Red Blood Cell % 0 /100 WBC (0); Platelet Count 249 Thou/mm3 (140-440); RDW Standard Deviation 51.5 fL (35.1-43.9); Red Blood Count 5.03 Miln/mm3 (4.50-5.90); White Blood Count 10.8 Thou/mm3 (3.8-10.6)
[2024-11-19 13:39] LABS: Alanine Aminotransferase 21 U/L (10-49); Albumin/Globulin Ratio 1.4 (1.2-2.2); Alkaline Phosphatase 82 U/L (46-116); Anion Gap 9 (7-16); Aspartate Amino Transferase 43 U/L (0-34); B-Type Natriuretic Peptide 634 pg/mL (0-100); BUN/Creatinine Ratio 15 Ratio (12-20); Bilirubin,Total 2.4 mg/dL (0.3-1.2); Blood Urea Nitrogen 15 mg/dL (9-23); Calcium 9.2 mg/dL (8.3-10.6); Calcium (Corrected) 9.2 mg/dL (8.5-10.1); Carbon Dioxide 25.9 mMol/L (20.0-31.0); Chloride 104 mMol/L (98-107); Estimated Creatinine Clearance 112.3 mL/min (>60); Globulin 2.8 gm/dL (2.3-3.5); Glucose 110 mg/dL (74-106); Osmolality,Calculated 279 (275-295); Potassium 4.5 mMol/L (3.4-5.1); Sodium 139 mMol/L (136-145); Total Protein 6.8 gm/dL (5.7-8.2); eGFR > 60 See Note
[2024-11-19 13:40] LABS: Partial Thromboplastin Time 22.8 Seconds (22.0-36.0)
[2024-11-19 13:47] LABS: Troponin I 0.103 ng/mL (0.0-0.045)
[2024-11-19] MEDS: ACETAMINOPHEN 500 MG TABLET 1000 MG PO (15:18)
--- NOTE | 2024-11-19 16:08 | PC.NURSE ---
Pt asked to use the restroom, but due to him smellinjg like alcohol I explained that I did not feel like it was safe for him to walk to the bathroom and gave him a urinal. Pt continuously saying how we are rude to him, especially the night crew. Pt told me that he stinks and asked if I had anything to spray on him, I explained to him that we do not and that smell is the least of our worries. While I was in the bay next to this pt's (Carlyle), I overheard carlyle calling the hospital from his personal phone. I asked from the other side of the curtain why he was calling the hospital when he was here already, he stated that he needed to be discharged because the care home had a bed for him and that he had to be there by a certain to get it. He then again states that we are rude to him, and stated something about the night staff says that he can leave to get a hamburger (he has not been with the night crew this stay). I explained that we did not feel it was safe to discharge him at this time and he would need to sign an AMA form.He was not happy with that because he said they need discharge papers . I stated I am sorry, but I can not give you discharge papers because, as I stated before, we do not feel as though it is safe to discharge you at this time . Pt signed the AMA form, got dressed and left
== END 2024-11-19 16:05 | disposition left against medical advice (07) ==
LOC: SERX 15:11
PROVIDERS: Nurse Practitioner Family; Emergency Provider Emergency Medicine
DX: R52 Pain, unspecified (principal); I11.0 Hypertensive heart disease with heart failure; I50.9 Heart failure, unspecified; Z53.29 Procedure and treatment not carried out because of patient's decision for other reasons
CPT/HCPCS: 36415; 71045; 80053; 83880; 84484; 85025; 85730; 93005; 99283; A9270

== ENCOUNTER 2024-11-20 05:54 | Emergency (ER) | payer MEDICAID, SELFPAY ==
--- NOTE | 2024-11-20 | XR_ITS ---
MRI abdomen, without contrast. MRCP Date and time of exam: November 20, 2024 at 10:29 AM Indications: Elevated bilirubin on laboratory examination today with abdominal pain Technique: Multiple axial and coronal images of the abdomen have been obtained with the Siemens 1.5T MRI scanner. Images obtained included T1 weighted transverse images, T2-weighted transverse images, T2-weighted transverse images fat-suppressed, T2 weighted haste fat suppressed transverse images, T1 weighted images, in and out of phase images, T2-weighted coronal images, breath hold, T2 weighted haze coronal images as well as T2 weighted coronal thick slab images, MRCP. Findings: Liver is irregular in contour, no focal liver lesions Mild ascites Patient is uncooperative would not patient motion Cholelithiasis Mild edema involving the gallbladder wall Common bile duct 4 mm, suspicious for multiple 2 mm common bile duct common hepatic duct stones Pancreas is not enlarged Spleen is not enlarged. No hydronephrosis Aorta normal size Impression: Cirrhosis Mild ascites Cholelithiasis Cholecystitis Multiple tiny 2 mm common hepatic common bile duct stones, recommend ERCP follow-up
[2024-11-20 06:00] VITALS: PULSE 110; O2SAT 98; BMI 42.5
[2024-11-20 06:08] VITALS: BP 157/121; PULSE 109; RESP 18; O2SAT 96
--- NOTE | 2024-11-20 06:30 | XR_ITS ---
Examination: Duplex scan of the lower extremity, unilateral left complete Date and time of exam: November 20, 2024 at 0756 hrs. Indications: Left knee swelling beginning 3 months ago Technique: Duplex scan of the extremity veins using B-mode/grayscale imaging and Doppler spectral analysis and color flow Attention is directed to internal echogenicity, compression and augmentation involving these veins, color flow assessment, spectral analysis Findings: Major deep venous structures in the extremity demonstrate normal course and caliber. There is no evidence of deep vein thrombosis. Normal color flow and spectral analysis 2.2 cm medial popliteal cyst Impression: Negative for DVT..
--- NOTE | 2024-11-20 06:31 | EKG_ITS ---
[facility] Test Date: 2024-11-20 Pat Name: JULIA MORAN Department: Room: - Gender: Male [employer]: : 1970 Requested By: Navneet Larsen Order Number: [id number] Reading MD: Navneet Larsen Measurements Intervals [place] Rate: 99 P: 58 AL: 155 QRS: -67 QRSD: 114 T: 91 QT: 369 QTc: 475 Interpretive Statements SINUS RHYTHM POSSIBLE LEFT ATRIAL ENLARGEMENT [-0.1mV P-WAVE IN V1/V2] LEFT ANTERIOR FASCICULAR BLOCK [QRS AXIS <= -45, QR IN I, RS IN II] POSSIBLE ANTERIOR MYOCARDIAL INFARCTION , OF INDETERMINATE AGE [30 ms Q WAVE IN V3/V4, OR R < 0.2 mV IN V4] Compared to ECG 10/25/2024 18:23:41 Left anterior fascicular block now present Sinus tachycardia no longer present Left-axis deviation no longer present Myocardial infarct finding still present /store/[id number]
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
[2024-11-20 07:02] LABS: Base Excess, Venous 1 (-3-3); O2 Saturation, Venous 68 % (96-97); PCO2, Venous 43 mmHg (36-56); PO2, Venous 38 mmHg (15-58)
[2024-11-20 07:03] LABS: Lactate (Lactic Acid) 1.6 mMol/L (0.4-2.0)
[2024-11-20 07:04] LABS: Basophils % (Auto) 0 % (0-2.5); Eosinophils % (Auto) 0 % (0-10); Hemoglobin 14.9 g/dL (13.5-16.0); Immature Granulocytes % (Auto) 0 % (0-0); Immature Granulocytes Auto 0.04 Thou/mm3 (0.00-0.00); Lymphocytes # (Auto) 1.7 Thou/mm3 (1.0-4.8); Lymphocytes % (Auto) 16 % (10-50); Mean Corpuscular HGB Conc 33.1 g/dl (31.0-37.0); Mean Corpuscular Hemoglobin 29.9 pg (25.0-35.0); Mean Corpuscular Volume 90 fL (80-100); Monocytes # (Auto) 0.8 Thou/mm3 (0.0-0.8); Monocytes % (Auto) 8 % (0-12); Neutrophils % (Auto) 75 % (37-80); Nucleated Red Blood Cell % 0 /100 WBC (0); Platelet Count 248 Thou/mm3 (140-440); RDW Standard Deviation 50.8 fL (35.1-43.9); Red Blood Count 4.99 Miln/mm3 (4.50-5.90); White Blood Count 10.6 Thou/mm3 (3.8-10.6)
--- NOTE | 2024-11-20 07:09 | PC.NURSE ---
Received report from Woody MTZ and assumed care of patient. Patient sleeping in bed with no signs of distress. Will continue to monitor.
[2024-11-20 07:23] LABS: INR 1.2 (0.9-1.3); Prothrombin Time 13.1 Seconds (9.0-12.2)
[2024-11-20 07:24] LABS: Alanine Aminotransferase 24 U/L (10-49); Albumin, Serum 3.8 gm/dL (3.5-5.0); Albumin/Globulin Ratio 1.4 (1.2-2.2); Alkaline Phosphatase 82 U/L (46-116); Anion Gap 11 (7-16); Aspartate Amino Transferase 40 U/L (0-34); B-Type Natriuretic Peptide 879 pg/mL (0-100); BUN/Creatinine Ratio 15 Ratio (12-20); Bilirubin,Total 2.3 mg/dL (0.3-1.2); Blood Urea Nitrogen 16 mg/dL (9-23); Calcium 8.5 mg/dL (8.3-10.6); Calcium (Corrected) 8.7 mg/dL (8.5-10.1); Carbon Dioxide 25.5 mMol/L (20.0-31.0); Chloride 103 mMol/L (98-107); Creatinine (Component) 1.1 mg/dL (0.6-1.3); Globulin 2.7 gm/dL (2.3-3.5); Glucose 120 mg/dL (74-106); Lipase 55 U/L (12-53); Magnesium 1.9 mg/dL (1.6-2.6); Osmolality,Calculated 279 (275-295); Potassium 4.3 mMol/L (3.4-5.1); Sodium 139 mMol/L (136-145); Total Protein 6.5 gm/dL (5.7-8.2); eGFR > 60 See Note
[2024-11-20 07:39] LABS: Troponin I 0.096 ng/mL (0.0-0.045)
[2024-11-20 09:48] VITALS: BP 156/119; PULSE 105; RESP 20; TEMP 36.6; O2SAT 95
--- NOTE | 2024-11-20 10:24 | PC.CC ---
Olivia LEGGETT was consulted by Dr. Miles regarding calling [facility] pharmacy to see if patient had picked up his medication from [facility] pharmacy. ASW [facility] reports the patient did not package pick up his medication and there are 4 medications ready to be picked up. ASW provided updated information to Dr. Larsen.
[2024-11-20 10:34] LABS: Collection Type, Urine Clean Catch
[2024-11-20 10:59] LABS: Amphetamine/Methamp Scrn,U Negative (Negative); Barbiturate Screen,Urine Negative (Negative); Benzodiazepines Screen,Urine Negative (Negative); Benzoylecgonine Screen, Ur Negative (Negative); Fentanyl Screen,Urine Negative (Negative); Opiate Screen,Urine Negative (Negative); THC Screen,Urine Positive (Negative)
[2024-11-20 11:06] LABS: Bilirubin,Urine Negative (Negative); Blood,Urine Negative (Negative); Clarity,Urine Clear (Clear/Hazy); Color,Urine Yellow (Lt Yel-Yel); Culture Indicated,Urine Not Indicated; Glucose, Urine Negative (Negative); Ketones,Urine Negative (Negative); Leukocyte Esterase,Urine Negative (Negative); Nitrite,Urine Negative (Negative); Protein,Urine 2+ (Neg - Trace); RBC,Urine 1 /hpf (0-3); Specific Gravity,Urine 1.017 (1.001-1.035); Squamous Epithelial Cell,Urine 1 /hpf (0-5); Urobilinogen,Urine Negative mg/dL (0.0-1.0); WBC,Urine 3 /hpf (0-5)
[2024-11-20 12:58] VITALS: BP 132/101; PULSE 114; RESP 20; TEMP 36.7; O2SAT 97
--- NOTE | 2024-11-20 14:00 | PC.CC ---
Addendum entered by Sourav Fitch RN 11/20/24 16:49: 1648 called [facility], spoke to [facility] and informed pickup time is 1900. 1641 sent paperwork to [facility] through [employer]. Called [facility], spoke to [facility] and set up the transport. The pick up man time is 1900. Addendum entered by Sourav Fitch RN 11/20/24 16:43: 1630 transfer packet is complete with CD inside including all signatures. Notified bedside nurse of the transfer packet and number to call for report is on tracker. Addendum entered by Sourav Fitch RN 11/20/24 15:35: 1526 informed Xray to make CD. Addendum entered by Sourav Fitch RN 11/20/24 15:29: 1526 received call from [facility], spoke to [facility]. She stated pt is accepted for ED to ED transfer. Accepted by Dr. Santiago. Call report at [phone]. Addendum entered by Sourav Fitch RN 11/20/24 15:27: 1515 received call from [facility], spoke to [facility]. She wants to speak with Dr. Larsen. Conference call connected. [facility] then connected Dr. Santiago on the line for peer to peer with Dr. Larsen. Addendum entered by Sourav Fitch RN 11/20/24 14:45: 1444 Called [facility], spoke to [facility] and initiated the transfer. Original Note: 1433 clinicals faxed to [facility]. 1426 received call from charge nurse that pt is agreeable for transfer. 1414 called ED charge nurse and asked if she can check with the pt, is he is agreeable for the transfer? [address] Larsen that pt needs to be transferred for choledocholithiasis needs ERCP/GI services. Dr. Carson also informed me pt left AMA yesterday. I asked Dr. Carson if pt is agreeable for transfer and Dr. Carson stated he will find out and inform me.
[2024-11-20 14:07] VITALS: BP 155/108; PULSE 106; RESP 20; TEMP 36.6; O2SAT 96
--- NOTE | 2024-11-20 17:28 | PC.CC ---
Olivia LEGGETT was consulted regarding clothing for the patient. A shirt, pants, and undergarments were provided to the patient.
[2024-11-20] MEDS: ENOXAPARIN SOD INJ 120 MG/0.8 ML SYRINGE SC (17:44)
--- NOTE | 2024-11-20 18:12 | PC.NURSE ---
REPORT GIVEN TO DMITRY MTZ AT [facility]
== END 2024-11-20 18:13 | disposition short-term general hospital (02) ==
PROVIDERS: Emergency Provider Emergency Medicine
DX: I11.0 Hypertensive heart disease with heart failure (principal); I50.9 Heart failure, unspecified; K80.40 Calculus of bile duct with cholecystitis, unspecified, without obstruction; E66.01 Morbid (severe) obesity due to excess calories; M79.89 Other specified soft tissue disorders; K74.60 Unspecified cirrhosis of liver; R18.8 Other ascites; Z86.711 Personal history of pulmonary embolism; Z87.891 Personal history of nicotine dependence; I44.4 Left anterior fascicular block
CPT/HCPCS: 36415; 71045; 80053; 80307; 81001; 82803; 83605; 83690; 83735; 83880; 84484; 85025; 85610; 85730; 87040; 93005; 93971; 96372; 99291; 99292; J1650; S8037; 74181

== ENCOUNTER 2024-11-28 16:01 | Emergency (ER) | payer MEDICAID, SELFPAY ==
[2024-11-28 16:12] VITALS: BP 127/96; PULSE 104; RESP 14; TEMP 36.8; O2SAT 98
[2024-11-28 16:21] VITALS: PULSE 105; PULSE 106; RESP 24; O2SAT 96; BMI 43.1
--- NOTE | 2024-11-28 17:49 | PD.EDADULT ---
ED General RME/HPI General Chief complaint: Shortness of Breath/Dyspnea Stated complaint: SHORTNESS OF BREATH Time Seen by Provider: 11/28/24 17:45 Arrival date/time: 11/28/24 16:01 RME / HPI RME / HPI narrative: 54-year-old male patient with significant history of congestive heart failure, noncompliance with medication, came in for evaluation regarding shortness of breath. Patient's been having worsening shortness of breath for the last few days, associated with bilateral lower leg swelling. Patient also complained of pain to bilateral feet walking barefoot. Patient is homeless. Patient denies any cough denies any fever denies any chest pain denies any other complaints. Related Data Home Medications ?Medication ?Instructions ?Recorded ?Confirmed nitroglycerin 0.4 mg sublingual 0.4 mg buccal 1XD PRN Chest Pain 08/01/24 10/26/24 tablet Previous Rx's ?Medication ?Instructions ?Recorded losartan 25 mg tablet 25 mg PO QDAY #30 tabs 09/15/23 albuterol sulfate 90 mcg/actuation 2 puff inhalation Q6H PRN 09/07/24 aerosol inhaler shortness of breath or wheezing #8.5 grams aspirin 81 mg tablet,delayed 81 mg PO QDAY #60 tabs 10/28/24 release (Ecotrin Low Strength) atorvastatin 20 mg tablet 40 mg (2 x 20 mg) PO HS #30 tabs 10/28/24 bumetanide 2 mg tablet 2 mg PO QDAY #30 tabs 10/28/24 dapagliflozin propanediol 5 mg 10 mg (2 x 5 mg) PO QAM #30 tabs 10/28/24 tablet metoprolol succinate 25 mg 25 mg PO QDAY #30 tabs 10/28/24 tablet,extended release 24 hr rivaroxaban 15 mg tablet (Xarelto) 15 mg PO BIDWM #60 tabs 10/28/24 spironolactone 25 mg tablet 25 mg PO DAILY #30 tabs 10/28/24 rivaroxaban 15 mg tablet (Xarelto) 15 mg PO BID Pulmonary embolism 11/11/24 days #42 tabs furosemide 40 mg tablet (Lasix) 40 mg PO QDAY #20 tabs 11/28/24 potassium chloride 20 mEq 20 meq PO QDAY #20 tabs 11/28/24 tablet,extended release(part/cryst) Allergies Allergy/AdvReac Type Severity Reaction Status Date / Time No Known Allergies Allergy Verified 10/25/24 16:33 Review of Systems Review of Systems Narrative Review of Systems: Review of system reviewed and within normal limits except mentioned in HPI ED Exam Narrative Physical exam: VITAL SIGNS: Reviewed. GENERAL APPEARANCE: Alert and interactive, follows commands, no acute distress, HEAD AND FACE: Non-traumatic. ENT: PERRL, pink conjunctivitis, eyelid no trauma, Mucous membrane moist. NECK: Supple, nontender, no nuchal rigidity. CHEST: No tenderness, no crepitus, no paradoxical movement, no retractions. LUNGS: Clear, well ventilated, symmetric, no rales, no wheezing, no ronchi, no stridor, good breath sounds bilaterally. HEART: Regular rate, regular rhythm, no murmur, no gallops. ABDOMEN: Soft, positive bowel sounds, nondistended, no guarding, nontender, no rebound, no masses, RECTAL: Deferred. GENITAL: Deferred. NEUROLOGICAL: Gross motor function intact sensory function intact, Appropriate for age. MUSCULOSKELETAL: low back nontender, full range of motion. EXTREMITIES: Nontender, full range of motion. Bilateral lower leg edema +2, no blister noted on the foot SKIN: Color pink, dry, no rash, no lacerations, no abrasions, no contusions. LYMPHATICS: Deferred. Course Quality Measures none Orders Category Date Time Status EKG (ED ONLY) *Do not use* NOW Care 11/28/24 17:51 Completed EKG (ED Only) Stat Exams 11/28/24 17:51 Draft XR chest 1V Stat Exams 11/28/24 17:51 Completed BNP [B-Type Natriuretic Peptide] Stat Lab 11/28/24 18:18 Completed CBC Stat Lab 11/28/24 18:18 Completed Comprehensive Metabolic Panel Stat Lab 11/28/24 18:18 Completed Partial Thromboplastin Time Stat Lab 11/28/24 18:18 Completed Acetaminophen Tab [Tylenol ES Tab] Med 11/28/24 17:49 Discontinued 1,000 mg PO X1 ONE Furosemide [Lasix] Med 11/28/24 17:49 Discontinued 80 mg PO X1 ONE Vital Signs Vital signs: Vital Signs Temperature 98.3 F 11/28/24 16:12 Pulse Rate 104 H 11/28/24 16:12 Respiratory Rate 14 11/28/24 16:12 Blood Pressure 127/96 H 11/28/24 16:12 Pulse Oximetry (%) 98 11/28/24 16:12 Oxygen Delivery Method Room Air 11/28/24 16:12 [facility] Patient data External records reviewed:: None Clinical information provided by:: none Social determinants that could affect healthcare access:: none Patient has the following chronic illnesses:: History of congestive heart failure hypertension How is presenting disease/condition affected by chronic disease/condition?: exacerbated by Evaluation data The following diagnostics were reviewed and interpreted by me:: lab results, radiology exam(s) and EKG tracing(s) Lab and/or radiology exams considered but not ordered:: None Interpretation Summary: See results in [facility] Medications Medications considered but not ordered:: Stable Medication administrations:: Medication Administration History Discontinued Medications Acetaminophen (Acetaminophen 500 Mg Tablet) 1,000 mg PO X1 ONE Stop: 11/28/24 17:50 Last Admin: 11/28/24 17:55 Dose: 1,000 mg Documented By: GM Furosemide (Furosemide 40 Mg Tablet) 80 mg PO X1 ONE Stop: 11/28/24 17:50 Last Admin: 11/28/24 17:56 Dose: 80 mg Documented By: GM Lasix and Tylenol. Consultations Consultation(s) initiated? (list below): No Diagnosis Differential Diagnosis ED Complaint MDM: Shortness of breath, CHF exacerbation, hypertension Most likely diagnosis given after review of the tests above:: Shortness of breath, history of CHF Admission Indicated Admission indicated?: not indicated Explain why admission is indicated or not indicated:: None Admission Request Was there a request for admission?: No Disposition Plan Disposition Plan: Discharge Discharge Attestation Discharge Attestation: The patient was given an opportunity to ask questions and understood the discharge instructions. Discharge instructions specifically effects, indications for sooner follow up or return to the emergency department, and the expected course of current diagnosis. Patient condition: Stable Medical Decision Making MDM Narrative MDM Narrative: 54-year-old male patient with significant history of congestive heart failure, noncompliance with medication, came in for evaluation regarding shortness of breath. Patient's been having worsening shortness of breath for the last few days, associated with bilateral lower leg swelling. Patient also complained of pain to bilateral feet walking barefoot. Patient is homeless. Patient denies any cough denies any fever denies any chest pain denies any other complaints. Patient was given Lasix 80 mg p.o. x 1 and Tylenol with significant improvement of symptoms. Patient was noted to be walking to the lobby. Satting 99% on room air Patient was advised to follow-up with PCP next week. I will send her home on Lasix and potassium. EKG showed sinus rhythm, ventricular rate of 98 bpm, no ST segment elevation or depression noted. Differential Diagnosis Differential Diagnosis: Shortness of breath, CHF exacerbation, hypertension Lab Data 11/28/24 18:18 11/28/24 18:18 Labs: Lab Results 11/28/24 Range/Units 18:18 WBC 9.4 (3.8-10.6) Thou/mm3 RBC 4.83 (4.50-5.90) Miln/mm3 Hgb 14.4 (13.5-16.0) g/dL Hct 43.6 (41.0-53.0) % MCV 90 (80-100) fL MCH 29.8 (25.0-35.0) pg MCHC 33.0 (31.0-37.0) g/dl RDW Std Deviation 50.1 H (35.1-43.9) fL Plt Count 248 (140-440) Thou/mm3 Neut % (Auto) 67 (37-80) % Lymph % (Auto) 22 (10-50) % [place] % (Auto) 8 (0-12) % Eos % (Auto) 2 (0-10) % Baso % (Auto) 1 (0-2.5) % Neut # (Auto) 6.3 (1.8-7.7) Thou/mm3 Lymph # (Auto) 2.0 (1.0-4.8) Thou/mm3 [place] # (Auto) 0.8 (0.0-0.8) Thou/mm3 Eos # (Auto) 0.2 (0.0-0.5) Thou/mm3 Baso # (Auto) 0.1 (0.0-0.2) Thou/mm3 Immature Gran # (Auto) 0.02 H (0.00-0.00) Thou/mm3 Absolute Nucleated RBC 0.00 (0.00-0.00) Thou/mm3 Immature Gran % 0 (0-0) % Nucleated RBC % 0 (0) /100 WBC APTT 24.4 (22.0-36.0) Seconds Sodium 140 (136-145) mMol/L Potassium 4.3 (3.4-5.1) mMol/L Chloride 106 (98-107) mMol/L Carbon Dioxide 25.9 (20.0-31.0) mMol/L Anion Gap 8 (7-16) BUN 15 (9-23) mg/dL Creatinine 1.0 (0.6-1.3) mg/dL Estim Creat Clear Calc 113.1 (>60) mL/min eGFR > 60 (60 - ) See Note BUN/Creatinine Ratio 15 (12-20) Ratio Glucose 115 H (74-106) mg/dL Calculated Osmolality 281 (275-295) Calcium 9.0 (8.3-10.6) mg/dL Corrected Calcium 9.0 (8.5-10.1) mg/dL Total Bilirubin 1.3 H (0.3-1.2) mg/dL AST 103 H (0-34) U/L ALT 49 (10-49) U/L Alkaline Phosphatase 79 (46-116) U/L B-Natriuretic Peptide 875 H* (0-100) pg/mL Total Protein 6.7 (5.7-8.2) gm/dL Albumin 4.0 (3.5-5.0) gm/dL Globulin 2.7 (2.3-3.5) gm/dL Albumin/Globulin Ratio 1.5 (1.2-2.2) Discharge Plan Plan Patient Disposition: HOME (Self Care) Disposition Comment: Stable Prescriptions/Referrals Prescriptions/Med Rec: New furosemide [Lasix] 40 mg tablet 40 mg PO QDAY Qty: 20 0RF potassium chloride 20 mEq tablet,ER particles/crystals 20 meq PO QDAY Qty: 20 0RF No Action losartan 25 mg Tablet 25 mg PO QDAY Qty: 30 2RF nitroglycerin 0.4 mg tablet, sublingual 0.4 mg buccal 1XD PRN (Reason: Chest Pain) Rx Instructions: I TAB UNDER THE TONGUE EVERY 5 MINUTES NEED FOR CHEST PAIN, MAY GIVE UP TO 3 DOSES atorvastatin 20 mg Tablet 40 mg PO HS Qty: 30 0RF aspirin [Ecotrin Low Strength] 81 mg Tablet,Delayed Release (Dr/Ec) 81 mg PO QDAY Qty: 60 0RF spironolactone 25 mg Tablet 25 mg PO DAILY Qty: 30 0RF metoprolol succinate 25 mg Tablet Extended Release 24 Hr 25 mg PO QDAY Qty: 30 0RF Xarelto 15 mg Tablet 15 mg PO BIDWM Qty: 60 0RF dapagliflozin propanediol 5 mg Tablet 10 mg PO QAM Qty: 30 0RF bumetanide 2 mg tablet 2 mg PO QDAY Qty: 30 0RF Xarelto 15 mg tablet 15 mg PO BID 21 Days Qty: 42 0RF Rx Instructions: must administer with evening meal. 15 mg p.o. twice daily x 21 days, followed by 20 mg p.o. daily albuterol sulfate 90 mcg/actuation HFA aerosol inhaler 2 puff inhalation Q6H PRN (Reason: shortness of breath or wheezing) Qty: 8.5 0RF Referrals: Jose Galo PA-C [Primary Care Provider] - In 1 week Problem List Clinical Impression: Shortness of breath, History of chronic CHF Patient/Caregiver Discharge Instructions Discharge Activity: activity as tolerated Education Materials: ED Shortness of Breath (Dyspnea) Additional Instructions: Thank you for the opportunity for serving you today. You are stable for discharged . You are advised to: Follow-up with your PCP in 1 to 2 days Return to ED for worsening of symptoms Take medication as prescribed Print Language: Guinean Stand Alone Forms: Colleen Award Info., Patient Portal Info Letter MATI Supervising Physician MATI Supervising Physician: MD Kady
--- NOTE | 2024-11-28 17:51 | XR_ITS ---
Examination: AP chest single view TECHNIQUE: AP portable supine chest single view Exam date and time: November 28, 2024, 1724 hours Comparison November 20, 2024. INDICATIONS: Shortness of breath today. FINDINGS: [id number] CHF Mild enlargement cardiac contour Prominent vascular congestion including central vascular engorgement. Perihilar edema IMPRESSION: [id number] CHF
--- NOTE | 2024-11-28 17:51 | EKG_ITS ---
[facility] Test Date: 2024-11-28 Pat Name: JULIA MORAN Department: Room: - Gender: Male Tamper Operator: : 1970 Requested By: Iqra Rodriguez Order Number: [id number] Reading MD: Iqra Rodriguez Measurements Intervals Telephone Rate: 98 P: 50 IN: 169 QRS: -31 QRSD: 93 T: 77 QT: 346 QTc: 443 Interpretive Statements SINUS RHYTHM LEFT AXIS DEVIATION [QRS AXIS < -30] NONSPECIFIC T-WAVE ABNORMALITY Compared to ECG 11/22/2024 15:42:00 Left-axis deviation now present T-wave abnormality now present ST (T wave) deviation no longer present /store/S0/[id number]/[id number].pdf
[2024-11-28] MEDS: ACETAMINOPHEN 500 MG TABLET 1000 MG PO (17:55)
[2024-11-28 17:56] VITALS: BP 131/105; PULSE 107
[2024-11-28] MEDS: Furosemide 40 MG TABLET 80 MG PO (17:56)
[2024-11-28 18:23] LABS: Basophils # (Auto) 0.1 Thou/mm3 (0.0-0.2); Basophils % (Auto) 1 % (0-2.5); Eosinophils # (Auto) 0.2 Thou/mm3 (0.0-0.5); Eosinophils % (Auto) 2 % (0-10); Hematocrit 43.6 % (41.0-53.0); Hemoglobin 14.4 g/dL (13.5-16.0); Immature Granulocytes % (Auto) 0 % (0-0); Immature Granulocytes Auto 0.02 Thou/mm3 (0.00-0.00); Lymphocytes % (Auto) 22 % (10-50); Mean Corpuscular Hemoglobin 29.8 pg (25.0-35.0); Mean Corpuscular Volume 90 fL (80-100); Monocytes # (Auto) 0.8 Thou/mm3 (0.0-0.8); Monocytes % (Auto) 8 % (0-12); Neutrophils # (Auto) 6.3 Thou/mm3 (1.8-7.7); Neutrophils % (Auto) 67 % (37-80); Nucleated Red Blood Cell % 0 /100 WBC (0); Platelet Count 248 Thou/mm3 (140-440); RDW Standard Deviation 50.1 fL (35.1-43.9); Red Blood Count 4.83 Miln/mm3 (4.50-5.90); White Blood Count 9.4 Thou/mm3 (3.8-10.6)
[2024-11-28 18:30] VITALS: BP 145/94; PULSE 95; RESP 18; TEMP 36.8; O2SAT 99
[2024-11-28 18:47] LABS: Partial Thromboplastin Time 24.4 Seconds (22.0-36.0)
[2024-11-28 18:49] LABS: Alanine Aminotransferase 49 U/L (10-49); Albumin/Globulin Ratio 1.5 (1.2-2.2); Alkaline Phosphatase 79 U/L (46-116); Anion Gap 8 (7-16); Aspartate Amino Transferase 103 U/L (0-34); B-Type Natriuretic Peptide 875 pg/mL (0-100); BUN/Creatinine Ratio 15 Ratio (12-20); Bilirubin,Total 1.3 mg/dL (0.3-1.2); Blood Urea Nitrogen 15 mg/dL (9-23); Carbon Dioxide 25.9 mMol/L (20.0-31.0); Chloride 106 mMol/L (98-107); Estimated Creatinine Clearance 113.1 mL/min (>60); Globulin 2.7 gm/dL (2.3-3.5); Glucose 115 mg/dL (74-106); Osmolality,Calculated 281 (275-295); Potassium 4.3 mMol/L (3.4-5.1); Sodium 140 mMol/L (136-145); Total Protein 6.7 gm/dL (5.7-8.2); eGFR > 60 See Note
[2024-11-28 20:19] VITALS: RESP 18
== END 2024-11-28 20:20 | disposition home or self-care (01) ==
PROVIDERS: Nurse Practitioner Family; Emergency Provider Emergency Medicine; PCP Family Medicine
DX: R06.02 Shortness of breath (principal); I50.9 Heart failure, unspecified; Z59.00 Homelessness unspecified; Z91.148 Patient's other noncompliance with medication regimen for other reason
CPT/HCPCS: 36415; 71045; 80053; 83880; 85025; 85730; 93005; 99283; A9270

== ENCOUNTER 2024-12-16 23:24 | Emergency (ER) | payer MEDICAID, SELFPAY ==
[2024-12-16 23:38] VITALS: PULSE 71; O2SAT 96; BMI 42.5
[2024-12-16 23:42] VITALS: BP 125/84; PULSE 97; RESP 18; TEMP 36.7; O2SAT 97
--- NOTE | 2024-12-17 00:03 | PC.NURSE ---
patient left hospital before being seen by medical provider
--- NOTE | 2024-12-17 00:18 | PD.EDADDENDU ---
Emergency Room Addendum Addendum Narrative: Before I saw the patient, I was told the patient eloped. Lc Hillman MD
== END 2024-12-17 00:27 | disposition left against medical advice (07) ==
LOC: SERX 12-17 02:23
PROVIDERS: Emergency Provider Emergency Medicine
DX: Z53.21 Procedure and treatment not carried out due to patient leaving prior to being seen by health care provider (principal)
CPT/HCPCS: 99281

== ENCOUNTER 2024-12-20 12:39 | Emergency (ER) | payer MEDICAID, SELFPAY ==
[2024-12-20 12:40] VITALS: PULSE 98; O2SAT 97; BMI 42.5
[2024-12-20 13:20] VITALS: BP 132/94; PULSE 99; RESP 20; TEMP 36.8; O2SAT 97
--- NOTE | 2024-12-20 13:31 | EKG_ITS ---
[facility] (Formerly [facility]) Test Date: 2024-12-20 Pat Name: JULIA MORAN Department: Room: - Gender: Male House Coordinator: : 1970 Requested By: Krystal Perez Order Number: [id number] Reading MD: Krystal Perez Measurements Intervals Lane Rate: 106 P: 55 GA: 161 QRS: 262 QRSD: 94 T: 70 QT: 348 QTc: 464 Interpretive Statements SINUS TACHYCARDIA POSSIBLE RIGHT VENTRICULAR HYPERTROPHY [SOME/ALL OF: PROMINENT R IN V1, LATE TRANSITION, RAD, DAWN, SSS] ANTERIOR MYOCARDIAL INFARCTION , PROBABLY OLD [40+ ms Q WAVE AND/OR ST/T ABNORMALITY IN V3/V4] Compared to ECG 11/28/2024 18:43:03 Myocardial infarct finding now present Sinus rhythm no longer present Left-axis deviation no longer present T-wave abnormality no longer present /store/S0/[id number]/[id number].pdf
--- NOTE | 2024-12-20 13:31 | EDRME_ITS ---
Rapid Medical Screening Exam E Arrival date/time: 12/20/24 12:39 This is a 54-year-old male that comes to the emergency room with complaints of shortness of breath. Patient states he is homeless and was laying on the grass. Patient states that out of nowhere he started foaming at the mouth. Patient denies any shaking patient denies any loss of consciousness. Patient states he just got very concerned. He reports that he has had chronic leg swelling for the past couple months but they look worse today. Patient has a long history of hyperlipidemia heart failure diabetes hypertension. Patient states he was recently discharged from [facility]. I have greeted and performed a focused initial assessment of this patient. Initial appropriate labs ordered at this time. A comprehensive ED assessment and evaluation of the patient and analysis of all test and completion of medical decision making process will be conducted by additional ED provider. Chief Complaint: Shortness of Breath/Dyspnea Time Seen by Provider: 12/20/24 13:26 Vital signs: Vital Signs Temperature 98.3 F 12/20/24 13:20 Pulse Rate 99 12/20/24 13:20 Respiratory Rate 20 12/20/24 13:20 Blood Pressure 132/94 H 12/20/24 13:20 Pulse Oximetry (%) 97 12/20/24 13:20 Oxygen Delivery Method Room Air 12/20/24 13:20
--- NOTE | 2024-12-20 13:31 | XR_ITS ---
Exam: Chest PA, lateral 2 views Technique: Chest upright PA lateral 2 views Date and time of exam: 12/20/2024, 2:20 PM INDICATION: Shortness breath COMPARISON: 11/28/2024 FINDINGS: Cardiac silhouette is enlarged. There is pulmonary vascular congestion. Ill-defined areas of opacification bilateral lower zones . No pneumothorax. No acute bony abnormality. Impression: CHF Bibasilar atelectasis versus infiltrates with possible effusions.
[2024-12-20 14:04] LABS: Basophils % (Auto) 0 % (0-2.5); Eosinophils % (Auto) 0 % (0-10); Hematocrit 44.9 % (41.0-53.0); Hemoglobin 14.7 g/dL (13.5-16.0); Immature Granulocytes % (Auto) 0 % (0-0); Immature Granulocytes Auto 0.03 Thou/mm3 (0.00-0.00); Lymphocytes # (Auto) 1.8 Thou/mm3 (1.0-4.8); Lymphocytes % (Auto) 17 % (10-50); Mean Corpuscular HGB Conc 32.7 g/dl (31.0-37.0); Mean Corpuscular Hemoglobin 29.5 pg (25.0-35.0); Mean Corpuscular Volume 90 fL (80-100); Monocytes # (Auto) 0.8 Thou/mm3 (0.0-0.8); Monocytes % (Auto) 7 % (0-12); Neutrophils % (Auto) 75 % (37-80); Nucleated Red Blood Cell % 0 /100 WBC (0); Platelet Count 238 Thou/mm3 (140-440); RDW Standard Deviation 52.3 fL (35.1-43.9); Red Blood Count 4.98 Miln/mm3 (4.50-5.90); White Blood Count 10.6 Thou/mm3 (3.8-10.6)
[2024-12-20 14:26] LABS: B-Type Natriuretic Peptide 1268 pg/mL (0-100)
[2024-12-20 14:30] LABS: Alanine Aminotransferase 20 U/L (10-49); Albumin, Serum 3.9 gm/dL (3.5-5.0); Albumin/Globulin Ratio 1.3 (1.2-2.2); Alkaline Phosphatase 94 U/L (46-116); Anion Gap 8 (7-16); Aspartate Amino Transferase 41 U/L (0-34); BUN/Creatinine Ratio 14 Ratio (12-20); Bilirubin,Total 2.3 mg/dL (0.3-1.2); Blood Urea Nitrogen 15 mg/dL (9-23); Calcium 8.8 mg/dL (8.3-10.6); Calcium (Corrected) 8.9 mg/dL (8.5-10.1); Carbon Dioxide 25.3 mMol/L (20.0-31.0); Chloride 105 mMol/L (98-107); Creatinine (Component) 1.1 mg/dL (0.6-1.3); Globulin 2.9 gm/dL (2.3-3.5); Glucose 94 mg/dL (74-106); Osmolality,Calculated 276 (275-295); Potassium 4.1 mMol/L (3.4-5.1); Sodium 138 mMol/L (136-145); Total Protein 6.8 gm/dL (5.7-8.2); eGFR > 60 See Note
--- NOTE | 2024-12-20 16:00 | PC.NURSE ---
CALLED PT BACK, NO ANSWER AT THIS TIME
--- NOTE | 2024-12-20 16:16 | PC.NURSE ---
Pt did not answer when name was called in lobby and was not found outside.
--- NOTE | 2024-12-20 16:40 | PC.NURSE ---
Pt did not answer when name was called in the lobby and was not found outside.
--- NOTE | 2024-12-20 16:53 | PC.NURSE ---
PT CALLED X 3 [phone]; NO ANSWER EACH TIME.
== END 2024-12-20 16:54 | disposition left against medical advice (07) ==
LOC: SERX 14:02
PROVIDERS: Nurse Practitioner Family; Emergency Provider Emergency Medicine; PCP Family Medicine
DX: R06.02 Shortness of breath (principal); R22.40 Localized swelling, mass and lump, unspecified lower limb; E78.5 Hyperlipidemia, unspecified; I11.0 Hypertensive heart disease with heart failure; I50.9 Heart failure, unspecified; E11.9 Type 2 diabetes mellitus without complications; Z59.02 Unsheltered homelessness; Z53.29 Procedure and treatment not carried out because of patient's decision for other reasons
CPT/HCPCS: 36415; 71046; 80053; 83880; 84484; 85025; 93005; 99281

== ENCOUNTER 2024-12-21 16:04 | Emergency (ER) | payer MEDICAID, SELFPAY ==
[2024-12-21 16:16] VITALS: BP 130/85; PULSE 103; RESP 20; TEMP 36.5; O2SAT 95
--- NOTE | 2024-12-21 16:25 | EKG_ITS ---
[facility] Test Date: 2024-12-21 Pat Name: JULIA MORAN Department: Room: - Gender: Male Client Support Administrator: : 1970 Requested By: George Culp Order Number: [id number] Reading MD: George Culp Measurements Intervals [place] Rate: 104 P: 52 [place]: 148 QRS: -71 QRSD: 98 T: 74 QT: 344 QTc: 454 Interpretive Statements SINUS TACHYCARDIA LEFT AXIS DEVIATION [QRS AXIS < -30] LOW QRS VOLTAGE IN PRECORDIAL LEADS [QRS DEFLECTION < 1.0 mV IN CHEST LEADS] POSSIBLE ANTERIOR MYOCARDIAL INFARCTION , PROBABLY OLD [30 ms Q WAVE IN V3/V4, OR R < 0.2 mV IN V4] Compared to ECG 12/20/2024 13:36:48 Left-axis deviation now present Low QRS voltage now present Myocardial infarct finding still present /store/S0/[id number]/ecg/[id number].pdf
--- NOTE | 2024-12-21 16:25 | XR_ITS ---
Examination: PA lateral chest 2 views Technique: Upright PA lateral chest 2 views Exam date and time: December 21, 2024 1628 hrs. Comparison December 20, 2024 Indications: Chest pain shortness of breath today. Findings: Mild chronic heart failure Moderate enlargement cardiac contour Prominent vascular congestion including central vascular engorgement Early edema at the lung bases Moderate thoracic spondylosis Impression: Mild chronic heart failure
--- NOTE | 2024-12-21 16:26 | PD.EDRME ---
Rapid Medical Screening Exam RME Arrival date/time: 12/21/24 16:04 54-year-old male with a history of congestive heart failure, hypertension, hyperlipidemia presents to the emergency room with a chief complaint of shortness of breath, bilateral lower extremity swelling, increased fatigue x 3 days. I have greeted and performed a focused initial assessment of this patient. A comprehensive ED assessment and evaluation of the patient, analysis of all test results, and completion of the medical decision making process will be conducted by additional ED providers. Chief Complaint: Nausea/Vomiting/Diarrhea Time Seen by Provider: 12/21/24 16:08 Vital signs: Vital Signs Temperature 97.7 F 12/21/24 16:16 Pulse Rate 103 H 12/21/24 16:16 Respiratory Rate 20 12/21/24 16:16 Blood Pressure 130/85 H 12/21/24 16:16 Pulse Oximetry (%) 95 12/21/24 16:16 Oxygen Delivery Method Room Air 12/21/24 16:16 Vital signs reviewed by provider: Yes
[2024-12-21 16:50] LABS: Collection Type, Urine Clean Catch
[2024-12-21 16:56] LABS: Basophils % (Auto) 0 % (0-2.5); Eosinophils % (Auto) 0 % (0-10); Hematocrit 44.5 % (41.0-53.0); Hemoglobin 14.7 g/dL (13.5-16.0); Immature Granulocytes % (Auto) 0 % (0-0); Immature Granulocytes Auto 0.03 Thou/mm3 (0.00-0.00); Lymphocytes # (Auto) 2.2 Thou/mm3 (1.0-4.8); Lymphocytes % (Auto) 20 % (10-50); Mean Corpuscular Hemoglobin 29.6 pg (25.0-35.0); Mean Corpuscular Volume 90 fL (80-100); Monocytes # (Auto) 0.8 Thou/mm3 (0.0-0.8); Monocytes % (Auto) 7 % (0-12); Neutrophils # (Auto) 7.7 Thou/mm3 (1.8-7.7); Neutrophils % (Auto) 71 % (37-80); Nucleated Red Blood Cell % 0 /100 WBC (0); Platelet Count 264 Thou/mm3 (140-440); RDW Standard Deviation 51.4 fL (35.1-43.9); Red Blood Count 4.97 Miln/mm3 (4.50-5.90); White Blood Count 10.8 Thou/mm3 (3.8-10.6)
[2024-12-21 17:06] LABS: Bilirubin,Urine Negative (Negative); Blood,Urine Negative (Negative); Clarity,Urine Clear (Clear/Hazy); Color,Urine Yellow (Lt Yel-Yel); Glucose, Urine Negative (Negative); Hyaline Casts,Urine 1 /hpf (0-1); Ketones,Urine Negative (Negative); Leukocyte Esterase,Urine Negative (Negative); Nitrite,Urine Negative (Negative); PH,Urine 5.5 (5.0-7.0); Protein,Urine 1+ (Neg - Trace); RBC,Urine 1 /hpf (0-3); Specific Gravity,Urine 1.017 (1.001-1.035); Squamous Epithelial Cell,Urine < 1 /hpf (0-5); Urobilinogen,Urine Negative mg/dL (0.0-1.0); WBC,Urine 2 /hpf (0-5)
[2024-12-21 17:13] LABS: INR 1.3 (0.9-1.3); Partial Thromboplastin Time 25.9 Seconds (22.0-36.0); Prothrombin Time 13.7 Seconds (9.0-12.2)
[2024-12-21 17:15] LABS: Amphetamine/Methamp Scrn,U Negative (Negative); Barbiturate Screen,Urine Negative (Negative); Benzodiazepines Screen,Urine Negative (Negative); Benzoylecgonine Screen, Ur Negative (Negative); Fentanyl Screen,Urine Negative (Negative); Opiate Screen,Urine Negative (Negative); THC Screen,Urine Positive (Negative)
[2024-12-21 17:22] LABS: B-Type Natriuretic Peptide 1024 pg/mL (0-100)
[2024-12-21 17:25] LABS: Alanine Aminotransferase 20 U/L (10-49); Albumin/Globulin Ratio 1.4 (1.2-2.2); Alkaline Phosphatase 98 U/L (46-116); Anion Gap 9 (7-16); Aspartate Amino Transferase 43 U/L (0-34); BUN/Creatinine Ratio 16 Ratio (12-20); Bilirubin,Total 3.3 mg/dL (0.3-1.2); Blood Urea Nitrogen 18 mg/dL (9-23); Calcium 8.9 mg/dL (8.3-10.6); Calcium (Corrected) 8.9 mg/dL (8.5-10.1); Carbon Dioxide 23.1 mMol/L (20.0-31.0); Chloride 105 mMol/L (98-107); Creatinine (Component) 1.1 mg/dL (0.6-1.3); Globulin 2.9 gm/dL (2.3-3.5); Glucose 97 mg/dL (74-106); LDH (Lactate Dehydrogenase) 392 U/L (120-246); Magnesium 1.9 mg/dL (1.6-2.6); Osmolality,Calculated 275 (275-295); Potassium 4.3 mMol/L (3.4-5.1); Sodium 137 mMol/L (136-145); Total Protein 6.9 gm/dL (5.7-8.2); eGFR > 60 See Note
[2024-12-21 17:36] LABS: Troponin I 0.102 ng/mL (0.0-0.045)
--- NOTE | 2024-12-21 17:49 | PC.NURSE ---
Security informed triage nurse that patient was picked up outside of ED.
== END 2024-12-21 17:51 | disposition left against medical advice (07) ==
PROVIDERS: Nurse Practitioner Family; Emergency Provider Emergency Medicine
DX: R06.02 Shortness of breath (principal); I11.0 Hypertensive heart disease with heart failure; I50.9 Heart failure, unspecified; E78.5 Hyperlipidemia, unspecified; Z53.29 Procedure and treatment not carried out because of patient's decision for other reasons; R53.83 Other fatigue; M79.89 Other specified soft tissue disorders
CPT/HCPCS: 36415; 71046; 80053; 80307; 81001; 83615; 83735; 83880; 84484; 85025; 85610; 85730; 99281

== ENCOUNTER 2024-12-22 22:11 | Emergency (ER) | payer MEDICAID, SELFPAY ==
[2024-12-22 22:12] VITALS: PULSE 88; RESP 20; O2SAT 97
--- NOTE | 2024-12-22 22:20 | PC.NURSE ---
NO ANSWER FOR VITALS
--- NOTE | 2024-12-22 22:46 | PC.NURSE ---
NO ANSWER FOR VITALS
--- NOTE | 2024-12-22 23:04 | PC.NURSE ---
NO ANSWER FOR VITALS
--- NOTE | 2024-12-22 23:16 | PD.EDADDENDU ---
Emergency Room Addendum Addendum Narrative: I was told the patient left without being seen. Lc Hillman MD
== END 2024-12-22 23:04 | disposition left against medical advice (07) ==
LOC: SERX 23:14
PROVIDERS: Emergency Provider Emergency Medicine
DX: Z53.21 Procedure and treatment not carried out due to patient leaving prior to being seen by health care provider (principal)

== ENCOUNTER 2025-01-10 20:33 | Emergency (ER) | payer MEDICAID, SELFPAY ==
--- NOTE | 2025-01-10 20:41 | XR_ITS ---
Examination: AP chest single view TECHNIQUE: AP portable semiupright chest single view. Examination time: January 10, 2025 210 hours Comparison December 21, 2024 INDICATIONS: Shortness of breath today. FINDINGS: Mild enlargement cardiac contour Prominent vascular congestion Edema versus early pneumonia at the right lung base IMPRESSION: Mild heart failure Edema versus pneumonia at the lung base on the right
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
[2025-01-10 20:44] VITALS: BP 144/94; PULSE 115; RESP 26; TEMP 36.7; O2SAT 96
[2025-01-10 21:05] VITALS: PULSE 109; RESP 22; O2SAT 95
[2025-01-10 21:21] LABS: Basophils % (Auto) 0 % (0-2.5); Eosinophils # (Auto) 0.1 Thou/mm3 (0.0-0.5); Eosinophils % (Auto) 1 % (0-10); Hematocrit 42.6 % (41.0-53.0); Hemoglobin 14.2 g/dL (13.5-16.0); Immature Granulocytes % (Auto) 0 % (0-0); Immature Granulocytes Auto 0.03 Thou/mm3 (0.00-0.00); Lymphocytes # (Auto) 1.7 Thou/mm3 (1.0-4.8); Lymphocytes % (Auto) 16 % (10-50); Mean Corpuscular HGB Conc 33.3 g/dl (31.0-37.0); Mean Corpuscular Hemoglobin 29.6 pg (25.0-35.0); Mean Corpuscular Volume 89 fL (80-100); Monocytes # (Auto) 0.7 Thou/mm3 (0.0-0.8); Monocytes % (Auto) 7 % (0-12); Neutrophils # (Auto) 7.6 Thou/mm3 (1.8-7.7); Neutrophils % (Auto) 75 % (37-80); Nucleated Red Blood Cell % 0 /100 WBC (0); Platelet Count 231 Thou/mm3 (140-440); RDW Standard Deviation 51.8 fL (35.1-43.9); White Blood Count 10.2 Thou/mm3 (3.8-10.6)
[2025-01-10 21:23] VITALS: BP 144/94; PULSE 115
[2025-01-10] MEDS: BUMETANIDE INJ 0.25 MG/ML VIAL 4 ML 1 MG IVP (21:23)
[2025-01-10 21:29] LABS: INR 1.2 (0.9-1.3); Partial Thromboplastin Time 24.2 Seconds (22.0-36.0)
[2025-01-10 21:34] LABS: B-Type Natriuretic Peptide 754 pg/mL (0-100)
[2025-01-10 21:48] LABS: Alanine Aminotransferase 15 U/L (10-49); Albumin, Serum 4.1 gm/dL (3.5-5.0); Albumin/Globulin Ratio 1.4 (1.2-2.2); Alcohol, Blood Medical 47.1 mg/dL (0-10.0); Alkaline Phosphatase 102 U/L (46-116); Anion Gap 11 (7-16); Aspartate Amino Transferase 54 U/L (0-34); BUN/Creatinine Ratio 14 Ratio (12-20); Bilirubin,Total 1.3 mg/dL (0.3-1.2); Blood Urea Nitrogen 15 mg/dL (9-23); Calcium 8.6 mg/dL (8.3-10.6); Calcium (Corrected) 8.6 mg/dL (8.5-10.1); Carbon Dioxide 24.3 mMol/L (20.0-31.0); Chloride 101 mMol/L (98-107); Creatinine (Component) 1.1 mg/dL (0.6-1.3); Globulin 2.9 gm/dL (2.3-3.5); Glucose 123 mg/dL (74-106); LDH (Lactate Dehydrogenase) 440 U/L (120-246); Magnesium 1.8 mg/dL (1.6-2.6); Osmolality,Calculated 273 (275-295); Sodium 136 mMol/L (136-145); eGFR > 60 See Note
[2025-01-10 21:51] LABS: Troponin I 0.108 ng/mL (0.0-0.045)
[2025-01-10 22:31] LABS: Collection Type, Urine Clean Catch
[2025-01-10 22:45] LABS: Bacteria,Urine Rare; Bilirubin,Urine Negative (Negative); Blood,Urine Negative (Negative); Clarity,Urine Clear (Clear/Hazy); Color,Urine Yellow (Lt Yel-Yel); Glucose, Urine Negative (Negative); Hyaline Casts,Urine < 1 /hpf (0-1); Ketones,Urine Negative (Negative); Leukocyte Esterase,Urine Positive (Negative); Nitrite,Urine Negative (Negative); PH,Urine 5.5 (5.0-7.0); Protein,Urine 1+ (Neg - Trace); RBC,Urine 2 /hpf (0-3); Specific Gravity,Urine 1.015 (1.001-1.035); Squamous Epithelial Cell,Urine 1 /hpf (0-5); Urobilinogen,Urine Negative mg/dL (0.0-1.0); WBC,Urine 2 /hpf (0-5)
[2025-01-10 22:53] LABS: Amphetamine/Methamp Scrn,U Positive (Negative); Barbiturate Screen,Urine Negative (Negative); Benzodiazepines Screen,Urine Negative (Negative); Benzoylecgonine Screen, Ur Negative (Negative); Fentanyl Screen,Urine Negative (Negative); Opiate Screen,Urine Negative (Negative); THC Screen,Urine Positive (Negative)
--- NOTE | 2025-01-10 23:00 | PC.NURSE ---
Pt seen walking out to [facility], triage nurse Kendal removed IV access. Encouraged pt to stay to receive discharge instructions, pt refused. Pt stated he does not want his discharge instructions and refused to sign discharge instructions.
== END 2025-01-10 23:00 | disposition home or self-care (01) ==
PROVIDERS: Registered Nurse General Practice; Emergency Provider Emergency Medicine
DX: R10.9 Unspecified abdominal pain (principal); Z91.148 Patient's other noncompliance with medication regimen for other reason; F10.129 Alcohol abuse with intoxication, unspecified; I42.9 Cardiomyopathy, unspecified; Y90.2 Blood alcohol level of 40-59 mg/100 ml
CPT/HCPCS: 36415; 71045; 80053; 80307; 80320; 81001; 83615; 83735; 83880; 84484; 85025; 85610; 85730; 93005; 99284; J3490; G0480

== ENCOUNTER 2025-07-01 08:57 | Emergency (ER) | payer OTHER, SELFPAY ==
[2025-07-01 09:05] VITALS: PULSE 90; RESP 20; O2SAT 99
--- NOTE | 2025-07-01 09:05 | PC.NURSE ---
Pt. here to room 16, pt. stating he is homeless, pt. states he was trying to light his skunk and couldn't so his friend called EMS for the right sided weakness. Pt. states he also had memory loss this morning. Dr. Corado is bedside and states to call stroke alert. Pt. taken to CT via best.
--- NOTE | 2025-07-01 09:05 | EKG_ITS ---
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: : 1970 Requested By: Reagan Lara Order Number: [id number] Reading MD: Reagan Lara Measurements Intervals [place] Rate: 90 P: 51 IL: 162 QRS: -72 QRSD: 105 T: 89 QT: 386 QTc: 474 Interpretive Statements SINUS RHYTHM POSSIBLE LEFT ATRIAL ENLARGEMENT [-0.1mV P-WAVE IN V1/V2] S1-S2-S3 PATTERN, CONSISTENT WITH PULMONARY DISEASE, RVH, OR NORMAL VARIANT LEFT ANTERIOR FASCICULAR BLOCK [QRS AXIS <= -45, QR IN I, RS IN II] POSSIBLE ANTERIOR MYOCARDIAL INFARCTION , OF INDETERMINATE AGE [30 ms Q WAVE IN V3/V4, OR R < 0.2 mV IN V4] Compared to ECG 12/21/2024 16:28:20 Right ventricular hypertrophy now present Left anterior fascicular block now present Sinus tachycardia no longer present Left-axis deviation no longer present Myocardial infarct finding still present /store/[id number].pdf
--- NOTE | 2025-07-01 09:11 | XR_ITS ---
Examination: CT brain head without contrast. 2-D sagittal coronal reconstructions Date and time of exam: July 01, 2025, 0918 hours INDICATIONS: Stroke alert onset focal neurologic deficit today right-sided body weakness beginning this morning CTDI: vol (mGy): 52.2 DLP: (mGycm): 1118 Technique: Multiple CT axial sections of the brain have been obtained, 5 mm slice thickness. Contrast has not been administered. 2-D sagittal, coronal reconstructions have been obtained Low dose protocols were performed. One or more of the following dose reduction techniques were used; automated exposure control, adjustment of the mA and/or KV according to patient size, use of iterative reconstruction technique. Findings: Patient motion degrades scan image quality especially in the posterior fossa Ventricles are not enlarged No gross hemorrhage depicted No mass effect upon the ventricular system Cranial vault appears intact IMPRESSION: Patient motion degrades skin image quality No gross hemorrhage mass effect or midline shift
--- NOTE | 2025-07-01 09:11 | XR_ITS ---
Examination: CTA carotids with intravenous contrast CTA brain, head with intravenous contrast. 2-D sagittal, coronal reconstructions. 3-D reconstructions. Exam date and time: July 01, 2025, 0924 hours INDICATIONS: Stroke alert, onset right-sided body weakness beginning this morning CTDI: vol (mGy) 18.2 DLP: (mGycm) 655 Technique: Multiple CTA axial brain, head carotid images post intravenous contrast injection 75 cc, [id number]. 2-D sagittal, coronal reconstructions. 3-D reconstructions, 3-D post processing including vascular maximum intensity projection images. Low dose protocols were performed. One or more of the following dose reduction techniques were used; automated exposure control, adjustment of the mA and/or KV according to patient size, use of iterative reconstruction technique. Findings: No significant common carotid carotid bifurcation or internal carotid artery stenosis Dominant right vertebral artery in the neck with no critical vertebral artery stenoses Intracranial vertebral arteries basilar artery posterior cerebral branches fill with no large vessel occlusions Petrous juxtasellar portions internal carotid arteries intact M1 segments middle cerebral arteries middle cerebral artery trifurcation vessels anterior cerebral arteries demonstrate no large vessel occlusions IMPRESSION: No significant neck arterial stenoses No cerebral large vessel arterial occlusions or thrombus
--- NOTE | 2025-07-01 09:15 | PC.NURSE ---
Dr. Zhen Khoury on tele cart talking to pt. on CT table, pt. states he needs a beer and a bus ticket to [place]. Pt. tells Dr. Khoury that he is homeless and has court tomorrow. Pt. states he does all drugs and he snorts it. Pt. states this morning he was on his way to get a beer and had memory loss.
--- NOTE | 2025-07-01 09:20 | XR_ITS ---
EXAMINATION: AP chest single view TECHNIQUE: AP portable upright chest single view Date and time: July 01, 2025, 1013 hours, comparison January 10, 2025 INDICATIONS: Shortness of breath coughing beginning 2 days ago. FINDINGS: Mild enlargement cardiac contour Moderate vascular congestion. Early pneumonia at the right lung base. Prominent osteopenia IMPRESSION: Early pneumonia right base Moderate vascular congestion.
[2025-07-01 09:33] LABS: Basophils # (Auto) 0.0 Thou/mm3 (0.0-0.2); Basophils % (Auto) 1 % (0-2.5); Eosinophils # (Auto) 0.2 Thou/mm3 (0.0-0.5); Eosinophils % (Auto) 3 % (0-10); Hematocrit 49.0 % (41.0-53.0); Hemoglobin 17.3 g/dL (13.5-16.0); Immature Granulocytes Auto 0.01 Thou/mm3 (0.00-0.00); Lymphocytes # (Auto) 2.0 Thou/mm3 (1.0-4.8); Lymphocytes % (Auto) 27 % (10-50); Mean Corpuscular HGB Conc 35.3 g/dl (31.0-37.0); Mean Corpuscular Hemoglobin 32.6 pg (25.0-35.0); Mean Corpuscular Volume 93 fL (80-100); Monocytes # (Auto) 0.6 Thou/mm3 (0.0-0.8); Monocytes % (Auto) 8 % (0-12); Neutrophils # (Auto) 4.5 Thou/mm3 (1.8-7.7); Neutrophils % (Auto) 61 % (37-80); Nucleated Red Blood Cell # 0.00 Thou/mm3 (0.00-0.00); Nucleated Red Blood Cell % 0 /100 WBC (0); Platelet Count 241 Thou/mm3 (140-440); RDW Standard Deviation 49.4 fL (35.1-43.9); Red Blood Count 5.30 Miln/mm3 (4.50-5.90); White Blood Count 7.3 Thou/mm3 (3.8-10.6)
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
[2025-07-01 09:45] VITALS: BP 154/111; PULSE 89; RESP 18; TEMP 36.8; O2SAT 95
[2025-07-01 09:48] LABS: INR 1.1 (0.9-1.3); Partial Thromboplastin Time 27.7 Seconds (22.0-36.0); Prothrombin Time 11.3 Seconds (9.0-12.2)
[2025-07-01 09:50] LABS: B-Type Natriuretic Peptide 234 pg/mL (0-100)
[2025-07-01] MEDS: SODIUM CHLORIDE 0.9% 1000 ML 1,000 ML 100 ML IV (09:52)
[2025-07-01 10:06] LABS: Alanine Aminotransferase 21 U/L (10-49); Albumin, Serum 4.4 gm/dL (3.5-5.0); Albumin/Globulin Ratio 1.7 (1.2-2.2); Alcohol, Blood Medical < 3.0 mg/dL (0-10.0); Alkaline Phosphatase 90 U/L (46-116); Ammonia < 10 uMol/L (11-32); Anion Gap 11 (7-16); Aspartate Amino Transferase 43 U/L (0-34); BUN/Creatinine Ratio 10 Ratio (12-20); Bilirubin,Total 2.0 mg/dL (0.3-1.2); Blood Urea Nitrogen 10 mg/dL (9-23); Calcium 8.9 mg/dL (8.3-10.6); Calcium (Corrected) 8.9 mg/dL (8.5-10.1); Carbon Dioxide 27.7 mMol/L (20.0-31.0); Chloride 103 mMol/L (98-107); Creatinine (Component) 1.0 mg/dL (0.6-1.3); Globulin 2.6 gm/dL (2.3-3.5); Glucose 95 mg/dL (74-106); Lipase 58 U/L (12-53); Magnesium 1.9 mg/dL (1.6-2.6); Osmolality,Calculated 282 (275-295); Potassium 4.2 mMol/L (3.4-5.1); Sodium 142 mMol/L (136-145); Total Protein 7.0 gm/dL (5.7-8.2); eGFR > 60 See Note
[2025-07-01 10:07] LABS: Troponin I 0.261 ng/mL (0.0-0.045)
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
--- NOTE | 2025-07-01 11:02 | PC.NURSE ---
Pt. standing up next to bed, yelling he's leaving, pt. stating get this fucking IV out. Pt. states he hates this [facility] and he's leaving. Pt. telling security to get out of his fucking way. Pt. put his clothes on and stated he isn't signing shit. Pt. grabbed his back pack and walked out of room 16 and out of the hospital.
== END 2025-07-01 11:05 | disposition left against medical advice (07) ==
PROVIDERS: Emergency Provider Family Medicine
DX: J18.9 Pneumonia, unspecified organism (principal); I50.22 Chronic systolic (congestive) heart failure; E78.5 Hyperlipidemia, unspecified; G81.91 Hemiplegia, unspecified affecting right dominant side; I11.0 Hypertensive heart disease with heart failure; Z79.84 Long term (current) use of oral hypoglycemic drugs; Z79.01 Long term (current) use of anticoagulants
CPT/HCPCS: 36415; 70450; 70496; 70498; 71045; 80053; 80307; 80320; 81001; 82140; 83605; 83690; 83735; 83880; 84484; 85025; 85610; 85730; 87040; 93005; 99285; A4649; J7030; Q9967; G0480

== ENCOUNTER 2025-07-11 23:43 | Emergency (ER) | payer MEDICAID, SELFPAY ==
[2025-07-11 23:44] VITALS: BP 168/118; PULSE 94; RESP 18; TEMP 36.3; O2SAT 95; BMI 38.0
--- NOTE | 2025-07-11 23:54 | PD.EDALCOH ---
ED Alcohol RME/HPI General Stated Complaint: ALCOHOL Arrival date/time: 07/11/25 23:43 RME / HPI RME / HPI narrative: See [facility] for Dr. Hillman's HPI documentation. Related Data Home Medications ?Medication ?Instructions ?Recorded ?Confirmed nitroglycerin 0.4 mg sublingual 0.4 mg buccal 1XD PRN Chest Pain 08/01/24 10/26/24 tablet Previous Rx's ?Medication ?Instructions ?Recorded losartan 25 mg tablet 25 mg PO QDAY #30 tabs 09/15/23 albuterol sulfate 90 mcg/actuation 2 puff inhalation Q6H PRN 09/07/24 aerosol inhaler shortness of breath or wheezing #8.5 grams aspirin 81 mg tablet,delayed 81 mg PO QDAY #60 tabs 10/28/24 release (Ecotrin Low Strength) atorvastatin 20 mg tablet 40 mg (2 x 20 mg) PO HS #30 tabs 10/28/24 bumetanide 2 mg tablet 2 mg PO QDAY #30 tabs 10/28/24 dapagliflozin propanediol 5 mg 10 mg (2 x 5 mg) PO QAM #30 tabs 10/28/24 tablet metoprolol succinate 25 mg 25 mg PO QDAY #30 tabs 10/28/24 tablet,extended release 24 hr rivaroxaban 15 mg tablet (Xarelto) 15 mg PO BIDWM #60 tabs 10/28/24 spironolactone 25 mg tablet 25 mg PO DAILY #30 tabs 10/28/24 furosemide 40 mg tablet (Lasix) 40 mg PO QDAY #20 tabs 11/28/24 potassium chloride 20 mEq 20 meq PO QDAY #20 tabs 11/28/24 tablet,extended release(part/cryst) apixaban 5 mg tablet (Eliquis) 5 mg PO BID #30 tabs 01/10/25 aspirin 81 mg capsule 81 mg PO QDAY #30 caps 01/10/25 atorvastatin 40 mg tablet 40 mg PO QDAY #30 tabs 01/10/25 cephalexin 500 mg capsule 500 mg PO QID #28 caps 01/10/25 doxycycline hyclate 100 mg capsule 100 mg PO BID #14 caps 01/10/25 furosemide 40 mg tablet (Lasix) 40 mg PO BID #30 tabs 01/10/25 losartan 50 mg tablet 50 mg PO QDAY #30 tabs 01/10/25 Allergies Allergy/AdvReac Type Severity Reaction Status Date / Time No Known Allergies Allergy Verified 12/20/24 12:44 Review of Systems Review of Systems Systems Reviewed: All systems reviewed, normal except as documented ED Exam Narrative Physical exam: See [facility] for Dr. Hillman's physical exam documentation. Course Quality Measures none Vital Signs Vital signs: Vital Signs Temperature 97.4 F 07/11/25 23:44 Pulse Rate 94 07/11/25 23:44 Respiratory Rate 18 07/11/25 23:44 Blood Pressure 168/118 H 07/11/25 23:44 Pulse Oximetry (%) 95 07/11/25 23:44 Oxygen Delivery Method Room Air 07/11/25 23:44 Discharge Plan Prescriptions/Referrals Prescriptions/Med Rec: No Action losartan 25 mg Tablet 25 mg PO QDAY Qty: 30 2RF nitroglycerin 0.4 mg tablet, sublingual 0.4 mg buccal 1XD PRN (Reason: Chest Pain) Rx Instructions: I TAB UNDER THE TONGUE EVERY 5 MINUTES NEED FOR CHEST PAIN, MAY GIVE UP TO 3 DOSES atorvastatin 20 mg Tablet 40 mg PO HS Qty: 30 0RF aspirin [Ecotrin Low Strength] 81 mg Tablet,Delayed Release (Dr/Ec) 81 mg PO QDAY Qty: 60 0RF spironolactone 25 mg Tablet 25 mg PO DAILY Qty: 30 0RF metoprolol succinate 25 mg Tablet Extended Release 24 Hr 25 mg PO QDAY Qty: 30 0RF Xarelto 15 mg Tablet 15 mg PO BIDWM Qty: 60 0RF dapagliflozin propanediol 5 mg Tablet 10 mg PO QAM Qty: 30 0RF bumetanide 2 mg tablet 2 mg PO QDAY Qty: 30 0RF furosemide [Lasix] 40 mg tablet 40 mg PO QDAY Qty: 20 0RF potassium chloride 20 mEq tablet,ER particles/crystals 20 meq PO QDAY Qty: 20 0RF aspirin 81 mg capsule 81 mg PO QDAY Qty: 30 0RF atorvastatin 40 mg tablet 40 mg PO QDAY Qty: 30 0RF doxycycline hyclate 100 mg capsule 100 mg PO BID Qty: 14 0RF Eliquis 5 mg tablet 5 mg PO BID Qty: 30 0RF cephalexin 500 mg capsule 500 mg PO QID Qty: 28 0RF furosemide [Lasix] 40 mg tablet 40 mg PO BID Qty: 30 0RF losartan 50 mg tablet 50 mg PO QDAY Qty: 30 0RF albuterol sulfate 90 mcg/actuation HFA aerosol inhaler 2 puff inhalation Q6H PRN (Reason: shortness of breath or wheezing) Qty: 8.5 0RF Patient/Caregiver Discharge Instructions Print Language: Azerbaijani Alcohol MDM Narrative MDM Narrative: This section includes all my notes and documentations, including HPI, PE, and ED course. Lc Hillman MD HPI: ROS: All negative except as documented in HPI. Physical Exam: General: Alert and oriented. No acute distress when remaining still. Eyes: Conjunctivae and lids clear. ENT: No nasal congestion. Neck: Supple. Heart: RRR. Lungs: No respiratory distress. Good air movement. No rhonchi, wheezing, rales. Abdomen: Soft and nontender. Normal bowel sounds. No distension. No rebound or guarding. Back: No CVA tenderness. Skin: Warm and dry. Neuro: Alert and oriented X 3. I reviewed EMS notes. I reviewed all diagnostic test results. My interpretation of the EKG is My interpretation of the chest x-ray is My review of the CT report is Blood tests and urine tests At this point, diagnoses include Treatment here included Significant improvement Not yet done: I discussed the case with our hospitalist. About the presentation and exam and diagnostics and treatments here. And need of further care in the hospital. Will accept the patient. Not yet done: Based on my best medical judgment, made decision no further evaluation or treatment indicated at this time. Patient understands and agrees to the discharge instructions customized and printed, see below. Lc Hillman MD Patient data External records reviewed:: [facility] previous records (Per chart review, patient was seen here on 07/01/25 for elevated troponin.) and EMS form Clinical information provided by:: patient and EMS Social determinants that could affect healthcare access:: substance use Patient has the following chronic illnesses:: HFrEF (EF 30-35% 10/2024), HTN, HLD, cirrhosis, and polysubstance abuse How is presenting disease/condition affected by chronic disease/condition?: uneffected by Evaluation data The following diagnostics were reviewed and interpreted by me:: lab results Lab and/or radiology exams considered but not ordered:: none Medications / Prescriptions Medications or Prescriptions considered but not ordered:: none
--- NOTE | 2025-07-11 23:57 | PD.EDADDENDU ---
Emergency Room Addendum Addendum Narrative: When I looked for the patient to start my evaluation, I was told the patient eloped. Lc Hillman MD
--- NOTE | 2025-07-11 23:59 | PC.NURSE ---
PT ELOPED. EMS ADVISED PT TO GET WHEELCHAIR. PT STATES I DONT WANT TO BE HERE, [facility] IS A BETTER [facility], PATI WELCH . PT THEN PROCEEDED TO WALK OUT OF AMBULANCE BAY WITNESSED BY ED STAFF AND EMS
== END 2025-07-12 00:01 | disposition left against medical advice (07) ==
PROVIDERS: Emergency Provider Emergency Medicine
DX: Z53.21 Procedure and treatment not carried out due to patient leaving prior to being seen by health care provider (principal)
CPT/HCPCS: 99281

== ENCOUNTER 2025-07-12 00:28 | Emergency (ER) | payer MEDICAID, SELFPAY ==
--- NOTE | 2025-07-12 00:40 | PC.NURSE ---
PT GOT OUT OF WHEELCHAIR AND [facility]
--- NOTE | 2025-07-12 00:41 | PD.EDADDENDU ---
Emergency Room Addendum Addendum Narrative: When I looked for the patient to start my evaluation, I was told the patient eloped. Lc Hillman MD
== END 2025-07-12 01:00 | disposition left against medical advice (07) ==
PROVIDERS: Emergency Provider Emergency Medicine
DX: Z53.21 Procedure and treatment not carried out due to patient leaving prior to being seen by health care provider (principal)
CPT/HCPCS: 99281

== ENCOUNTER 2025-07-29 22:29 | Emergency (ER) | payer MEDICAID, SELFPAY ==
[2025-07-29 22:32] VITALS: BMI 38.0
--- NOTE | 2025-07-29 22:35 | EKG_ITS ---
[facility] Test Date: 2025-07-29 Pat Name: JULIA MORAN Department: Room: - Gender: Male [employer]ing [employer] Tech: : [id number] Requested By: Adair Braxton Order Number: [id number] Reading MD: Adair Braxton Measurements Intervals [place] Rate: 89 P: 48 SD: 169 QRS: -69 QRSD: 107 T: 82 QT: 377 QTc: 460 Interpretive Statements SINUS RHYTHM WITH OCCASIONAL VENTRICULAR PREMATURE COMPLEXES POSSIBLE LEFT ATRIAL ENLARGEMENT [-0.1mV P-WAVE IN V1/V2] LEFT AXIS DEVIATION [QRS AXIS < -30] ANTEROSEPTAL MYOCARDIAL INFARCTION , OF INDETERMINATE AGE [40+ ms Q WAVE IN V1-V4] Compared to ECG 07/01/2025 09:42:04 Ventricular premature complex(es) now present Left-axis deviation now present Right ventricular hypertrophy no longer present Left anterior fascicular block no longer present Myocardial infarct finding still present /store/S0/[id number].pdf
[2025-07-29 22:52] VITALS: BP 151/96; PULSE 99; RESP 22; TEMP 36.8; O2SAT 98
--- NOTE | 2025-07-29 23:01 | XR_ITS ---
EXAMINATION: PA chest single view TECHNIQUE: Upright PA chest single view Date and time: July 29, 2025, 1121 hours INDICATION: Chest pain shortness of breath beginning 2 days ago. FINDINGS: Pneumonia right base obscuring detail right hemidiaphragm Minimal prominence left ventricle No pulmonary edema. Osseous structures are intact IMPRESSION: Right base pneumonia
--- NOTE | 2025-07-29 23:01 | XR_ITS ---
Examination: CT brain head without contrast. 2-D sagittal coronal reconstructions Date and time of exam: July 29, 2025, 11:10 p.m., comparison July 01, 2025 CTDI: vol (mGy): 103.60 DLP: (mGycm): 2202 Technique: Multiple CT axial sections of the brain have been obtained, 5 mm slice thickness. Contrast has not been administered. 2-D sagittal, coronal reconstructions have been obtained Low dose protocols were performed. One or more of the following dose reduction techniques were used; automated exposure control, adjustment of the mA and/or KV according to patient size, use of iterative reconstruction technique. Findings: No significant ventricular enlargement. Old infarct left cerebellar hemisphere Intra-axial or extra-axial hemorrhage density is not seen. No mass effect or midline shift Basal cisterns are not remarkable. Fourth ventricle is midline. Cranial vault intact. Impression: Negative for acute hemorrhage, mass effect or midline shift As clinically warranted, brain MRI follow-up would best assess for acute ischemic change, demyelinating disease
--- NOTE | 2025-07-29 23:02 | PD.EDRME ---
Rapid Medical Screening Exam RME Arrival date/time: 07/29/25 22:29 55M with history of homelessness, drug/alcohol use, CHF and possible cirrhosis presents to ED with multiple complaints including SOB, ab distention, leg swelling/pain, and some blurry vision. Patient was recently released from [facility] and hasn't been taking his meds. Chief Complaint: General Adult/Misc Complain Vital signs: Vital Signs Temperature 98.2 F 07/29/25 22:52 Pulse Rate 99 07/29/25 22:52 Respiratory Rate 22 H 07/29/25 22:52 Blood Pressure 151/96 H 07/29/25 22:52 Pulse Oximetry (%) 98 07/29/25 22:52 Oxygen Delivery Method Room Air 07/29/25 22:52 Exam: CN II-XII grossly intact. Ab distention. Normal WOB. Clinical Impression: CHF exacerbation vs TIA/CVA vs ascites vs DVT/PE
[2025-07-30 01:00] LABS: Basophils # (Auto) 0.0 Thou/mm3 (0.0-0.2); Basophils % (Auto) 0 % (0-2.5); Eosinophils # (Auto) 0.1 Thou/mm3 (0.0-0.5); Eosinophils % (Auto) 2 % (0-10); Hematocrit 46.8 % (41.0-53.0); Hemoglobin 15.8 g/dL (13.5-16.0); Immature Granulocytes Auto 0.02 Thou/mm3 (0.00-0.00); Lymphocytes # (Auto) 2.2 Thou/mm3 (1.0-4.8); Lymphocytes % (Auto) 24 % (10-50); Mean Corpuscular HGB Conc 33.8 g/dl (31.0-37.0); Mean Corpuscular Hemoglobin 31.3 pg (25.0-35.0); Mean Corpuscular Volume 93 fL (80-100); Monocytes # (Auto) 0.8 Thou/mm3 (0.0-0.8); Monocytes % (Auto) 9 % (0-12); Neutrophils # (Auto) 5.9 Thou/mm3 (1.8-7.7); Neutrophils % (Auto) 65 % (37-80); Nucleated Red Blood Cell # 0.00 Thou/mm3 (0.00-0.00); Nucleated Red Blood Cell % 0 /100 WBC (0); Platelet Count 202 Thou/mm3 (140-440); RDW Standard Deviation 46.3 fL (35.1-43.9); Red Blood Count 5.04 Miln/mm3 (4.50-5.90); White Blood Count 9.1 Thou/mm3 (3.8-10.6)
[2025-07-30 01:03] LABS: INR 1.2 (0.9-1.3); Partial Thromboplastin Time 26.8 Seconds (22.0-36.0); Prothrombin Time 12.2 Seconds (9.0-12.2)
--- NOTE | 2025-07-30 01:03 | PD.EDADULT ---
ED General RME/HPI General Chief complaint: Shortness of Breath/Dyspnea Stated complaint: MULTIPLE COMPLAINTS SOB Time Seen by Provider: 07/29/25 23:31 Source: patient Arrival date/time: 07/29/25 22:29 Mode of arrival: ambulatory Limitations: no limitations RME / HPI RME / HPI narrative: 07/29/25 22:29 55M with history of homelessness, drug/alcohol use, CHF and possible cirrhosis presents to ED with multiple complaints including SOB, ab distention, leg swelling/pain, and some blurry vision. Patient was recently released from [facility] and hasn't been taking his meds. Patient with history of cardiomyopathy hypertension hyperlipidemia cirrhotic liver disease and polysubstance abuse recently discharged from nearby facility now presenting with recurrent shortness of breath. No reported fevers chills vomiting or diarrhea. Exam: CN II-XII grossly intact. Ab distention. Normal WOB. Impression: CHF exacerbation vs TIA/CVA vs ascites vs DVT/PE Related Data Home Medications ?Medication ?Instructions ?Recorded ?Confirmed nitroglycerin 0.4 mg sublingual 0.4 mg buccal 1XD PRN Chest Pain 08/01/24 10/26/24 tablet Previous Rx's ?Medication ?Instructions ?Recorded losartan 25 mg tablet 25 mg PO QDAY #30 tabs 09/15/23 albuterol sulfate 90 mcg/actuation 2 puff inhalation Q6H PRN 09/07/24 aerosol inhaler shortness of breath or wheezing #8.5 grams aspirin 81 mg tablet,delayed 81 mg PO QDAY #60 tabs 10/28/24 release (Ecotrin Low Strength) atorvastatin 20 mg tablet 40 mg (2 x 20 mg) PO HS #30 tabs 10/28/24 bumetanide 2 mg tablet 2 mg PO QDAY #30 tabs 10/28/24 dapagliflozin propanediol 5 mg 10 mg (2 x 5 mg) PO QAM #30 tabs 10/28/24 tablet metoprolol succinate 25 mg 25 mg PO QDAY #30 tabs 10/28/24 tablet,extended release 24 hr rivaroxaban 15 mg tablet (Xarelto) 15 mg PO BIDWM #60 tabs 10/28/24 spironolactone 25 mg tablet 25 mg PO DAILY #30 tabs 10/28/24 furosemide 40 mg tablet (Lasix) 40 mg PO QDAY #20 tabs 03/22/25 potassium chloride 20 mEq 20 meq PO QDAY #20 tabs 11/28/24 tablet,extended release(part/cryst) apixaban 5 mg tablet (Eliquis) 5 mg PO BID #30 tabs 01/10/25 aspirin 81 mg capsule 81 mg PO QDAY #30 caps 01/10/25 atorvastatin 40 mg tablet 40 mg PO QDAY #30 tabs 01/10/25 cephalexin 500 mg capsule 500 mg PO QID #28 caps 01/10/25 doxycycline hyclate 100 mg capsule 100 mg PO BID #14 caps 01/10/25 furosemide 40 mg tablet (Lasix) 40 mg PO BID #30 tabs 01/10/25 losartan 50 mg tablet 50 mg PO QDAY #30 tabs 01/10/25 Allergies Allergy/AdvReac Type Severity Reaction Status Date / Time No Known Allergies Allergy Verified 07/29/25 22:36 ED Exam General Limitations: Present no limitations Course Quality Measures none Orders Category Date Time Status EKG (ED ONLY) *Do not use* NOW Care 07/29/25 22:[address] head/brain wo con Stat Exams 07/29/25 23:01 Completed EKG (ED Only) Stat Exams 07/29/25 22:35 Draft XR chest 1V portable Stat Exams 07/29/25 23:01 Completed Ammonia Stat Lab 07/29/25 00:35 Completed B-Type Natriuretic Peptide Stat Lab 07/29/25 00:35 Completed CBC Stat Lab 07/29/25 00:35 Completed Comprehensive Metabolic Panel Stat Lab 07/29/25 00:35 Completed Magnesium Stat Lab 07/29/25 00:35 Completed Partial Thromboplastin Time Stat Lab 07/29/25 00:35 Completed Prothrombin Time with INR Stat Lab 07/29/25 00:35 Completed Troponin I Stat Lab 07/29/25 00:35 Completed Vital Signs Vital signs: Vital Signs Temperature 98.2 F 07/29/25 22:52 Pulse Rate 99 07/29/25 22:52 Respiratory Rate 22 H 07/29/25 22:52 Blood Pressure 151/96 H 07/29/25 22:52 Pulse Oximetry (%) 98 07/29/25 22:52 Oxygen Delivery Method Room Air 07/29/25 22:52 Discharge Plan Plan Patient Disposition: HOME (Self Care) Discharge Disposition comment: Stable Prescriptions/Referrals Prescriptions/Med Rec: No Action losartan 25 mg Tablet 25 mg PO QDAY Qty: 30 2RF nitroglycerin 0.4 mg tablet, sublingual 0.4 mg buccal 1XD PRN (Reason: Chest Pain) Rx Instructions: I TAB UNDER THE TONGUE EVERY 5 MINUTES NEED FOR CHEST PAIN, MAY GIVE UP TO 3 DOSES atorvastatin 20 mg Tablet 40 mg PO HS Qty: 30 0RF aspirin [Ecotrin Low Strength] 81 mg Tablet,Delayed Release (Dr/Ec) 81 mg PO QDAY Qty: 60 0RF spironolactone 25 mg Tablet 25 mg PO DAILY Qty: 30 0RF metoprolol succinate 25 mg Tablet Extended Release 24 Hr 25 mg PO QDAY Qty: 30 0RF Xarelto 15 mg Tablet 15 mg PO BIDWM Qty: 60 0RF dapagliflozin propanediol 5 mg Tablet 10 mg PO QAM Qty: 30 0RF bumetanide 2 mg tablet 2 mg PO QDAY Qty: 30 0RF furosemide [Lasix] 40 mg tablet 40 mg PO QDAY Qty: 20 0RF potassium chloride 20 mEq tablet,ER particles/crystals 20 meq PO QDAY Qty: 20 0RF aspirin 81 mg capsule 81 mg PO QDAY Qty: 30 0RF atorvastatin 40 mg tablet 40 mg PO QDAY Qty: 30 0RF doxycycline hyclate 100 mg capsule 100 mg PO BID Qty: 14 0RF Eliquis 5 mg tablet 5 mg PO BID Qty: 30 0RF cephalexin 500 mg capsule 500 mg PO QID Qty: 28 0RF furosemide [Lasix] 40 mg tablet 40 mg PO BID Qty: 30 0RF losartan 50 mg tablet 50 mg PO QDAY Qty: 30 0RF albuterol sulfate 90 mcg/actuation HFA aerosol inhaler 2 puff inhalation Q6H PRN (Reason: shortness of breath or wheezing) Qty: 8.5 0RF Referrals: No Primary/Family,Physician [Primary Care Provider] - In 1 week Problem List Clinical Impression: Dyspnea, History of cardiomyopathy Patient/Caregiver Discharge Instructions Discharge Activity: activity as tolerated Diet Instructions: Low-salt Education Materials: Living with Cardiomyopathy, Cardiomyopathy Dc, ED Shortness of Breath (Dyspnea) Additional Instructions: Take medications as directed. Follow-up with primary care doctor and return if fever worsening illness. Print Language: Hungarian Stand Alone Forms: Colleen Award Info., Patient Portal Info Letter
[2025-07-30 01:05] LABS: Ammonia 16 uMol/L (11-32)
[2025-07-30 01:07] LABS: B-Type Natriuretic Peptide 724 pg/mL (0-100)
[2025-07-30 01:26] LABS: Alanine Aminotransferase 19 U/L (10-49); Albumin, Serum 4.2 gm/dL (3.5-5.0); Albumin/Globulin Ratio 1.6 (1.2-2.2); Alkaline Phosphatase 94 U/L (46-116); Anion Gap 10 (7-16); Aspartate Amino Transferase 49 U/L (0-34); BUN/Creatinine Ratio 11 Ratio (12-20); Bilirubin,Total 1.3 mg/dL (0.3-1.2); Blood Urea Nitrogen 12 mg/dL (9-23); Calcium 9.0 mg/dL (8.3-10.6); Calcium (Corrected) 9.0 mg/dL (8.5-10.1); Carbon Dioxide 24.7 mMol/L (20.0-31.0); Chloride 106 mMol/L (98-107); Creatinine (Component) 1.1 mg/dL (0.6-1.3); Estimated Creatinine Clearance 94.9 mL/min (>60); Globulin 2.6 gm/dL (2.3-3.5); Glucose 99 mg/dL (74-106); Magnesium 1.8 mg/dL (1.6-2.6); Osmolality,Calculated 280 (275-295); Potassium 4.2 mMol/L (3.4-5.1); Sodium 141 mMol/L (136-145); Total Protein 6.8 gm/dL (5.7-8.2); eGFR > 60 See Note
[2025-07-30 01:28] LABS: Troponin I 3.178 ng/mL (0.0-0.045)
--- NOTE | 2025-08-27 21:46 | PD.EDADDENDU ---
Emergency Room Addendum Addendum Narrative: For pneumonia and read on chest x-ray on July 29 was not apparent on a subsequent CT scan of the chest abdomen and pelvis in August. At this time no action needs to be taken.
== END 2025-07-30 01:52 | disposition home or self-care (01) ==
PROVIDERS: Physician Assistant; Emergency Provider Emergency Medicine
DX: R06.00 Dyspnea, unspecified (principal); E78.5 Hyperlipidemia, unspecified; I11.0 Hypertensive heart disease with heart failure; I42.9 Cardiomyopathy, unspecified; K74.60 Unspecified cirrhosis of liver; Z79.01 Long term (current) use of anticoagulants; Z79.84 Long term (current) use of oral hypoglycemic drugs
CPT/HCPCS: 36415; 70450; 71045; 80053; 82140; 83735; 83880; 84484; 85025; 85610; 85730; 93005; 99283

== ENCOUNTER 2025-08-14 10:36 | Emergency (ER) | payer MEDICAID, SELFPAY ==
--- NOTE | 2025-08-14 10:59 | XR_ITS ---
EXAMINATION: AP chest single view TECHNIQUE: AP portable semiupright chest single view Date and time: August 14 2025, 1059 hour INDICATION: Shortness of breath today. FINDINGS: Moderate enlargement cardiac contour prominent vascular congestion Early edema at the lung bases IMPRESSION: Early heart failure
[2025-08-14 11:01] VITALS: PULSE 116; RESP 20; O2SAT 96; BMI 42.5
[2025-08-14 11:28] VITALS: BP 130/94; PULSE 97; RESP 20; TEMP 36.7; O2SAT 96
--- NOTE | 2025-08-14 11:28 | PD.EDADULT ---
ED General RME/HPI General Chief complaint: Nausea/Vomiting/Diarrhea Stated complaint: ABD SWELLING, NAUSEA, VOMITING Time Seen by Provider: 08/14/25 10:57 Arrival date/time: 08/14/25 10:36 CC: Phlegm in my throat, I cannot breathe and there is fluid in my belly HPI patient presents to the ER via EMS hypertensive and tachycardic. EMS report picking up at the [facility] from the homeless custodial. Yesterday they report they was taken to [facility] for the same complaint and was promptly discharged. Patient is awake alert oriented admitting that he did not take any meth or alcohol today . Patient is awake alert oriented Related Data Home Medications ?Medication ?Instructions ?Recorded ?Confirmed nitroglycerin 0.4 mg sublingual 0.4 mg buccal 1XD PRN Chest Pain 08/01/24 10/26/24 tablet Previous Rx's ?Medication ?Instructions ?Recorded losartan 25 mg tablet 25 mg PO QDAY #30 tabs 09/15/23 albuterol sulfate 90 mcg/actuation 2 puff inhalation Q6H PRN 09/07/24 aerosol inhaler shortness of breath or wheezing #8.5 grams aspirin 81 mg tablet,delayed 81 mg PO QDAY #60 tabs 10/28/24 release (Ecotrin Low Strength) atorvastatin 20 mg tablet 40 mg (2 x 20 mg) PO HS #30 tabs 10/28/24 bumetanide 2 mg tablet 2 mg PO QDAY #30 tabs 10/28/24 dapagliflozin propanediol 5 mg 10 mg (2 x 5 mg) PO QAM #30 tabs 10/28/24 tablet metoprolol succinate 25 mg 25 mg PO QDAY #30 tabs 10/28/24 tablet,extended release 24 hr rivaroxaban 15 mg tablet (Xarelto) 15 mg PO BIDWM #60 tabs 10/28/24 spironolactone 25 mg tablet 25 mg PO DAILY #30 tabs 10/28/24 furosemide 40 mg tablet (Lasix) 40 mg PO QDAY #20 tabs 11/28/24 potassium chloride 20 mEq 20 meq PO QDAY #20 tabs 11/28/24 tablet,extended release(part/cryst) apixaban 5 mg tablet (Eliquis) 5 mg PO BID #30 tabs 01/10/25 aspirin 81 mg capsule 81 mg PO QDAY #30 caps 01/10/25 atorvastatin 40 mg tablet 40 mg PO QDAY #30 tabs 01/10/25 cephalexin 500 mg capsule 500 mg PO QID #28 caps 01/10/25 doxycycline hyclate 100 mg capsule 100 mg PO BID #14 caps 01/10/25 furosemide 40 mg tablet (Lasix) 40 mg PO BID #30 tabs 01/10/25 losartan 50 mg tablet 50 mg PO QDAY #30 tabs 01/10/25 ketorolac 10 mg tablet 10 mg PO Q8H #10 tabs 08/14/25 Allergies Allergy/AdvReac Type Severity Reaction Status Date / Time No Known Allergies Allergy Verified 07/29/25 22:36 Review of Systems Review of Systems Narrative Review of Systems: GEN: No fever, no chills, no weight loss EYES: No discharge, no visual changes, no pain HEENT: No ear pain, no congestion, no sore throat PULM: No shortness of breath, no cough, no congestion CV: No chest pain, no dyspnea on exertion, no palpitations GI: No nausea, no vomiting, no diarrhea, no pain, no constipation : No frequency, no urgency, no dysuria MUSC/SKEL: No joint pain, no back pain SKIN: No rash PSYCH: No hallucinations, no depression HEME/LYMPH: No easy bleeding or bruising tendencies NEURO: No weakness, no headache Past Medical History Past Medical History NEUROLOGIC: Negative Neurological Disorders CARDIAC: Positive Cardiac Disorders, Congestive Heart Failure and Hypertension RESPIRATORY: Positive Pulmonary Embolism; Negative Chronic Obstructive Pulmonary Disease (COPD) or Asthma GASTROINTESTINAL: Negative Gastrointestinal Disorders GENITOURINARY: Positive Kidney Stones; Negative Genitourinary Disorders or Renal Disease MUSCULOSKELETAL: Negative Musculoskeletal Disorders ENDOCRINE: Negative Endocrine Disorders, Diabetes Mellitus Type 1 or Diabetes Mellitus Type 2 HEMATOLOGIC: Negative Blood Disorders or Sickle Cell Disease PSYCHO/SOCIAL: Positive Recreational Drug Use, Depression and Anxiety OTHER HISTORY: Negative MRSA or Vancomycin-Resistant Enterococci Family History FAMILY HISTORY: Positive Family Cancer Social History SMOKING STATUS: Former smoker SUBSTANCE USE: does not use ED Exam Narrative Physical exam: [General: Morbidly obese, anxious but not in any acute distress Head normocephalic HEENT: Within acceptable limits Neck is supple nontender Chest equal chest rise nontender to palpation Respiratory: Clear to auscultation no wheezes crackles or rubs CV: Rate rhythm is regular no murmurs rubs or clicks Abdomen is grossly distended secondary to body habitus, with large pannus, soft nontender. Back: No CVA tenderness no spinous process tenderness from cervical spine thoracic and lumbar spine Skin: Intact no petechiae rash induration ulceration or crepitus Extremities: Moving all extremity against resistance cap refill less than 2 seconds neurosensory intact Neuro: Awake alert oriented x3 Glascow coma 15 no focal deficits] Course Course Course Narrative: Patient is noncompliant with the cooperation. The patient has not given us urine freely. At this time given the patient's condition I suspect the patient is more interested in having a warm bed and something to eat. Patient will be discharged home he has no acute finding requires emergent or immediate intervention. Quality Measures none Orders Category Date Time Status XR chest 1V Stat Exams 08/14/25 10:59 Completed Alcohol, Urine Stat Lab 08/14/25 11:28 Ordered Drug Screen,Urine Stat Lab 08/14/25 11:28 Ordered Vital Signs Vital signs: Vital Signs Temperature 98.0 F 08/14/25 11:28 Pulse Rate 97 08/14/25 11:28 Respiratory Rate 20 08/14/25 11:28 Blood Pressure 130/94 H 08/14/25 11:28 Pulse Oximetry (%) 96 08/14/25 11:28 Oxygen Delivery Method Room Air 08/14/25 11:28 Discharge Plan Plan Patient Disposition: HOME (Self Care) Patient condition on transfer: Stable Prescriptions/Referrals Prescriptions/Med Rec: New ketorolac 10 mg tablet 10 mg PO Q8H Qty: 10 0RF Rx Instructions: maximum total duration of 5 days from all oral, intranasal, or parenteral formulations No Action losartan 25 mg Tablet 25 mg PO QDAY Qty: 30 2RF nitroglycerin 0.4 mg tablet, sublingual 0.4 mg buccal 1XD PRN (Reason: Chest Pain) Rx Instructions: I TAB UNDER THE TONGUE EVERY 5 MINUTES NEED FOR CHEST PAIN, MAY GIVE UP TO 3 DOSES atorvastatin 20 mg Tablet 40 mg PO HS Qty: 30 0RF aspirin [Ecotrin Low Strength] 81 mg Tablet,Delayed Release (Dr/Ec) 81 mg PO QDAY Qty: 60 0RF spironolactone 25 mg Tablet 25 mg PO DAILY Qty: 30 0RF metoprolol succinate 25 mg Tablet Extended Release 24 Hr 25 mg PO QDAY Qty: 30 0RF Xarelto 15 mg Tablet 15 mg PO BIDWM Qty: 60 0RF dapagliflozin propanediol 5 mg Tablet 10 mg PO QAM Qty: 30 0RF bumetanide 2 mg tablet 2 mg PO QDAY Qty: 30 0RF furosemide [Lasix] 40 mg tablet 40 mg PO QDAY Qty: 20 0RF potassium chloride 20 mEq tablet,ER particles/crystals 20 meq PO QDAY Qty: 20 0RF aspirin 81 mg capsule 81 mg PO QDAY Qty: 30 0RF atorvastatin 40 mg tablet 40 mg PO QDAY Qty: 30 0RF doxycycline hyclate 100 mg capsule 100 mg PO BID Qty: 14 0RF Eliquis 5 mg tablet 5 mg PO BID Qty: 30 0RF cephalexin 500 mg capsule 500 mg PO QID Qty: 28 0RF furosemide [Lasix] 40 mg tablet 40 mg PO BID Qty: 30 0RF losartan 50 mg tablet 50 mg PO QDAY Qty: 30 0RF albuterol sulfate 90 mcg/actuation HFA aerosol inhaler 2 puff inhalation Q6H PRN (Reason: shortness of breath or wheezing) Qty: 8.5 0RF Problem List Clinical Impression: Pain Patient/Caregiver Discharge Instructions Education Materials: ED Pain, Acute, Uncertain Cause Print Language: Mongolian Stand Alone Forms: Colleen Award Info., Patient Portal Info Letter PA/SEWING MACHINE BOBBIN WINDER Supervising Physician PA/SEWING MACHINE BOBBIN WINDER Supervising Physician: Salvador Zurita ENP [facility] Imaging Imaging interpretation: interpreted by me Imaging Interpretation(s): Chest x-ray shows early heart failure but no other acute finding.
[2025-08-14 14:19] VITALS: BP 135/91; PULSE 91; RESP 20; TEMP 36.6; O2SAT 98
--- NOTE | 2025-08-14 14:35 | PC.NURSE ---
late note: Pt was made aware that a UA was needed, and up to this time, Pt has still not given a UA, TERRIE Zurita made aware, Pt ok for DC
[2025-08-14 15:17] VITALS: BP 147/98; PULSE 78; RESP 16; TEMP 36.7; O2SAT 99
--- NOTE | 2025-08-14 15:27 | PC.CC ---
freezing room worker was contacted by BIBI Lares requesting assistance with transportation for homeless patient. SW met with the patient at the bedside and introduced self, role, and reason for the consult. Patient reports he has three years unhoused staying outside of [employer]. Patient is alert and oriented to person, place, time, and situation. Patient ambulates independently. Per BIBI Lares, the patient is medically cleared and ready for d/c. Patient requested transportation back to [facility]. Patient is dressed in weather-appropriate clothing and has shoes. NAIMA set up an Uber drive back to [facility]; BIBI Lares was updated.
== END 2025-08-14 15:19 | disposition home or self-care (01) ==
LOC: SERX 13:08
PROVIDERS: Emergency Provider Emergency Medicine
DX: R52 Pain, unspecified (principal); I11.0 Hypertensive heart disease with heart failure; I50.9 Heart failure, unspecified; Z91.198 Patient's noncompliance with other medical treatment and regimen for other reason; Z59.01 Sheltered homelessness; Z87.891 Personal history of nicotine dependence
CPT/HCPCS: 71045; 80307; 80320; 99282; G0480

== ENCOUNTER 2025-08-19 18:10 | Emergency (ER) | payer MEDICAID, SELFPAY ==
[2025-08-19 18:14] VITALS: BP 169/105; PULSE 87; RESP 18; TEMP 36.7; O2SAT 97; BMI 45.6
[2025-08-19 18:18] VITALS: PULSE 94; RESP 19
--- NOTE | 2025-08-19 18:18 | PD.EDSYNC ---
ED Syncope RME/HPI General Chief Complaint: Syncope / Near Syncope Stated Complaint: NEAR SYNCOPAL Time Seen by Provider: 08/19/25 18:25 Arrival date/time: 08/19/25 18:10 RME / HPI RME / HPI narrative: See MDM for Dr. Hillman's HPI documentation. Related Data Home Medications ?Medication ?Instructions ?Recorded ?Confirmed nitroglycerin 0.4 mg sublingual 0.4 mg buccal 1XD PRN Chest Pain 08/01/24 10/26/24 tablet Previous Rx's ?Medication ?Instructions ?Recorded losartan 25 mg tablet 25 mg PO QDAY #30 tabs 09/15/23 albuterol sulfate 90 mcg/actuation 2 puff inhalation Q6H PRN 09/07/24 aerosol inhaler shortness of breath or wheezing #8.5 grams aspirin 81 mg tablet,delayed 81 mg PO QDAY #60 tabs 10/28/24 release (Ecotrin Low Strength) atorvastatin 20 mg tablet 40 mg (2 x 20 mg) PO HS #30 tabs 10/28/24 bumetanide 2 mg tablet 2 mg PO QDAY #30 tabs 10/28/24 dapagliflozin propanediol 5 mg 10 mg (2 x 5 mg) PO QAM #30 tabs 10/28/24 tablet metoprolol succinate 25 mg 25 mg PO QDAY #30 tabs 10/28/24 tablet,extended release 24 hr rivaroxaban 15 mg tablet (Xarelto) 15 mg PO BIDWM #60 tabs 10/28/24 spironolactone 25 mg tablet 25 mg PO DAILY #30 tabs 10/28/24 furosemide 40 mg tablet (Lasix) 40 mg PO QDAY #20 tabs 11/28/24 potassium chloride 20 mEq 20 meq PO QDAY #20 tabs 11/28/24 tablet,extended release(part/cryst) apixaban 5 mg tablet (Eliquis) 5 mg PO BID #30 tabs 01/10/25 aspirin 81 mg capsule 81 mg PO QDAY #30 caps 01/10/25 atorvastatin 40 mg tablet 40 mg PO QDAY #30 tabs 01/10/25 cephalexin 500 mg capsule 500 mg PO QID #28 caps 01/10/25 doxycycline hyclate 100 mg capsule 100 mg PO BID #14 caps 01/10/25 furosemide 40 mg tablet (Lasix) 40 mg PO BID #30 tabs 05/04/25 losartan 50 mg tablet 50 mg PO QDAY #30 tabs 01/10/25 ketorolac 10 mg tablet 10 mg PO Q8H #10 tabs 08/14/25 Allergies Allergy/AdvReac Type Severity Reaction Status Date / Time No Known Allergies Allergy Verified 07/29/25 22:36 Review of Systems Review of Systems Systems Reviewed: All systems reviewed, normal except as documented Past Medical History Past Medical History NEUROLOGIC: Negative Neurological Disorders CARDIAC: Positive Cardiac Disorders, Congestive Heart Failure and Hypertension RESPIRATORY: Positive Pulmonary Embolism; Negative Chronic Obstructive Pulmonary Disease (COPD) or Asthma GASTROINTESTINAL: Negative Gastrointestinal Disorders GENITOURINARY: Positive Kidney Stones; Negative Genitourinary Disorders or Renal Disease MUSCULOSKELETAL: Negative Musculoskeletal Disorders ENDOCRINE: Negative Endocrine Disorders, Diabetes Mellitus Type 1 or Diabetes Mellitus Type 2 HEMATOLOGIC: Negative Blood Disorders or Sickle Cell Disease PSYCHO/SOCIAL: Positive Recreational Drug Use, Depression and Anxiety OTHER HISTORY: Negative MRSA or Vancomycin-Resistant Enterococci Family History FAMILY HISTORY: Positive Family Cancer Social History SMOKING STATUS: Former smoker SUBSTANCE USE: does not use ED Exam Narrative Physical exam: See [facility] for Dr. Hillman's physical exam documentation. Course Quality Measures none Orders Category Date Time Status Bedside COVID-19 Antigen Test NOW Care 08/19/25 18:25 Completed Bedside Influenza A&B Antigen Test NOW Care 08/19/25 18:25 Completed EKG (ED ONLY) *Do not use* NOW Care 08/19/25 18:25 Completed Saline [Insert IV] NOW Care 08/19/25 18:25 Completed Straight [In and Out Catheter] X1 Care 08/19/25 18:[address] cervical spine wo con Stat Exams 08/19/25 18:[address] chest abdomen pelvis wo Stat Exams 08/19/25 18:[address] head/brain wo con Stat Exams 08/19/25 18:26 Completed EKG (ED Only) Stat Exams 08/19/25 18:25 Draft US abdomen limited Stat Exams 08/19/25 19:28 Completed XR chest 1V portable Stat Exams 08/19/25 18:25 Completed Alcohol, Blood Medical Stat Lab 08/19/25 18:45 Completed Ammonia Stat Lab 08/19/25 18:45 Completed BNP [B-Type Natriuretic Peptide] Stat Lab 08/19/25 18:45 Completed Beta Hydroxybutyrate Stat Lab 08/19/25 18:45 Completed Bilirubin,Direct Stat Lab 08/19/25 18:45 Completed CBC Stat Lab 08/19/25 18:45 Completed CK [Creatine Kinase] Stat Lab 08/19/25 18:45 Completed CMP [Comprehensive Metabolic Panel] Stat Lab 08/19/25 18:45 Completed CRP [C-Reactive Protein] Stat Lab 08/19/25 18:45 Completed Drug Screen,Urine Stat Lab 08/19/25 19:18 Completed ESR [Sed Rate (ESR)] Stat Lab 08/19/25 18:45 Completed Hemoglobin A1C [Glycohemoglobin w (eAG)] Stat Lab 08/19/25 18:45 Completed Lactate (Lactic Acid) Stat Lab 08/19/25 18:45 Completed Lipase Stat Lab 08/19/25 18:45 Completed Magnesium Stat Lab 08/19/25 18:45 Completed Procalcitonin Stat Lab 08/19/25 18:45 Completed Troponin I Stat Lab 08/19/25 18:45 Completed UA, C/S IF [Urinalysis, C/S if Indicated] Stat Lab 08/19/25 19:18 Completed VBG [Venous Blood Gas] Stat Lab 08/19/25 18:45 Completed Magnesium Sulfate 2 GM Ivpb [Magnesium Sulfate Ivpb] Med 08/19/25 19:46 Discontinued 2 gm in 50 ml IV X1 Ringers Lactated 1000 ml [Lactated Ringers] 1,000 ml Med 08/19/25 18:25 Discontinued IV 1,000 mls/hr Vital Signs Vital signs: Vital Signs Temperature 98.1 F 08/19/25 18:14 Pulse Rate 87 08/19/25 18:14 Respiratory Rate 18 08/19/25 18:14 Blood Pressure 169/105 H 08/19/25 18:14 Pulse Oximetry (%) 97 08/19/25 18:14 Oxygen Delivery Method Room Air 08/19/25 18:14 Syncope MDM Narrative MDM Narrative:: This section includes all my notes and documentations, including HPI, PE, and ED course. Lc Hillman MD HPI: 55-year-old male [facility] after possible syncopal episode. In his bed, he was noted to be unresponsive. No falls noted. Here, patient is awake and oriented. He doesn't remember what happened. He reports abstaining from alcohol and drugs for a week. No headache or dizziness. No speech or visual impairment. No loss of power in the arms or legs. No chest pain. No other complaints. ROS: All negative except as documented in HPI. Physical Exam: General:? Alert and oriented.? No acute distress.? Eyes:? Conjunctivae and lids clear.? EOMI.? PERRL. ENT:? No signs of head trauma. Neck:? Supple.? No tenderness. Heart:? RRR. Lungs:? No respiratory distress.? Good air movement.? No rhonchi, wheezing, rales.? Chest:? No tenderness. Abdomen:? Soft and nontender.? Normal bowel sounds.? No distension.? No rebound or guarding.? Back:? No tenderness.? Skin:? Warm and dry.? Neuro:? Alert and oriented X 3.? Cranial Nerves II-XII grossly intact.? No peripheral motor deficits. Musculoskeletal:? All major joints and bones are not tender with no limited ROM. I reviewed EMS notes. I reviewed all diagnostic test results. My interpretation of the EKG is sinus rhythm with nonspecific ST-T changes. My interpretation of the chest x-ray is no acute findings. My review of the CT head report is NAD. My review of the CT cervical spine report is no fracture. My review of the CT chest abdomen pelvis report is NAD. Blood/urine tests remarkable for Mg 1.5. COVID/Influenza negative. At this point, diagnoses include: Weakness Hypomagnesemia Treatment here included: IVF MgSO4 2 gram IV Significant improvement noted. Recommended more outpatient workup. Based on my best medical judgment, made decision no further evaluation or treatment indicated at this time. Patient understands and agrees to the discharge instructions customized and printed, see below. Discharge instructions from Dr. Hillman: 1. After extensive evaluation, there is no immediately life-threatening condition. Such as stroke or brain tumor or heart attack or pulmonary embolism (blood clots in your lungs) or pneumothorax (collapsed lung). 2. Exact cause of your weakness was not determined. But congratulations for being free of alcohol and drugs for a week. 3. Your magnesium level was low. Increase food rich in magnesium. Such as green and leafy vegetables and peanuts and cashews and almonds. 4. See a private doctor on 08/20/2025 for recheck and further care, including second opinion. Ask to review all test results and official radiology reports, to make sure you receive all necessary follow-ups and monitoring. To make sure there is no serious underlying heart condition, ask to help you get more tests for your heart that cannot be done here in the ER. Such as Holter Monitor (cardiac monitoring at home from a day to even a month), heart stress test (on treadmill or with medication), echocardiogram (imaging of your heart structures), heart catherization (checking for blockages in your heart arteries), and a referral to see a Brim Edge Trimmer. 5. Seek immediate medical care with worsening or with any concerns. Lc Hillman MD Patient data External records reviewed:: [facility] previous records (Per chart review, patient was seen here on 08/14/25 for pain.) and EMS form Clinical information provided by:: patient Social determinants that could affect healthcare access:: none Patient has the following chronic illnesses:: CHF, HTN How is presenting disease/condition affected by chronic disease/condition?: uneffected by Evaluation data The following diagnostics were reviewed and interpreted by me:: lab results, radiology exam(s) and EKG tracing(s) (My interpretation of the EKG is: Sinus rhythm (96 bpm) with nonspecific ST-T changes. Lc Hillman MD) Lab and/or radiology exams considered but not ordered:: none Interpretation Summary: I reviewed all diagnostic test results. My interpretation of the EKG is sinus rhythm with nonspecific ST-T changes. My interpretation of the chest x-ray is no acute findings. My review of the CT head report is NAD. My review of the CT cervical spine report is no fracture. My review of the CT chest abdomen pelvis report is NAD. Blood/urine tests remarkable for Mg 1.5. COVID/Influenza negative. Medications / Prescriptions Medications or Prescriptions considered but not ordered:: none Medication administrations:: Medication Administration History Discontinued Medications Lactated Ringer's (Lactated Ringers) 1,000 mls @ 1,000 mls/hr IV .Q1H ONE Stop: 08/19/25 19:24 Last Infusion: 08/19/25 20:28 Dose: Infused Documented By: Admin: 08/19/25 19:20 Dose: 1,000 mls/hr Documented By: INGRID Magnesium Sulfate (Magnesium Sulfate Ivpb) 2 gm in 50 mls @ 25 mls/hr IV X1 ONE Stop: 08/19/25 21:45 Last Infusion: 08/19/25 22:41 Dose: Infused Documented By: Admin: 08/19/25 20:26 Dose: 25 mls/hr Documented By: INGRID Treatment here included: IVF MgSO4 2 gram IV Consultations Consultation(s) initiated? (list below): No Diagnosis Syncope Differential Diagnosis: syncope due to orthostatic hypotension, vasovagal syncope, complete atrioventricular block, subarachnoid hemorrhage, pulmonary embolism and dehydration Most likely diagnosis given after review of the tests above:: Weakness Hypomagnesemia Admission Indicated Admission indicated?: not indicated Explain why admission is indicated or not indicated:: With significant improvement and no condition needing emergent intervention, there was no indication for admission. Admission Request Was there a request for admission?: No Disposition Plan Disposition Plan: Discharge Discharge Attestation Discharge Attestation: The patient and all family members were given an opportunity to ask questions and understood the discharge instructions. Discharge instructions specifically effects, indications for sooner follow up or return to the emergency department, and the expected course of current diagnosis. Patient condition: Stable Discharge Plan Plan Patient Disposition: HOME (Self Care) Prescriptions/Referrals Prescriptions/Med Rec: No Action losartan 25 mg Tablet 25 mg PO QDAY Qty: 30 2RF nitroglycerin 0.4 mg tablet, sublingual 0.4 mg buccal 1XD PRN (Reason: Chest Pain) Rx Instructions: I TAB UNDER THE TONGUE EVERY 5 MINUTES NEED FOR CHEST PAIN, MAY GIVE UP TO 3 DOSES atorvastatin 20 mg Tablet 40 mg PO HS Qty: 30 0RF aspirin [Ecotrin Low Strength] 81 mg Tablet,Delayed Release (Dr/Ec) 81 mg PO QDAY Qty: 60 0RF spironolactone 25 mg Tablet 25 mg PO DAILY Qty: 30 0RF metoprolol succinate 25 mg Tablet Extended Release 24 Hr 25 mg PO QDAY Qty: 30 0RF Xarelto 15 mg Tablet 15 mg PO BIDWM Qty: 60 0RF dapagliflozin propanediol 5 mg Tablet 10 mg PO QAM Qty: 30 0RF bumetanide 2 mg tablet 2 mg PO QDAY Qty: 30 0RF furosemide [Lasix] 40 mg tablet 40 mg PO QDAY Qty: 20 0RF potassium chloride 20 mEq tablet,ER particles/crystals 20 meq PO QDAY Qty: 20 0RF aspirin 81 mg capsule 81 mg PO QDAY Qty: 30 0RF atorvastatin 40 mg tablet 40 mg PO QDAY Qty: 30 0RF doxycycline hyclate 100 mg capsule 100 mg PO BID Qty: 14 0RF Eliquis 5 mg tablet 5 mg PO BID Qty: 30 0RF cephalexin 500 mg capsule 500 mg PO QID Qty: 28 0RF furosemide [Lasix] 40 mg tablet 40 mg PO BID Qty: 30 0RF losartan 50 mg tablet 50 mg PO QDAY Qty: 30 0RF ketorolac 10 mg tablet 10 mg PO Q8H Qty: 10 0RF Rx Instructions: maximum total duration of 5 days from all oral, intranasal, or parenteral formulations albuterol sulfate 90 mcg/actuation HFA aerosol inhaler 2 puff inhalation Q6H PRN (Reason: shortness of breath or wheezing) Qty: 8.5 0RF Referrals: No Primary/Family,Physician [Primary Care Provider] - In 1 week Problem List Clinical Impression: Weakness, Hypomagnesemia Patient/Caregiver Discharge Instructions Discharge Activity: activity as tolerated Education Materials: Magnesium (Blood), ED Weakness (Uncertain Cause) Additional Instructions: Discharge instructions from Dr. Hillman: 1. After extensive evaluation, there is no immediately life-threatening condition. Such as stroke or brain tumor or heart attack or pulmonary embolism (blood clots in your lungs) or pneumothorax (collapsed lung). 2. Exact cause of your weakness was not determined. But congratulations for being free of alcohol and drugs for a week. 3. Your magnesium level was low. Increase food rich in magnesium. Such as green and leafy vegetables and peanuts and cashews and almonds. 4. See a private doctor on 08/20/2025 for recheck and further care, including second opinion. Ask to review all test results and official radiology reports, to make sure you receive all necessary follow-ups and monitoring. To make sure there is no serious underlying heart condition, ask to help you get more tests for your heart that cannot be done here in the ER. Such as Holter Monitor (cardiac monitoring at home from a day to even a month), heart stress test (on treadmill or with medication), echocardiogram (imaging of your heart structures), heart catherization (checking for blockages in your heart arteries), and a referral to see a Brim Edge Trimmer. 5. Seek immediate medical care with worsening or with any concerns. Print Language: Yoruba Stand Alone Forms: [employer]leen Award Info., Patient Portal Info Letter
--- NOTE | 2025-08-19 18:25 | EKG_ITS ---
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
--- NOTE | 2025-08-19 18:25 | XR_ITS ---
EXAMINATION: AP chest single view TECHNIQUE: 1. AP portable upright chest single view Date and time: August 19, 2025, 1828 hours INDICATION: Shortness of breath today. FINDINGS: Mild heart failure Moderate enlargement left ventricle Prominent vascular congestion with early septal edema Mild osteopenia IMPRESSION: Early heart failure
--- NOTE | 2025-08-19 18:26 | XR_ITS ---
Examination: CT cervical spine without contrast 2-D sagittal reconstructions 2-D coronal reconstructions 3-D reconstructions. Exam date and time: August 19, 2025, 1846 hours INDICATIONS: Patient fell today with injury to the neck, neck pain CTDI:vol (mGy) 18.6 DLP: (mGycm) 414 Technique: Multiple 2 mm axial sections of the cervical spine have been obtained. The coronal and sagittal reconstructions have been obtained. 3-D reconstructions have been obtained. Low dose protocols were performed. One or more of the following dose reduction techniques were used; automated exposure control, adjustment of the mA and/or KV according to patient size, use of iterative reconstruction technique. Findings: Axial sections demonstrate intact base of the skull. C1 exhibit satisfactory relationship to the odontoid. No acute cervical vertebral body fracture seen. Alignment posterior spinous processes satisfactory. Impression: No acute cervical fracture.
--- NOTE | 2025-08-19 18:26 | XR_ITS ---
Examination: CT chest, without intravenous contrast. CT abdomen, without intravenous contrast. CT pelvis, without intravenous contrast. 2-D sagittal and coronal reconstructions. 3-D reconstructions. Date and time of exam: August 19, 2025, 1903 hours INDICATIONS: Patient fell today with injury to the chest and abdomen, chest pain abdomen pain CTDI vol (mgy) 17.4 DLP (MGycm) 1577 Technique: Multiple CT images, 3.0 mm slice thickness, obtained chest, abdomen, pelvis, with the high-resolution 64 slice scanner.. Sagittal and coronal 2-D reconstructions are obtained. 3-D reconstructions Low dose protocols were performed. One or more of the following dose reduction techniques were used; automated exposure control, adjustment of the mA and/or KV according to patient size, use of iterative reconstruction technique. Findings: Thoracic aorta pulmonary arteries intact on this noncontrast study No hemopericardium No pneumothorax pulmonary contusion or hemothorax The manubrium and the body of the sternum intact No thoracic lumbar or sacral acute fracture noted Old left-sided rib fractures No acute fractures No liver splenic or renal laceration on this noncontrast study 8 mm right renal calculus No pancreatic mass No hydronephrosis or ureteral calculi Liver is irregular in contour, suspicious for anasarca No bowel obstruction Negative for pneumoperitoneum Urinary bladder intact Bones of the pelvis and hips appear intact IMPRESSION: Thoracic aorta pulmonary arteries intact No pneumothorax pulmonary contusion or hemothorax No abdominal parenchymal laceration 8 mm nonobstructing right renal calculus 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
--- NOTE | 2025-08-19 18:26 | XR_ITS ---
Examination: CT brain head without contrast. 2-D sagittal coronal reconstructions Date and time of exam: August 19, 2025, 1846 hours INDICATIONS: Patient fell today with injury of the head, head pain CTDI: vol (mGy): 53.9 DLP: (mGycm): 1079 Technique: Multiple CT axial sections of the brain have been obtained, 5 mm slice thickness. Contrast has not been administered. 2-D sagittal, coronal reconstructions have been obtained Low dose protocols were performed. One or more of the following dose reduction techniques were used; automated exposure control, adjustment of the mA and/or KV according to patient size, use of iterative reconstruction technique. Findings: No significant ventricular enlargement. Old infarct left cerebellar hemisphere Intra-axial or extra-axial hemorrhage density is not seen. No mass effect or midline shift Basal cisterns are not remarkable. Fourth ventricle is midline. Cranial vault intact. Impression: Negative for acute hemorrhage, mass effect or midline shift
[2025-08-19 18:43] VITALS: BP 128/91; PULSE 90; RESP 18; O2SAT 96
[2025-08-19 19:00] LABS: Base Excess, Venous 3 (-3-3); Lactate (Lactic Acid) 3.5 mMol/L (0.4-2.0); O2 Saturation, Venous 83 % (96-97); PCO2, Venous 47 mmHg (36-56); PO2, Venous 48 mmHg (15-58); pH, Venous 7.39 (7.33-7.66)
[2025-08-19 19:05] LABS: Beta Hydroxybutyrate 0.1 mmol/L (<0.6)
[2025-08-19 19:06] LABS: Sed Rate (ESR) 22 mm/hr (0-20)
[2025-08-19 19:08] LABS: Basophils # (Auto) 0.0 Thou/mm3 (0.0-0.2); Basophils % (Auto) 1 % (0-2.5); Eosinophils # (Auto) 0.1 Thou/mm3 (0.0-0.5); Eosinophils % (Auto) 2 % (0-10); Hematocrit 47.7 % (41.0-53.0); Hemoglobin 15.4 g/dL (13.5-16.0); Immature Granulocytes Auto 0.03 Thou/mm3 (0.00-0.00); Lymphocytes # (Auto) 1.6 Thou/mm3 (1.0-4.8); Lymphocytes % (Auto) 20 % (10-50); Mean Corpuscular HGB Conc 32.3 g/dl (31.0-37.0); Mean Corpuscular Hemoglobin 30.4 pg (25.0-35.0); Mean Corpuscular Volume 94 fL (80-100); Monocytes # (Auto) 0.7 Thou/mm3 (0.0-0.8); Monocytes % (Auto) 8 % (0-12); Neutrophils # (Auto) 5.5 Thou/mm3 (1.8-7.7); Neutrophils % (Auto) 69 % (37-80); Nucleated Red Blood Cell # 0.00 Thou/mm3 (0.00-0.00); Nucleated Red Blood Cell % 0 /100 WBC (0); Platelet Count 282 Thou/mm3 (140-440); RDW Standard Deviation 46.7 fL (35.1-43.9); Red Blood Count 5.07 Miln/mm3 (4.50-5.90); White Blood Count 8.0 Thou/mm3 (3.8-10.6)
[2025-08-19 19:19] LABS: Ammonia 30 uMol/L (11-32)
[2025-08-19] MEDS: RINGERS LACTATED 1000 ML 1,000 ML IV (19:20)
[2025-08-19 19:24] LABS: B-Type Natriuretic Peptide 747 pg/mL (0-100)
[2025-08-19 19:26] LABS: Glucose Estimated Average 126 mg/dL (80-131); Hemoglobin A1C 6.0 % Hgb (4.8-6.0)
--- NOTE | 2025-08-19 19:28 | XR_ITS ---
Examination: Abdomen sonogram, Limited Date and time of exam: August 19, 2025, 1943 hours INDICATIONS: Alcohol withdrawal symptoms abdominal distention today Technique: Real-time urbina scale transabdominal sonographic images of the upper abdomen obtained. 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
[2025-08-19 19:29] LABS: Alanine Aminotransferase 32 U/L (10-49); Albumin, Serum 4.1 gm/dL (3.5-5.0); Albumin/Globulin Ratio 1.2 (1.2-2.2); Alcohol, Blood Medical < 3.0 mg/dL (0-10.0); Alkaline Phosphatase 112 U/L (46-116); Anion Gap 12 (7-16); Aspartate Amino Transferase 55 U/L (0-34); BUN/Creatinine Ratio 9 Ratio (12-20); Bilirubin,Direct 0.4 mg/dL (0.0-0.3); Bilirubin,Total 0.9 mg/dL (0.3-1.2); Blood Urea Nitrogen 13 mg/dL (9-23); C-Reactive Protein < 0.5 mg/dL (0.0-0.9); Calcium 8.4 mg/dL (8.3-10.6); Calcium (Corrected) 8.4 mg/dL (8.5-10.1); Carbon Dioxide 29.3 mMol/L (20.0-31.0); Chloride 104 mMol/L (98-107); Creatine Kinase 307 U/L (34-171); Creatinine (Component) 1.5 mg/dL (0.6-1.3); Estimated Creatinine Clearance 76.9 mL/min (>60); Globulin 3.4 gm/dL (2.3-3.5); Glucose 103 mg/dL (74-106); Lipase 89 U/L (12-53); Magnesium 1.5 mg/dL (1.6-2.6); Osmolality,Calculated 288 (275-295); Potassium 3.7 mMol/L (3.4-5.1); Procalcitonin 0.06 ng/ml (0.0-0.49); Sodium 145 mMol/L (136-145); Total Protein 7.5 gm/dL (5.7-8.2); eGFR 55 See Note
[2025-08-19 19:30] LABS: Troponin I 0.231 ng/mL (0.0-0.045)
[2025-08-19 19:33] LABS: Collection Type, Urine Clean Catch
[2025-08-19 19:45] LABS: Bilirubin,Urine Negative (Negative); Blood,Urine Negative (Negative); Clarity,Urine Clear (Clear/Hazy); Color,Urine Lt-Yellow (Lt Yel-Yel); Culture Indicated,Urine Not Indicated; Glucose, Urine 4+ (Negative); Ketones,Urine Negative (Negative); Leukocyte Esterase,Urine Negative (Negative); Nitrite,Urine Negative (Negative); PH,Urine 6.0 (5.0-7.0); Protein,Urine 1+ (Neg - Trace); RBC,Urine 2 /hpf (0-3); Specific Gravity,Urine 1.029 (1.001-1.035); Squamous Epithelial Cell,Urine < 1 /hpf (0-5); Urobilinogen,Urine Negative mg/dL (0.0-1.0); WBC,Urine 2 /hpf (0-5)
[2025-08-19 19:52] LABS: Amphetamine/Methamp Scrn,U Negative (Negative); Barbiturate Screen,Urine Positive (Negative); Benzodiazepines Screen,Urine Positive (Negative); Benzoylecgonine Screen, Ur Negative (Negative); Fentanyl Screen,Urine Negative (Negative); Opiate Screen,Urine Negative (Negative); THC Screen,Urine Positive (Negative)
[2025-08-19] MEDS: Magnesium Sulfate 2 GM Ivpb 2 GM/50 ML BAG IV (20:26)
[2025-08-19 21:58] LABS: Reflex Lactate? Y
[2025-08-19 22:41] VITALS: BP 132/90; PULSE 89; RESP 18; TEMP 37; O2SAT 98
== END 2025-08-19 22:42 | disposition home or self-care (01) ==
PROVIDERS: Emergency Provider Emergency Medicine
DX: E83.42 Hypomagnesemia (principal); R53.1 Weakness; R06.02 Shortness of breath; S19.9XXA Unspecified injury of neck, initial encounter; S09.90XA Unspecified injury of head, initial encounter; S29.9XXA Unspecified injury of thorax, initial encounter; S39.91XA Unspecified injury of abdomen, initial encounter; I50.9 Heart failure, unspecified; I11.0 Hypertensive heart disease with heart failure; R94.31 Abnormal electrocardiogram [ECG] [EKG]; X58.XXXA Exposure to other specified factors, initial encounter; Z87.891 Personal history of nicotine dependence
CPT/HCPCS: 36415; 70450; 71045; 71250; 72125; 74176; 76705; 80053; 80307; 80320; 81001; 82010; 82140; 82150; 82248; 82550; 82803; 83036; 83605; 83690; 83735; 83880; 84145; 84443; 84484; 85025; 85652; 86140; 87502; 87635; 93005; 96361; 96365; 96366; 99284; J3475; J7120; G0480

== ENCOUNTER 2025-09-04 22:20 | Emergency (ER) | payer MEDICAID, SELFPAY ==
[2025-09-04 22:34] VITALS: PULSE 84; RESP 18; BMI 36.5
--- NOTE | 2025-09-04 22:43 | EKG_ITS ---
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: : 1970 Requested By: Ryland Leon Order Number: [id number] Reading MD: Ryland Leon Measurements Intervals [place] Rate: 89 P: 40 TN: 188 QRS: -84 QRSD: 99 T: 74 QT: 378 QTc: 462 Interpretive Statements SINUS RHYTHM POSSIBLE LEFT ATRIAL ENLARGEMENT [-0.1mV P-WAVE IN V1/V2] LEFT AXIS DEVIATION [QRS AXIS < -30] LOW QRS VOLTAGE IN PRECORDIAL LEADS [QRS DEFLECTION < 1.0 mV IN CHEST LEADS] S1-S2-S3 PATTERN, CONSISTENT WITH PULMONARY DISEASE, RVH, OR NORMAL VARIANT INCOMPLETE RIGHT BUNDLE BRANCH BLOCK [90+ ms QRS DURATION, TERMINAL R IN V1/V2, 40+ ms S IN I/aVL/V4/V5/V6] POSSIBLE ANTERIOR MYOCARDIAL INFARCTION , PROBABLY OLD [30 ms Q WAVE IN V3/V4, OR R < 0.2 mV IN V4] Compared to ECG 08/19/2025 18:34:18 Low QRS voltage now present Right ventricular hypertrophy now present Incomplete right bundle-branch block now present Myocardial infarct finding still present /store/S0/[id number]/[id number].pdf
[2025-09-04 22:47] VITALS: BP 115/95; PULSE 91; RESP 24; TEMP 37; O2SAT 97
--- NOTE | 2025-09-04 23:04 | XR_ITS ---
EXAMINATION: AP chest single view TECHNIQUE: AP portable upright chest single view Date and time: September 04, 2025, 11:37 p.m., comparison August 19, 2025 INDICATIONS: Shortness of breath weakness today. FINDINGS: Early heart failure Mild enlargement cardiac contour Prominent central pulmonary vascular congestion Unipolar ventricular cardiac lead partially visualized No lobar pneumonia IMPRESSION: Mild heart failure
--- NOTE | 2025-09-04 23:04 | PD.EDANX ---
ED Anxiety RME/HPI General Chief Complaint: Anxiety Stated Complaint: ANXIETY Time Seen by Provider: 09/04/25 23:04 Arrival date/time: 09/04/25 22:20 RME / HPI RME / HPI narrative: DR. REBOLLEDO MAIN ED EVALUATION: Patient with Hx of non-ischemic cardiomyopathy with recent placement of AICD pacemaker 4 days BILL HIKER reports abrupt continuance of methamphetamine in addition to drinking up to 1/5 of spirits per day, reports having smoked marijuana earlier this evening and notes becoming lightheaded, dizzy, and weak prompting ED visit. No nausea, vomiting, or fever. No sustained chest pain or progressive shortness of breath. PMH: Cardiomyopathy, HLD, HTN, and Cirrhosis PSH: Ureteral sten placement, Recent Implantaion of AICD Pacemaker Allergies: NKDA Social: Long standing meth abuse, alcohol dependence and marijuana use Related Data Home Medications ?Medication ?Instructions ?Recorded ?Confirmed nitroglycerin 0.4 mg sublingual 0.4 mg buccal 1XD PRN Chest Pain 08/01/24 10/26/24 tablet Previous Rx's ?Medication ?Instructions ?Recorded losartan 25 mg tablet 25 mg PO QDAY #30 tabs 09/15/23 albuterol sulfate 90 mcg/actuation 2 puff inhalation Q6H PRN 09/07/24 aerosol inhaler shortness of breath or wheezing #8.5 grams aspirin 81 mg tablet,delayed 81 mg PO QDAY #60 tabs 10/28/24 release (Ecotrin Low Strength) atorvastatin 20 mg tablet 40 mg (2 x 20 mg) PO HS #30 tabs 10/28/24 bumetanide 2 mg tablet 2 mg PO QDAY #30 tabs 10/28/24 dapagliflozin propanediol 5 mg 10 mg (2 x 5 mg) PO QAM #30 tabs 10/28/24 tablet metoprolol succinate 25 mg 25 mg PO QDAY #30 tabs 10/28/24 tablet,extended release 24 hr rivaroxaban 15 mg tablet (Xarelto) 15 mg PO BIDWM #60 tabs 10/28/24 spironolactone 25 mg tablet 25 mg PO DAILY #30 tabs 10/28/24 furosemide 40 mg tablet (Lasix) 40 mg PO QDAY #20 tabs 11/28/24 potassium chloride 20 mEq 20 meq PO QDAY #20 tabs 11/28/24 tablet,extended release(part/cryst) apixaban 5 mg tablet (Eliquis) 5 mg PO BID #30 tabs 01/10/25 aspirin 81 mg capsule 81 mg PO QDAY #30 caps 01/10/25 atorvastatin 40 mg tablet 40 mg PO QDAY #30 tabs 01/10/25 cephalexin 500 mg capsule 500 mg PO QID #28 caps 01/10/25 doxycycline hyclate 100 mg capsule 100 mg PO BID #14 caps 01/10/25 furosemide 40 mg tablet (Lasix) 40 mg PO BID #30 tabs 01/10/25 losartan 50 mg tablet 50 mg PO QDAY #30 tabs 01/10/25 ketorolac 10 mg tablet 10 mg PO Q8H #10 tabs 08/14/25 apixaban 2.5 mg tablet (Eliquis) 2.5 mg PO BID #60 tabs 09/05/25 aspirin 81 mg tablet 81 mg PO QDAY #30 tabs 09/05/25 atorvastatin 40 mg tablet (Lipitor) 40 mg PO QDAY #30 tabs 09/05/25 bumetanide 1 mg tablet 1 mg PO QDAY #30 tabs 09/05/25 furosemide 40 mg tablet (Lasix) 40 mg PO BID #60 tabs 09/05/25 lorazepam 0.5 mg tablet (Ativan) 0.5 mg PO QDAY PRN alcohol 09/05/25 withdrawal #12 tabs metoprolol succinate 25 mg 25 mg PO QDAY #30 tabs 09/05/25 tablet,extended release 24 hr Allergies Allergy/AdvReac Type Severity Reaction Status Date / Time No Known Allergies Allergy Verified 07/29/25 22:36 Review of Systems Review of Systems Systems Reviewed: All systems reviewed, normal except as documented Past Medical History Past Medical History CARDIAC: Positive Congestive Heart Failure and Hypertension RESPIRATORY: Positive Pulmonary Embolism GASTROINTESTINAL: Positive Cirrhosis GENITOURINARY: Positive Kidney Stones PSYCHO/SOCIAL: Positive Recreational Drug Use, Depression and Anxiety Family History FAMILY HISTORY: Positive Family Cancer Surgical History SURGICAL: Positive Pacemaker Social History SMOKING STATUS: Former smoker ED Exam Narrative Physical exam: GEN. APPEARANCE: The patient is alert awake oriented X-3 under no distress, lying down comfortably, does not look ill/toxic. Patient has good eye contact. Patient is cooperative. VITALS: All vitals were reviewed and the pulse ox is []%, which is normal according to my interpretation HEENT: Normocephalic, atraumatic and nontender. Pupils are equal and reactive. Oral mucosa is moist. NECK: Supple, nontender, no meningismus, no JVD. There is no thyromegaly and no lymphadenopathy. CHEST: Nontender on palpation no deformity and no crepitus. CARDIOVASCULAR: Heart regular rhythm, no murmur or gallop rub or extra beats. LUNGS: Clear to auscultation bilaterally with symmetrical chest rise. No laboring tachypnea or wheezing. No intercostal subcostal retraction. No rales and no rhonchi. ABDOMEN: Soft, obese, nontender to palpation, no guarding or rebound tenderness. There are no abnormal masses palpated. No pulsatile masses or bruits. Active and normal bowel sounds. EXTREMITIES: Normal inspection and palpation. Minimal peripheral edema. No cyanosis. Patient is able to move all 4 extremities well SKIN: Warm and dry, no rashes noted. MUSCULOSKELETAL: No lumbar or midline bony tenderness. There is no CVA tenderness. No paraspinal muscle spasm or tenderness. NEURO: Cranial nerves II through XII grossly intact. There are no focal neurologic deficits noted. GCS is 15 PSYCHIATRIC: Emotionally labile, occasionally tearful. LYMPHATICS: No major lymphadenopathy noted. Course Quality Measures none Orders Category Date Time Status EKG (ED ONLY) *Do not use* NOW Care 09/04/25 22:43 Completed EKG (ED Only) Stat Exams 09/04/25 22:43 Draft Vital Signs Vital signs: Vital Signs Temperature 98.6 F 09/04/25 22:47 Pulse Rate 91 09/04/25 22:47 Respiratory Rate 24 H 09/04/25 22:47 Blood Pressure 115/95 H 09/04/25 22:47 Pulse Oximetry (%) 97 09/04/25 22:47 Oxygen Delivery Method Room Air 09/04/25 22:47 Anxiety MDM Narrative MDM Narrative: Scribe Attestation: Kayla Serrano, am scribing for and in the presence of Dr. Rebolledo. Provider Notation: Although this document has been carefully reviewed, there may still be some phonetic and other typographical errors. These errors are purely grammatical due to imperfections in the software program and should not be construed in any way to compromise the substance of the patient's medical care during this visit. Patient with Hx of non-ischemic cardiomyopathy with recent placement of AICD pacemaker 4 days BILL HIKER reports abrupt continuance of methamphetamine in addition to drinking up to 1/5 of spirits per day, reports having smoked marijuana earlier this evening and notes becoming lightheaded, dizzy, and weak prompting ED visit. No nausea, vomiting, or fever. Please see PE findings. Laboratory markers, including CBC and serum chemistries, demonstrated WBC of 7.6, stable Hgb of 14.7, and normal platelet count. No left shuift or bandemia. Serum chemistries demonstrate stable creatinine of 9.5. Troponin I elevated at 1.3 decreased from 08/19 blood draw. BNP mildly increased at 953, CXR demonstrates mild fluid overload. Patient placed on motion study engineer, and administered Lasix IV, given mild CHF exacerbation. Patient also likely experiencing early symptoms of withdrawal from alcohol having been reportedly sober for 4 days. Low-dose benzodiazepines administered. Patient observed for extended period of time and considered stable for discharge. Will refill medications, emphasize compliance, and placed on short benzodiazepine taper with close f/u with workers compensation adjuster anticipated. Final diagnoses include acute exacerbation of CHF and mild alcohol withdrawal. Patient data External records reviewed:: [facility] previous records (Reviewed prior ED records from 08/19/25. Patient was seen for Hypomagnesemia.) and EMS form Clinical information provided by:: patient and EMS Social determinants that could affect healthcare access:: substance use (Methamphetamine, Marijuana, Alcohol) Patient has the following chronic illnesses:: Congestive Heart Failure , Cardiomyopathy, Hypertension, Pulmonary Embolism, Cirrhosis, Kidney Stones, Recreational Drug Use, Depression and Anxiety How is presenting disease/condition affected by chronic disease/condition?: exacerbated by Evaluation data The following diagnostics were reviewed and interpreted by me:: lab results, radiology exam(s) and EKG tracing(s) (EKG at 22:42 shows normal sinus rhythm at 89, leftward axis, no ST segment changes, no ventricular ectopy, no signs of acute ischemia, per my interpretation.) Lab and/or radiology exams considered but not ordered:: None Interpretation Summary: RADIOLOGY Chest X-Ray: FINDINGS: Early heart failure Mild enlargement cardiac contour Prominent central pulmonary vascular congestion Unipolar ventricular cardiac lead partially visualized No lobar pneumonia IMPRESSION: Mild heart failure Medications / Prescriptions Medications or Prescriptions considered but not ordered:: None Medication administrations:: See above if any. Consultations Consultation(s) initiated? (list below): No Diagnosis Differential diagnosis anxiety: panic disorder and acute anxiety Most likely diagnosis given after review of the tests above:: Exacerbation of CHF, Alcohol dependence, Alcohol withdrawal Admission Indicated Admission indicated?: not indicated Explain why admission is indicated or not indicated:: Patient does not meet admission criteria. Admission Request Was there a request for admission?: No Disposition Plan Disposition Plan: Discharge Discharge Attestation Discharge Attestation: The patient and all family members were given an opportunity to ask questions and understood the discharge instructions. Discharge instructions specifically effects, indications for sooner follow up or return to the emergency department, and the expected course of current diagnosis. Patient condition: Stable Discharge Plan Plan Patient Disposition: HOME (Self Care) Discharge Disposition comment: stable Prescriptions/Referrals Prescriptions/Med Rec: No Action losartan 25 mg Tablet 25 mg PO QDAY Qty: 30 2RF nitroglycerin 0.4 mg tablet, sublingual 0.4 mg buccal 1XD PRN (Reason: Chest Pain) Rx Instructions: I TAB UNDER THE TONGUE EVERY 5 MINUTES NEED FOR CHEST PAIN, MAY GIVE UP TO 3 DOSES atorvastatin 20 mg Tablet 40 mg PO HS Qty: 30 0RF aspirin [Ecotrin Low Strength] 81 mg Tablet,Delayed Release (Dr/Ec) 81 mg PO QDAY Qty: 60 0RF spironolactone 25 mg Tablet 25 mg PO DAILY Qty: 30 0RF metoprolol succinate 25 mg Tablet Extended Release 24 Hr 25 mg PO QDAY Qty: 30 0RF Xarelto 15 mg Tablet 15 mg PO BIDWM Qty: 60 0RF dapagliflozin propanediol 5 mg Tablet 10 mg PO QAM Qty: 30 0RF bumetanide 2 mg tablet 2 mg PO QDAY Qty: 30 0RF furosemide [Lasix] 40 mg tablet 40 mg PO QDAY Qty: 20 0RF potassium chloride 20 mEq tablet,ER particles/crystals 20 meq PO QDAY Qty: 20 0RF aspirin 81 mg capsule 81 mg PO QDAY Qty: 30 0RF atorvastatin 40 mg tablet 40 mg PO QDAY Qty: 30 0RF doxycycline hyclate 100 mg capsule 100 mg PO BID Qty: 14 0RF Eliquis 5 mg tablet 5 mg PO BID Qty: 30 0RF cephalexin 500 mg capsule 500 mg PO QID Qty: 28 0RF furosemide [Lasix] 40 mg tablet 40 mg PO BID Qty: 30 0RF losartan 50 mg tablet 50 mg PO QDAY Qty: 30 0RF ketorolac 10 mg tablet 10 mg PO Q8H Qty: 10 0RF Rx Instructions: maximum total duration of 5 days from all oral, intranasal, or parenteral formulations albuterol sulfate 90 mcg/actuation HFA aerosol inhaler 2 puff inhalation Q6H PRN (Reason: shortness of breath or wheezing) Qty: 8.5 0RF Referrals: No Primary/Family,Physician [Primary Care Provider] - In 1 week Problem List Clinical Impression: Acute exacerbation of CHF (congestive heart failure), Alcohol dependence, Alcohol withdrawal Impression comment: Acute exacerbation of CHF/alcohol dependence Patient/Caregiver Discharge Instructions Discharge Activity: activity as tolerated Education Materials: Recovering from Addiction, Addiction Recovery Counseling, Coping with Heart Failure Additional Instructions: Please take medications as directed. Avoid alcohol consumption while on short course of benzodiazepines. Print Language: Jordanian Stand Alone Forms: [facility]leen Award Info., Patient Portal Info Letter
[2025-09-04 23:29] LABS: Collection Type, Urine Clean Catch
[2025-09-04 23:32] LABS: Basophils # (Auto) 0.0 Thou/mm3 (0.0-0.2); Basophils % (Auto) 0 % (0-2.5); Eosinophils # (Auto) 0.2 Thou/mm3 (0.0-0.5); Eosinophils % (Auto) 2 % (0-10); Hematocrit 44.7 % (41.0-53.0); Hemoglobin 14.7 g/dL (13.5-16.0); Immature Granulocytes Auto 0.02 Thou/mm3 (0.00-0.00); Lymphocytes # (Auto) 2.1 Thou/mm3 (1.0-4.8); Lymphocytes % (Auto) 27 % (10-50); Mean Corpuscular HGB Conc 32.9 g/dl (31.0-37.0); Mean Corpuscular Hemoglobin 30.1 pg (25.0-35.0); Mean Corpuscular Volume 91 fL (80-100); Monocytes # (Auto) 0.7 Thou/mm3 (0.0-0.8); Monocytes % (Auto) 9 % (0-12); Neutrophils # (Auto) 4.6 Thou/mm3 (1.8-7.7); Neutrophils % (Auto) 61 % (37-80); Nucleated Red Blood Cell # 0.00 Thou/mm3 (0.00-0.00); Nucleated Red Blood Cell % 0 /100 WBC (0); Platelet Count 197 Thou/mm3 (140-440); RDW Standard Deviation 45.8 fL (35.1-43.9); Red Blood Count 4.89 Miln/mm3 (4.50-5.90); White Blood Count 7.6 Thou/mm3 (3.8-10.6)
[2025-09-04 23:35] LABS: Bilirubin,Urine Negative (Negative); Blood,Urine 3+ (Negative); Clarity,Urine Clear (Clear/Hazy); Color,Urine Yellow (Lt Yel-Yel); Culture Indicated,Urine Not Indicated; Glucose, Urine 4+ (Negative); Hyaline Casts,Urine < 1 /hpf (0-1); Ketones,Urine Negative (Negative); Leukocyte Esterase,Urine Negative (Negative); Nitrite,Urine Negative (Negative); PH,Urine 6.0 (5.0-7.0); Protein,Urine 2+ (Neg - Trace); RBC,Urine 104 /hpf (0-3); Specific Gravity,Urine 1.017 (1.001-1.035); Squamous Epithelial Cell,Urine 1 /hpf (0-5); Urobilinogen,Urine Negative mg/dL (0.0-1.0); WBC,Urine 3 /hpf (0-5)
[2025-09-04 23:52] LABS: INR 1.2 (0.9-1.3); Partial Thromboplastin Time 28.4 Seconds (22.0-36.0); Prothrombin Time 12.7 Seconds (9.0-12.2)
[2025-09-04 23:58] LABS: Alanine Aminotransferase 20 U/L (10-49); Albumin, Serum 4.2 gm/dL (3.5-5.0); Albumin/Globulin Ratio 1.3 (1.2-2.2); Alkaline Phosphatase 90 U/L (46-116); Anion Gap 12 (7-16); Aspartate Amino Transferase 42 U/L (0-34); B-Type Natriuretic Peptide 953 pg/mL (0-100); BUN/Creatinine Ratio 11 Ratio (12-20); Bilirubin,Total 1.1 mg/dL (0.3-1.2); Blood Urea Nitrogen 16 mg/dL (9-23); Calcium 9.3 mg/dL (8.3-10.6); Calcium (Corrected) 9.3 mg/dL (8.5-10.1); Carbon Dioxide 21.9 mMol/L (20.0-31.0); Chloride 106 mMol/L (98-107); Creatinine (Component) 1.4 mg/dL (0.6-1.3); Estimated Creatinine Clearance 73.0 mL/min (>60); Globulin 3.3 gm/dL (2.3-3.5); Glucose 89 mg/dL (74-106); LDH (Lactate Dehydrogenase) 387 U/L (120-246); Magnesium 1.7 mg/dL (1.6-2.6); Osmolality,Calculated 279 (275-295); Potassium 4.1 mMol/L (3.4-5.1); Sodium 140 mMol/L (136-145); Total Protein 7.5 gm/dL (5.7-8.2); eGFR > 60 See Note
[2025-09-04 23:58] LABS: Amphetamine/Methamp Scrn,U Negative (Negative); Barbiturate Screen,Urine Negative (Negative); Benzodiazepines Screen,Urine Negative (Negative); Benzoylecgonine Screen, Ur Negative (Negative); Fentanyl Screen,Urine Negative (Negative); Opiate Screen,Urine Negative (Negative); THC Screen,Urine Positive (Negative)
[2025-09-05 00:01] LABS: Troponin I 0.132 ng/mL (0.0-0.045)
[2025-09-05] MEDS: MIDAZOLAM INJ 1 MG/ML VIAL 2 ML 2 MG IVP (00:29)
[2025-09-05 00:33] VITALS: BP 106/70; PULSE 93
[2025-09-05] MEDS: FUROSEMIDE INJ 10 MG/ML 4ML VIAL 40 MG IVP (00:33)
[2025-09-05 00:35] VITALS: BP 106/70; PULSE 96; RESP 17; TEMP 36.8; O2SAT 90
[2025-09-05 01:32] VITALS: BP 103/70; PULSE 67; RESP 19; O2SAT 96
== END 2025-09-05 01:39 | disposition home or self-care (01) ==
PROVIDERS: Emergency Provider Emergency Medicine
DX: F10.239 Alcohol dependence with withdrawal, unspecified (principal); I11.0 Hypertensive heart disease with heart failure; I50.9 Heart failure, unspecified; I42.8 Other cardiomyopathies; Z87.891 Personal history of nicotine dependence; Z95.810 Presence of automatic (implantable) cardiac defibrillator
CPT/HCPCS: 36415; 71045; 80053; 80307; 81001; 83615; 83735; 83880; 84484; 85025; 85610; 85730; 93005; 96374; 96375; 99283; J1938; J2250

== ENCOUNTER 2025-09-07 08:19 | Emergency (ER) | payer MEDICAID, SELFPAY ==
[2025-09-07 08:33] VITALS: BP 128/81; PULSE 88; RESP 18; TEMP 36.8; O2SAT 96; BMI 38.0
--- NOTE | 2025-09-07 08:40 | XR_ITS ---
Study: Limited abdomen ultrasound. INDICATION: Ascites. TECHNIQUE: Grayscale ultrasound with color flow Doppler. 5 images at 1233 hours 07 September 2025. FINDINGS: There is no visible ascites in the study. IMPRESSION: No tappable ascites.
--- NOTE | 2025-09-07 08:41 | PD.EDRME ---
Rapid Medical Screening Exam RME Arrival date/time: 09/07/25 08:19 55-year-old male with a history of liver cirrhosis, hyperlipidemia, congestive heart failure, hypertension presents to the emergency room with a chief complaint of shortness of breath, bilateral lower extremity swelling, palpitations x 1 week I have greeted and performed a focused initial assessment of this patient. A comprehensive ED assessment and evaluation of the patient, analysis of all test results, and completion of the medical decision making process will be conducted by additional ED providers. Chief Complaint: Abdominal Pain Time Seen by Provider: 09/07/25 08:23 Vital signs: Vital Signs Temperature 98.2 F 09/07/25 08:33 Pulse Rate 88 09/07/25 08:33 Respiratory Rate 18 09/07/25 08:33 Blood Pressure 128/81 09/07/25 08:33 Pulse Oximetry (%) 96 09/07/25 08:33 Oxygen Delivery Method Room Air 09/07/25 08:33 Vital signs reviewed by provider: Yes Exam: Strong and regular rhythm Clear bilateral lung sounds Distended abdomen Clinical Impression: Ascites/CHF exacerbation
--- NOTE | 2025-09-07 09:04 | EKG_ITS ---
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
--- NOTE | 2025-09-07 09:05 | XR_ITS ---
Study: Abdomen pelvis CT. INDICATION: Generalized abdominal pain for 1 day. TECHNIQUE: 3 mm slice thickness axial axial, without contrast. 3 mm sagittal and coronal reformats. Radiation dose 1224 mGy centimeters with dose reduction technique. 2157 images at 1002 hours 07 September 2025. COMPARISON: Abdomen pelvis CT dated 19 August 2025. FINDINGS: The patient was imaged from the aortic valve to the subtrochanteric region. The heart appears to be enlarged by possible multichamber distention. There is a sequential AV pacer in the right heart. No pericardial effusion is seen. Trace calcifications noted in the left anterior descending coronary artery. The lung bases are free from infiltrates. Pulmonary veins are mildly distended. There are no effusions. In comparison with the 19 August 2025 study, the gallbladder is now distended to 5.3 cm and is free from stones. There is a solitary 3 x 4 mm calculus in an nonobstructing position within the right kidney. The left kidney, ureters and urinary bladder are free from calculi. There is no hydronephrosis, ascites or free abdominal air. The liver, pancreas, spleen, kidneys, adrenal glands and periaortic lymph node region are free from focal lesions. Stomach, duodenum and colon are morphologically normal to the distal transverse segment. Beyond that point, there are scattered intact diverticuli through the level of the sigmoid and rectal junction. The small bowel is fluid-filled from the duodenum to the terminal ileum. The intestine, however, is not pathologically distended. There is no mural thickening. The urinary bladder is free from calculi. The prostate gland is small. There is distention of the upper left inguinal canal by peritoneal adipose. Spinal alignment is normal. The L4-5 and L5-S1 discs are narrowed and pneumatized. Enthesopathy is noted at L2-L5. The aorta and inferior vena cava are normal in caliber. There is no aortic plaque burden. IMPRESSION: 1. In comparison with the study of 19 August 2025, the current study shows increased fluid volume throughout the small bowel and could represent a mild enteritis. 2. Left colon diverticulosis. 3. Cardiomegaly. 4. Degenerative lumbar discs with lumbar enthesopathy.
[2025-09-07 09:17] LABS: Bilirubin,Urine Negative (Negative); Blood,Urine Negative (Negative); Clarity,Urine Clear (Clear/Hazy); Collection Type, Urine Clean Catch; Color,Urine Lt-Yellow (Lt Yel-Yel); Glucose, Urine 1+ (Negative); Ketones,Urine Negative (Negative); Leukocyte Esterase,Urine Positive (Negative); Nitrite,Urine Negative (Negative); PH,Urine 6.0 (5.0-7.0); Protein,Urine 1+ (Neg - Trace); RBC,Urine 1 /hpf (0-3); Specific Gravity,Urine 1.014 (1.001-1.035); Squamous Epithelial Cell,Urine < 1 /hpf (0-5); Urobilinogen,Urine Negative mg/dL (0.0-1.0); WBC,Urine 1 /hpf (0-5)
[2025-09-07 09:26] LABS: Basophils # (Auto) 0.0 Thou/mm3 (0.0-0.2); Basophils % (Auto) 0 % (0-2.5); Eosinophils # (Auto) 0.1 Thou/mm3 (0.0-0.5); Eosinophils % (Auto) 1 % (0-10); Hematocrit 43.8 % (41.0-53.0); Hemoglobin 14.5 g/dL (13.5-16.0); Immature Granulocytes Auto 0.03 Thou/mm3 (0.00-0.00); Lymphocytes # (Auto) 0.5 Thou/mm3 (1.0-4.8); Lymphocytes % (Auto) 5 % (10-50); Mean Corpuscular HGB Conc 33.1 g/dl (31.0-37.0); Mean Corpuscular Hemoglobin 30.1 pg (25.0-35.0); Mean Corpuscular Volume 91 fL (80-100); Monocytes # (Auto) 0.3 Thou/mm3 (0.0-0.8); Monocytes % (Auto) 3 % (0-12); Neutrophils # (Auto) 9.4 Thou/mm3 (1.8-7.7); Neutrophils % (Auto) 91 % (37-80); Nucleated Red Blood Cell # 0.00 Thou/mm3 (0.00-0.00); Nucleated Red Blood Cell % 0 /100 WBC (0); Platelet Count 192 Thou/mm3 (140-440); RDW Standard Deviation 45.4 fL (35.1-43.9); Red Blood Count 4.81 Miln/mm3 (4.50-5.90); White Blood Count 10.4 Thou/mm3 (3.8-10.6)
[2025-09-07] MEDS: ONDANSETRON INJ 2 MG/ML INJ 2 ML 4 MG IVP (09:26)
[2025-09-07] MEDS: MORPHINE SULF INJ 4 MG/ML VIAL IVP (09:27)
[2025-09-07] MEDS: SODIUM CHLORIDE 0.9% 1000 ML 1,000 ML 50 ML IV (09:29)
--- NOTE | 2025-09-07 09:34 | PC.NURSE ---
PATIENT BROUGHT TO ROOM WITH COMPLAINT OF ABDOMINAL PAIN AND VOMITING SINCE THIS MORNING. PATIENT STATES PAIN IS 7/10 ON PAIN SCALE AND DOES NOT RADIATE. PATIENT DENIES ANY OTHER COMPLAINTS AT TIME OF ASSESSMENT. IV ESTABLISHED, MEDICATION ADMINISTERED. PATIENT GIVEN WARM BLANKETS AND CALL LIGHT WITHIN REACH. WILL CONTINUE TO MONITOR.
[2025-09-07 09:38] LABS: INR 1.2 (0.9-1.3); Partial Thromboplastin Time 26.2 Seconds (22.0-36.0); Prothrombin Time 12.2 Seconds (9.0-12.2)
[2025-09-07 09:44] LABS: Alanine Aminotransferase 16 U/L (10-49); Albumin, Serum 4.1 gm/dL (3.5-5.0); Albumin/Globulin Ratio 1.4 (1.2-2.2); Alkaline Phosphatase 89 U/L (46-116); Anion Gap 11 (7-16); Aspartate Amino Transferase 37 U/L (0-34); BUN/Creatinine Ratio 16 Ratio (12-20); Bilirubin,Total 2.3 mg/dL (0.3-1.2); Blood Urea Nitrogen 16 mg/dL (9-23); Calcium 8.4 mg/dL (8.3-10.6); Calcium (Corrected) 8.4 mg/dL (8.5-10.1); Carbon Dioxide 23.8 mMol/L (20.0-31.0); Chloride 107 mMol/L (98-107); Creatinine (Component) 1.0 mg/dL (0.6-1.3); Estimated Creatinine Clearance 104.4 mL/min (>60); Globulin 2.9 gm/dL (2.3-3.5); Glucose 119 mg/dL (74-106); Lipase 43 U/L (12-53); Osmolality,Calculated 285 (275-295); Potassium 4.0 mMol/L (3.4-5.1); Sodium 142 mMol/L (136-145); Total Protein 7.0 gm/dL (5.7-8.2); eGFR > 60 See Note
[2025-09-07 09:46] LABS: Amphetamine/Methamp Scrn,U Negative (Negative); Barbiturate Screen,Urine Negative (Negative); Benzodiazepines Screen,Urine Negative (Negative); Benzoylecgonine Screen, Ur Negative (Negative); Fentanyl Screen,Urine Negative (Negative); Opiate Screen,Urine Negative (Negative); THC Screen,Urine Positive (Negative)
[2025-09-07 09:46] LABS: B-Type Natriuretic Peptide 672 pg/mL (0-100)
--- NOTE | 2025-09-07 11:54 | XR_ITS ---
Study: Gallbladder ultrasound. INDICATION: Abdomen pain. TECHNIQUE: Grayscale ultrasound with color flow Doppler. 73 images at 1223 hours 07 September 2025. COMPARISON: Abdomen ultrasound of 19 August 2025. FINDINGS: The gallbladder wall varies in thickness from 3 to 5 mm. Is noted is no surrounding edema. There is formless hyperechoic material at the posterior dependent wall of the gallbladder representing possible gallbladder sand. The common bile duct measures 0.6 cm. The liver measures 18.5 cm in the midclavicular line and is normally echogenic. There is no cyst, solid mass or ectatic ducts. Portal vein flow is toward the liver. The portal vein measures 1.3 cm diameter. The pancreas head and body are normal in echogenicity. No mass is seen. The aorta is normal in caliber. The inferior vena cava is patent. IMPRESSION: 1. No acute diagnostic abnormality. 2. Possible chronic cholecystitis with minimal sand.
[2025-09-07 14:17] VITALS: PULSE 82
[2025-09-07 14:18] VITALS: BP 108/83; PULSE 87; RESP 16; TEMP 37; O2SAT 98
--- NOTE | 2025-09-07 16:14 | PD.EDABDPN ---
ED Abdominal Pain RME/HPI General Chief Complaint: Abdominal Pain Stated complaint: ABD PAIN, N/V Time seen by provider: 09/07/25 08:23 Arrival date/time: 09/07/25 08:19 Limitations: no limitations RME / HPI RME / HPI narrative: 09/07/25 08:19 55-year-old male with a history of liver cirrhosis, hyperlipidemia, congestive heart failure, hypertension presents to the emergency room with a chief complaint of shortness of breath, bilateral lower extremity swelling, palpitations x 1 week I have greeted and performed a focused initial assessment of this patient. A comprehensive ED assessment and evaluation of the patient, analysis of all test results, and completion of the medical decision making process will be conducted by additional ED providers. DR. MCKAY MAIN ED EVALUATION: 55 year old male with history of HFrEF (EF 30-35% 10/2024), hypertension, hyperlipidemia, cirrhosis, and polysubstance abuse presents to the ED for evaluation of abdominal pain beginning 1 week ago. Accompanied by nausea,nonbloody vomiting, and nonbloody diarrhea. Denies any sick contacts with similar GI symptoms. Denies fevers, chills, chest pain, cough, shortness of breath, or urinary symptoms. No known modifying factors. Exam: Strong and regular rhythm Clear bilateral lung sounds Distended abdomen Impression: Ascites/CHF exacerbation Related Data Home Medications ?Medication ?Instructions ?Recorded ?Confirmed nitroglycerin 0.4 mg sublingual 0.4 mg buccal 1XD PRN Chest Pain 08/01/24 10/26/24 tablet Previous Rx's ?Medication ?Instructions ?Recorded losartan 25 mg tablet 25 mg PO QDAY #30 tabs 09/15/23 albuterol sulfate 90 mcg/actuation 2 puff inhalation Q6H PRN 09/07/24 aerosol inhaler shortness of breath or wheezing #8.5 grams aspirin 81 mg tablet,delayed 81 mg PO QDAY #60 tabs 10/28/24 release (Ecotrin Low Strength) atorvastatin 20 mg tablet 40 mg (2 x 20 mg) PO HS #30 tabs 10/28/24 bumetanide 2 mg tablet 2 mg PO QDAY #30 tabs 10/28/24 dapagliflozin propanediol 5 mg 10 mg (2 x 5 mg) PO QAM #30 tabs 10/28/24 tablet metoprolol succinate 25 mg 25 mg PO QDAY #30 tabs 10/28/24 tablet,extended release 24 hr rivaroxaban 15 mg tablet (Xarelto) 15 mg PO BIDWM #60 tabs 10/28/24 spironolactone 25 mg tablet 25 mg PO DAILY #30 tabs 10/28/24 furosemide 40 mg tablet (Lasix) 40 mg PO QDAY #20 tabs 11/28/24 potassium chloride 20 mEq 20 meq PO QDAY #20 tabs 11/28/24 tablet,extended release(part/cryst) apixaban 5 mg tablet (Eliquis) 5 mg PO BID #30 tabs 01/10/25 aspirin 81 mg capsule 81 mg PO QDAY #30 caps 01/10/25 atorvastatin 40 mg tablet 40 mg PO QDAY #30 tabs 01/10/25 cephalexin 500 mg capsule 500 mg PO QID #28 caps 01/10/25 doxycycline hyclate 100 mg capsule 100 mg PO BID #14 caps 01/10/25 furosemide 40 mg tablet (Lasix) 40 mg PO BID #30 tabs 01/10/25 losartan 50 mg tablet 50 mg PO QDAY #30 tabs 01/10/25 ketorolac 10 mg tablet 10 mg PO Q8H #10 tabs 08/14/25 apixaban 2.5 mg tablet (Eliquis) 2.5 mg PO BID #60 tabs 09/05/25 aspirin 81 mg tablet 81 mg PO QDAY #30 tabs 09/05/25 atorvastatin 40 mg tablet (Lipitor) 40 mg PO QDAY #30 tabs 09/05/25 bumetanide 1 mg tablet 1 mg PO QDAY #30 tabs 09/05/25 furosemide 40 mg tablet (Lasix) 40 mg PO BID #60 tabs 09/05/25 lorazepam 0.5 mg tablet (Ativan) 0.5 mg PO QDAY PRN alcohol 09/05/25 withdrawal #12 tabs metoprolol succinate 25 mg 25 mg PO QDAY #30 tabs 09/05/25 tablet,extended release 24 hr Allergies Allergy/AdvReac Type Severity Reaction Status Date / Time No Known Allergies Allergy Verified 09/07/25 08:21 Review of Systems Review of Systems Systems Reviewed: All systems reviewed, normal except as documented Past Medical History Past Medical History CARDIAC: Positive Cardiac Disorders, Congestive Heart Failure and Hypertension RESPIRATORY: Positive Pulmonary Embolism GASTROINTESTINAL: Positive Cirrhosis GENITOURINARY: Positive Kidney Stones PSYCHO/SOCIAL: Positive Recreational Drug Use, Depression and Anxiety Family History FAMILY HISTORY: Positive Family Cancer Surgical History SURGICAL: Positive Pacemaker Social History SMOKING STATUS: Never smoker SUBSTANCE USE: does not use ED Exam General Limitations: Present no limitations General appearance: Present alert and obese Head Head exam: Present atraumatic, normocephalic and normal inspection Eye Eye exam: Present normal appearance, PERRL and EOMI ENT ENT exam: Present normal exam, normal oropharynx and mucous membranes moist Neck Neck exam: Present normal inspection, full ROM and trachea midline Chest Chest inspection: Present normal inspection and symmetric chest wall rise Respiratory Respiratory exam: Present normal lung sounds bilaterally Cardiovascular Cardiovascular exam: Present regular rate, normal rhythm and normal heart sounds Abdominal Exam Abdominal exam: Present soft, distention and normal bowel sounds; Absent tenderness, guarding, rebound or rigidity Extremities Exam Extremities exam: Present normal inspection and full ROM Back Exam Back exam: Present normal inspection and full ROM Neurological Exam Neurological exam: Present alert, oriented X3 and CN II-XII intact Psychiatric Psychiatric exam: Present normal affect and normal mood Skin Skin exam: Present warm, dry, intact and normal color Course Quality Measures none Orders Category Date Time Status Tap Out Operator NOW Care 09/07/25 09:04 Completed Continuous Pulse Oximetry NOW Care 09/07/25 09:04 Completed EKG (ED ONLY) *Do not use* NOW Care 09/07/25 09:04 Completed Insert IV NOW Care 09/07/25 09:[address] abdomen pelvis wo con Stat Exams 09/07/25 09:05 Completed EKG (ED Only) Stat Exams 09/07/25 09:04 Draft US abdomen limited Stat Exams 09/07/25 08:40 Completed US gall bladder Stat Exams 09/07/25 11:54 Completed BNP [B-Type Natriuretic Peptide] Stat Lab 09/07/25 09:17 Completed CBC Stat Lab 09/07/25 09:17 Completed CMP [Comprehensive Metabolic Panel] Stat Lab 09/07/25 09:17 Completed Drug Screen,Urine Stat Lab 09/07/25 08:54 Completed Lipase Stat Lab 09/07/25 09:17 Completed PT [Prothrombin Time with INR] Stat Lab 09/07/25 09:17 Completed PTT [Partial Thromboplastin Time] Stat Lab 09/07/25 09:17 Completed UA [Urinalysis] Stat Lab 09/07/25 08:40 Completed Urine Culture Stat Lab 09/07/25 08:54 Received Morphine* Inj Med 09/07/25 09:07 Discontinued 4 mg IVP X1 ONE Ondansetron Inj [Zofran Inj] Med 09/07/25 09:07 Discontinued 4 mg IVP X1 ONE Pantoprazole Inj [Protonix Inj] Med 09/07/25 09:07 Discontinued 40 mg IVP X1 ONE Sodium Chloride 0.9% 1000 ml [Ns] 1,000 ml Med 09/07/25 09:04 Discontinued IV 50 mls/hr Vital Signs Vital signs: Vital Signs Temperature 98.2 F 09/07/25 08:33 Pulse Rate 88 09/07/25 08:33 Respiratory Rate 18 09/07/25 08:33 Blood Pressure 128/81 09/07/25 08:33 Pulse Oximetry (%) 96 09/07/25 08:33 Oxygen Delivery Method Room Air 09/07/25 08:33 Pulse ox is 96% on room air which is adequate. Abdominal Pain MDM MDM Narrative MDM Narrative:: Maria Victoria Serrano am scribing for and in the presence of Dr. Mckay. Patient remains clinically stable throughout the emergency department visit. We reviewed all the results, analysis, and treatment plans. Patient is amenable to discharge. Strict return precautions were outlined. Patient data External records reviewed:: [facility] previous records Clinical information provided by:: patient Social determinants that could affect healthcare access:: substance use Patient has the following chronic illnesses:: HFrEF (EF 30-35% 10/2024), hypertension, hyperlipidemia, cirrhosis, and polysubstance abuse How is presenting disease/condition affected by chronic disease/condition?: exacerbated by Evaluation data The following diagnostics were reviewed and interpreted by me:: lab results, radiology exam(s) and EKG tracing(s) (EKG @ 14:43, normal sinus rhythm, rate 79, left axis deviation, no STEMI. ) Lab and/or radiology exams considered but not ordered:: None Interpretation Summary: Ordering Physician: George Roberts Date of Service: 09/07/25 Procedure(s): US abdomen limited Accession Number(s): [id number] cc: George Roberts; NO PRIMARY/FAMILY,PHYSICIAN; Darien Alatorre MD~ Study: Limited abdomen ultrasound. INDICATION: Ascites. TECHNIQUE: Grayscale ultrasound with color flow Doppler. 5 images at 1233 hours 07 September 2025. FINDINGS: There is no visible ascites in the study. IMPRESSION: No tappable ascites. Dictated By: Darien Alatorre MD Signed By: <Electronically signed by Darien Alatorre MD in OV> 09/07/25 1328 Ordering Physician: Reagan Mckay MD Date of Service: 09/07/25 Procedure(s): CT abdomen pelvis wo con Accession Number(s): [id number] cc: Reagan Mckay MD; NO PRIMARY/FAMILY,PHYSICIAN; Darien Alatorre MD~ Study: Abdomen pelvis CT. INDICATION: Generalized abdominal pain for 1 day. TECHNIQUE: 3 mm slice thickness axial axial, without contrast. 3 mm sagittal and coronal reformats. Radiation dose 1224 mGy centimeters with dose reduction technique. 2157 images at 1002 hours 07 September 2025. COMPARISON: Abdomen pelvis CT dated 19 August 2025. FINDINGS: The patient was imaged from the aortic valve to the subtrochanteric region. The heart appears to be enlarged by possible multichamber distention. There is a sequential AV pacer in the right heart. No pericardial effusion is seen. Trace calcifications noted in the left anterior descending coronary artery. The lung bases are free from infiltrates. Pulmonary veins are mildly distended. There are no effusions. In comparison with the 19 August 2025 study, the gallbladder is now distended to 5.3 cm and is free from stones. There is a solitary 3 x 4 mm calculus in an nonobstructing position within the right kidney. The left kidney, ureters and urinary bladder are free from calculi. There is no hydronephrosis, ascites or free abdominal air. The liver, pancreas, spleen, kidneys, adrenal glands and periaortic lymph node region are free from focal lesions. Stomach, duodenum and colon are morphologically normal to the distal transverse segment. Beyond that point, there are scattered intact diverticuli through the level of the sigmoid and rectal junction. The small bowel is fluid-filled from the duodenum to the terminal ileum. The intestine, however, is not pathologically distended. There is no mural thickening. The urinary bladder is free from calculi. The prostate gland is small. There is distention of the upper left inguinal canal by peritoneal adipose. Spinal alignment is normal. The L4-5 and L5-S1 discs are narrowed and pneumatized. Enthesopathy is noted at L2-L5. The aorta and inferior vena cava are normal in caliber. There is no aortic plaque burden. IMPRESSION: 1. In comparison with the study of 19 August 2025, the current study shows increased fluid volume throughout the small bowel and could represent a mild enteritis. 2. Left colon diverticulosis. 3. Cardiomegaly. 4. Degenerative lumbar discs with lumbar enthesopathy. Dictated By: Darien Alatorre MD Signed By: <Electronically signed by Darien Alatorre MD in OV> 09/07/25 1123 Ordering Physician: Reagan Mckay MD Date of Service: 09/07/25 Procedure(s): US gall bladder Accession Number(s): [id number] cc: Reagan Mckay MD; NO PRIMARY/FAMILY,PHYSICIAN; Darien Alatorre MD~ Study: Gallbladder ultrasound. INDICATION: Abdomen pain. TECHNIQUE: Grayscale ultrasound with color flow Doppler. 73 images at 1223 hours 07 September 2025. COMPARISON: Abdomen ultrasound of 19 August 2025. FINDINGS: The gallbladder wall varies in thickness from 3 to 5 mm. Is noted is no surrounding edema. There is formless hyperechoic material at the posterior dependent wall of the gallbladder representing possible gallbladder sand. The common bile duct measures 0.6 cm. The liver measures 18.5 cm in the midclavicular line and is normally echogenic. There is no cyst, solid mass or ectatic ducts. Portal vein flow is toward the liver. The portal vein measures 1.3 cm diameter. The pancreas head and body are normal in echogenicity. No mass is seen. The aorta is normal in caliber. The inferior vena cava is patent. IMPRESSION: 1. No acute diagnostic abnormality. 2. Possible chronic cholecystitis with minimal sand. Dictated By: Darien Alatorre MD Signed By: <Electronically signed by Darien Alatorre MD in OV> 09/07/25 1326 Medications / Prescriptions Medications or Prescriptions considered but not ordered:: None Medication administrations:: Medication Administration History Discontinued Medications Sodium Chloride (Ns) 1,000 mls @ 50 mls/hr IV .Q20H ONE Stop: 09/08/25 05:03 Last Admin: 09/07/25 09:29 Dose: 50 mls/hr Documented By: INGRID Morphine Sulfate (Morphine Sulf Inj 4 Mg/Ml Vial) 4 mg IVP X1 ONE Stop: 09/07/25 09:08 Last Admin: 09/07/25 09:27 Dose: 4 mg Documented By: INGRID Ondansetron HCl (Ondansetron Inj 2 Mg/Ml Inj 2 Ml) 4 mg IVP X1 ONE; Protocol Stop: 09/07/25 09:08 Last Admin: 09/07/25 09:26 Dose: 4 mg Documented By: INGRID Pantoprazole Sodium (Pantoprazole Inj 40 Mg Vial) 40 mg IVP X1 ONE Stop: 09/07/25 09:08 Last Admin: 09/07/25 09:25 Dose: 40 mg Documented By: INGRID See above Consultations Consultation(s) initiated? (list below): No Diagnosis Differential diagnosis abdominal pain: abdominal pain, gastroenteritis and other (viral illness ) Most likely diagnosis given after review of the tests above:: Abdominal pain Cirrhosis Admission Indicated Admission indicated?: not indicated Admission Request Was there a request for admission?: No Disposition Plan Disposition Plan: Discharge Discharge Attestation Discharge Attestation: The patient and all family members were given an opportunity to ask questions and understood the discharge instructions. Discharge instructions specifically effects, indications for sooner follow up or return to the emergency department, and the expected course of current diagnosis. Patient condition: Stable Discharge Plan Plan Patient Disposition: HOME (Self Care) Patient condition on transfer: Stable Prescriptions/Referrals Prescriptions/Med Rec: No Action losartan 25 mg Tablet 25 mg PO QDAY Qty: 30 2RF nitroglycerin 0.4 mg tablet, sublingual 0.4 mg buccal 1XD PRN (Reason: Chest Pain) Rx Instructions: I TAB UNDER THE TONGUE EVERY 5 MINUTES NEED FOR CHEST PAIN, MAY GIVE UP TO 3 DOSES atorvastatin 20 mg Tablet 40 mg PO HS Qty: 30 0RF aspirin [Ecotrin Low Strength] 81 mg Tablet,Delayed Release (Dr/Ec) 81 mg PO QDAY Qty: 60 0RF spironolactone 25 mg Tablet 25 mg PO DAILY Qty: 30 0RF metoprolol succinate 25 mg Tablet Extended Release 24 Hr 25 mg PO QDAY Qty: 30 0RF Xarelto 15 mg Tablet 15 mg PO BIDWM Qty: 60 0RF dapagliflozin propanediol 5 mg Tablet 10 mg PO QAM Qty: 30 0RF bumetanide 2 mg tablet 2 mg PO QDAY Qty: 30 0RF furosemide [Lasix] 40 mg tablet 40 mg PO QDAY Qty: 20 0RF potassium chloride 20 mEq tablet,ER particles/crystals 20 meq PO QDAY Qty: 20 0RF aspirin 81 mg capsule 81 mg PO QDAY Qty: 30 0RF atorvastatin 40 mg tablet 40 mg PO QDAY Qty: 30 0RF doxycycline hyclate 100 mg capsule 100 mg PO BID Qty: 14 0RF Eliquis 5 mg tablet 5 mg PO BID Qty: 30 0RF cephalexin 500 mg capsule 500 mg PO QID Qty: 28 0RF furosemide [Lasix] 40 mg tablet 40 mg PO BID Qty: 30 0RF losartan 50 mg tablet 50 mg PO QDAY Qty: 30 0RF ketorolac 10 mg tablet 10 mg PO Q8H Qty: 10 0RF Rx Instructions: maximum total duration of 5 days from all oral, intranasal, or parenteral formulations albuterol sulfate 90 mcg/actuation HFA aerosol inhaler 2 puff inhalation Q6H PRN (Reason: shortness of breath or wheezing) Qty: 8.5 0RF metoprolol succinate 25 mg tablet extended release 24 hr 25 mg PO QDAY Qty: 30 0RF furosemide [Lasix] 40 mg tablet 40 mg PO BID Qty: 60 1RF atorvastatin [Lipitor] 40 mg tablet 40 mg PO QDAY Qty: 30 1RF aspirin 81 mg tablet 81 mg PO QDAY Qty: 30 1RF Eliquis 2.5 mg tablet 2.5 mg PO BID Qty: 60 1RF bumetanide 1 mg tablet 1 mg PO QDAY Qty: 30 1RF lorazepam [Ativan] 0.5 mg tablet 0.5 mg PO QDAY PRN (Reason: alcohol withdrawal) Qty: 12 0RF Rx Instructions: 1 tablet 3 times daily for 2 days then twice daily for 2 days then daily for 2 days then stop Referrals: [facility] [Outside] - In 1 week Problem List Clinical Impression: Abdominal pain, Cirrhosis Patient/Caregiver Discharge Instructions Discharge Activity: activity as tolerated Education Materials: Abdominal Pain, ED Cirrhosis, ED Pain, Acute, Uncertain Cause Additional Instructions: Follow-up in 1 week with your primary care provider to go over your medications. Ask for a referral to general surgery as your gallbladder has some mild possible chronic inflammation. Print Language: Thai Stand Alone Forms: Colleen Award Info., Patient Portal Info Letter
== END 2025-09-07 15:30 | disposition home or self-care (01) ==
PROVIDERS: Nurse Practitioner Family; Emergency Provider Family Medicine
DX: K74.60 Unspecified cirrhosis of liver (principal); K57.30 Diverticulosis of large intestine without perforation or abscess without bleeding; I11.0 Hypertensive heart disease with heart failure; M46.06 Spinal enthesopathy, lumbar region; M51.369 Other intervertebral disc degeneration, lumbar region without mention of lumbar back pain or lower extremity pain; I50.20 Unspecified systolic (congestive) heart failure; Z95.0 Presence of cardiac pacemaker; Z79.01 Long term (current) use of anticoagulants
CPT/HCPCS: 36415; 74176; 76705; 80053; 80307; 81001; 83690; 83880; 85025; 85610; 85730; 87086; 93005; 96374; 96375; 99284; J2270; J2405; J2470; J7030